=== PATIENT | male | born 1995 | race Caucasian/White ===

== ENCOUNTER 2023-04-03 15:46 | Inpatient (IN) | payer BC, MEDICAID, SELFPAY ==
[2023-04-03] VITALS (60 sets, daily range): BP systolic 58–154; BP diastolic 44–95; PULSE 91–123; RESP 9–36; TEMP 36; O2SAT 93–100
--- NOTE | 2023-04-03 15:45 | RT.EKG_ITS ---
APPROVED REPORT Exam: Resting ECG Reason for Exam: chest pain Patient Location: E HR:112 bpm ECG Measurements Heart Rate 112 AXIS IA 123 P 52 QRSd 108 QRS 45 QT 332 T -20 QTc 453 Conclusion Sinus tachycardia...rate> 99 Sinus tachycardia at a rate of 112 with interventricular conduction delay. Normal axis. IA and QTc is within normal limits. T wave inversion in aVF. No acute injury pattern. No prior for comparison .
--- NOTE | 2023-04-03 15:56 | ED.GENADUL_ITS ---
Discharge Plan Disposition Patient Disposition: Admit to [facility] Condition: Stable Discharge Details Clinical Impression: Ground glass opacity present on imaging of lung, Acute pancreatitis, SVT (supraventricular tachycardia) Admit Date/Time: 04/03/23 20:34 Admit Provider: Clarissa Lema Attending Provider: Clarissa Lema Primary Care Provider: None,None ED Provider: Drew Sullivan Discharge Data Discharge Date/Time-TO BE ENTERED AT DEPARTURE: 04/03/23 22:01 Medical Decision Making Patient presenting to the emergency department for chief complaint of epigastric pain and discomfort with nausea vomiting and chills. Patient states this is similar to previous episodes of pancreatitis which she states started after getting COVID. Initially was brought on by question of alcoholism but patient reports that he is not drinking and has no new medications foods or other contributing factors. He does have oral Dilaudid that he attempted to take yesterday evening which he was unable to tolerate due to his nausea and vomiting along with his metoprolol and Zofran which she normally takes for his flareups. Physical exam shows significant epigastric tenderness, normal cardiac and respiratory exam, no CVA tenderness, and exam otherwise unremarkable. We will plan on checking labs and CT imaging given patient's history and report of severe pain. Will perform EKG due to noted tachycardia on review of vital signs and patient not able to tolerate his p.o. medications for history of SVT. Pending results of labs and CT imaging will give patient fluids, hydromorphone, and Zofran along with some IV metoprolol due to heart rate noted in the 130s and 40s on monitor. Please see physician interpretation for full interpretation of EKG but upon my review patient is in sinus tachycardia, does not qualify or meet any criteria for acute STEMI. We will continue to monitor. Review of patient's labs show a normal CBC, CMP does show significant anion gap of 15.4, glucose of 117, slightly elevated ALT of 68 otherwise all labs are within normal range including a lipase of 36. CT imaging does show pancreatic inflammation consistent with acute pancreatitis. There is noted by radiology some patchy groundglass opacities right middle and lingular regions of the lungs they do note though that these are nonspecific and may represent other processes. Patient has no respiratory complaints at this time. There are also noted other nonspecific issues within the GI tract. Patient still having significant pain and discomfort so we will give additional dose of Dilaudid which is now his third dose. We will continue fluids which he is got a total of 2 L and will plan on admitting for acute pancreatitis. Hospitalist agreed for admission which patient was also in agreement of this. Patient was given 1 more additional dose of metoprolol given that he was slightly tachycardic but heart rate had improved to 110. Imaging Data Radiologic Study: Imaging: CT Scan Radiologist's impression: Exam(s) PROCEDURE INFORMATION: Exam: CT Abdomen And Pelvis With Contrast Exam date and time: 04/03/2023 6:26 PM Age: 27 years old Clinical indication: Abdominal pain; Patient HX: Epigastric pain, HX of pancreetitis TECHNIQUE: Imaging protocol: Computed tomography of the abdomen and pelvis with contrast. Radiation optimization: All CT scans at this facility use at least one of these dose optimization techniques: automated exposure control; mA and/or kV adjustment per patient size (includes targeted exams where dose is matched to clinical indication); or iterative reconstruction. Contrast material: OMNIPAQUE 350; Contrast volume: 100 ml; Contrast route: INTRAVENOUS (IV); COMPARISON: No relevant prior studies available. FINDINGS: Lungs: Scattered patchy ground-glass opacities within the right middle and lingular regions of the lungs. These findings are nonspecific and may represent hypoventilatory change,edema, hemorrhage, or an infectious/inflammatory process (acute or chronic). The lungs are otherwise normal. Pleural spaces: There is no evidence of pneumothorax. There are no pleural effusions present. Heart: The cardiac structures are normal. Liver: The liver is enlarged measuring 20 cm. There is a diffuse decrease in hepatic parenchymal density, consistent with moderate fatty infiltration. There is no evidence of intrahepatic or extrahepatic biliary ductal dilation. Gallbladder and bile ducts: The gallbladder is normal. There is no cholelitiasis, wall thickening or pericholecystic fluid to suggest cholecystitis. Pancreas: The pancreas is normal. There is diffuse peripancreatic inflammatory stranding and fluid, consistent with acute pancreatitis. Spleen: The spleen is enlarged but otherwise normal. Adrenal glands: Normal. No mass. Kidneys and ureters: Nonobstructing calculus present within the lower pole of the right kidney. The kidneys are otherwise normal. Stomach and bowel: There is no evidence of intestinal obstruction. There are fluid-filled loops of small bowel with air-fluid levels. No significant bowel wall thickening or inflammatory changes. No evidence of obstruction. Consider early enteritis. Consider ileus secondary to pancreatitis. Appendix: There is no evidence of appendicitis. Intraperitoneal space: There is no evidence of free intraperitoneal or pelvic fluid. Vasculature: The aorta is unremarkable without evidence of significant atherosclerosis or aneurysmal disease. The peripheral arterial vascular system visualized is unremarkable. The portal venous system visualized is unremarkable. The peripheral venous vascular system visualized is unremarkable. Lymph nodes: There is no evidence of lymphadenopathy. There are enlarged nonspecific lymph nodes in the mesenteric fat. This nonspecific mesenteric adenitis can be secondary to a variety of bacterial, viral, or other inflammatory processes. Urinary bladder: The bladder is normal. Reproductive: The prostate gland and seminal vesicles are normal. Bones/joints: The skeletal structures and soft tissues show no evidence of fracture or other acute processes. Soft tissues: The extra-abdominal soft tissues are normal. IMPRESSION: 1. There is diffuse peripancreatic inflammatory stranding and fluid, consistent with acute pancreatitis. There is no free intraperitoneal air. 2. Scattered patchy ground-glass opacities within the right middle and lingular regions of the lungs. These findings are nonspecific and may represent hypoventilatory change,edema, hemorrhage, or an infectious/inflammatory process (acute or chronic). 3. There are fluid-filled loops of small bowel with air-fluid levels. No significant bowel wall thickening or inflammatory changes. No evidence of obstruction. Consider early enteritis. Consider ileus secondary to pancreatitis. 4. There are enlarged nonspecific lymph nodes in the mesenteric fat. This nonspecific mesenteric adenitis can be secondary to a variety of bacterial, viral, or other inflammatory processes. Dictated and Authenticated by: Cheng Griffin MD. Ordering:MATT Russell MD [facility] Mode of arrival: ambulatory . Date/Time Provider Initiated Documentation: 04/03/23 15:51 . Limitations to Documentation: no limitations . Information obtained by: patient and RN notes reviewed . History of Present Illness 27 year old M presents to the emergency department with the chief complaint of Epigastric and abdominal pain, described as moderate and similar to prior episodes, with intensity rated at 9. Quality is described as aching and sharp, and is localized to the abdomen. Patient reports no radiation. Patient started experiencing this day(s) (1) and it has been constant. No relieving factors improve symptom(s), No exacerbating factors reported . Patient did receive the following treatments prior to arrival, other (Attempted normally prescribed meds with inability to tolerate due to vomiting) Related Data Home Medications Medication Instructions Recorded Confirmed hydromorphone 2 mg tablet 2 mg PO PRN PRN Severe Pain (Scale 04/03/23 04/03/23 (Dilaudid) Score 7-10) melatonin 1 mg tablet 1 mg PO HS 04/03/23 04/03/23 metoprolol succinate 100 mg 200 mg PO DAILY 04/03/23 04/03/23 capsule sprinkle, ext. release 24 hr ondansetron 4 mg disintegrating 4 mg PO DAILY PRN 04/03/23 04/03/23 tablet Allergies Allergy/AdvReac Type Severity Reaction Status Date / Time droperidol AdvReac Cardiac Unverified 04/03/23 16:33 Dysrhythmia haloperidol [From Haldol] AdvReac Diarrhea Unverified 04/03/23 16:31 General Stated Complaint: Chest Pain PRITI: 3 Review of Systems Constitutional Constitutional: Reports chills, Denies fever(s), Reports headache(s) and Reports malaise ENT Ears, Nose, Mouth, and Throat: Reports headache(s) Cardiovascular Cardiovascular: Denies chest pain and Denies dyspnea Respiratory Respiratory: Denies cough and Denies dyspnea Gastrointestinal Gastrointestinal: Reports as per HPI, Reports abdominal pain, Denies melena, Denies hematochezia, Denies change in bowel habits, Denies constipation, Reports diarrhea, Reports nausea, Reports vomiting and Denies hematemesis Genitourinary Genitourinary: Denies hematuria and Denies difficulty urinating Integumentary/Breasts Skin/Breast: Denies rash Neurologic Neurologic: Reports headache(s) PFSH All Active Problems (Updated 04/04/23 @ 15:48 by Drew Sullivan NP) Obesity (Chronic) Dependence on nocturnal oxygen therapy (Acute) Obstructive sleep apnea (Chronic) Ileus (Acute) Ground glass opacity present on imaging of lung (Acute) Discharge planning issues (Acute) DVT prophylaxis (Acute) Hypertriglyceridemia (Acute) Acute pancreatitis (Acute) SVT (supraventricular tachycardia) (Chronic) Medical History (Updated 04/04/23 @ 15:48 by Drew Sullivan NP) Duodenitis DVT (deep venous thrombosis) Pancreatitis Pulmonary embolism 2020 post COVID-19; finished 3 months of anticoagulation with eliquis Surgical History (Updated 04/04/23 @ 00:33 by Clarissa Lema MD) H/O esophagogastroduodenoscopy H/O tooth extraction History of biopsy negative retroperitoneal biopsy (ruled out retroperitoneal fibrosis) Hx of appendectomy S/P colonoscopy Family History (Updated 04/04/23 @ 00:35 by Clarissa Lema MD) Mother Heart disease Had stents placed in her 30s Diabetes Maternal Grandfather Stroke Hypertension Maternal Aunt Cancer brain cancer Maternal Cousin Lupus Father Crohn disease Social History (Updated 04/04/23 @ 00:36 by Clarissa Lema MD) Smoking/Tobacco Use Status: Former Tobacco Use tobacco type: cigarettes Pack- years: 1 Tobacco: How many years used: 3 Smoking risk assessment performed?: Yes Alcohol Intake: former Substance use type: does not use Do you feel safe at home: Yes Do you feel safe in your relationship?: Yes Exam Const General: cooperative Orientation: alert, awake and oriented x3 Resp Effort & Inspection: normal respiratory effort and able to speak in complete sentences Auscultation: clear to auscultation bilaterally Cardio Rate: tachycardic Rhythm: regular rhythm Heart Sounds: S1 normal and S2 normal GI Inspection: normal to inspection and no abdominal wall ecchymosis Palpation: soft, no hepatosplenomegaly, not firm, no guarding, no masses, no pulsatile masses, not rigid, no splenomegaly and tender in the epigastrum, in the LUQ and in the RUQ; not at McBurney's point and Dominguez's sign negative Auscultation: normal bowel sounds Back/Spine/Pelvis Back: no CVA tenderness Neuro General: patient alert, patient awake, patient oriented x3, gait normal and moves all extremities Course Vital Signs Vital signs: Temperature Source Oral 04/03/23 15:51 Respiratory Effort Normal, Non-Labored 04/03/23 15:53 Blood Pressure Position Sitting 04/03/23 15:51 Oxygen Delivery Method Room Air 04/03/23 15:51 Oxygen Flow Rate 0 04/03/23 15:51 Pain Level 10 04/03/23 15:51
--- NOTE | 2023-04-03 16:00 | DI.CT_ITS ---
Exam(s) CT ABDOMEN PELVIS W EXAM: CT ABDOMEN PELVIS W CLINICAL HISTORY: epigastric pain hx of pancretitis. TECHNIQUE: Imaging Protocol: Axial computed tomography images with coronal and sagittal reformatted images were created and reviewed CONTRAST MATERIAL: Intravenous: Omnipaque 350 Contrast volume:100 ml Oral: / no COMPARISON: No exams were available for comparison FINDINGS: ABDOMEN: Lung Bases: Patchy density seen in the right middle lobe anteriorly on the 1st image through the lung s, nonspecific. Liver: Enlarged. Marked fatty infiltration. No measurable mass. Gallbladder and biliary tract: No radiodense calculus or dilation. Pancreas: Inflammation around the head of the pancreas. No pseudocyst. Spleen: Normal. Kidneys: Normal size, contour and axis. Tiny nonobstructing stone right kidney. No suspicious masses seen. Retroaortic left renal vein. Adrenal glands: No masses seen. Abdominal Aorta: Abdominal portion non-dilated. Soft tissues: Unremarkable. PELVIS: Bladder: Nearly empty. No gross wall thickening. No calculi.No focal mass. Bowel: No obstruction. Mild wall thickening of the duodenum adjacent to the pancreatic head seconda ry to pancreatitis. No evidence of appendicitis. Peritoneal cavity: No ascites or collection. Inflammation in the mesentery of the upper abdomen rela audrey to pancreatic inflammation. Bones: Unremarkable for age. Reproductive organs: Within normal limits. Lymph nodes: Mildly enlarged mesenteric nodes could be reactive. Impression: Findings consistent with pancreatitis. No pseudocyst. No biliary dilatation or gallstones. Marked hepatic steatosis. RADIATION DOSE DELIVERED: 1,535.03mGy.cm Total DLP DATA REPOSITORY: All CT scans at this facility are submitted to the National Radiology Data Registry (NRDR) Dose Index Registry (DIR) with the [employer] ([employer]). RADIATION OPTIMIZATION: All CT scans at this facility use at least one of these dose optimization te chniques: automated exposure control; mA and/or kV adjustment per patient size (includes targeted exa ms where dose is matched to clinical indication); or iterative reconstruction.
[2023-04-03] MEDS: Ondansetron 4 MG/2 ML VIAL 8 MG IVP (16:41)
[2023-04-03] MEDS: HYDROmorphone 2 MG/ML SYR 1 MG IVP (16:45)
[2023-04-03] MEDS: Metoprolol 5 MG/5 ML VIAL 2.5 MG IVP ×2 (16:46→20:47)
[2023-04-03] MEDS: Normal Saline 1,000 ML 1000 ML IV ×2 (16:55→19:25)
[2023-04-03] MEDS: FAMOTIDINE 20 MG in Normal Saline 100 ML 400 MG IVPB (16:59)
[2023-04-03 17:02] LABS: Abs Immature Grans 0.02 10^3/uL (0.0-0.06); Absolute Basophil Count 0.07 10^3/uL (0.0-0.2); Absolute Lymphocyte Count 2.04 10^3/uL (1.2-3.4); Absolute Neutrophil Count 6.44 10^3/uL (1.2-6.7); Basophils % 0.7; Eosinophils % 1.1; HCT 46.1 % (40.0-50.0); Immature Grans % 0.2; Lymphocytes % 21.8; MCH 28.2 pg (27.0-33.0); MCHC 34.7 % (32.0-36.0); MCV 81 fL (80-95); MPV 9.7 fL (8.0-11.0); Monocytes % 7.5; Neutrophils % 68.7; Platelet Count 289 10^3/uL (130-400); RBC 5.68 10^6/uL (4.36-5.78); RDW 12.8 % (11.8-14.1); RDW-SD 37.5 fL; WBC 9.37 10^3/uL (4.4-10.8)
[2023-04-03 17:25] LABS: ALT 68 U/L (16-63); AST 27 U/L (15-37); Albumin 4.2 g/dL (3.4-5.0); Alkaline Phosphatase 83 U/L (46-116); Anion Gap 15.4 mmol/L (3-11); BUN 12 mg/dL (7-18); Bilirubin, Total 0.8 mg/dL (0.2-1.0); CO2 22.6 mmol/L (21.0-32.0); CREATININE 0.8 mg/dL (0.70-1.30); Calcium 9.6 mg/dL (8.5-10.1); Chloride 102 mmol/L (98-107); Estimated GFR 122.86 (mL/min/1.73m2); Glucose 117 mg/dL (74-106); Lipase 36 U/L (16-77); Magnesium 1.9 mg/dL (1.8-2.4); Potassium 3.6 mmol/L (3.5-5.1); Sodium 140 mmol/L (136-145); Total Protein 7.9 g/dL (6.4-8.2)
[2023-04-03] MEDS: HYDROmorphone 2 MG/ML SYR IVP ×3 (17:43→22:36)
--- OUTSIDE RECORDS SUMMARY | 2023-04-03 17:55 | XMS_ITS | Continuity of Care Document ---
Author Name Unknown Organization 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 Name Role Phone MARLEN PINA Primary Care Physician [phone] Encounter BVT Date(s): 01/15/23 - 01/15/[address] [address]- [phone] Discharge Disposition: Home or Self Care Attending Physician: LUDMILA GALINDO Admitting Physician: LUDMILA GALINDO Allergies, Adverse Reactions, Alerts Substance Reaction Severity Status ketamine Severe Active FLUoxetine Mild Active Assessment and Plan Extracted from: Title:Addendum *ED Author:Choco Thayer Date:01/15 Medical Decision Making 27-year-old male with a past medical history significant for recurrent episodes of pancreatitis and a remote history of complicated admission for COVID-19 in 2019 who presents with repeat discomfort. The patient was evaluated by this physician on January 05. At that time, a CT angiogram of the chest, abdomen and pelvis was obtained which showed no evidence of aortic dissection. The patient was at mated to the hospital at that time for further symptomatic management. He was discharged from this facility 5 days ago. He is followed by [facility]. Overnight, labs were obtained. The patient has no significant leukocytosis. His lipase is normal at 32. No transaminitis. Ethanol unremarkable. He was treated symptomatically and given his persistent symptoms Dr. Galindo discussed the case with the admitting team who advised further observation for symptomatic management in the emergency department and hydration. The patient was given droperidol as well as additional fluids. Will reassess. Reexamination/ Reevaluation Time: 01/15/2023 10:09:00 . Vital signs Basic Oxygen Information 01/15/2023 6:49 EDT Oxygen Therapy Nasal cannula Oxygen Flow Rate 4 L/min 01/15/2023 3:25 EDT Oxygen Therapy Room air Notes: I reevaluated the patient. He recently ambulated in the [facility] independently. He was in no acute distress during my evaluation. He was lying on his right side. We will perform an oral challenge., 1044 The patient was able to tolerate oral intake. He states that he feels ready to go. He informed the nursing staff that he would be ready to go if I could write for him some oral pain medication.. Impression and Plan Diagnosis Nausea and vomiting Chronic abdominal pain Plan Disposition: Discharged: to home. Patient was given the following educational materials: Abdominal Pain, Adult, Abdominal Pain, Adult. Follow up with: MARLEN PINA Within 2 to 4 days Call for followup appointment; Please call your sanitation manager at [facility] today to schedule your follow-up appointment. Within 1 to 2 days Call for followup appointment. Counseled: Patient. Extracted from: Title:General Medical Problem *ED Author:LUDMILA GALINDO Date:01/15/23 History of Present Illness This is a 27-year-old male with a history of recurrent pancreatitis status post COVID infection presenting to the emergency department with 2-day history of epigastric abdominal pain, nausea and vomiting consistent with his prior episodes of pancreatitis. Patient was recently admitted in this emergency department from 01/08 to 01/10 for similar symptoms. Please see notes on those states for complete details of that encounter. Briefly, patient has had 8-10 bouts of pancreatitis status post COVID infection with no clear etiology. Patient denies any history of alcohol or drug use. He has had approximately 2 days of epigastric abdominal pain radiating to his back and shoulder. Is been associated with nausea and nonbloody nonbilious vomiting. Did have 1 episode of nonbloody diarrhea yesterday. He has had markedly limited p.o. intake secondary to the pain and nausea has been unable to tolerate his medicines at home. He has had low-grade temperature that is at baseline for him but no fevers. No other cough, cold, shortness of breath or known sick contacts. No other chest pain. No dysuria, no peripheral swelling. Review of Systems Negative except as noted in HPI Health Status Medications: (Selected) Inpatient Medications Ordered !-Zofran: 4 mg = 2 mL, IV Push, Once !-hydrocortisone 100 mg injection: 100 mg = 2 mL, IV Push, Once Dilaudid 1 mg/mL injectable solution: 1 mg = 1 mL, IV Push, q2hr, PRN: Pain Normal Saline: 1,000 mL, 1000 mL/hr, IV, Once Prescriptions Prescribed predniSONE 20 mg oral tablet: See Instructions, Take 2 tabs daily for 7 days, then 1 tab daily thereafter, 45 tab(s), 0 Refill(s) Documented Medications Documented !-Zofran 4 mg oral tablet: 4 mg = 1 tab(s), Oral, q8hr, PRN: Nausea/Vomiting, 0 Refill(s) Hydromorphone: 6 mg, Oral, q6hr, 0 Refill(s) MiraLax: 17 gm = 1 packet(s), Oral, Daily, 0 Refill(s) acetaminophen 325 mg oral tablet: 650 mg = 2 tab(s), Oral, q4hr, PRN: Pain/Fever, 0 Refill(s) dicyclomine 20 mg oral tablet: 20 mg = 1 tab(s), Oral, TID, 0 Refill(s) docusate-senna 50 mg-8.6 mg oral tablet: 2 tab(s), Oral, BID, PRN: Constipation, 0 Refill(s) gabapentin 100 mg oral capsule: 300 mg = 3 cap(s), Oral, TID, 0 Refill(s) melatonin: 10 mg, Oral, Once a day (at bedtime), 0 Refill(s) metoprolol extended release: 200 mg, Oral, Daily, 0 Refill(s) omeprazole 20 mg oral delayed release capsule: 20 mg = 1 cap(s), Oral, Daily, before a meal, 0 Refill(s) traZODone 50 mg oral tablet: 50 mg = 1 tab(s), Oral, Once a day (at bedtime), 0 Refill(s). Past Medical/ Family/ Social History Medical history: No active or resolved past medical history items have been selected or recorded.. Physical Examination Vital Signs Vital Signs 01/15/2023 3:25 EDT Temperature Temporal Artery 36.2 DegC LOW Peripheral Pulse Rate 106 bpm HI Respiratory Rate 20 br/min Systolic Blood Pressure 151 mmHg HI Diastolic Blood Pressure 99 mmHg HI SpO2 98 % . General: Alert. Skin: Warm, dry. Head: Atraumatic. Neck: Supple. Eye: Normal conjunctiva. Cardiovascular: Regular rate and rhythm. Respiratory: Lungs are clear to auscultation, respirations are non-labored, breath sounds are equal. Gastrointestinal: Soft, Non distended, Tenderness to palpation to right upper quadrant and epigastric region. No rebound, guarding or other peritoneal signs.. Neurological: Alert and oriented to person, place, time, and situation, No focal neurological deficit observed. Psychiatric: Cooperative. Medical Decision Making Results review: Lab results : Lab View 01/15/2023 3:59 EDT WBC 9.9 x10(3)/uL HI RBC 4.77 x10(6)/uL Hgb 14.0 gm/dL Hct 39.3 % LOW MCV 82.4 fL MCH 29.4 pg MCHC 35.6 gm/dL RDW-CV 13.2 % Platelet 268 x10(3)/uL MPV 9.5 fL Neutro Auto 56.9 % Lymph Auto 32.6 % [place] Auto 8.2 % Eos Auto 1.3 % Basophil Auto 0.6 % NRBC Auto Pct 0.00 % Neutro Absolute 5.65 x10(3)/uL HI Lymph Absolute 3.24 x10(3)/uL [place] Absolute 0.81 x10(3)/uL HI Eos Absolute 0.13 x10(3)/uL NRBC Absolute 0.00 x10(3)/uL Basophil Absolute 0.06 x10(3)/uL Immature Gran % 0.40 % Immature Gran Absolute 0.04 x10(3)/uL NA Sodium Lvl 138 mmol/L Potassium Lvl 3.5 mmol/L Chloride 102 mmol/L CO2 20 mmol/L LOW AGAP 19.5 mmol/L HI BUN 13 mg/dL Creatinine 0.60 mg/dL LOW Glucose Lvl 107 mg/dL HI Calcium Lvl 9.3 mg/dL Total Protein 6.9 gm/dL Albumin Lvl 4.20 gm/dL Alk Phos 56 IntUnit/L ALT 29 IntUnit/L AST 16 IntUnit/L Bili Total 0.7 mg/dL Lipase Lvl 32 IntUnit/L Osmolality 276.3 mOsm/kg eGFR CKD-EPI 134.01 mL/min/1.73 m2 . This is a 27-year-old male presenting to the emergency department with epigastric pain consistent with his prior episodes of pancreatitis. Patient was otherwise hemodynamically stable and clinically well-appearing with low concern for other serious bacterial infection. Patient was initially treated with IV Dilaudid, Zofran and IV fluids with minimal improvement in symptoms. Additional dosing of IV Dilaudid did help improve pain somewhat. Lab work without significant leukocytosis. Mild anion gap likely due to dehydration and poor p.o. intake otherwise reassuring CMP and lipase. Normal lab work consistent with prior episodes. Considered further evaluation with CT scan however as patient's presentation is pathognomonic for his prior episodes of pancreatitis do not feel further imaging is warranted at this time, likely given his multiple prior and recent CT scans. Discussed work-up to this point with the hospital medicine service. He has concerns about his significant work-up to this point and possible drug-seeking behavior given multiple hospitalizations at different hospitals. Review of patient's gastroenterology records reveals concern for more generalized abdominal pain syndrome versus true pancreatitis although the cause of his symptoms remains unclear. Discussed multiple hospitalizations with patient. Notes that he splits his time between [place] and [place] depending where he is for work and he is currently living in this part of the [place]. Per their request, will plan for additional fluid rehydration and trial of pain medications. Due to ongoing pain patient was treated with droperidol. We will reengage hospital medicine if symptoms not improve. Care was signed out to the hospital medicine service pending reevaluation. Impression and Plan Diagnosis Abdominal pain Functional Status 01/15/23 History of Fall in Last 3 Months Leatha khan Recent Travel History No recent travel Family Member Travel History No recent t jesus COVID-19 Screening None Medications !-Zofran 4 mg oral tablet 4 mg = 1 tab(s), Oral, q8hr, PRN PRN Nausea/Vomiting, 0 Refill(s) Start Date: 12/24/22 Status: Ordered acetaminophen 325 mg oral tablet 650 mg = 2 tab(s), Oral, q4hr, PRN PRN Pain/Fever, 0 Refill(s) Start Date: 01/10/23 Status: Ordered dicyclomine 20 mg oral tablet 20 mg = 1 tab(s), Oral, TID, 0 Refill(s) Start Date: 12/24/22 Status: Ordered docusate-senna 50 mg-8.6 mg oral tablet 2 tab(s), Oral, BID, PRN PRN Constipation, 0 Refill(s) Start Date: 12/24/22 Status: Ordered gabapentin 100 mg oral capsule 300 mg = 3 cap(s), Oral, TID, 0 Refill(s) Start Date: 12/24/22 Status: Ordered Hydromorphone 6 mg, Oral, q6hr, 0 Refill(s) Start Date: 01/15/23 Status: Ordered melatonin 10 mg, Oral, Once a day (at bedtime), 0 Refill(s) Start Date: 12/24/22 Status: Ordered metoprolol extended release 200 mg, Oral, Daily, 0 Refill(s) Start Date: 12/24/22 Status: Ordered MiraLax 17 gm 1 packet(s), Oral, Daily, 0 Refill(s) Start Date: 12/24/22 Status: Ordered omeprazole 20 mg oral delayed release capsule 20 mg = 1 cap(s), Oral, Daily, before a meal, 0 Refill(s) Start Date: 12/24/22 Status: Ordered predniSONE 20 mg oral tablet See Instructions, Take 2 tabs daily for 7 days, then 1 tab daily thereafter, # 45 tab(s), 0 Refill(s), Pharmacy: [facility], Take 2 tabs daily for 7 days, then 1 tab daily thereafter, 175.3, cm, 01/07/23 20:45:00 EST, Height/Length Dosing, 126.... Start Date: 01/10/23 Status: Ordered traZODone 50 mg oral tablet 50 mg = 1 tab(s), Oral, Once a day (at bedtime), 0 Refill(s) Start Date: 12/24/22 Status: Ordered Mental Status 01/15/23 Level of Consciousness Alert Problem List Condition Confirmation Course Effective Dates Status Health St [facility] Informant Recurrent acute pancreatitis Confirmed Active Back pain Confirmed Active GERD (gastroesophageal reflux disease) Confirmed Active Insomnia Confirmed Active Obesity Confirmed Active KAYLA (obstructive sleep apnea) Confirmed Active Pneumonia due to COVID-19 virus Confirmed Active Pulmonary embolism Confirmed Active Results Laboratory List Name Date Urinalysis with Culture, if indicated [facility] 01/15/23 Ethanol Level2 (Alcohol Level) 01/15/23 Urinalysis Microscopic Standard 01/15/23 Automated Differential Standard 01/15/23 CBC w/Diff Standard 01/15/23 Comprehensive Metabolic Panel Standard ( CMP Standard) 01/15/23 Lipase Level 01/15/23 Most recent to oldest [Reference Range]: 1 Urine Culture? No (01/15/23 9:55 AM) ETOH% <0.01 % *NA* (01/15/23 5:24 AM) eGFR CKD-EPI [>=60 mL/min/1.73 m2] 134.0 1 mL/min/1.73 m2 *NA* (01/15/23 3:59 AM) NRBC Auto Pct [0.00-0.20 %] 0.00 % (01/15/23 3:59 AM) Creatinine [0.70-1.20 mg/dL] 0.60 mg/dL *LOW* (01/15/23 3:59 AM) UA Bacteria [None Seen] None Seen (01/15/23 9:55 AM) UA Bili [NEGATIVE] NEGATIVE *NA* (01/15/23 9:55 AM) UA Blood [NEGATIVE] Trace *ABN* (01/15/23 9:55 AM) UA Color YELLOW *NA* (01/15/23 9:55 AM) UA Glucose [Negative] NEGATIVE *NA* (01/15/23 9:55 AM) UA Ketones TRACE *NA* (01/15/23 9:55 AM) UA Leuk Est [NEGATIVE] NEGATIVE (01/15/23 9:55 AM) UA Nitrite [NEGATIVE] NEGATIVE (01/15/23 9:55 AM) UA Protein [NEGATIVE] NEGATIVE (01/15/23 9:55 AM) UA RBC [0-2] 0-2 (01/15/23 9:55 AM) UA Urobilinogen [<1.0 mg/dL] 0.2 EU/dL (01/15/23 9:55 AM) UA WBC 0-2 (01/15/23 9:55 AM) AGAP [10.0-18.0 mmol/L] 19.5 mmol/L *HI* (01/15/23 3:59 AM) Ethanol Lvl [0.0-10.0 mg/dL] <10.0 mg/dL (01/15/23 5:24 AM) Glucose Lvl [70-100 mg/dL] 107 mg/dL *HI* (01/15/23 3:59 AM) Hct [40.1-51.0 %] 39.3 % *LOW* (01/15/23 3:59 AM) Hgb [13.7-17.5 gm/dL] 14.0 gm/dL (01/15/23 3:59 AM) Lipase Lvl [13-60 IntUnit/L] 32 IntUnit/ L (01/15/23 3:59 AM) Lymph Auto [15.0-45.0 %] 32.6 % (01/15/23 3:59 AM) MCH [25.6-32.2 pg] 29.4 pg (01/15/23 3:59 AM) MCHC [32.3-36.5 gm/dL] 35.6 gm/dL (01/15/23 3:59 AM) MCV [79.0-92.2 fL] 82.4 fL (01/15/23 3:59 AM) [place] Auto [4.0-14.0 %] 8.2 % (01/15/23 3:59 AM) MPV [9.4-12.4 fL] 9.5 fL (01/15/23 3:59 AM) Neutro Auto [50.0-75.0 %] 56.9 % (01/15/23 3:59 AM) Osmolality [268.0-291.0 mOsm/kg] 276.3 m Osm/kg (01/15/23 3:59 AM) Platelet [150-400 x10(3)/uL] 268 x10(3)/ uL (01/15/23 3:59 AM) RBC [4.63-6.08 x10(6)/uL] 4.77 x10(6)/uL (01/15/23 3:59 AM) Sodium Lvl [136-145 mmol/L] 138 mmol/L (01/15/23 3:59 AM) Total Protein [6.6-8.7 gm/dL] 6.9 gm/dL (01/15/23 3:59 AM) UA pH [4.6-8.0] 5.5 (01/15/23 9:55 AM) Albumin Lvl [3.50-5.20 gm/dL] 4.20 gm/dL (01/15/23 3:59 AM) Alk Phos [40-130 IntUnit/L] 56 IntUnit/L (01/15/23 3:59 AM) ALT [0-41 IntUnit/L] 29 IntUnit/L (01/15/23 3:59 AM) AST [0-40 IntUnit/L] 16 IntUnit/L (01/15/23 3:59 AM) Basophil Auto [0.0-2.0 %] 0.6 % (01/15/23 3:59 AM) Bili Total [0.0-1.3 mg/dL] 0.7 mg/dL (01/15/23 3:59 AM) CO2 [22-29 mmol/L] 20 mmol/L *LOW* (01/15/23 3:59 AM) Eos Auto [0.0-8.0 %] 1.3 % (01/15/23 3:59 AM) UA Spec Grav [1.000-1.035] 1.020 (01/15/23 9:55 AM) WBC [4.2-9.1 x10(3)/uL] 9.9 x10(3)/uL *HI* (01/15/23 3:59 AM) BUN [6-23 mg/dL] 13 mg/dL (01/15/23 3:59 AM) Calcium Lvl [8.6-10.2 mg/dL] 9.3 mg/dL (01/15/23 3:59 AM) Chloride [98-107 mmol/L] 102 mmol/L (01/15/23 3:59 AM) Potassium Lvl [3.5-5.1 mmol/L] 3.5 mmol/ L (01/15/23 3:59 AM) Micro? [Not Indicated] Indicated *ABN* (01/15/23 9:55 AM) Lymph Absolute [1.30-3.60 x10(3)/uL] 3.2 4 x10(3)/uL (01/15/23 3:59 AM) [place] Absolute [0.30-0.80 x10(3)/uL] 0.81 x10(3)/uL *HI* (01/15/23 3:59 AM) Eos Absolute [0.04-0.36 x10(3)/uL] 0.13 x10(3)/uL (01/15/23 3:59 AM) NRBC Absolute [0.00-0.01 x10(3)/uL] 0.00 x10(3)/uL (01/15/23 3:59 AM) UA Clarity CLEAR *NA* (01/15/23 9:55 AM) Neutro Absolute [1.78-5.38 x10(3)/uL] 5. 65 x10(3)/uL *HI* (01/15/23 3:59 AM) RDW-CV [11.6-14.4 %] 13.2 % (01/15/23 3:59 AM) UA Squam Epi Few *ABN* (01/15/23 9:55 AM) Immature Gran % [0.00-2.30 %] 0.40 % (01/15/23 3:59 AM) Immature Gran Absolute 0.04 x10(3)/uL *NA* (01/15/23 3:59 AM) Basophil Absolute [0.00-0.10 x10(3)/uL] 0.06 x10(3)/uL (01/15/23 3:59 AM) Vital Signs Most recent to oldest [Reference Range]: 1 2 3 Temperature Temporal Artery [36.3-37.8 DegC] 36.2 DegC *LOW* (01/15/23 3:25 AM) Peripheral Pulse Rate [60-100 bpm] 98 bpm (01/15/23 9:55 AM) 109 bpm *HI* (01/15/23 9:46 AM) 115 bpm *HI* (01/15/23 9:43 AM) Respiratory Rate [14-20 br/min] 20 br/min (01/15/23 3:25 AM) Blood Pressure [90-140/60-90 mmHg] 135/97mmHg (01/15/23 9:55 AM) 147/102mmHg *HI* (01/15/23 5:54 AM) 133/96mmHg (01/15/23 5:00 AM) Mean Arterial Pressure, Cuff [70-110 mmHg] 110 mmHg (01/15/23 9:55 AM) 117 mmHg *HI* (01/15/23 5:54 AM) 108 mmHg (01/15/23 5:00 AM) Mean Arterial Pressure Cuff-Monitor 110 mmHg (01/15/23 9:55 AM) 112 mmHg (01/15/23 5:54 AM) 108 mmHg (01/15/23 5:00 AM) SpO2 [92-100 %] 97 % (01/15/23 9:55 AM) 95 % (01/15/23 9:46 AM) 96 % (01/15/23 9:43 AM) SpO2 Location Right hand (01/15/23 6:49 AM) Height/Length Estimated 175.000 cm (01/15/23 3:25 AM) Height/Length Dosing 175.000 cm (01/15/23 3:30 AM) Weight Estimated 128.000 kg (01/15/23 3:25 AM) Weight Dosing 128.000 kg (01/15/23 3:30 AM) Social History Social History Type Response Tobacco Never tobacco user T obacco Use:. Sex Hospital Discharge Instructions Patient Education 01/15/2023 10:51:32 Abdominal Pain, Adult You were seen in the emergency department for your abdominal pain. Your pancreatic levels were normal today. Your symptoms were treated in the emergency department with some improvement. Please continue with clear liquids that contain sugar while at home. At this time, no emergent causes were identified. However, no evaluation is perfect. Therefore, please be sure to return to the emergency department for any worsening of symptoms, continued symptoms, or new symptoms. Please be sure to follow-up with your doctor in 2 - 3 days as well as your sanitation manager at [facility]. Please call your sanitation manager today to schedule this appointment. Abdominal Pain, Adult Pain in the abdomen (abdominal pain) can be caused by many things. Often, abdominal pain is not serious and it gets better with no treatment or by being treated at home. However, sometimes abdominal pain is serious. Your health care provider will ask questions about your medical history and do a physical exam to try to determine the cause of your abdominal pain. Follow these instructions at home: Medicines ??? Take xuub-iyq-wlbxxbb and prescription medicines only as told by your health care provider. ??? Do not take a laxative unless told by your health care provider. General instructions ??? Watch your condition for any changes. ??? Drink enough fluid to keep your urine pale yellow. ??? Keep all follow-up visits as told by your health care provider. This is important. Contact a health care provider if: ??? Your abdominal pain changes or gets worse. ??? You are not hungry or you lose weight without trying. ??? You are constipated or have diarrhea for more than 2???3 days. ??? You have pain when you urinate or have a bowel movement. ??? Your abdominal pain wakes you up at night. ??? Your pain gets worse with meals, after eating, or with certain foods. ??? You are vomiting and cannot keep anything down. ??? You have a fever. ??? You have blood in your urine. Get help right away if: ??? Your pain does not go away as soon as your health care provider told you to expect. ??? You cannot stop vomiting. ??? Your pain is only in areas of the abdomen, such as the right side or the left lower portion of the abdomen. Pain on the right side could be caused by appendicitis. ??? You have bloody or black stools, or stools that look like tar. ??? You have severe pain, cramping, or bloating in your abdomen. ??? You have signs of dehydration, such as: ??? Dark urine, very little urine, or no urine. ??? Cracked lips. ??? Dry mouth. ??? Sunken eyes. ??? Sleepiness. ??? Weakness. ??? You have trouble breathing or chest pain. Summary ??? Often, abdominal pain is not serious and it gets better with no treatment or by being treated at home. However, sometimes abdominal pain is serious. ??? Watch your condition for any changes. ??? Take asbs-poi-nkxlwty and prescription medicines only as told by your health care provider. ??? Contact a health care provider if your abdominal pain changes or gets worse. ??? Get help right away if you have severe pain, cramping, or bloating in your abdomen. This information is not intended to replace advice given to you by your health care provider. Make sure you discuss any questions you have with your health care provider. Document Revised: 12/10/2020 Document Reviewed: 03/01/2020 [email or web address] Patient Education ?? 2021 [employer]. Follow Up Care 01/15/2023 03:19:54 With:Please call your sanitation manager at [facility] today to schedule your follow-up appointment. Address:Unknown When:1 to 2 days Comments:Call for followup appointment With:MARLEN PINA Address: [place] [phone] Business (1) When:2 to 4 days Comments:Call for followup appointment Physician Emergency department Note * Choco Thayer: PERFORM, MODIFY, MODIFY, SIGN, VERIFY Event Display: ED Note - Physician Authored Date: [id number] Patient: [place] SOW Age: 27 years Sex: Male : 1995 Associated Diagnoses: None Author: Choco Thayer Basic Information Addendum: Assumed care from: LUDMILA GALINDO. Medical Decision Making 27-year-old male with a past medical history significant for recurrent episodes of pancreatitis nahomi remote history of complicated admission for COVID-19 in 2019 who presents with repeat discomfort.The patient was evaluated by this physician on January 05. At that time, a CT angiogram of the chest, abdomen and pelvis was obtained which showed no evidence of aortic dissection. The patient was at mated to the hospital at that time for further symptomatic management. He was discharged from this facility 5 days ago. He is followed by [facility]. Overnight, labs were obtained. The patient has no significant leukocytosis. His lipase is normal at 32. No transaminitis. Ethanol unremarkable . He was treated symptomatically and given his persistent symptoms Dr. Galindo discussed the case with the admitting team who advised further observation for symptomatic management in the emergency department and hydration. The patient was given droperidol as well as additional fluids. Will reassess. Reexamination/ Reevaluation Time: 01/15/2023 10:09:00 . Vital signs Basic Oxygen Information 01/15/2023 6:49 EDT Oxygen Therapy Nasal cannula Oxygen Flow Rate 4 L/min 01/15/2023 3:25 EDT Oxygen Therapy Room air Notes: I reevaluated the patient. He recently ambulated in the [facility] independently. He was in no acute distress during my evaluation. He was lying on his right side. We will perform an oral challenge., 1044 The patient was able to tolerate oral intake. He states that he feels ready to go. He informed the nursing staff that he would be ready to go if I could write for him some oral pain medication.. Impression and Plan Diagnosis Nausea and vomiting Chronic abdominal pain Plan Disposition: Discharged: to home. Patient was given the following educational materials: Abdominal Pain, Adult, Abdominal Pain, Adult. Follow up with: MARLEN PINA Within 2 to 4 days Call for followup appointment; Please call your sanitation manager at [facility] today to schedule your follow-up appointment. Within 1 to 2 days Call for followup appointment. Counseled: Patient. [Electronically Signed on: 01/15/2023 12:55 EDT] Choco Thayer [Verified on: 01/15/2023 12:55 EDT] Choco Thayer * LUDMILA GALINDO: MODIFY, SIGN, VERIFY, MODIFY, SIGN, PERFORM Event Display: ED Note - Physician Authored Date: [id number] Patient: [place] SOW Age: 27 years Sex: Male : 1995 Associated Diagnoses: None Author: LUDMILA GALINDO Basic Information Additional information: Chief Complaint from Nursing Triage Note : Chief Complaint 01/15/2023 3:25 EDT Chief Complaint Pt presents to ED with upper abdominal pain that has been going on for two days. Pt reports recent admission to this facility for pancreatits. Pt endorses nausea and vomiting, insomnia. Chronic pancreatitis since infected with COVID . History of Present Illness This is a 27-year-old male with a history of recurrent pancreatitis status post COVID infection presenting to the emergency department with 2-day history of epigastric abdominal pain, nausea and vomiting consistent with his prior episodes of pancreatitis. Patient was recently admitted in this emergency department from 01/08 to 01/10 for similar symptoms. Please see notes on those states for complete details of that encounter. Briefly, patient has had 8-10 bouts of pancreatitis status post COVID infection with no clear etiology. Patient denies any history of alcohol or drug use. He has had approximately 2 days of epigastric abdominal pain radiating to his back and shoulder. Is been associated with nausea and nonbloody nonbilious vomiting. Did have 1 episode of nonbloody diarrhea yesterday. He has had markedly limited p.o. intake secondary to the pain and nausea has been unable to tolerate his medicines at home. He has had low-grade temperature that is at baseline for him but no fevers. No other cough, cold, shortness of breath or known sick contacts. No other chest pain. No dysuria, no peripheral swelling. Review of Systems Negative except as noted in HPI Health Status Medications: (Selected) Inpatient Medications Ordered !-Zofran: 4 mg = 2 mL, IV Push, Once !-hydrocortisone 100 mg injection: 100 mg = 2 mL, IV Push, Once Dilaudid 1 mg/mL injectable solution: 1 mg = 1 mL, IV Push, q2hr, PRN: Pain Normal Saline: 1,000 mL, 1000 mL/hr, IV, Once Prescriptions Prescribed predniSONE 20 mg oral tablet: See Instructions, Take 2 tabs daily for 7 days, then 1 tab daily thereafter, 45 tab(s), 0 Refill(s) Documented Medications Documented !-Zofran 4 mg oral tablet: 4 mg = 1 tab(s), Oral, q8hr, PRN: Nausea/Vomiting, 0 Refill(s) Hydromorphone: 6 mg, Oral, q6hr, 0 Refill(s) MiraLax: 17 gm = 1 packet(s), Oral, Daily, 0 Refill(s) acetaminophen 325 mg oral tablet: 650 mg = 2 tab(s), Oral, q4hr, PRN: Pain/Fever, 0 Refill(s) dicyclomine 20 mg oral tablet: 20 mg = 1 tab(s), Oral, TID, 0 Refill(s) docusate-senna 50 mg-8.6 mg oral tablet: 2 tab(s), Oral, BID, PRN: Constipation, 0 Refill(s) gabapentin 100 mg oral capsule: 300 mg = 3 cap(s), Oral, TID, 0 Refill(s) melatonin: 10 mg, Oral, Once a day (at bedtime), 0 Refill(s) metoprolol extended release: 200 mg, Oral, Daily, 0 Refill(s) omeprazole 20 mg oral delayed release capsule: 20 mg = 1 cap(s), Oral, Daily, before a meal, 0 Refill(s) traZODone 50 mg oral tablet: 50 mg = 1 tab(s), Oral, Once a day (at bedtime), 0 Refill(s). Past Medical/ Family/ Social History Medical history: No active or resolved past medical history items have been selected or recorded.. Physical Examination Vital Signs Vital Signs 01/15/2023 3:25 EDT Temperature Temporal Artery 36.2 DegC LOW Peripheral Pulse Rate 106 bpm HI Respiratory Rate 20 br/min Systolic Blood Pressure 151 mmHg HI Diastolic Blood Pressure 99 mmHg HI SpO2 98 % . General: Alert. Skin: Warm, dry. Head: Atraumatic. Neck: Supple. Eye: Normal conjunctiva. Cardiovascular: Regular rate and rhythm. Respiratory: Lungs are clear to auscultation, respirations are non-labored, breath sounds are equal. Gastrointestinal: Soft, Non distended, Tenderness to palpation to right upper quadrant and epigastric region. No rebound, guarding or other peritoneal signs.. Neurological: Alert and oriented to person, place, time, and situation, No focal neurological deficit observed. Psychiatric: Cooperative. Medical Decision Making Results review: Lab results : Lab View 01/15/2023 3:59 EDT WBC 9.9 x10(3)/uL HI RBC 4.77 x10(6)/uL Hgb 14.0 gm/dL Hct 39.3 % LOW MCV 82.4 fL MCH 29.4 pg MCHC 35.6 gm/dL RDW-CV 13.2 % Platelet 268 x10(3)/uL MPV 9.5 fL Neutro Auto 56.9 % Lymph Auto 32.6 % [place] Auto 8.2 % Eos Auto 1.3 % Basophil Auto 0.6 % NRBC Auto Pct 0.00 % Neutro Absolute 5.65 x10(3)/uL HI Lymph Absolute 3.24 x10(3)/uL [place] Absolute 0.81 x10(3)/uL HI Eos Absolute 0.13 x10(3)/uL NRBC Absolute 0.00 x10(3)/uL Basophil Absolute 0.06 x10(3)/uL Immature Gran % 0.40 % Immature Gran Absolute 0.04 x10(3)/uL NA Sodium Lvl 138 mmol/L Potassium Lvl 3.5 mmol/L Chloride 102 mmol/L CO2 20 mmol/L LOW AGAP 19.5 mmol/L HI BUN 13 mg/dL Creatinine 0.60 mg/dL LOW Glucose Lvl 107 mg/dL HI Calcium Lvl 9.3 mg/dL Total Protein 6.9 gm/dL Albumin Lvl 4.20 gm/dL Alk Phos 56 IntUnit/L ALT 29 IntUnit/L AST 16 IntUnit/L Bili Total 0.7 mg/dL Lipase Lvl 32 IntUnit/L Osmolality 276.3 mOsm/kg eGFR CKD-EPI 134.01 mL/min/1.73 m2 . This is a 27-year-old male presenting to the emergency department with epigastric pain consistent with his prior episodes of pancreatitis. Patient was otherwise hemodynamically stable and clinically well-appearing with low concern for other serious bacterial infection. Patient was initially treated with IV Dilaudid, Zofran and IV fluids with minimal improvement in symptoms. Additional dosing of IV Dilaudid did help improve pain somewhat. Lab work without significant leukocytosis. Mild anion gap likely due to dehydration and poor p.o. intake otherwise reassuring CMP and lipase. Normal lab work consistent with prior episodes. Considered further evaluation with CT scan however as patient's presentation is pathognomonic for his prior episodes of pancreatitis do not feel further imaging is warranted at this time, likely given his multiple prior and recent CT scans. Discussed work-up to this point with the hospital medicine service. He has concerns about his significant work-up to this point and possible drug-seeking behavior given multiple hospitalizations at different hospitals. Review of patient's gastroenterology records reveals concern for more generalized abdominal pain syndrome versus true pancreatitis although the cause of his symptoms remains unclear. Discussed multiple hospitalizations with patient. Notes that he splits his time between [place] and [place] depending where he is for work and he is currently living in this part [place] the [place]. Per their request, will plan for additional fluid rehydration and trial of pain medications. Due to ongoing pain patient was treated with droperidol. We will reengage hospital medicine if symptoms not improve. Care was signed out to the hospital medicine service pending reevaluation. Impression and Plan Diagnosis Abdominal pain [Electronically Signed on: 01/15/2023 06:29 EDT] LUDMILA GALINDO MD [Electronically Signed on: 01/15/2023 06:48 EDT] LUDMILA GALINDO MD [Verified on: 01/15/2023 06:29 EDT] LUDMILA GALINDO MD Patient Care team information Care Team Personnel Name: PASCALE VILLEGAS Member Role: Informed Provider Address: Address: [address] [place] [id number] [place] Name: MARLEN PINA Position: [facility] No Access Member Role: Primary Care Physician Address: Address: [place], [place] [address] Name: Shantell Daugherty RN Position: [facility] RN LP [facility] Member Role: Registered Nurse Name: Leah Sinha RN Position: [facility] RN LP [facility] Member Role: Registered Nurse Name: Choco Thayer Position: [facility] ED Physician LP Member Role: ED Physician Address: Address: [address] [place] [id number]- Name: LUDMILA GALINDO Position: [facility] ED Physician LP Member Role: Admitting Physician Address: Address: [address] [place] [id number]- Care Team Related Persons Name: KYLEE SOW
--- OUTSIDE RECORDS SUMMARY | 2023-04-03 17:55 | XMS_ITS | Continuity of Care Document ---
Author Name Unknown Organization [facility] Address [address] [place] [id number]- Care Team Providers Care Animal Doctor Name Role Phone MARLEN PINA Primary Care Physician Encounter BVT Date(s): 01/07/23 - 01/10/[address] [address]- [phone] Encounter Diagnosis GERD (gastroesophageal reflux disease)(Discharge Diagnosis) - 01/07/23 Recurrent acute pancreatitis(Discharge Diagnosis) - 01/07/23 KAYLA (obstructive sleep apnea)(Discharge Diagnosis) - 01/07/23 Pulmonary embolism(Discharge Diagnosis) - 01/07/23 Insomnia(Discharge Diagnosis) - 01/08/23 Obesity(Discharge Diagnosis) - 01/07/23 SVT (supraventricular tachycardia)(Discharge Diagnosis) - 01/07/23 Discharge Disposition: Home or Self Care Attending Physician: Kathleen Nettles Admitting Physician: Kathleen Nettles Allergies, Adverse Reactions, Alerts Substance Reaction Severity Status ketamine Severe Active FLUoxetine Mild Active Assessment and Plan Extracted from: Title:Clinical Document Author:Jeffrey Macias RN ate:01/07/23 He is alert and oriented x4. He complained of upper abdominal pain and PRN Hydromorphone and Toradol. Continues on 4L of oxygen with sleep. Admission assessment completed per protocol. IV site is clean and intact with LR infusing. Skin abrasion noted on Lower left extremity. Refused all oral medication and MD made aware. Call mercedes within reach and bed in low position. All needs met at this time. Extracted from: Title:General medical Author:Choco Thayer Date: History of Present Illness 27-year-old male with a past medical history significant for complicated COVID- 19 status post arts and subsequent pulmonary embolism in 2020 no longer anticoagulated, GERD, KAYLA, IBS and recurrent pancreatitis of unclear etiology who presents with abdominal pain. History obtained from the patient. The patient reports that he has an epigastric abdominal pain which radiates to the left shoulder. He states that this presentation today is identical to prior episodes of pancreatitis that he has had. He does report a history of a pulmonary embolism when admitted to the hospital for COVID-19 but states that these symptoms do not feel similar. The patient states that his tachycardia is baseline for him especially when he does not take his metoprolol. He reports nausea and vomiting. He has been unable to take his medications which he states are Reglan, metoprolol, Zofran, and Dilaudid. He has tried to take these medications at home but has been unable to. He has been unable to tolerate oral intake. When asked about his chest pain he points to his mid lower sternum and states that this is the location of pain that he gets when he has episodes of pancreatitis. Denies fevers, chills and cough. Denies melena, hematochezia, and hematemesis. Denies syncope. Denies alleviating and exacerbating factors. Review of Systems Please see HPI Health Status Allergies: Allergic Reactions (Selected) Severe Ketamine- No reactions were documented. Mild FLUoxetine- No reactions were documented.. Medications: (Selected) Inpatient Medications Ordered !-Zofran: 4 mg = 2 mL, IV Push, Once Sodium Chloride 0.9%: 1,000 mL, 1000 mL/hr, IV, Once Documented Medications Documented !-Zofran 4 mg oral tablet: 4 mg = 1 tab(s), Oral, q8hr, PRN: Nausea/Vomiting, 0 Refill(s) MiraLax: 17 gm = 1 packet(s), Oral, Daily, 0 Refill(s) carboxymethylcellulose: 1 drop, Eye-Both, TID, 0 Refill(s) dicyclomine 20 mg oral tablet: [...] Oral, Daily, before a meal, 0 Refill(s) predniSONE 20 mg oral tablet: 20 mg = 1 tab(s), Oral, Daily, 0 Refill(s) traZODone 50 mg oral tablet: 50 mg = 1 tab(s), Oral, Once a day (at bedtime), 0 Refill(s). Past Medical/ Family/ Social History Medical history: No active or resolved past medical history items have been selected or recorded.. Surgical history: No active procedure history items have been selected or recorded.. Family history: No family history items have been selected or recorded.. Social history: Social & Psychosocial History Social History Alcohol Never Substance Abuse Never Tobacco Never tobacco user Tobacco Use:. Never tobacco user Tobacco Use:. Electronic Cigarette/Vaping Electronic Cigarette Use: Never. Electronic Cigarette Use: Never. Psychosocial History No active psychosocial history has been recorded . Problem list: Active Problems (8) Back pain GERD (gastroesophageal reflux disease) Insomnia Obesity KAYLA (obstructive sleep apnea) Pneumonia due to COVID-19 virus Pulmonary embolism Recurrent acute pancreatitis . Physical Examination Vital Signs Vital Signs 01/07/2023 16:25 EST Temperature Temporal Artery 36.7 DegC Peripheral Pulse Rate 54 bpm LOW Respiratory Rate 20 br/min Systolic Blood Pressure 137 mmHg Diastolic Blood Pressure 113 mmHg HI SpO2 94 % . Measurements 01/07/2023 16:31 EST Height/Length Dosing 175.000 cm Weight Dosing 128.000 kg 01/07/2023 16:25 EST Height/Length Estimated 175.000 cm Weight Estimated 128.000 kg . Basic Oxygen Information 01/07/2023 16:25 EST Oxygen Therapy Room air . General: Alert, moderate distress, Moderate distress secondary to pain. Skin: Warm, dry. Head: Atraumatic. Neck: Supple. Eye: Normal conjunctiva. Cardiovascular: Tachycardic. Respiratory: Respirations are non-labored. Gastrointestinal: Soft, Nontender, Soft obese abdomen that is nontender. Neurological: Alert and oriented to person, place, time, and situation, No focal neurological deficit observed. Psychiatric: Cooperative. Medical Decision Making Radiology results: CT (ST) Computed Tomography: ?? CT Angio Chest/Abdomen/Pelvis ?? 01/07/23 17:48:43 EXAMINATION: CT Angio Chest/Abdomen/Pelvis CLINICAL HISTORY: Epigastric abdominal pain with radiation to the left shoulder ? Dissection TECHNIQUE: Helical CT angiogram of the chest, abdomen and pelvis was performed following the intravenous administration of 110cc of Omnipaque 350. Maximum intensity projection (MIP) were reformatted. 3-D images were generated on an independent workstation. COMPARISON: 12/24/2022 FINDINGS: VASCULAR FINDINGS Heart: Normal size. Thoracic aorta: No stenosis or aneurysm. No evidence of aortic dissection. Arch branch vessel origins: No stenosis. Pulmonary arteries: No obvious central filling defects. Abdominal aorta: No stenosis or aneurysm. Celiac: No stenosis. SMA: No stenosis. Right renal artery: No stenosis. Left renal artery: No stenosis. VIKKI: No stenosis. Right: Common iliac artery: No stenosis. Internal iliac artery: No stenosis. External iliac artery: No stenosis. Common femoral artery: No stenosis. Left: Common iliac artery: No stenosis. Internal iliac artery: No stenosis. External iliac artery: No stenosis. Common femoral artery: No stenosis. NON-VASCULAR FINDINGS Lungs and large airways: Normal. Pleura: No effusion. Mediastinum and jelly: Normal. Liver: Enlarged measuring 23 cm craniocaudal dimension. Bile ducts: No evidence of biliary obstruction. Gallbladder: No calcified gallstones. Normal caliber wall. Pancreas: No obvious focal lesions or pancreatic duct dilatation. There is diffuse infiltration of the peripancreatic fat most likely secondary to acute pancreatitis. Spleen: The spleen is not enlarged. Adrenals: Normal. Kidneys: Normal. Urinary Bladder: Normal. Lymph Nodes: No enlarged lymph nodes. Bowel: Nondilated, no wall thickening. Peritoneum and mesentery: No ascites, free air, or loculated fluid collection. Abdominal wall: Ventral hernia is identified. Reproductive organs: Grossly unremarkable. Osseous structures: No suspicious lesions. IMPRESSION: 1. Infiltration of the prior pancreatic fat most likely secondary to acute pancreatitis. 2. No evidence of aortic dissection. Thank you for letting us participate in the care of this patient. If you are a health care provider and have any questions regarding this report, please contact the number below. For patients who have questions please contact the health pediatric acute care unit nurse that requested your imaging first. ?? Signed By: LUCIEN MURRY . 27-year-old male with a past medical history significant for complicated COVID- 19 status post arts and subsequent pulmonary embolism in 2020 no longer anticoagulated, GERD, KAYLA, IBS and recurrent pancreatitis of unclear etiology who presents with recurrent pancreatitis. On exam, the patient was hypertensive. However, his vitals were otherwise within normal limits. Given the patient exhibited no evidence of hypertensive emergency this was not addressed acutely in the emergency department. His physical exam was significant for his moderate distress secondary to pain. EKG shows sinus tachycardia at a rate of 121 without evidence of acute ischemia. Troponin negative. Given the duration the patient's symptoms with a nonischemic EKG and negative troponin my suspicion for an acute myocardial infarction is low. HEART SCORE Chest pain Diagnostic Protocol: - [History/Physical/Gestalt: Slightly Suspicious (0)] - [EKG: Normal and/or unchanged from prior EKG (0)] - [AGE: less than 45 (0)] - [RISK FACTORS: 1 - 2 risk factors (+1)] - [TROPONIN: <= normal limit (0)] - TOTAL SCORE: 1 - Risk Factors: DM, current or recent smoker, HTN, HLD, family hx of CAD, obesity - INTERPRETATION: With a total score of 3 or less, risk of major cardiac event within six weeks 1.7%, likely lower with two negative troponins. I considered a pulmonary embolism. Given the patient's sinus tachycardia and prior history of a pulmonary embolism he is moderate risk for this. However, my primary concern today was for an aortic dissection. The patient was having epigastric abdominal pain with radiation to the right shoulder. Given this finding and given his hypertension I elected to perform a CT angiogram of the chest abdomen and pelvis. As above, this showed no evidence of a dissection. His vascular findings showed no obvious central filling defects of the pulmonary arteries. There was infiltration of prior pancreatic fat that was most likely secondary to acute pancreatitis per radiology read. Given this finding and given the location of the patient's pain he did meet criteria for acute pancreatitis. The patient was given Zofran, Reglan, Dilaudid, and IV fluids with improvement of her symptoms. Labs were obtained which showed a leukocytosis of 14.5. The patient CT scan showed no evidence of necrosis. This could be inflammatory in etiology or secondary to demargination in the setting of his pain and distress. He had no anemia. He had no clinically significant electrolyte abnormality. He did have a mild anion gap acidosis with a gap of 19 and a bicarbonate of 19 which is likely secondary to his decreased oral intake in the setting of his nausea and vomiting. His glucose was 114. Given the patient's persistent symptoms he was admitted to the hospitalist service for continued management. Reexamination/ Reevaluation Time: 01/07/2023 18:18:00 . Vital signs Basic Oxygen Information 01/07/2023 16:25 EST Oxygen Therapy Room air Notes: Dr. Aryan schafer. Impression and Plan Diagnosis Pancreatitis Plan Disposition: Admit. Functional Status 01/10/23 History of Fall in Last 3 Months Zhang N o Mobility Torsten No limitations 01/10/23 ADLs Independent 01/07/23 Recent Travel History No recent travel Family Member Travel History No recent t jesus COVID-19 Screening None Medications !-Zofran 4 mg oral tablet 4 mg = 1 tab(s), Oral, q8hr, PRN PRN Nausea/Vomiting, 0 Refill(s) Start Date: 12/24/22 Status: Ordered acetaminophen 325 mg oral tablet 650 mg = 2 tab(s), Oral, q4hr, PRN PRN Pain/Fever, 0 Refill(s) Start Date: 01/10/23 Status: Ordered carboxymethylcellulose 1 drop, Eye-Both, TID, 0 Refill(s) Start Date: 12/24/22 Status: Ordered dicyclomine 20 mg oral tablet 20 mg = 1 tab(s), Oral, TID, 0 Refill(s) Start Date: 12/24/22 Status: Ordered Dilaudid 4 mg oral tablet 4 mg = 1 tab(s), Oral, TID, PRN PRN Pain, # 9 tab(s), 0 Refill(s), Pharmacy: [facility], 1 tab(s) Oral TID,x3 day(s),PRN:Pain, 175.3, cm, 01/07/23 20:45:00 EST, Height/Length Dosing, 126.5, kg, 01/07/23 20:45:00 EST, Weight Dosing Start Date: 01/10/23 Stop Date: 01/13/23 Status: Ordered docusate-senna 50 mg-8.6 mg oral tablet 2 tab(s), Oral, BID, PRN PRN Constipation, 0 Refill(s) Start Date: 12/24/22 Status: Ordered gabapentin 100 mg oral capsule 300 mg = 3 cap(s), Oral, TID, 0 Refill(s) Start Date: 12/24/22 Status: Ordered melatonin 10 mg, Oral, Once a day (at bedtime), 0 Refill(s) Start Date: 12/24/22 Status: Ordered metoprolol extended release 200 mg, Oral, Daily, 0 Refill(s) Start Date: 12/24/22 Status: Ordered Metoprolol Succinate ER 200 mg = 4 tab(s), Tab-ER, Oral, Start date: 01/09/23 6:00:00 EST, 01/07/23 21:10:00 EST Start Date: 01/09/23 Stop Date: 01/09/23 Status: Completed MiraLax 17 gm 1 packet(s), Oral, Daily, 0 Refill(s) Start Date: 12/24/22 Status: Ordered omeprazole 20 mg oral delayed release capsule 20 mg = 1 cap(s), Oral, Daily, before a meal, 0 Refill(s) Start Date: 12/24/22 Status: Ordered predniSONE 20 mg oral tablet See Instructions, Take 2 tabs daily for 7 days, then 1 tab daily thereafter, # 45 tab(s), 0 Refill(s), Pharmacy: [facility], Take 2 tabs daily for 7 days, then 1 tab daily thereafter, 175.3, cm, 01/07/23 20:45:00 EST, Height/Length Dosing, 126.... Start Date: 01/10/23 Status: Ordered traZODone 50 mg oral tablet 50 mg = 1 tab(s), Oral, Once a day (at bedtime), 0 Refill(s) Start Date: 12/24/22 Status: Ordered Mental Status 01/10/23 Sensory Perception Torsten No impairment Level of Consciousness Alert Problem List Condition Confirmation Course Effective Dates Status Health St atus Informant Recurrent acute pancreatitis Confirmed Active Back pain Confirmed Active GERD (gastroesophageal reflux disease) Confirmed Active Insomnia Confirmed Active Obesity Confirmed Active KAYLA (obstructive sleep apnea) Confirmed Active Pneumonia due to COVID-19 virus Confirmed Active Pulmonary embolism Confirmed Active Results Laboratory List Name Date Basic Metabolic Panel Standard ([facility]) 01/09/23 Automated Differential Standard 01/08/23 CBC w/Diff Standard 01/08/23 Comprehensive Metabolic Panel Standard ( Chemistry Panel Standard) 01/08/23 C-Reactive Protein (CRP) 01/07/23 SARS-CoV-2(COVID-19) NAAT (CUE) Emergenc y POCT 01/07/23 Automated Differential Standard 01/07/23 CBC w/Diff Standard 01/07/23 Comprehensive Metabolic Panel Standard ( CMP Standard) 01/07/23 Lipase Level 01/07/23 TSH 01/07/23 Troponin-T 01/07/23 Most recent to oldest [Reference Range]: 1 2 3 eGFR CKD-EPI [>=60 mL/min/1.73 m2] 138.34 mL/min/1.73 m2 *NA* (01/09/23 6:00 AM) 137.58 mL/min/1.73 m2 *NA* (01/08/23 5:48 AM) 129.62 mL/min/1.73 m2 *NA* (01/07/23 4:59 PM) SARS-CoV-2(COVID-19) NAAT (CUE) Emergenc Negative *NA* (01/07/23 5:01 PM) NRBC Auto Pct [0.00-0.20 %] 0.00 % (01/08/23 5:48 AM) 0.00 % (01/07/23 4:59 PM) Creatinine [0.70-1.20 mg/dL] 0.54 mg/dL *LOW* (01/09/23 6:00 AM) 0.55 mg/dL *LOW* (01/08/23 5:48 AM) 0.67 mg/dL *LOW* (01/07/23 4:59 PM) AGAP [10.0-18.0 mmol/L] 16.3 mmol/L (01/09/23 6:00 AM) 14.3 mmol/L (01/08/23 5:48 AM) 19.2 mmol/L *HI* (01/07/23 4:59 PM) Glucose Lvl [70-100 mg/dL] 110 mg/dL *HI* (01/09/23 6:00 AM) 97 mg/dL (01/08/23 5:48 AM) 114 mg/dL *HI* (01/07/23 4:59 PM) Hct [40.1-51.0 %] 41.9 % (01/08/23 5:48 AM) 47.6 % (01/07/23 4:59 PM) Hgb [13.7-17.5 gm/dL] 14.4 gm/dL (01/08/23 5:48 AM) 16.8 gm/dL (01/07/23 4:59 PM) Lipase Lvl [13-60 IntUnit/L] 33 IntUnit/L (01/07/23 4:59 PM) Lymph Auto [15.0-45.0 %] 27.2 % (01/08/23 5:48 AM) 21.0 % (01/07/23 4:59 PM) MCH [25.6-32.2 pg] 29.0 pg (01/08/23 5:48 AM) 29.1 pg (01/07/23 4:59 PM) MCHC [32.3-36.5 gm/dL] 34.4 gm/dL (01/08/23 5:48 AM) 35.3 gm/dL (01/07/23 4:59 PM) MCV [79.0-92.2 fL] 84.5 fL (01/08/23 5:48 AM) 82.4 fL (01/07/23 4:59 PM) Ransom Auto [4.0-14.0 %] 9.5 % (01/08/23 5:48 AM) 7.9 % (01/07/23 4:59 PM) MPV [9.4-12.4 fL] 9.8 fL (01/08/23 5:48 AM) 9.7 fL (01/07/23:59 PM) Neutro Auto [50.0-75.0 %] 60.5 % (01/08/23 5:48 AM) 67.9 % (01/07/23 4:59 PM) Osmolality [268.0-291.0 mOsm/kg] 281.7 mOsm/kg (01/09/23 6:00 AM) 280.1 mOsm/kg (01/08/23 5:48 AM) 267.7 mOsm/kg *LOW* (01/07/23 4:59 PM) Platelet [150-400 x10(3)/uL] 248 x10(3)/uL (01/08/23 5:48 AM) 348 x10(3)/uL (01/07/23 4:59 PM) RBC [4.63-6.08 x10(6)/uL] 4.96 x10(6)/uL (01/08/23 5:48 AM) 5.78 x10(6)/uL (01/07/23 4:59 PM) Sodium Lvl [136-145 mmol/L] 142 mmol/L (01/09/23 6:00 AM) 140 mmol/L (01/08/23 5:48 AM) 133 mmol/L *LOW* (01/07/23 4:59 PM) Total Protein [6.6-8.7 gm/dL] 5.8 gm/dL *LOW* (01/08/23 5:48 AM) 6.9 gm/dL (01/07/23 4:59 PM) TSH [0.270-4.200 uIU/mL] 0.823 uIU/mL (01/07/23 4:59 PM) Albumin Lvl [3.50-5.20 gm/dL] 4.00 gm/dL (01/08/23 5:48 AM) 4.40 gm/dL (01/07/23 4:59 PM) Alk Phos [40-130 IntUnit/L] 60 IntUnit/L (01/08/23 5:48 AM) 68 IntUnit/L (01/07/23 4:59 PM) ALT [0-41 IntUnit/L] 39 IntUnit/L (01/08/23 5:48 AM) 50 IntUnit/L *HI* (01/07/23 4:59 PM) AST [0-40 IntUnit/L] 15 IntUnit/L (01/08/23 5:48 AM) 22 IntUnit/L (01/07/23 4:59 PM) Basophil Auto [0.0-2.0 %] 0.5 % (01/08/23 5:48 AM) 0.8 % (01/07/23 4:59 PM) Bili Total [0.0-1.3 mg/dL] 0.7 mg/dL (01/08/23 5:48 AM) 0.6 mg/dL (01/07/23 4:59 PM) CO2 [22-29 mmol/L] 26 mmol/L (01/09/23 6:00 AM) 26 mmol/L (01/08/23 5:48 AM) 19 mmol/L *LOW* (01/07/23 4:59 PM) CRP [0.0-5.0 mg/L] 10.8 mg/L *HI* (01/07/23 8:11 PM) Eos Auto [0.0-8.0 %] 1.8 % (01/08/23 5:48 AM) 1.8 % (01/07/23 4:59 PM) WBC [4.2-9.1 x10(3)/uL] 9.3 x10(3)/uL *HI* (01/08/23 5:48 AM) 14.5 x10(3)/uL *HI* (01/07/23 4:59 PM) BUN [6-23 mg/dL] 7 mg/dL (01/09/23 6:00 AM) 15 mg/dL (01/08/23 5:48 AM) 14 mg/dL (01/07/23 4:59 PM) Calcium Lvl [8.6-10.2 mg/dL] 9.4 mg/dL (01/09/23 6:00 AM) 9.0 mg/dL (01/08/23 5:48 AM) 9.9 mg/dL (01/07/23 4:59 PM) Chloride [98-107 mmol/L] 104 mmol/L (01/09/23 6:00 AM) 104 mmol/L (01/08/23 5:48 AM) 99 mmol/L (01/07/23 4:59 PM) Potassium Lvl [3.5-5.1 mmol/L] 4.3 mmol/L (01/09/23 6:00 AM) 4.3 mmol/L (01/08/23 5:48 AM) 4.2 mmol/L (01/07/23 4:59 PM) Troponin-T [0.000-0.029 ng/mL] <0.010 ng/mL (01/07/23 4:59 PM) Lymph Absolute [1.30-3.60 x10(3)/uL] 2.53 x10(3)/uL (01/08/23 5:48 AM) 3.04 x10(3)/uL (01/07/23 4:59 PM) Ransom Absolute [0.30-0.80 x10(3)/uL] 0.88 x10(3)/uL *HI* (01/08/23 5:48 AM) 1.14 x10(3)/uL *HI* (01/07/23 4:59 PM) Eos Absolute [0.04-0.36 x10(3)/uL] 0.17 x10(3)/uL (01/08/23 5:48 AM) 0.26 x10(3)/uL (01/07/23 4:59 PM) NRBC Absolute [0.00-0.01 x10(3)/uL] 0.00 x10(3)/uL (01/08/23 5:48 AM) 0.00 x10(3)/uL (01/07/23 4:59 PM) Neutro Absolute [1.78-5.38 x10(3)/uL] 5.63 x10(3)/uL *HI* (01/08/23 5:48 AM) 9.88 x10(3)/uL *HI* (01/07/23 4:59 PM) RDW-CV [11.6-14.4 %] 13.5 % (01/08/23 5:48 AM) 13.3 % (01/07/23 4:59 PM) Immature Gran % [0.00-2.30 %] 0.50 % (01/08/23 5:48 AM) 0.60 % (01/07/23 4:59 PM) Immature Gran Absolute 0.05 x10(3)/uL *NA* (01/08/23 5:48 AM) 0.08 x10(3)/uL *NA* (01/07/23 4:59 PM) Basophil Absolute [0.00-0.10 x10(3)/uL] 0.05 x10(3)/uL (01/08/23 5:48 AM) 0.11 x10(3)/uL *HI* (01/07/23 4:59 PM) Employed in healthcare? No *NA* (01/07/23 5:01 PM) Symptomatic as defined by CDC? No *NA* (01/07/23 5:01 PM) Date of onset (Lab) 01/07/2023 *NA* (01/07/23 5:01 PM) Hospitalized due to COVID-19? No *NA* (01/07/23 5:01 PM) In ICU? No *NA* (01/07/23 5:01 PM) Group care resident? No *NA* (01/07/23 5:01 PM) status? Not *NA* (01/07/23 5:01 PM) Radiology Reports * Exam Date Time Procedure Performing Provider Status 01/07/23 5:[address] Angio Chest/Abdomen/Pelvis Vonda Galvin (Verified) Notes: (CT Angio Chest/Abdomen/Pelvis) Reason For Exam: Epigastric abdominal pain with radiation to the left shoulder ? Dissection CT Angio Chest/Abdomen/Pelvis EXAMINATION: CT Angio Chest/Abdomen/Pelvis CLINICAL HISTORY: Epigastric abdominal pain with radiation to the left shoulder ? Dissection TECHNIQUE: Helical CT angiogram of the chest, abdomen and pelvis was performed following the intravenous administration of 110cc of Omnipaque 350. Maximum intensity projection (MIP) were reformatted. 3-D images were generated on an independent workstation. COMPARISON: 12/24/2022 FINDINGS: VASCULAR FINDINGS Heart: Normal size. Thoracic aorta: No stenosis or aneurysm. No evidence of aortic dissection. Arch branch vessel origins: No stenosis. Pulmonary arteries: No obvious central filling defects. Abdominal aorta: No stenosis or aneurysm. Celiac: No stenosis. SMA: No stenosis. Right renal artery: No stenosis. Left renal artery: No stenosis. VIKKI: No stenosis. Right: Common iliac artery: No stenosis. Internal iliac artery: No stenosis. External iliac artery: No stenosis. Common femoral artery: No stenosis. Left: Common iliac artery: No stenosis. Internal iliac artery: No stenosis. External iliac artery: No stenosis. Common femoral artery: No stenosis. NON-VASCULAR FINDINGS Lungs and large airways: Normal. Pleura: No effusion. Mediastinum and jelly: Normal. Liver: Enlarged measuring 23 cm craniocaudal dimension. Bile ducts: No evidence of biliary obstruction. Gallbladder: No calcified gallstones. Normal caliber wall. Pancreas: No obvious focal lesions or pancreatic duct dilatation. There is diffuse infiltration of the peripancreatic fat most likely secondary to acute pancreatitis. Spleen: The spleen is not enlarged. Adrenals: Normal. Kidneys: Normal. Urinary Bladder: Normal. Lymph Nodes: No enlarged lymph nodes. Bowel: Nondilated, no wall thickening. Peritoneum and mesentery: No ascites, free air, or loculated fluid collection. Abdominal wall: Ventral hernia is identified. Reproductive organs: Grossly unremarkable. Osseous structures: No suspicious lesions. IMPRESSION: 1. Infiltration of the prior pancreatic fat most likely secondary to acute pancreatitis. 2. No evidence of aortic dissection. Thank you for letting us participate in the care of this patient. If you are a health care provider and have any questions regarding this report, please contact the number below. For patients who have questions please contact the health pediatric acute care unit nurse that requested your imaging first. Final Dictated: 01/07/2023 5:48 pm LUCIEN MURRY Signed (Electronic Signature): 01/07/2023 5:48 pm Signed by: LUCIEN MURRY Vital Signs Most recent to oldest [Reference Range]: 1 2 3 Temperature Tympanic [36.6-38.1 DegC] 36.7 DegC (01/07/23 7:15 PM) Temperature Temporal Artery [36.3-37.8 DegC] 36.6 DegC (01/10/23 5:53 AM) 35.7 DegC *LOW* (01/09/23 11:04 PM) 35.7 DegC *LOW* (01/09/23 7:26 PM) Temperature Temporal Artery (DegF) 97.88 DegF (01/10/23 5:53 AM) 96.26 DegF (01/09/23 11:04 PM) 96.26 DegF (01/09/23: PM) Apical Heart Rate [60-100 bpm] 75 bpm (01/09/23 7:58 AM) 78 bpm (01/09/23 5:29 AM) Peripheral Pulse Rate [60-100 bpm] 72 bpm (01/10/23 5:53 AM) 58 bpm *LOW* (01/09/23 11:04 PM) 81 bpm (01/09/23 8:18 PM) Heart Rate Monitored [60-100 bpm] 98 bpm (01/07/23:19 PM) 98 bpm (01/07/23:15 PM) Respiratory Rate [14-20 br/min] 18 br/min (01/10/23:53 AM) 18 br/min (01/09/23:04 PM) 16 br/min (01/09/23:18 PM) Blood Pressure [90-140/60-90 mmHg] 133/73mmHg (01/10/23:53 AM) 120/69mmHg (01/09/23:04 PM) 122/74mmHg (01/09/23: PM) Mean Arterial Pressure, Cuff [70-110 mmHg] 93 mmHg (01/10/23:53 AM) 86 mmHg (01/09/23 11:04 PM) 90 mmHg (01/09/23: PM) Mean Arterial Pressure Cuff-Monitor 94 mmHg (01/08/23 6:03 AM) 92 mmHg (01/07/23 11:10 PM) BP Site Left arm (01/10/23 5:53 AM) Left arm (01/09/23:04 PM) Left arm (01/09/23: PM) SpO2 [92-100 %] 97 % (01/10/23 5:53 AM) 97 % (01/09/23 11:04 PM) 96 % (01/09/23 8:18 PM) SpO2 Location Left hand (01/10/23:53 AM) Left hand (01/09/23:04 PM) Left hand (01/09/23: PM) BP Method Automatic (01/10/23 5:53 AM) Automatic (01/09/23 11:04 PM) Automatic (01/09/23: PM) Height 175.300 cm (01/07/23 8:42 PM) Height/Length Measured (inches) 69 in (01/07/23 8:42 PM) Height/Length Estimated 175.000 cm (01/07/23 4:25 PM) Height/Length Dosing 175.300 cm (01/07/23 8:42 PM) 175.000 cm (01/07/23 4:31 PM) Weight 126.5 kg (01/09/23 6:56 AM) 126.500 kg (01/07/23 8:42 PM) Weight Measured (lbs) 278.884 lb (01/09/23 6:56 AM) 278.884 lb (01/07/23 8:42 PM) Weight Estimated 128.000 kg (01/07/23 8:16 PM) 128.000 kg (01/07/23 4:25 PM) Weight Dosing 126.500 kg (01/07/23 8:42 PM) 128.000 kg (01/07/23 4:31 PM) Scale Type Bed (01/09/23 6:56 AM) BSA Measured 2.48 m2 (01/07/23 8:42 PM) Body Mass Index Measured 41.16 kg/m2 (01/07/23 8:42 PM) Body Mass Index 41.160 kg/m2 (01/07/23 8:42 PM) Social History Social History Type Response Tobacco Never tobacco user T obacco Use:. Sex Hospital Discharge Instructions Patient Education 01/10/2023 10:57:50 Acute Pancreatitis Acute Pancreatitis The pancreas is a gland that is located behind the stomach on the left side of the abdomen. It produces enzymes that help to digest food. The pancreas also releases the hormones glucagon and insulin,which help to regulate blood sugar. Acute pancreatitis happens when inflammation of the pancreas suddenly occurs and the pancreas becomes irritated and swollen. Most acute attacks last a few days and cause serious problems. Some people become dehydrated and develop low blood pressure. In severe cases, bleeding in the abdomen can lead to shock and can be life-threatening. The lungs, heart, and kidneys may fail. What are the causes? This condition may be caused by: ??? Alcohol abuse. ??? Drug abuse. ??? Gallstones or other conditions that can block the tube that drains the pancreas (pancreatic duct). ??? A tumor in the pancreas. Other causes include: ??? Certain medicines. ??? Exposure to certain chemicals. ??? Diabetes. ??? An infection in the pancreas. ??? Damage caused by an accident (trauma). ??? The poison (venom) from a scorpion bite. ??? Abdominal surgery. ??? Autoimmune pancreatitis. This is when the body's disease-fighting (immune) system attacks the pancreas. ??? Genes that are passed from parent to child (inherited). In some cases, the cause of this condition is not known. What are the signs or symptoms? Symptoms of this condition include: ??? Pain in the upper abdomen that may radiate to the back. Pain may be severe. ??? Tenderness and swelling of the abdomen. ??? Nausea and vomiting. ??? Fever. How is this diagnosed? This condition may be diagnosed based on: ??? A physical exam. ??? Blood tests. ??? Imaging tests, such as X-rays, CT or MRI scans, or an ultrasound of the abdomen. How is this treated? Treatment for this condition usually requires a stay in the hospital. Treatment for this condition may include: ??? Pain medicine. ??? Fluid replacement through an IV. ??? Placing a tube in the stomach to remove stomach contents and to control vomiting (NG tube, or nasogastric tube). ??? Not eating for 3???4 days. This gives the pancreas a rest, because enzymes are not being produced that can cause further damage. ??? Antibiotic medicines, if your condition is caused by an infection. ??? Treating any underlying conditions that may be the cause. ??? Steroid medicines, if your condition is caused by your immune system attacking your body's own tissues (autoimmune disease). ??? Surgery on the pancreas or gallbladder. Follow these instructions at home: Eating and drinking ??? Follow instructions from your health care provider about diet. This may involve avoiding alcohol and decreasing the amount of fat in your diet. ??? Eat smaller, more frequent meals. This reduces the amount of digestive fluids that the pancreasproduces. ??? Drink enough fluid to keep your urine pale yellow. ??? Do not drink alcohol if it caused your condition. General instructions ??? Take lziu-icv-goguirv and prescription medicines only as told by your health care provider. ??? Do not drive or use heavy machinery while taking prescription pain medicine. ??? Ask your health care provider if the medicine prescribed to you can cause constipation. You mayneed to take steps to prevent or treat constipation, such as: ??? Take an qzto-plw-uunykqv or prescription medicine for constipation. ??? Eat foods that are high in fiber such as whole grains and beans. ??? Limit foods that are high in fat and processed sugars, such as fried or sweet foods. ??? Do not use any products that contain nicotine or tobacco, such as cigarettes, e-cigarettes, andchewing tobacco. If you need help quitting, ask your health care provider. ??? Get plenty of rest. ??? If directed, check your blood sugar at home as told by your health care provider. ??? Keep all follow-up visits as told by your health care provider. This is important. Contact a health care provider if you: ??? Do not recover as quickly as expected. ??? Develop new or worsening symptoms. ??? Have persistent pain, weakness, or nausea. ??? Recover and then have another episode of pain. ??? Have a fever. Get help right away if: ??? You cannot eat or keep fluids down. ??? Your pain becomes severe. ??? Your skin or the white part of your eyes turns yellow (jaundice). ??? You have sudden swelling in your abdomen. ??? You vomit. ??? You feel dizzy or you faint. ??? Your blood sugar is high (over 300 mg/dL). Summary ??? Acute pancreatitis happens when inflammation of the pancreas suddenly occurs and the pancreas becomes irritated and swollen. ??? This condition is typically caused by alcohol abuse, drug abuse, or gallstones. ??? Treatment for this condition usually requires a stay in the hospital. This information is not intended to replace advice given to you by your health care provider. Make sure you discuss any questions you have with your health care provider. Document Revised: 08/11/2019 Document Reviewed: 04/28/2019 [employer] Patient Education ?? 2021 [employer] Follow Up Care 01/07/2023 16:14:09 With:MARLEN PINA Address: [place] [address]- Business (1) When:01/15/2023 15:15:00 Comments:Arrival time 1515 for 1530 appointment time. Physician Emergency department Note * Choco Thayer: MODIFY, PERFORM, MODIFY, SIGN, VERIFY Event Display: ED Note - Physician Authored Date: [id number] Patient: [place] SOW Age: 27 years Sex: Male : 1995 Associated Diagnoses: None Author: Choco Thayer Basic Information Additional information: Chief Complaint from Nursing Triage Note : Chief Complaint 01/07/2023 16:25 EST Chief Complaint c/o central chest pain radiating to left shoulder, began last night, but worsened 10am. Pt unable to keep down meds. diarrhea, chills, fever last night 102. hx pancreatitis x 8 in the last year, hx blood clots. no thinners. denies SOB. . History of Present Illness 27-year-old male with a past medical history significant for complicated COVID- 19 status post arts and subsequent pulmonary embolism in 2020 no longer anticoagulated, GERD, KAYLA, IBS and recurrent pancreatitis of unclear etiology who presents with abdominal pain. History obtained from the patient. The patient reports that he has an epigastric abdominal pain which radiates to the left shoulder. He states that this presentation today is identical to prior episodes of pancreatitis that he has had. He does report a history of a pulmonary embolism when admitted to the hospital for COVID-19 but states that these symptoms do not feel similar. The patient states that his tachycardia is baseline for him especially when he does not take his metoprolol. He reports nausea and vomiting. He has been unable to take his medications which he states are Reglan, metoprolol, Zofran, and Dilaudid. He has tried to take these medications at home but has been unable to. He has been unable to tolerate oral intake. When asked about his chest pain he points to his mid lower sternum and states that this is the location of pain that he gets when he has episodes of pancreatitis. Denies fevers, chills and cough.Denies melena, hematochezia, and hematemesis. Denies syncope. Denies alleviating and exacerbating factors. Review of Systems Please see HPI Health Status Allergies: Allergic Reactions (Selected) Severe Ketamine- No reactions were documented. Mild FLUoxetine- No reactions were documented.. Medications: (Selected) Inpatient Medications Ordered !-Zofran: 4 mg = 2 mL, IV Push, Once Sodium Chloride 0.9%: 1,000 mL, 1000 mL/hr, IV, Once Documented Medications Documented !-Zofran 4 mg oral tablet: 4 mg = 1 tab(s), Oral, q8hr, PRN: Nausea/Vomiting, 0 Refill(s) MiraLax: 17 gm = 1 packet(s), Oral, Daily, 0 Refill(s) carboxymethylcellulose: 1 drop, Eye-Both, TID, 0 Refill(s) dicyclomine 20 mg oral tablet: [...] Oral, Daily, before a meal, 0 Refill(s) predniSONE 20 mg oral tablet: 20 mg = 1 tab(s), Oral, Daily, 0 Refill(s) traZODone 50 mg oral tablet: 50 mg = 1 tab(s), Oral, Once a day (at bedtime), 0 Refill(s). Past Medical/ Family/ Social History Medical history: No active or resolved past medical history items have been selected or recorded.. Surgical history: No active procedure history items have been selected or recorded.. Family history: No family history items have been selected or recorded.. Social history: Social & Psychosocial History Social History Alcohol Never Substance Abuse Never Tobacco Never tobacco user Tobacco Use:. Never tobacco user Tobacco Use:. Electronic Cigarette/Vaping Electronic Cigarette Use: Never. Electronic Cigarette Use: Never. Psychosocial History No active psychosocial history has been recorded . Problem list: Active Problems (8) Back pain GERD (gastroesophageal reflux disease) Insomnia Obesity KAYLA (obstructive sleep apnea) Pneumonia due to COVID-19 virus Pulmonary embolism Recurrent acute pancreatitis . Physical Examination Vital Signs Vital Signs 01/07/2023 16:25 EST Temperature Temporal Artery 36.7 DegC Peripheral Pulse Rate 54 bpm LOW Respiratory Rate 20 br/min Systolic Blood Pressure 137 mmHg Diastolic Blood Pressure 113 mmHg HI SpO2 94 % . Measurements 01/07/2023 16:31 EST Height/Length Dosing 175.000 cm Weight Dosing 128.000 kg 01/07/2023 16:25 EST Height/Length Estimated 175.000 cm Weight Estimated 128.000 kg . Basic Oxygen Information 01/07/2023 16:25 EST Oxygen Therapy Room air . General: Alert, moderate distress, Moderate distress secondary to pain. Skin: Warm, dry. Head: Atraumatic. Neck: Supple. Eye: Normal conjunctiva. Cardiovascular: Tachycardic. Respiratory: Respirations are non-labored. Gastrointestinal: Soft, Nontender, Soft obese abdomen that is nontender. Neurological: Alert and oriented to person, place, time, and situation, No focal neurological deficit observed. Psychiatric: Cooperative. Medical Decision Making Radiology results: CT (ST) Computed Tomography: ?? CT Angio Chest/Abdomen/Pelvis ?? 01/07/23 17:48:43 EXAMINATION: CT Angio Chest/Abdomen/Pelvis CLINICAL HISTORY: Epigastric abdominal pain with radiation to the left shoulder ? Dissection TECHNIQUE: Helical CT angiogram of the chest, abdomen and pelvis was performed following the intravenous administration of 110cc of Omnipaque 350. Maximum intensity projection (MIP) were reformatted. 3-D images were generated on an independent workstation. COMPARISON: 12/24/2022 FINDINGS: VASCULAR FINDINGS Heart: Normal size. Thoracic aorta: No stenosis or aneurysm. No evidence of aortic dissection. Arch branch vessel origins: No stenosis. Pulmonary arteries: No obvious central filling defects. Abdominal aorta: No stenosis or aneurysm. Celiac: No stenosis. SMA: No stenosis. Right renal artery: No stenosis. Left renal artery: No stenosis. VIKKI: No stenosis. Right: Common iliac artery: No stenosis. Internal iliac artery: No stenosis. External iliac artery: No stenosis. Common femoral artery: No stenosis. Left: Common iliac artery: No stenosis. Internal iliac artery: No stenosis. External iliac artery: No stenosis. Common femoral artery: No stenosis. NON-VASCULAR FINDINGS Lungs and large airways: Normal. Pleura: No effusion. Mediastinum and jelly: Normal. Liver: Enlarged measuring 23 cm craniocaudal dimension. Bile ducts: No evidence of biliary obstruction. Gallbladder: No calcified gallstones. Normal caliber wall. Pancreas: No obvious focal lesions or pancreatic duct dilatation. There is diffuse infiltration of the peripancreatic fat most likely secondary to acute pancreatitis. Spleen: The spleen is not enlarged. Adrenals: Normal. Kidneys: Normal. Urinary Bladder: Normal. Lymph Nodes: No enlarged lymph nodes. Bowel: Nondilated, no wall thickening. Peritoneum and mesentery: No ascites, free air, or loculated fluid collection. Abdominal wall: Ventral hernia is identified. Reproductive organs: Grossly unremarkable. Osseous structures: No suspicious lesions. IMPRESSION: 1. Infiltration of the prior pancreatic fat most likely secondary to acute pancreatitis. 2. No evidence of aortic dissection. Thank you for letting us participate in the care of this patient. If you are a health care provider and have any questions regarding this report, please contact the number below. For patients who have questions please contact the health pediatric acute care unit nurse that requested your imaging first. ?? Signed By: LUCIEN MURRY . 27-year-old male with a past medical history significant for complicated COVID- 19 status post arts and subsequent pulmonary embolism in 2020 no longer anticoagulated, GERD, KAYLA, IBS and recurrent pancreatitis of unclear etiology who presents with recurrent pancreatitis. On exam, the patient was hypertensive. However, his vitals were otherwise within normal limits. Given the patient exhibited no evidence of hypertensive emergency this was not addressed acutely in the emergency department. His physical exam was significant for his moderate distress secondary to pain. EKG shows sinus tachycardia at a rate of 121 without evidence of acute ischemia. Troponin negative.Given the duration the patient's symptoms with a nonischemic EKG and negative troponin my suspicionfor an acute myocardial infarction is low. HEART SCORE Chest pain Diagnostic Protocol: - [History/Physical/Gestalt: Slightly Suspicious (0)] - [EKG: Normal and/or unchanged from prior EKG (0)] - [AGE: less than 45 (0)] - [RISK FACTORS: 1 - 2 risk factors (+1)] - [TROPONIN: <= normal limit (0)] - TOTAL SCORE: 1 - Risk Factors: DM, current or recent smoker, HTN, HLD, family hx of CAD, obesity - INTERPRETATION: With a total score of 3 or less, risk of major cardiac event within six weeks 1.7%, likely lower with two negative troponins. I considered a pulmonary embolism. Given the patient's sinus tachycardia and prior history of a pulmonary embolism he is moderate risk for this. However, my primary concern today was for an aortic dissection. The patient was having epigastric abdominal pain with radiation to the right shoulder. Given this finding and given his hypertension I elected to perform a CT angiogram of the chest abdomen and pelvis. As above, this showed no evidence of a dissection. His vascular findings showed no obvious central filling defects of the pulmonary arteries. There was infiltration of prior pancreatic fatthat was most likely secondary to acute pancreatitis per radiology read. Given this finding and given the location of the patient's pain he did meet criteria for acute pancreatitis. The patient was given Zofran, Reglan, Dilaudid, and IV fluids with improvement of her symptoms. Labs were obtained which showed a leukocytosis of 14.5. The patient CT scan showed no evidence of necrosis. This could be inflammatory in etiology or secondary to demargination in the setting of his pain and distress. He had no anemia. He had no clinically significant electrolyte abnormality. He did have a mild anion gap acidosis with a gap of 19 and a bicarbonate of 19 which is likely secondary to his decreased oral intake in the setting of his nausea and vomiting. His glucose was 114. Given the patient's persistent symptoms he was admitted to the hospitalist service for continued management. Reexamination/ Reevaluation Time: 01/07/2023 18:18:00 . Vital signs Basic Oxygen Information 01/07/2023 16:25 EST Oxygen Therapy Room air Notes: Dr. Aryan schafer. Impression and Plan Diagnosis Pancreatitis Plan Disposition: Admit. [Electronically Signed on: 01/07/2023 19:34 EST] Choco Thayer [Verified on: 01/07/2023 19:34 EST] Choco Thayer Discharge instructions * Lisandra Avila: PERFORM Event Display: Discharge Instructions Authored Date: electrical tech/project manager Note * Daniella George: PERFORM Event Display: Case Management Note Authored Date: [id number] Care Management Assessment Reason for Admission: Chest pain???Pancreatitis Level of Care/Sellers form: Observation status Mental Status @ baseline: Is awake, alert, oriented to person???place???time???situation. Mood and affect are appropriate. Functional Status @ baseline: Patient is independent at baseline. Patient is independent with all ADLs. Patient ambulates with no devices used. Patient drives. Patient able to work outside of his home. Home Equipment: Oxygen Home Environment: Patient states he lives into apartments, 1 is based in [facility], and 1 is based in [facility]. States he lives with his girlfriend in [facility] , and her dog.All utilities are present and functioning. Patient denies food insecurities. Psychosocial: Denies mental???social???emotional???spiritual concerns at this time. Financial: Patient denies financial concerns at this time. Providers/Specialists: PCP is Marlen Madrid. [place] [facility] [place] Community services/support: No home community resources/support in place, or needed at this time. Supportive People: Patient's girlfriend is primary support person. Kylee Sow is listed as emergency contact center analyst. Advance Directive: Patient is a full code Medication compliance/affordability: Patient is independent in medication administration and stateshe is compliant. Patient denies concerns affording medications. [place] [facility] [place] [facility] [place]: Ny Sow is a 27-year-old male who presented to the emergency room via private car on 01/07/2023with concerns of chest pain. Patient admitted to room 326, observation status. I met with patient at bedside this AM. Patient is awake, alert and oriented, mood and affect are appropriate. 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 Patient denies history of smoking, drug and alcohol use. Patient currently rates his pain 8/10. Medical history includes recurrent acute pancreatitis???pulmonary embolism???pneumonia due to COVID-19 virus???obstructive sleep apnea???obesity???GERD. Patient states he has had COVID twice, and he believes the second infection set off a series of pancreatitis events. Needs/Plan: Pancreatitis???IV fluids???monitor I/os???pain management with IV Toradol. History of pulmonary embolism???no longer on anticoagulation. Obstructive sleep apnea???intolerant of CPAP, wears 4 L O2 at night Medicare outpatient observation notice reviewed with patient, signed, and placed in patient chart. Goals For Today - Patient has been given a new patient PCP application to complete. regional construction manager will continue to assess discharge needs, review plan of care and discharge plan with patient to facilitate safe discharge when medically appropriate. regional construction manager will secure follow-up and appointments as indicated. Needs/Plan:01/09/2023 Pancreatitis???IV fluids???monitor I/O ???pain management with IV Toradol-med management. Possible immunological component, patient has [place] scheduled with [place] [facility] [place] History of pulmonary embolism???no longer on anticoagulation. Obstructive sleep apnea???intolerant of CPAP, wears 4 L O2 at night GERD???med management with omeprazole SVT???continue to monitor. No SVT noted today. Insomnia???med management Today's Goal/s -increase diet to full liquids???start pain control medication taper as able. I met with patient at bedside this afternoon. Patient sleeping comfortably in bed. Patient states he feels much better today, still endorsing abdominal pain. Patient states he slept very well last night. Today's goals reviewed with patient. Patient states a clear understanding. regional construction manager will continue to assess discharge needs, review plan of care and discharge plan with patient to facilitate safe discharge when medically appropriate. regional construction manager will secure follow-up and appointments as indicated. Position???anticipate discharge to home in the next day or so with outpatient follow-up scheduled. Needs/Plan:01/10/2023 Pancreatitis???IV fluids???monitor I/O ???pain management with IV Toradol-med management. Possible immunological component, patient has follow-up scheduled with rheumatology [place] [facility] [place] History of pulmonary embolism???no longer on anticoagulation. Obstructive sleep apnea???intolerant of CPAP, wears 4 L O2 at night GERD???med management with omeprazole SVT???continue to monitor. No SVT noted today. Insomnia???med management Today's Goal's - Patient is requesting discharge today as he has a work commitment he would like toattend. regional construction manager will continue to assess discharge needs, review plan of care and discharge plan with patient to facilitate safe discharge when medically appropriate. regional construction manager will secure follow-up and appointments as indicated: Follow up appointment scheduled with PCP for 01/15/2023 ay 1515. Position???Patient will be discharged this am, with outpatient follow-up scheduled. * Daniella George: PERFORM Event Display: Case Management Note Authored Date: [id number] Care Management Assessment Reason for Admission: Chest pain???Pancreatitis Level of Care/Sellers form: Observation status Mental Status @ baseline: Is awake, alert, oriented to person???place???time???situation. Mood and affect are appropriate. Functional Status @ baseline: Patient is independent at baseline. Patient is independent with all ADLs. Patient ambulates with no devices used. Patient drives. Patient able to work outside of his home. Home Equipment: Oxygen Home Environment: Patient states he lives into apartments, 1 is based in [facility], and 1 is based in [facility]. States he lives with his girlfriend in [facility] , and her dog.All utilities are present and functioning. Patient denies food insecurities. Psychosocial: Denies mental???social???emotional???spiritual concerns at this time. Financial: Patient denies financial concerns at this time. Providers/Specialists: PCP is Marlen Madrid. Patient is also [place] Gastroenterology and [place] [facility] [place] Community services/support: No home community resources/support in place, or needed at this time. Supportive People: Patient's girlfriend is primary support person. Kylee Sow is listed as emergency contact center analyst. Advance Directive: Patient is a full code Medication compliance/affordability: Patient is independent in medication administration and stateshe is compliant. Patient denies concerns affording medications. Pharmacy[place] [facility] [place] [facility] [place]: Ny Sow is a 27-year-old male who presented to the emergency room via private car on 01/07/2023with concerns of chest pain. Patient admitted to room 326, observation status. I met with patient at bedside this AM. Patient is awake, alert and oriented, mood and affect are appropriate. 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 Patient denies history of smoking, drug and alcohol use. Patient currently rates his pain 8/10. Medical history includes recurrent acute pancreatitis???pulmonary embolism???pneumonia due to COVID-19 virus???obstructive sleep apnea???obesity???GERD. Patient states he has had COVID twice, and he believes the second infection set off a series of pancreatitis events. Needs/Plan: Pancreatitis???IV fluids???monitor I/os???pain management with IV Toradol. History of pulmonary embolism???no longer on anticoagulation. Obstructive sleep apnea???intolerant of CPAP, wears 4 L O2 at night Medicare outpatient observation notice reviewed with patient, signed, and placed in patient chart. Goals For Today - Patient has been given a new patient PCP application to complete. regional construction manager will continue to assess discharge needs, review plan of care and discharge plan with patient to facilitate safe discharge when medically appropriate. regional construction manager will secure follow-up and appointments as indicated. Needs/Plan:01/09/2023 Pancreatitis???IV fluids???monitor I/O ???pain management with IV Toradol-med management. Possible immunological component, patient [place] [facility] History of pulmonary embolism???no longer on anticoagulation. Obstructive sleep apnea???intolerant of CPAP, wears 4 L O2 at night GERD???med management with omeprazole SVT???continue to monitor. No SVT noted today. Insomnia???med management Today's Goal/s -increase diet to full liquids???start pain control medication taper as able. I met with patient at bedside this afternoon. Patient sleeping comfortably in bed. Patient states he feels much better today, still endorsing abdominal pain. Patient states he slept very well last night. Today's goals reviewed with patient. Patient states a clear understanding. regional construction manager will continue to assess discharge needs, review plan of care and discharge plan with patient to facilitate safe discharge when medically appropriate. regional construction manager will secure follow-up and appointments as indicated. Position???anticipate discharge to home in the next day or so with outpatient follow-up scheduled. * Daniella George: PERFORM Event Display: Case Management Note Authored Date: [id number] Care Management Assessment Reason for Admission: Chest pain???Pancreatitis Level of Care/Sellers form: Observation status Mental Status @ baseline: Is awake, alert, oriented to person???place???time???situation. Mood and affect are appropriate. Functional Status @ baseline: Patient is independent at baseline. Patient is independent with all ADLs. Patient ambulates with no devices used. Patient drives. Patient able to work outside of his home. Home Equipment: Oxygen Home Environment: Patient states he lives into apartments, 1 is based in [facility], and 1 is based in [facility]. States he lives with his girlfriend in [facility] , and her dog.All utilities are present and functioning. Patient denies food insecurities. Psychosocial: Denies mental???social???emotional???spiritual concerns at this time. Financial: Patient denies financial concerns at this time. Providers/Specialists: PCP is Marlen Madrid. Patient is also followed by Gastroenterology and [place] departments [place] [facility] [place] Community services/support: No home community resources/support in place, or needed at this time. Supportive People: Patient's girlfriend is primary support person. Kylee Sow is listed as emergency contact center analyst. Advance Directive: Patient is a full code Medication compliance/affordability: Patient is independent in medication administration and stateshe is compliant. Patient denies concerns affording medications. Pharmacy[place] [facility] [place] [facility] Note: Ny Sow is a 27-year-old male who presented to the emergency room via private car on 01/07/2023with concerns of chest pain. Patient admitted to room 326, observation status. I met with patient at bedside this AM. Patient is awake, alert and oriented, mood and affect are appropriate. 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 Patient denies history of smoking, drug and alcohol use. Patient currently rates his pain 8/10. Medical history includes recurrent acute pancreatitis???pulmonary embolism???pneumonia due to COVID-19 virus???obstructive sleep apnea???obesity???GERD. Patient states he has had COVID twice, and he believes the second infection set off a series of pancreatitis events. Needs/Plan: Pancreatitis???IV fluids???monitor I/os???pain management with IV Toradol. History of pulmonary embolism???no longer on anticoagulation. Obstructive sleep apnea???intolerant of CPAP, wears 4 L O2 at night Medicare outpatient observation notice reviewed with patient, signed, and placed in patient chart. Goals For Today - Patient has been given a new patient PCP application to complete. regional construction manager will continue to assess discharge needs, review plan of care and discharge plan with patient to facilitate safe discharge when medically appropriate. regional construction manager will secure follow-up and appointments as indicated. Nurse Progress note * Melissa Lopez RN: PERFORM Event Display: Progress Note-Nurse Authored Date: [id number] Patent is alert and oriented, reported pain pharmacological intervention done with good effect, hadnocte nasal canula 4 liters per minute, no report of shortness of breath, nausea or vomiting. Bed is alarmed, call button and personal items within reach. [Electronically Signed on: 01/10/2023 07:11 EST] Melissa Lopez RN RN [Verified on: 01/10/2023 07:11 EST] Melissa Lopez RN RN * Mary Gutierrez RN: MODIFY, PERFORM, MODIFY Event Display: Progress Note-Nurse Authored Date: [id number] Patient A&Ox4. Reported abdominal pain throughout shift, PRN dilaudid administered with good effect. Reported mild nausea with eating this morning, refused PRN zofran. Denies vomiting, SOB, dizziness, and chest discomfort. Diet advanced to full liquid for lunch, patient tolerated well. Eating, drinking, and voiding without difficulty. Ambulates to bathroom independently, gait steady. Showeredthis afternoon. Call mercedes and personal belongings within reach, able to make needs known. [Electronically Signed on: 01/09/2023 14:42 EST] Mary Gutierrez RN RN [Verified on: 01/09/2023 14:42 EST] Mary Gutierrez RN RN * Rory Degroot RN: PERFORM Event Display: Progress Note-Nurse Authored Date: [id number] Pt A&O x4, and able to make his needs known. On clear liquid diet tonight. Denies nausea or SOB, but having pain. Medicated with IV Toradol 30 mg and IV Dilaudid 1 mg with good effect. Pt states he was able to sleep. Up to the bathroom to void, steady. Medications given per MD orders. [Electronically Signed on: 01/09/2023 06:54 EST] Rory Degroot RN RN [Verified on: 01/09/2023 06:54 EST] Rory Degroot RN RN Hospital Summary note * Nitish Reeves RN: PERFORM, SIGN, VERIFY Event Display: Inpatient Patient Summary Authored Date: [id number] [address] Patient Discharge Instructions Name: [place] SOW : 1995 Patient Address: [address] [id number] Primary Care Provider: Name: MARLEN PINA Discharge Diagnosis: 1:Recurrent acute pancreatitis; 2:GERD (gastroesophageal reflux disease); 3:KAYLA (obstructive sleep apnea); 4:Obesity; 5:SVT (supraventricular tachycardia); 6:Pulmonary embolism; 7:Insomnia Discharge Orders Discharge Activity 01/10/23 10:41:00 EST, As tolerated Discharge Activity 01/10/23 10:41:00 EST, Refrain from alcohol use Discharge Activity 01/10/23 10:41:00 EST, Follow-up with PCP on 01/15/2023 as previously scheduled. Discharge Communication Order 01/10/23 10:41:00 EST, Medication changes: Take prednisone 40 mg (2 tablets (daily for 7 days, then once daily thereafter. Further dose adjustments at the discretion of your outpatient team. You may take hydromorphone 4 mg up to 3 times daily if nee... Discharge Diet. 01/10/23 10:41:00 EST, Resume Diet. Low-fat, avoid fried or spicy foods. [facility] would like to thank you for allowing us to assist you with your healthcare needs. The following includes patient education materials and information regarding your injury/illness. [place] SOW has been given the following list of follow-up instructions, prescriptions, and patient education materials: Follow-up Instructions With: Address: When: MARLEN SILVANA [facility], [place] [address] Business (1) 01/15/2023 3:15 PM Comments: Arrival time 1515 for 1530 appointment time. Medications During the course of your visit, your medication list was updated with the most current information. The details of those changes are reflected below: New Medications [facility], [address] [place] [phone], [phone] HYDROmorphone (Dilaudid 4 mg oral tablet) 1 tab(s) Oral 3 times a day as needed Pain for 3 Days. Refills: 0. Other Medications acetaminophen (acetaminophen 325 mg oral tablet) 2 tab(s) Oral every 4 hours as needed Pain/Fever. Medications That Were Updated - Follow Below Instructions [facility], [address] [place] [phone], [phone] Updated: predniSONE (predniSONE 20 mg oral tablet) Take 2 tabs daily for 7 days, then 1 tab daily thereafter. Refills: 0. Medications to Continue That Have Not Changed Other Medications carboxymethylcellulose 1 drop Both eyes 3 times a day. dicyclomine (dicyclomine 20 mg oral tablet) 1 tab(s) Oral 3 times a day. docusate-senna (docusate-senna 50 mg-8.6 mg oral tablet) 2 tab(s) Oral 2 times a day as needed Constipation. gabapentin (gabapentin 100 mg oral capsule) 3 cap Oral 3 times a day. melatonin 10 Milligram Oral once a day (at bedtime). metoprolol (metoprolol extended release) 200 Milligram Oral every day. omeprazole (omeprazole 20 mg oral delayed release capsule) 1 cap Oral every day. before a meal. ondansetron (!-Zofran 4 mg oral tablet) 1 tab(s) Oral every 8 hours as needed Nausea/Vomiting. polyethylene glycol 3350 (MiraLax) 17 gram Oral every day. traZODone (traZODone 50 mg oral tablet) 1 tab(s) Oral once a day (at bedtime). It is important to always keep an active list of medications available so that you can share with other providers and manage your medications appropriately. As an additional courtesy, we are also providing you with your final active medications list that you can keep with you. acetaminophen (acetaminophen 325 mg oral tablet) 2 tab(s) Oral every 4 hours as needed Pain/Fever. carboxymethylcellulose 1 drop Both eyes 3 times a day. dicyclomine (dicyclomine 20 mg oral tablet) 1 tab(s) Oral 3 times a day. docusate-senna (docusate-senna 50 mg-8.6 mg oral tablet) 2 tab(s) Oral 2 times a day as needed Constipation. gabapentin (gabapentin 100 mg oral capsule) 3 cap Oral 3 times a day. HYDROmorphone (Dilaudid 4 mg oral tablet) 1 tab(s) Oral 3 times a day as needed Pain for 3 Days. Refills: 0. melatonin 10 Milligram Oral once a day (at bedtime). metoprolol (metoprolol extended release) 200 Milligram Oral every day. omeprazole (omeprazole 20 mg oral delayed release capsule) 1 cap Oral every day. before a meal. ondansetron (!-Zofran 4 mg oral tablet) 1 tab(s) Oral every 8 hours as needed Nausea/Vomiting. polyethylene glycol 3350 (MiraLax) 17 gram Oral every day. predniSONE (predniSONE 20 mg oral tablet) Take 2 tabs daily for 7 days, then 1 tab daily thereafter. Refills: 0. traZODone (traZODone 50 mg oral tablet) 1 tab(s) Oral once a day (at bedtime). Take only the medications listed above. Contact your doctor prior to taking any medications not on this list. Medication leaflets, if any, will display below Patient education materials, if any, will display below Acute Pancreatitis The pancreas is a gland that is located behind the stomach on the left side of the abdomen. It produces enzymes that help to digest food. The pancreas also releases the hormones glucagon and insulin,which help to regulate blood sugar. Acute pancreatitis happens when inflammation of the pancreas suddenly occurs and the pancreas becomes irritated and swollen. Most acute attacks last a few days and cause serious problems. Some people become dehydrated and develop low blood pressure. In severe cases, bleeding in the abdomen can lead to shock and can be life-threatening. The lungs, heart, and kidneys may fail. What are the causes? This condition may be caused by: ??? Alcohol abuse. ??? Drug abuse. ??? Gallstones or other conditions that can block the tube that drains the pancreas (pancreatic duct). ??? A tumor in the pancreas. Other causes include: ??? Certain medicines. ??? Exposure to certain chemicals. ??? Diabetes. ??? An infection in the pancreas. ??? Damage caused by an accident (trauma). ??? The poison (venom) from a scorpion bite. ??? Abdominal surgery. ??? Autoimmune pancreatitis. This is when the body's disease-fighting (immune) system attacks the pancreas. ??? Genes that are passed from parent to child (inherited). In some cases, the cause of this condition is not known. What are the signs or symptoms? Symptoms of this condition include: ??? Pain in the upper abdomen that may radiate to the back. Pain may be severe. ??? Tenderness and swelling of the abdomen. ??? Nausea and vomiting. ??? Fever. How is this diagnosed? This condition may be diagnosed based on: ??? A physical exam. ??? Blood tests. ??? Imaging tests, such as X-rays, CT or MRI scans, or an ultrasound of the abdomen. How is this treated? Treatment for this condition usually requires a stay in the hospital. Treatment for this condition may include: ??? Pain medicine. ??? Fluid replacement through an IV. ??? Placing a tube in the stomach to remove stomach contents and to control vomiting (NG tube, or nasogastric tube). ??? Not eating for 3???4 days. This gives the pancreas a rest, because enzymes are not being produced that can cause further damage. ??? Antibiotic medicines, if your condition is caused by an infection. ??? Treating any underlying conditions that may be the cause. ??? Steroid medicines, if your condition is caused by your immune system attacking your body's own tissues (autoimmune disease). ??? Surgery on the pancreas or gallbladder. Follow these instructions at home: Eating and drinking ??? Follow instructions from your health care provider about diet. This may involve avoiding alcohol and decreasing the amount of fat in your diet. ??? Eat smaller, more frequent meals. This reduces the amount of digestive fluids that the pancreasproduces. ??? Drink enough fluid to keep your urine pale yellow. ??? Do not drink alcohol if it caused your condition. General instructions ??? Take wlhl-dwq-jzyqzya and prescription medicines only as told by your health care provider. ??? Do not drive or use heavy machinery while taking prescription pain medicine. ??? Ask your health care provider if the medicine prescribed to you can cause constipation. You mayneed to take steps to prevent or treat constipation, such as: ??? Take an rnjb-jkb-liztkhg or prescription medicine for constipation. ??? Eat foods that are high in fiber such as whole grains and beans. ??? Limit foods that are high in fat and processed sugars, such as fried or sweet foods. ??? Do not use any products that contain nicotine or tobacco, such as cigarettes, e-cigarettes, andchewing tobacco. If you need help quitting, ask your health care provider. ??? Get plenty of rest. ??? If directed, check your blood sugar at home as told by your health care provider. ??? Keep all follow-up visits as told by your health care provider. This is important. Contact a health care provider if you: ??? Do not recover as quickly as expected. ??? Develop new or worsening symptoms. ??? Have persistent pain, weakness, or nausea. ??? Recover and then have another episode of pain. ??? Have a fever. Get help right away if: ??? You cannot eat or keep fluids down. ??? Your pain becomes severe. ??? Your skin or the white part of your eyes turns yellow (jaundice). ??? You have sudden swelling in your abdomen. ??? You vomit. ??? You feel dizzy or you faint. ??? Your blood sugar is high (over 300 mg/dL). Summary ??? Acute pancreatitis happens when inflammation of the pancreas suddenly occurs and the pancreas becomes irritated and swollen. ??? This condition is typically caused by alcohol abuse, drug abuse, or gallstones. ??? Treatment for this condition usually requires a stay in the hospital. This information is not intended to replace advice given to you by your health care provider. Make sure you discuss any questions you have with your health care provider. Document Revised: 08/11/2019 Document Reviewed: 04/28/2019 [employer] Patient Education ?? 2021 [employer] MAGI Ashford RYAN, have received the attached patient education materials/instructions and have verbalized understanding: 01/10/2023 10:57:50 Patient Signature MAGI Ashford RYAN, have received the attached patient education materials/instructions and have verbalized understanding: 01/10/2023 10:57:50 Patient Signature History and physical note * Kathleen Nettles: MODIFY, MODIFY, MODIFY, MODIFY, MODIFY, MODIFY, MODIFY, MODIFY, MODIFY, MODIFY, MODIFY, MODIFY, MODIFY, MODIFY, MODIFY, MODIFY, MODIFY, MODIFY, MODIFY, PERFORM Event Display: History and Physical Authored Date: [id number] [place] SOW :1995 Age:27 years Sex:Male Visit Date:01/07/2023 Primary Care Physician: MARLEN PINA Chief Complaint c/o central chest pain radiating to left shoulder, began last night, but worsened 10am. Pt unable to keep down meds. diarrhea, chills, fever last night 102. hx pancreatitis x 8 in the last year, hx blood clots. no thinners. denies SOB. History of Present Illness 27 y/o M with history of class 3 obesity, severe COVID-19 illness??with PNA/ARDS??in Oct 2021,?? PE(no longer on anticoagulants), KAYLA on??home nocturnal O2 at 4 L/min,??duodenitis, multiple recurrent and likely idiopathic pancreatitis??flares, admit with recurrent abdominal pain and intractable n/v. ?? Patient states he had no significant medical problems until he became critically ill with COVID in October 2021.?? He was on high flow oxygen but not intubated, and after discharge he was soon readmitted with a newly diagnosed pulmonary embolus.?? About 1 year ago he acquired COVID for the second time,??and??he believes that??this second infection has set off a??series of??pancreatitis events, for which he has had about??subsequent??8 episodes.?? Etiology of the inflammation has remained unclear, despite an [place] [facility] [place]including E[place]s, EUS with biopsy, and colonoscopy. RP biopsy ??09/2022??was??negative for IgG4, fragments of fibroadipose tissue.?? LFTs??& lipase have never been elevated, although he has??had a fluctuating CRP & D- dimer. ?? Per his last [facility] [place] on 12/21/22, surgery was also considering??CCY to rule out??as cause of pain.?? For theidiopathic pancreatitis he was empirically trialed on prednisone, felt better??so it was titrated off, but then he resumed prednisone 20mg/d??just a few days before his last admission at [facility] and has continued it??since then, and is awaiting a rheumatology clinic appointment. ?? He was most??recently admitted to our institution from 12/24 until 12/27/2022??with his recurrent symptoms of nausea, vomiting, abdominal pain. He was treated supportively with fluids, analgesics, anti-emetics with improvement.?? At the time, CT abdomen and pelvis?? showed mild stranding adjacent to the pancreatic head extending into the retroperitoneum, diffusely fatty but otherwise unremarkable liver and unremarkable gallbladder.?? Lipase was normal at 53.?? He was discharged with a prescription for oral hydromorphone 6 mg up to 4 times a day as needed for pain, given a total of 21 tablets;??he tells me that he has been taking this dose??periodically over the past year ?? Since discharge he felt well until yesterday,??when his usual symptoms recurred.?? He additionally had a temperature of 102, diaphoresis,??epigastric pain radiating to his back and his left shoulder,??abdominal pain with deep inspiration,??vomiting (bilious, no coffee grounds or blood)??and loose stools. ?? Since he has been unable to take his medications?? since yesterday, he came to the ED today.? Vital signs were overall unremarkable other than for elevated diastolic blood pressure.?? BMI was 41.8. Abdomen was obese and not obviously tender. EKG showed sinus tachycardia at 121 bpm, nonspecific T wave abnormalities, QTc 374 WBC 14.5, Hgb 16.8, platelets 348 Na+ 133, bicarb 19, BUN 14, CR 0.67 Lipase 33, ALT 50, AST 22, total bili 2.6, alk phos 68 CT angio chest abdomen and pelvis showed infiltration of the peripancreatic fat, consistent with pancreatitis.?? Liver was enlarged but otherwise unremarkable, gallbladder contained no stones and bile duct showed no signs of obstruction ?? Patient was given 1 L NS, Dilaudid 1 mg IV x2, Zofran 4 mg, Toradol 15 mg, Reglan 10 mg, but hadpersistent symptoms so was admitted for further management Review of Systems Had a temperature of 102 yesterday, and subjective fevers today. Since development of this recurrent pancreatitis, he believes his weight has dropped from 315??to 280 pounds He watches his diet carefully,??low-fat and bland He has not discovered any correlation as to what causes the flares??of pancreatitis No dyspnea but it does hurt??in his abdomen when he takes a deep breath ?? Denies any joint issues/swelling, no rash other than for feet/heels (treated already with both steroids & antifungals without improvement) Physical Exam Vitals & Measurements T:??36.7?C ??(Temporal Artery)?? HR:??98??(Monitored)?? RR:??20?? BP:??137/113?? SpO2:??98%?? HT:??175.000??cm?? WT:??128.000??kg??(Estimated)?? O2 Flow Rate:??0?? O2 Therapy:??Room air?General: Appears stated age,??uncomfortable with movement but otherwise not in distress ?HEENT: Normocephalic, atraumatic, no jugular venous distention or carotid bruits. No thyromegaly ?Lungs: CTA bilaterally no wheezes or rhonchi ?Cardiac: Regular rate and rhythm no murmurs gallops or rubs ?Abdomen: Normoactive bowel sounds, soft, mildly tender to moderate palpation in epigastrium andleft upper abdomen ?Extremities: No clubbing cyanosis or edema, dorsalis pedis pulses palpable bilaterally, Neurological: Alert and oriented ??3, strength intact bilaterally, exam overall is nonfocal Assessment/Plan 27-year-old man, with history of??ARDS??secondary to COVID,??provoked pulmonary embolus, recently diagnosed KAYLA, class 3 obesity, duodenitis, and recurrent episodes of pancreatitis, admitted with yetanother pancreatitis flare causing intractable??n/v/abd pain. ?? Pancreatitis, with fairly extensive workup by [facility] [place] that has failed to reveal a cause.? IgG4 not elevated as would be expected with autoimmune pancreatitis, but pt awaiting rheumatology eval, and patient has empirically been on prednisone, which he feels did improve his symptoms in the past and allowed him to be pain free for about 1.5 months with resolution of inflammation on CT scan.?? However, was only placed on 20mg/d instead of 40mg/d in hopes that it would cause fewer long-term side effects and still decrease inflammation; may be an insufficient dose, or may not be the answer to his problem, I do not have enough information at this time to determine -start with clear liquid diet, advance as tolerated -aggressive IV hydration, monitor I/Os -pain management with IV toradol, dilaudid, anti-emetics -would like to trial an increased dose of steroids.?? Patient feels unable to take any oral meds tonight, will give one dose IV solumedrol & increase prednisone to 40mg/d starting tomorrow -c/w PPI -check CRP, add onto initial labs ?? h/o provoked PE, no longer on anticoagulation.?? Should have VTE prophylaxis ?? KAYLA, diagnosed ~5 months ago with sleep study per pt report.?? Intolerant of CPAP, wears 4L O2 at night. ?? SVT.?? c/w usual metoprolol ?? DVT prophylaxis:?? lovenox Code status:?? full ?? Images CT Angio Chest/Abdomen/Pelvis EXAMINATION: CT Angio Chest/Abdomen/Pelvis ?? CLINICAL HISTORY: Epigastric abdominal pain with radiation to the left shoulder ? ??Dissection ? TECHNIQUE: Helical CT angiogram of the chest, abdomen and pelvis was performed following the intravenous administration of 110cc of Omnipaque 350. Maximum intensity projection (MIP) were reformatted. 3-D images were generated on an independent workstation. ?? COMPARISON: 12/24/2022 ?? FINDINGS: ?? VASCULAR FINDINGS Heart: Normal size. Thoracic aorta: No stenosis or aneurysm. No evidence of aortic dissection. Arch branch vessel origins: No stenosis. Pulmonary arteries: No obvious central filling defects. ?? Abdominal aorta: No stenosis or aneurysm. Celiac: No stenosis. SMA: No stenosis. Right renal artery: No stenosis. Left renal artery: No stenosis. VIKKI: No stenosis. ?? Right: Common iliac artery: No stenosis. Internal iliac artery: No stenosis. External iliac artery: No stenosis. Common femoral artery: No stenosis. ?? Left: Common iliac artery: No stenosis. Internal iliac artery: No stenosis. External iliac artery: No stenosis. Common femoral artery: No stenosis. ?? NON-VASCULAR FINDINGS ?? Lungs and large airways: Normal. Pleura: No effusion. Mediastinum and jelly: Normal. ?? Liver: Enlarged measuring 23 cm craniocaudal dimension. Bile ducts: No evidence of biliary obstruction. Gallbladder: No calcified gallstones. Normal caliber wall. Pancreas: No obvious focal lesions or pancreatic duct dilatation. There is diffuse infiltration of the peripancreatic fat most likely secondary to acute pancreatitis. Spleen: The spleen is not enlarged. Adrenals: Normal. Kidneys: Normal. Urinary Bladder: Normal. ?? Lymph Nodes: No enlarged lymph nodes. Bowel: Nondilated, no wall thickening. Peritoneum and mesentery: No ascites, free air, or loculated fluid collection. Abdominal wall: Ventral hernia is identified. Reproductive organs: Grossly unremarkable. Osseous structures: No suspicious lesions. ? IMPRESSION: ?? 1. Infiltration of the prior pancreatic fat most likely secondary to acute pancreatitis. 2. No evidence of aortic dissection. Problem List/Past Medical History Ongoing Back pain GERD (gastroesophageal reflux disease) Insomnia Obesity KAYLA (obstructive sleep apnea) Pneumonia due to COVID-19 virus Pulmonary embolism Recurrent acute pancreatitis Medications Home !-Zofran 4 mg oral tablet, 4 mg= 1 tab(s), Oral, q8hr, PRN carboxymethylcellulose, 1 drop, Eye-Both, TID dicyclomine 20 mg oral tablet, 20 mg= 1 tab(s), Oral, TID docusate-senna 50 mg-8.6 mg oral tablet, 2 tab(s), Oral, BID, PRN gabapentin 100 mg oral capsule, 300 mg= 3 cap(s), Oral, TID melatonin, 10 mg, Oral, Once a day (at bedtime) metoprolol extended release, 200 mg, Oral, Daily MiraLax, 17 gm= 1 packet(s), Oral, Daily omeprazole 20 mg oral delayed release capsule, 20 mg= 1 cap(s), Oral, Daily predniSONE 20 mg oral tablet, 20 mg= 1 tab(s), Oral, Daily traZODone 50 mg oral tablet, 50 mg= 1 tab(s), Oral, Once a day (at bedtime) Allergies ketamine FLUoxetine Social History Alcohol Never Electronic Cigarette/Vaping Electronic Cigarette Use: Never. Substance Abuse Never Tobacco Never tobacco user Tobacco Use:. Lab Results Test Name Test Result Date/Time WBC 14.5 x10(3)/uL 01/07/2023 16:59 EST Hgb 16.8 gm/dL 01/07/2023 16:59 EST Hct 47.6 % 01/07/2023 16:59 EST Platelet 348 x10(3)/uL 01/07/2023 16:59 EST Sodium Lvl 133 mmol/L 01/07/2023 16:59 EST Potassium Lvl 4.2 mmol/L 01/07/2023 16:59 EST Chloride 99 mmol/L 01/07/2023 16:59 EST CO2 19 mmol/L 01/07/2023 16:59 EST BUN 14 mg/dL 01/07/2023 16:59 EST Creatinine 0.67 mg/dL 01/07/2023 16:59 EST Glucose Lvl 114 mg/dL 01/07/2023 16:59 EST Calcium Lvl 9.9 mg/dL 01/07/2023 16:59 EST Total Protein 6.9 gm/dL 01/07/2023 16:59 EST Albumin Lvl 4.40 gm/dL 01/07/2023 16:59 EST Alk Phos 68 IntUnit/L 01/07/2023 16:59 EST ALT 50 IntUnit/L 01/07/2023 16:59 EST AST 22 IntUnit/L 01/07/2023 16:59 EST Bili Total 0.6 mg/dL 01/07/2023 16:59 EST Lipase Lvl 33 IntUnit/L 01/07/2023 16:59 EST Troponin-T <0.010 ng/mL 01/07/2023 16:59 EST TSH 0.823 uIU/mL 01/07/2023 16:59 EST [Electronically Signed on: 01/07/2023 22:39 EST] Kathleen Nettles [Verified on: 01/07/2023 22:39 EST] Kathleen Nettles Progress note * Johanny Salgado: PERFORM, MODIFY, MODIFY Event Display: Progress Note-Physician Authored Date: [id number] [place] SOW :1995 Age:27 years Sex:Male Visit Date:01/07/2023 Primary Care Physician: MARLEN PINA Subjective Patient states that he is feeling somewhat better.?? Wanted to trial full liquids for lunch.?Nurses report the patient was able to tolerate full liquids for lunch without difficulty and he would like??low-fat regular consistency foods for dinner. Patient still endorsing??ache in his left upper quadrant??radiating through to his back, but pain overall is much improved. ??No nausea or vomiting today.?? Afebrile, denies fever or chills.?? Patient would like to go home tomorrow as he has??a work engagement that he hopes to attend. Objective Vitals & Measurements T:??36.7?C ??(Temporal Artery)?? TMIN:??36.3?C ??(Temporal Artery)?? TMAX:??36.7?C ??(Temporal Artery)?? HR:??84??(Peripheral)?? RR:??16?? BP:??117/60?? SpO2:??96%?? WT:??126.5??kg?? PainScore:??7?? O2 Flow Rate:??4?? O2 Therapy:??Room air?? Physical Exam General Appearance: NAD, pleasant and cooperative. ??Appears more comfortable today. ENT: No icterus, moist mucous membranes Lungs: Clear to auscultation, no wheezes or rhonchi, unlabored respirations at rest. ??Still endorsing some??left upper quadrant pain with deep inspiration. ??SPO2 96% on room air. Cardiovascular:??S1 S2, no murmurs rubs or gallops, no JVD Abdomen: Soft, tender epigastric area and left upper quadrant, non-distended, normoactive bowel sounds. ??Small BM this morning. Lower Extremities: No peripheral edema, no calf tenderness to palpation Neuro: A&O X 4, steady gait Lab Results Test Name Test Result Date/Time Sodium Lvl 142 mmol/L 01/09/2023 06:00 EST Potassium Lvl 4.3 mmol/L 01/09/2023 06:00 EST Chloride 104 mmol/L 01/09/2023 06:00 EST CO2 26 mmol/L 01/09/2023 06:00 EST AGAP 16.3 mmol/L 01/09/2023 06:00 EST BUN 7 mg/dL 01/09/2023 06:00 EST Creatinine 0.54 mg/dL 01/09/2023 06:00 EST Glucose Lvl 110 mg/dL 01/09/2023 06:00 EST Calcium Lvl 9.4 mg/dL 01/09/2023 06:00 EST eGFR CKD-EPI 138.34 mL/min/1.73 m2 01/09/2023 06:00 EST Assessment/Plan 1.??Recurrent acute pancreatitis??K85.90 Multiple episodes of acute pancreatitis. [place] [facility] [place]. Possible??immunological component, patient has??follow-up with rheumatology scheduled??in the future. Continue with symptomatic management. ??Stopped IV hydromorphone, low-dose oral hydromorphone as needed. Tolerated full liquids for lunch, will trial low-fat diet for supper. Prednisone 40 mg daily. 2.??GERD (gastroesophageal reflux disease)??K21.9 Continue with PPI. 3.??KAYLA (obstructive sleep apnea)??G47.33 Nocturnal O2 at 4 L/min. 4.??Obesity??E66.9 5.??SVT (supraventricular tachycardia)??I47.1 6.??Pulmonary embolism??I26.99 7.??Insomnia??G47.00 Patient slept well with trazodone and melatonin last night. Disposition: Likely home tomorrow. [Electronically Signed on: 01/09/2023 14:18 EST] Johanny Salgado Nurse Practi [Verified on: 01/09/2023 14:18 EST] Johanny Salgado Nurse Practi * SONIA LING: PERFORM Event Display: Progress Note-Physician Authored Date: [id number] ATTENDING SUPPLEMENT TO PROGRESS NOTE I have seen and examined the patient, have discussed the plan with ACNP, and have viewed and agreedwith the note by Johanny Salgado, with the following additions and/or changes. ??Interval History:??Overall thinks he is a little bit better??although still pretty significant still??getting intravenous Dilaudid. ??Thinks he is ready to try some full liquids.?? No further vomiting today. ?? Examination: Appearance: NAD, young male, lying in bed, awake and conversational Eyes: sclera anicteric; E/N/M/T: oropharynx clear; Respiratory:?? clear to auscultation bl, Cardiovascular: RRR ; Abdominal: obese, soft, + BS, + TTP LUQ Extremities: no edema bl le Skin: warm and Neuro: A&O x 3, ? Assessment and Plan: 1. ??Acute recurrent pancreatitis. ??Attributed to inflammatory process.?? Increased dose of prednisone to 40 mg daily. ??Continue supportive measures IV fluids??pain medications antiemetics. ??Advance diet as tolerated today. 2. ??Obstructive sleep apnea. ??Continues to use 4 L of oxygen at bedtime. 3. ??GERD. ??Continue with omeprazole. 4. ??History of pulmonary embolism.?? She treatment. 5. ??DVT prophylaxis. ??Enoxaparin. Disposition. ??Anticipate??discharge home in next day or so. [Electronically Signed on: 01/10/2023 07:32 EST] SONIA LING MD * Johanny Salgado: PERFORM, MODIFY Event Display: Progress Note-Physician Authored Date: [id number] [place] SOW :1995 Age:27 years Sex:Male Visit Date:01/07/2023 Primary Care Physician: PAULENKA, MARLEN Subjective Patient still endorsing significant??upper abdominal pain.?? Multiple episodes of vomiting last night, none this morning. Able to keep his medications down thus far. Patient denies any chest pain,??shortness of breath,??fever or chills. Objective Vitals & Measurements T:??36.5?C ??(Temporal Artery)?? TMIN:??33.7?C ??(Temporal Artery)?? TMAX:??36.7?C ??(Temporal Artery)?? HR:??78??(Peripheral)?? RR:??16?? BP:??133/79?? SpO2:??99%?? HT:??175.300??cm?? WT:??126.500??kg?? BMI:??41.160?? BMI:??41.16?? Pain Score:??7?? O2 Flow Rate:??4?? O2 Therapy:??Room air?? BSA:??2.48?? Physical Exam General Appearance: NAD, pleasant and cooperative. ??Lying in right side, appears in pain. ENT: No icterus, moist mucous membranes Lungs: Clear to auscultation, no wheezes or rhonchi, unlabored respirations at rest. ??SPO2 99% on room air. ??Patient utilizes O2 at 4 L/min overnight??at baseline. Cardiovascular:??S1 S2, no murmurs rubs or gallops, no JVD Abdomen: Soft, tender across upper abdomen, non-distended, normoactive bowel sounds Lower Extremities: No peripheral edema, no calf tenderness to palpation Neuro: A&O X 4, steady gait Lab Results Test Name Test Result Date/Time SARS-CoV-2(COVID-19) NAAT (CUE) Emergenc Negative. 01/07/2023 17:01EST WBC 9.3 x10(3)/uL 01/08/2023 05:48 EST WBC 14.5 x10(3)/uL 01/07/2023 16:59 EST Hgb 14.4 gm/dL 01/08/2023 05:48 EST Hct 41.9 % 01/08/2023 05:48 EST Platelet 248 x10(3)/uL 01/08/2023 05:48 EST Sodium Lvl 140 mmol/L 01/08/2023 05:48 EST Potassium Lvl 4.3 mmol/L 01/08/2023 05:48 EST Chloride 104 mmol/L 01/08/2023 05:48 EST CO2 26 mmol/L 01/08/2023 05:48 EST AGAP 14.3 mmol/L 01/08/2023 05:48 EST BUN 15 mg/dL 01/08/2023 05:48 EST Creatinine 0.55 mg/dL 01/08/2023 05:48 EST Glucose Lvl 97 mg/dL 01/08/2023 05:48 EST Calcium Lvl 9.0 mg/dL 01/08/2023 05:48 EST Total Protein 5.8 gm/dL 01/08/2023 05:48 EST Albumin Lvl 4.00 gm/dL 01/08/2023 05:48 EST Alk Phos 60 IntUnit/L 01/08/2023 05:48 EST ALT 39 IntUnit/L 01/08/2023 05:48 EST AST 15 IntUnit/L 01/08/2023 05:48 EST Bili Total 0.7 mg/dL 01/08/2023 05:48 EST Lipase Lvl 33 IntUnit/L 01/07/2023 16:59 EST CRP 10.8 mg/L 01/07/2023 20:11 EST eGFR CKD-EPI 137.58 mL/min/1.73 m2 01/08/2023 05:48 EST Troponin-T <0.010 ng/mL 01/07/2023 16:59 EST TSH 0.823 uIU/mL 01/07/2023 16:59 EST Assessment/Plan 1.??Recurrent acute pancreatitis??K85.90 Multiple episodes of acute pancreatitis. [place] [facility] [place]. Possible??immunological component, patient has??follow-up with rheumatology scheduled??in the future. Continue with symptomatic management,??ongoing nausea without vomiting today. IV fluids,??clear liquids??as tolerated. Increase prednisone to 40 mg daily. 2.??GERD (gastroesophageal reflux disease)??K21.9 Continue with omeprazole. 3.??KAYLA (obstructive sleep apnea)??G47.33 Intolerant of CPAP, on nocturnal O2 at 4 L/min. 4.??Obesity??E66.9 5.??SVT (supraventricular tachycardia)??I47.1 No SVT noted today, sinus tachycardia rate in the 120s. 6.??Pulmonary embolism??I26.99 History of. Not on anticoagulants. 7.??Insomnia??G47.00 Orders: !-Cepacol Sore Throat, 1 lozenge(s), Lozenge, Oral, q2hr, PRN for Sore Throat, Start date: 01/08/2310:44:00 EST, 01/08/23 10:44:00 EST Lactated Ringers Injection 1,000 mL, 1,000 mL, IV, Routine, Start date: 01/07/23 21:07:00 EST, 100 mL/hr, 10 hr, 126.5 kg, 2.48, m2, 01/07/23 21:07:00 EST, Total volume (mL): 1,000 [Electronically Signed on: 01/08/2023 13:42 EST] Johanny Salgado Nurse Practi SONIA LING MD [Verified on: 01/08/2023 13:42 EST] Johanny Salgado Nurse Practi Nutrition and dietetics Outpatient Note * Lourdes Smith: PERFORM Event Display: Nutrition/Dietary Office/Clinic Note Authored Date: Initial Nutrition Assessment Diagnosis Alt in GI function r/t pancreatitis, readmission to [facility] 01/07/23, 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 Intervention 1. Clear Liquid 2. Trial Boost Clear supplements Goals 1. Advance diet when able Plan: Monitor diet tolerance and advancement. Monitor at meal rounds, follow up in 2-4 days. Assessment Reason for nutrition consult: RN/MST screen due to reported wt loss History of Present Illness: Pancreatitis Nutrition related PMH: Hx Covid +, PE Nutrition related medications: Prednisone, LR at 100ml/hr Current Diet Order: Clear liquid Diet Teaching: Understands diet -has been following a Low Fat, Lea diet at home, doesn't feel that anything that he has eaten has triggered another onset of pancreatitis. Typically around 285-300#,few # wt loss desirable per pt. Food/Nutrition related hx prior to admission: Lea, Low Fat Anthropometrics: 12/25/22 Ht Wt UBW % change BMI 175 126.4 41.27 Comment: Pertinent labs: 12/25/22 K Mg Phos Glu A1c BUN Cr AST ALT OTHER 59 Comment: Nutrition physical exam: Oral: None noted-chew/swallow difficulty GI: Mild nausea, Vomiting yesterday, abd tenderness & pain Skin: intact [Electronically Signed on: 01/08/2023 15:28 EST] Lourdes Smith [Verified on: 01/08/2023 15:28 EST] Lourdes Smith Discharge summary * Johanny Salgado: MODIFY, PERFORM Event Display: Discharge Summary Authored Date: [id number] [place] SOW :1995 Age:27 years Sex:Male Visit Date:01/07/2023 Primary Care Physician: MARLEN PINA Admission Information [place] is a 27-year-old male??who has a history of multiple recurrent acute??pancreatitis flares, likely idiopathic.?? Most??recent??hospitalization??was at this facility from 12/24 until 12/27/2022.?? He has had an extensive work-[place] done [place] [facility] [place], multiple hospitalizations as well.?? He has an upcomingappointment with rheumatology at [facility] [place] [place].?? Past medical history includes COVID-19 illness x2, morbid obesity, KAYLA on nocturnal home O2 at 4 L/min,??previous PE no longer on anticoagulants.?? He does not drink any alcohol, denies illicit drug use. Per [facility] [place]12/21/2022: Historically LFTs??have never been elevated including lipase.?? History of fluctuating D-dimer and CRP. Of note surgery was also considering??CCY to rule out??as cause of pain??and if missing something inside gallbladder.?? RP biopsy??09/2022??negative for IgG4, fragments of fibroadipose tissue. Patient??did feel better with steroids in the past. Patient again was recently started on prednisone 20 mg daily, and has been taking them faithfully. ?? He returns to the ED??for evaluation??with recurrent abdominal pain, intractable nausea??and multiple??episodes of vomiting.?? He felt relatively well from his previous discharge up until day before arrival.?? He also endorsed temperature of 102 ??F, diaphoresis, epigastric pain radiating straight through to his back and up to his left shoulder.?? Abdominal pain worsened with deep inspiration.?? He was unable to take his medications. ?? Vital signs were overall unremarkable other than for elevated diastolic blood pressure.?? BMI was 41.8. Abdomen was obese and not obviously tender. EKG showed sinus tachycardia at 121 bpm, nonspecific T wave abnormalities, QTc 374. WBC 14.5, Hgb 16.8, platelets 348. Na+ 133, bicarb 19, BUN 14, CR 0.67. Lipase 33, ALT 50, AST 22, total bili 2.6, alk phos 68. CT angio chest abdomen and pelvis showed infiltration of the peripancreatic fat, consistent with pancreatitis.?? Liver was enlarged but otherwise unremarkable, gallbladder contained no stones and bile duct showed no signs of obstruction. Patient was given 1 L NS, Dilaudid 1 mg IV x2, Zofran 4 mg, Toradol 15 mg, Reglan 10 mg, but had persistent symptoms so was admitted for further management. Hospital Course Patient was admitted to hospital medicine service. ??He??he was treated conservatively, IV fluids, and symptomatic management.?? Today patient is now tolerating low-fat diet without difficulty, fleeting nausea without vomiting.?? Abdominal ache but pain is tolerable, he is now receiving??hydromorphone 4 mg tablets??with good effect.?? Prednisone was increased to 40 mg daily as well. ??We have instructed patient to take prednisone 40 mg daily for 7 days, then resume 20 mg daily dosing. ??He doeshave follow-up with his PCP??Dr. Pina??on 01/15/2023. ??He has a scheduled rheumatology follow-up??[facility]??on 01/29/2023. ?? The patient received an opioid prescription -hydromorphone??4 mg tablets, 9 tablets. Risks were discussed with the patient and?? the patient was given the information sheet about opioids. The patientwas informed to not drive, drink alcohol, take other sedative medication or operate machinery for at least 6 hours after use and until medication effects are gone. ?? Physical Exam Vitals & Measurements T:??36.6?C ??(Temporal Artery)?? TMIN:??35.7?C ??(Temporal Artery)?? TMAX:??36.6?C ??(Temporal Artery)?? HR:??72??(Peripheral)?? RR:??18?? BP:??133/73?? SpO2:??97%?? Pain Score:??0 = No pain?? O2 Flow Rate:??4?? O2 Therapy:??Room air?? General Appearance: NAD, pleasant and cooperative. ??Appears more comfortable today. ENT: No icterus, moist mucous membranes Lungs: Clear to auscultation, no wheezes or rhonchi, unlabored respirations at rest. ??Still endorsing some??left upper quadrant pain with deep inspiration. ??SPO2 96% on room air. Cardiovascular:??S1 S2, no murmurs rubs or gallops, no JVD Abdomen: Soft, tender epigastric area and left upper quadrant, non-distended, normoactive bowel sounds. ??Small BM this morning. Lower Extremities: No peripheral edema, no calf tenderness to palpation Neuro: A&O X 4, steady gait Medications Home !-Zofran 4 mg oral tablet, 4 mg= 1 tab(s), Oral, q8hr, PRN acetaminophen 325 mg oral tablet, 650 mg= 2 tab(s), Oral, q4hr, PRN carboxymethylcellulose, 1 drop, Eye-Both, TID dicyclomine 20 mg oral tablet, 20 mg= 1 tab(s), Oral, TID Dilaudid 4 mg oral tablet, 4 mg= 1 tab(s), Oral, TID, PRN docusate-senna 50 mg-8.6 mg oral tablet, 2 tab(s), Oral, BID, PRN gabapentin 100 mg oral capsule, 300 mg= 3 cap(s), Oral, TID melatonin, 10 mg, Oral, Once a day (at bedtime) metoprolol extended release, 200 mg, Oral, Daily MiraLax, 17 gm= 1 packet(s), Oral, Daily omeprazole 20 mg oral delayed release capsule, 20 mg= 1 cap(s), Oral, Daily predniSONE 20 mg oral tablet, See Instructions traZODone 50 mg oral tablet, 50 mg= 1 tab(s), Oral, Once a day (at bedtime) ? Pain was at a tolerable level with??hydromorphone 4 mg. ??Patient received??9 tablets??to go home. ??VPMS report??was obtained. Lab Results Test Name Test Result Date/Time SARS-CoV-2(COVID-19) NAAT (CUE) Emergenc Negative. 01/07/2023 17:01EST WBC 9.3 x10(3)/uL 01/08/2023 05:48 EST WBC 14.5 x10(3)/uL 01/07/2023 16:59 EST Hgb 14.4 gm/dL 01/08/2023 05:48 EST Hct 41.9 % 01/08/2023 05:48 EST Platelet 248 x10(3)/uL 01/08/2023 05:48 EST Sodium Lvl 142 mmol/L 01/09/2023 06:00 EST Potassium Lvl 4.3 mmol/L 01/09/2023 06:00 EST Chloride 104 mmol/L 01/09/2023 06:00 EST CO2 26 mmol/L 01/09/2023 06:00 EST AGAP 16.3 mmol/L 01/09/2023 06:00 EST BUN 7 mg/dL 01/09/2023 06:00 EST Creatinine 0.54 mg/dL 01/09/2023 06:00 EST Glucose Lvl 110 mg/dL 01/09/2023 06:00 EST Calcium Lvl 9.4 mg/dL 01/09/2023 06:00 EST Albumin Lvl 4.00 gm/dL 01/08/2023 05:48 EST Alk Phos 60 IntUnit/L 01/08/2023 05:48 EST ALT 39 IntUnit/L 01/08/2023 05:48 EST AST 15 IntUnit/L 01/08/2023 05:48 EST Bili Total 0.7 mg/dL 01/08/2023 05:48 EST Lipase Lvl 33 IntUnit/L 01/07/2023 16:59 EST CRP 10.8 mg/L 01/07/2023 20:11 EST eGFR CKD-EPI 138.34 mL/min/1.73 m2 01/09/2023 06:00 EST Troponin-T <0.010 ng/mL 01/07/2023 16:59 EST TSH 0.823 uIU/mL 01/07/2023 16:59 EST Diagnostic Results (01/07/2023 17:[address] Angio Chest/Abdomen/Pelvis) CT Angio Chest/Abdomen/Pelvis FINDINGS: VASCULAR FINDINGS Heart: Normal size. Thoracic aorta: No stenosis or aneurysm. No evidence of aortic dissection. Arch branch vessel origins: No stenosis. Pulmonary arteries: No obvious central filling defects. Abdominal aorta: No stenosis or aneurysm. Celiac: No stenosis. SMA: No stenosis. Right renal artery: No stenosis. Left renal artery: No stenosis. VIKKI: No stenosis. Right: Common iliac artery: No stenosis. Internal iliac artery: No stenosis. External iliac artery: No stenosis. Common femoral artery: No stenosis. Left: Common iliac artery: No stenosis. Internal iliac artery: No stenosis. External iliac artery: No stenosis. Common femoral artery: No stenosis. NON-VASCULAR FINDINGS Lungs and large airways: Normal. Pleura: No effusion. Mediastinum and jelly: Normal. Liver: Enlarged measuring 23 cm craniocaudal dimension. Bile ducts: No evidence of biliary obstruction. Gallbladder: No calcified gallstones. Normal caliber wall. Pancreas: No obvious focal lesions or pancreatic duct dilatation. There is diffuse infiltration of the peripancreatic fat most likely secondary to acute pancreatitis. Spleen: The spleen is not enlarged. Adrenals: Normal. Kidneys: Normal. Urinary Bladder: Normal. Lymph Nodes: No enlarged lymph nodes. Bowel: Nondilated, no wall thickening. Peritoneum and mesentery: No ascites, free air, or loculated fluid collection. Abdominal wall: Ventral hernia is identified. Reproductive organs: Grossly unremarkable. Osseous structures: No suspicious lesions. ?? IMPRESSION: 1. Infiltration of the prior pancreatic fat most likely secondary to acute pancreatitis. 2. No evidence of aortic dissection. ?? EKG 01/07/2023 at 1630: SINUS TACHYCARDIA NONSPECIFIC T-WAVE ABNORMALITY ABNORMAL EKG COMPARED TO 12/24/2022 NO SIGNIFICANT CHANGE Rate: 121 bpm. Discharge Plan Patient to discharge home. He was given a work note that he may return to work tomorrow without restrictions. Patient will continue to follow-up with his outpatient team. 1.??Recurrent acute pancreatitis??K85.90 2.??GERD (gastroesophageal reflux disease)??K21.9 3.??KAYLA (obstructive sleep apnea)??G47.33 4.??Obesity??E66.9 5.??SVT (supraventricular tachycardia)??I47.1 6.??Pulmonary embolism??I26.99 7.??Insomnia??G47.00 Patient Discharge Condition Improved and stable. Discharge Disposition Discharge home. Follow-up as above. 45 minutes spent on this discharge. ?? Due to computer program and molder pipe covering software used, unintended errors may be present in the above documentation. Patient Education Acute Pancreatitis Follow Up With When Contact Information MARLEN PINA 01/15/2023 03:15 [place] [address]- Business (1) Additional Instructions: Arrival time 1515 for ??1530 appointment time. [Electronically Signed on: 01/10/2023 12:05 EST] Johanny Salgado [Verified on: 01/10/2023 12:05 EST] Johanny Salgado Nurse Practi * SONIA LING: PERFORM Event Display: Discharge Summary Authored Date: ATTENDING SUPPLEMENT TO??DISCHARGE NOTE I have seen and examined the patient, have discussed the plan with ACNP, and have viewed and agreedwith the note by Johanny Salgado, with the following additions and/or changes. ??History:??Patient is a 27-year-old gentleman with a history of recurrent pancreatitis, attributedto inflammatory causes at this point. ??Followed [place] [facility] [place] ??On chronic prednisone at this point. ??Awaiting rheumatology work- up.?? History of??BMI of 41,??history obstructive sleep apnea on 4L of nocturnal oxygen,??who presented to the emergency room??with abdominal pain, nausea vomiting??consistent with??recurrent acute pancreatitis episode.?? CT imaging was consistent with??peripancreatic inflammation??and his??abdominal exam was notable for left??upper quadrant tenderness.?? His lipase was not elevated.?? He was admitted to hospital service??started on supportive treatment including intravenous fluids, intravenous antiemetics and pain medications.?? Additionally prednisone was increased to 40 mg daily as that has helped??with his pancreatitis treatment in the past.?? His diet was slowly advanced and his symptoms improved over next 48 hours.?? He was tolerating diet??without nausea or vomiting. ??He continued to endorse some pain and was??prescribed a small amount of??Dilaudid 4 mg tablets 90 tablets were prescribed.?? He was also instructed to take prednisone 40 mg for 7days then go back to 20 mg daily.?? 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 ? Examination: Vital signs: Temperature?36.6 ?(05:53) Systolic Blood Pressure?133 ?(05:53) Diastolic Blood Pressure?73 ?(05:53) Pulse?72 ?(05:53) SpO2?97 ?(:53)?? RA Respiratory Rate?18 ?(05:53) Appearance: NAD, young male, sitting in bed, conversational E/N/M/T: oropharynx clear; Respiratory:?? clear to auscultation bl, no rales or wheezing Cardiovascular: RRR ; Abdominal: obese, soft, ND, no significant ttp over LUQ/epigastric area Extremities: no edema bl le Skin: warm and dry; Neuro: A&O x 3, non-focal examination ? Assessment and Plan:?? 1. ??Acute recurrent pancreatitis. ??Attributed to??as of yet unclear inflammatory theology. ??Improved.?? Discharged home on??increased dose of prednisone 40 mg daily for 7 days then reduce back to 20 mg daily.?? Discharge on small amount of??oral opioid medication Dilaudid which patient has taken previously.?? Follow-up with primary care doctor, GI and hematology at [facility] already arranged. 2. ??Obstructive sleep apnea. ??Remains on nocturnal oxygen at 4 L. 3. ??BMI of 41. ??Needs ongoing outpatient??treatment and support. Disposition.?? Discharge??home today.?? Time spent on discharge activities 45 minutes. [Electronically Signed on: 01/10/2023 18:14 EST] SONIA LING MD CTA Chest vessels and Abdominal vessels and Pelvis vessels W contrast IV * LUCIEN MURRY: VERIFY, VERIFY, PERFORM Event Display: Report Authored Date: EXAMINATION: CT Angio Chest/Abdomen/Pelvis CLINICAL HISTORY: Epigastric abdominal pain with radiation to the left shoulder ? Dissection TECHNIQUE: Helical CT angiogram of the chest, abdomen and pelvis was performed following the intravenous administration of 110cc of Omnipaque 350. Maximum intensity projection (MIP) were reformatted. 3-D images were generated on an independent workstation. COMPARISON: 12/24/2022 FINDINGS: VASCULAR FINDINGS Heart: Normal size. Thoracic aorta: No stenosis or aneurysm. No evidence of aortic dissection. Arch branch vessel origins: No stenosis. Pulmonary arteries: No obvious central filling defects. Abdominal aorta: No stenosis or aneurysm. Celiac: No stenosis. SMA: No stenosis. Right renal artery: No stenosis. Left renal artery: No stenosis. VIKKI: No stenosis. Right: Common iliac artery: No stenosis. Internal iliac artery: No stenosis. External iliac artery: No stenosis. Common femoral artery: No stenosis. Left: Common iliac artery: No stenosis. Internal iliac artery: No stenosis. External iliac artery: No stenosis. Common femoral artery: No stenosis. NON-VASCULAR FINDINGS Lungs and large airways: Normal. Pleura: No effusion. Mediastinum and jelly: Normal. Liver: Enlarged measuring 23 cm craniocaudal dimension. Bile ducts: No evidence of biliary obstruction. Gallbladder: No calcified gallstones. Normal caliber wall. Pancreas: No obvious focal lesions or pancreatic duct dilatation. There is diffuse infiltration of the peripancreatic fat most likely secondary to acute pancreatitis. Spleen: The spleen is not enlarged. Adrenals: Normal. Kidneys: Normal. Urinary Bladder: Normal. Lymph Nodes: No enlarged lymph nodes. Bowel: Nondilated, no wall thickening. Peritoneum and mesentery: No ascites, free air, or loculated fluid collection. Abdominal wall: Ventral hernia is identified. Reproductive organs: Grossly unremarkable. Osseous structures: No suspicious lesions. IMPRESSION: 1. Infiltration of the prior pancreatic fat most likely secondary to acute pancreatitis. 2. No evidence of aortic dissection. Thank you for letting us participate in the care of this patient. If you are a health care provider and have any questions regarding this report, please contact the number below. For patients who have questions please contact the health pediatric acute care unit nurse that requested your imaging first. Final Dictated: 01/07/2023 5:48 pm LUCIEN MURRY Signed (Electronic Signature): 01/07/2023 5:48 pm Signed by: LUCIEN MURRY Patient Care team information Care Team Personnel Name: VILLEGASPASCALE Member Role: Informed Provider Address: Address: [address] [place] [id number] Name: MARLEN PINA Position: [facility] No Access Member Role: Primary Care Physician Address: Address: [place], [place] [address] Name: Adrian West Position: [facility] Member Role: Registered Nurse Name: Choco Thayer Position: [facility] ED Physician LP Member Role: ED Physician Address: Address: [address] [place] [id number] Care Team Related Persons Name: KYLEE SOW
--- OUTSIDE RECORDS SUMMARY | 2023-04-03 17:55 | XMS_ITS | Continuity of Care Document ---
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 Name Role Phone MARLEN PINA Primary Care Physician Encounter BVT Date(s): 12/24/22 - 12/28/[address] [phone] Encounter Diagnosis Obesity(Discharge Diagnosis) - 12/25/22 Recurrent acute pancreatitis(Discharge Diagnosis) - 12/24/22 KAYLA (obstructive sleep apnea)(Discharge Diagnosis) - 12/25/22 Abdominal pain(Discharge Diagnosis) - 12/24/22 Chest pain(Discharge Diagnosis) - 12/24/22 GERD (gastroesophageal reflux disease)(Discharge Diagnosis) - 12/25/22 Insomnia(Discharge Diagnosis) - 12/25/22 Discharge Disposition: Home or Self Care Attending Physician: Danita Elena MD Admitting Physician: Danita Elena MD Allergies, Adverse Reactions, Alerts Substance Reaction Severity Status FLUoxetine Mild Active Assessment and Plan Extracted from: Title:Discharge Author:Leigha Lee RN Date:12/28 DC paperwork reviewed with p t. Pt. verbalized/signed understanding. Work note given. IV removed, cath intact. Taken down via wheelchair. Safety measures in place. Extracted from: Title:General Medical Problem *ED Author:LISSETT ISAAC Date:12/24/22 History of Present Illness The patient presents with Abdominal and chest pain with vomiting. . The onset was 1 days ago. The course/duration of symptoms is constant and worsening. Location: Chest abdomen. The character of symptoms is pain. Ny is a 27-year-old male who has a complicated past medical history that includes pneumonia from COVID-19 infection, prior pulmonary embolism (no longer on anticoagulants) duodenitis, pancreatitis, obesity who presents to the emergency department via private vehicle with report of severe upper abdominal pain radiating to his chest, neck, left upper arm that started yesterday. He reports the symptoms feel similar to when he has had pancreatitis in the past his last episode was 3 weeks ago. He states he started having pancreatitis about 6 months ago. He reports they cannot figure out why he is having these flares. He no longer drinks. He reports he has been followed at [facility] and has been seen numerous times at [facility] where he was staying with his grandfather who is dying recently. Ny denies any recent fevers or episodes of sweating he has had chills with this pain. He has had no cough, sinus congestion, or sore throat. He has had nausea and numerous episodes of vomiting and 3 episodes of diarrhea. He has had no blood in the emesis no coffee-ground emesis. He denies any blood in stools or black stools. He has had no urinary symptoms. He is having no trouble breathing. He denies any swelling to his lower extremities or pain in the calf muscles of his legs currently. Past medical history: Mechanical back pain Adjustment disorder with disturbance of mood and conduct Elevated fasting glucose GERD Irritable bowel Migraine Obesity Recurrent strep pharyngitis Dysuria Sleep difficulties Pneumonia due to COVID-19 virus Hypoxia Pulmonary embolus Tachycardia Duodenitis Internal hemorrhoids Obstructive sleep apnea Pancreatitis Uncontrolled pain Intractable vomiting with nausea Past surgical history: Appendectomy Medications: Dilaudid 6 mg as needed pain Trazodone Metoprolol Reglan Zofran Gabapentin Allergies: FLUoxetine Social history: Ny is residing in [place]. 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 He has had his COVID-19 vaccinations. He does not smoke cigarettes. He does not drink alcohol, reports he stopped 6 months ago when pancreatitis started. He denies any illicit street drug use.. Review of Systems Constitutional symptoms: Chills, no fever, no sweats. ENMT symptoms: No sore throat, no nasal congestion. Respiratory symptoms: No shortness of breath, no cough. Cardiovascular symptoms: Chest pain. Gastrointestinal symptoms: Abdominal pain, nausea, vomiting, diarrhea, No rectal bleeding, Genitourinary symptoms: No urinary urgency, frequency, or dysuria. There is no current hematuria.. Musculoskeletal symptoms: Back pain, Neck pain.. Neurologic symptoms: No headache, Health Status Allergies: Allergic Reactions (Selected) Mild FLUoxetine- No reactions were documented.. Medications: (Selected) Inpatient Medications Ordered !-Zofran: 4 mg = 2 mL, IV Push, Once Dilaudid: 1 mg = 1 mL, IV Push, Once NS: 1,000 mL, 1000 mL/hr, IV, Once. Past Medical/ Family/ Social History Medical history: No active or resolved past medical history items have been selected or recorded.. Surgical history: No active procedure history items have been selected or recorded.. Family history: No family history items have been selected or recorded.. Social history: Social History No active social history has been recorded Psychosocial History No active psychosocial history has been recorded . Problem list: No qualifying data available . Physical Examination Vital Signs Vital Signs 12/24/2022 16:36 EST Temperature Temporal Artery 36.6 DegC Peripheral Pulse Rate 114 bpm HI Respiratory Rate 24 br/min HI Systolic Blood Pressure 162 mmHg HI Diastolic Blood Pressure 77 mmHg SpO2 98 % . Measurements 12/24/2022 16:44 EST Height/Length Dosing 175.000 cm Weight Dosing 125.900 kg 12/24/2022 16:36 EST Height/Length Estimated 175.000 cm Weight Estimated 125.900 kg . Basic Oxygen Information 12/24/2022 16:36 EST Oxygen Therapy Room air . General: Alert, mild distress, anxious, ill-appearing, Ny is sitting on the examination stretcher. He is awake and alert. His skin is warm and dry. His respirations are rapid and even. He appears generally uncomfortable and ill.. Skin: Warm, dry. Head: Normocephalic. Neck: Supple. Eye: Normal conjunctiva. Cardiovascular: Tachycardia. Respiratory: Respirations are non-labored, breath sounds are equal, Symmetrical chest wall expansion, Breath sounds: Diminished, no rales present, no rhonchi present, no wheezes present. Gastrointestinal: Soft, There is mild to moderate abdominal tenderness in the epigastric left upper and left lower quadrant. There is no guarding or rebound. There is left CVA tenderness.. Musculoskeletal: Normal ROM. Neurological: Alert and oriented to person, place, time, and situation, normal coordination observed. Psychiatric: Cooperative, appropriate mood & affect. Medical Decision Making Rationale: Pleasant 27-year-old male with a complicated past medical history including COVID-19 infection resulting in COVID-19 pneumonia, pulmonary embolism, has had duodenitis, pancreatitis, presents to the emergency department with severe upper abdominal pain radiating into his chest, neck, left arm and back reminiscent of his last pancreatitis flare which was 3 weeks ago. He states he started having pancreatitis problems approximately 6 months ago. He reports his pancreatic enzymes are always normal but CT scans usually show inflammation. He has had no recent injury or illness. He endorses intractable nausea with numerous episodes of vomiting, 3 episodes of diarrhea today. Plan at this time is for labs include CBC, chemistries, lipase, troponin, EKG, D-dimer. He is placed on continuous temperature monitoring. Will provide for parental pain medications antiemetics and IV fluids while awaiting diagnostic data.. Documents reviewed: Emergency department nurses' notes, Medical records from [facility] have been reviewed by myself today.. Electrocardiogram: Time 12/24/2022 16:42:00, rate 110, Sinus tachycardia. Nonspecific T wave abnormality. No evidence of STEMI. ECG is independently interpreted by myself at this time.. Results review: Lab results : Lab View 12/24/2022 19:31 EST Employed in healthcare? No Symptomatic as defined by CDC? No Date of onset (Lab) 12/24/2022 Hospitalized due to COVID-19? No In ICU? No Group care resident? No status? Not SARS-CoV-2(COVID-19) NAAT (CUE) Practice Negative 12/24/2022 18:12 EST UA Color YELLOW UA Clarity CLEAR UA Spec Grav 1.025 UA Bili NEGATIVE UA pH 6.0 UA Urobilinogen 0.2 EU/dL UA Blood Small UA Glucose NEGATIVE UA Ketones NEGATIVE UA Protein NEGATIVE UA Nitrite NEGATIVE UA Leuk Est NEGATIVE Urine Culture? No Micro? Indicated UA WBC 0-2 UA RBC 3-5 UA Mucous Moderate UA Bacteria None Seen UA Squam Epi Moderate UA Trans Epi Rare 12/24/2022 17:02 EST PT 12.3 second(s) INR 0.95 NA D-Dimer 0.600 FEU ug/mL HI Activated PTT 31.7 second(s) Total Protein 7.3 gm/dL Albumin Lvl 4.80 gm/dL Alk Phos 72 IntUnit/L ALT 59 IntUnit/L HI AST 23 IntUnit/L Bili Total 0.3 mg/dL Bili Direct <0.2 mg/dL Lipase Lvl 53 IntUnit/L 12/24/2022 16:49 EST WBC 12.5 x10(3)/uL HI RBC 5.50 x10(6)/uL Hgb 15.9 gm/dL Hct 45.0 % MCV 81.8 fL MCH 28.9 pg MCHC 35.3 gm/dL RDW-CV 12.9 % Platelet 341 x10(3)/uL MPV 9.7 fL Neutro Auto 67.0 % Lymph Auto 22.8 % [place] Auto 7.8 % Eos Auto 1.4 % Basophil Auto 0.7 % NRBC Auto Pct 0.00 % Neutro Absolute 8.36 x10(3)/uL HI Lymph Absolute 2.84 x10(3)/uL [place] Absolute 0.97 x10(3)/uL HI Eos Absolute 0.18 x10(3)/uL NRBC Absolute 0.00 x10(3)/uL Basophil Absolute 0.09 x10(3)/uL Immature Gran % 0.30 % Immature Gran Absolute 0.04 x10(3)/uL NA Sodium Lvl 137 mmol/L Potassium Lvl 4.3 mmol/L Chloride 103 mmol/L CO2 22 mmol/L AGAP 16.3 mmol/L BUN 13 mg/dL Creatinine 0.73 mg/dL Glucose Lvl 118 mg/dL HI Calcium Lvl 10.2 mg/dL Osmolality 275.0 mOsm/kg eGFR CKD-EPI 126.30 mL/min/1.73 m2 Troponin-T <0.010 ng/mL . Radiology results: CT (ST) Computed Tomography: ?? CT Abdomen/Pelvis w/ Contrast ?? 12/24/22 19:51:51 EXAMINATION: CT Abdomen/Pelvis w/ Contrast CLINICAL HISTORY: Chest and abdominal pain with history of pancreatitis please evaluate for pathology. TECHNIQUE: Helical CT of the abdomen and pelvis was performed following the intravenous administration of Omnipaque 350. Oral contrast administered. COMPARISON: None FINDINGS: Diffusely fatty infiltrated but otherwise unremarkable liver. Unremarkable gallbladder and spleen. Mild stranding adjacent to the pancreatic head extending into the adjacent retroperitoneum. Unremarkable adrenals. Unremarkable kidneys. Limited noncontrast images demonstrate an unremarkable stomach, small bowel and large bowel. An appendix is not identified. Unremarkable urinary bladder and pelvic structures. No pneumoperitoneum, free fluid or lymphadenopathy. Normal aorta. Intact osseous structures. IMPRESSION: 1. Mild stranding adjacent to the pancreatic head extending into the adjacent retroperitoneum that likely represents a pancreatitis if this correlates clinically. 2. Additional finding is above. Please review. Thank you for letting us participate in the care of this patient. If you are a health care provider and have any questions regarding this report, please contact the number below. For patients who have questions please contact the health hospice care consultant that requested your imaging first. Electronically signed by: Elroy Arellano MD, [facility] ([phone]), at 12/24/2022 7:51 PM ?? Signed By: ELROY ARELLANO ?? CT PE Protocol ?? 12/24/22 19:32:40 EXAMINATION: CT PE Protocol CLINICAL HISTORY: Chest and abdominal pain with history of pulmonary embolus in the past not currently anticoagulated with elevated D-dimer please evaluate for possible recurrent pulmonary embolism TECHNIQUE: Helical CT angiogram of the chest was performed after the intravenous administration of Omnipaque 350. Thin-section reconstructions as well as coronal and sagittal MIP reformatted images were generated to aid in evaluation. COMPARISON: Prior plain film of the same day. FINDINGS: Due to technical problems the pulmonary arteries were insufficiently opacified with contrast for a reliable assessment for the presence or absence of pulmonary emboli. Scattered pulmonary parenchymal densities most consistent with subsegmental atelectasis, cannot entirely exclude early infiltrate. Otherwise clear lungs.. Unremarkable mediastinum. No mediastinal or hilar lymphadenopathy. No pericardial or pleural effusion. IMPRESSION: 1. Indeterminate study with respect to pulmonary emboli due to technical problems with contrast administration. Recommend a repeat study or a VQ scan as clinically indicated. 2. Additional findings as above. Please review. Thank you for letting us participate in the care of this patient. If you are a health care provider and have any questions regarding this report, please contact the number below. For patients who have questions please contact the health hospice care consultant that requested your imaging first. Electronically signed by: Elroy Arellano MD, [facility] ([phone]), at 12/24/2022 7:32 PM ?? Signed By: ELROY ARELLANO . Reexamination/ Reevaluation Notes: Labs been obtained and reviewed. CBC shows a total white blood cell count elevated at 12.5, hemoglobin normal at 15.9, [place] normal at five 5.0, platelets normal at 341. Coagulations a show an INR of 0.95, D-dimer elevated at 0.600. CMP was normal minus a glucose of 118, AST of 59. Lipase was normal at 53. Troponin T was less than 0.010. Chest x-ray showed no acute cardiopulmonary process. Urinalysis with small amount of blood, 3-5 red blood cells on microscopic exam no evidence to suggest UTI. Given the elevated D-dimer history of prior pulmonary embolism a CT PE was obtained and was nondiagnostic secondary to timing of contrast. CT abdomen pelvis showed mild stranding adjacent to the pancreatic head extending into the adjacent retroperitoneum that likely represents a pancreatitis. Patient is reporting symptoms consistent with prior episodes of pancreatitis. He is having no trouble breathing or hypoxia. Feel the probability of pulmonary embolism is clinically low. I have consulted with hospitalist patient has had need for recurrent doses of parenteral pain medications. Plan at this time is for admission for acute pancreatitis.. Impression and Plan Diagnosis Abdominal pain (YVT72-NS R10.9, Discharge, Medical) Chest pain (CPJ65-YN R07.9, Discharge, Medical) Recurrent acute pancreatitis (OFR46-HE K85.90, Discharge, Medical) Calls-Consults - Danita Elena MD, Hospitalist, consult, Reviewed HPI, diagnostics, exam and ER course agrees with plan for admission.. Plan Condition: Stable. Disposition: Place in Observation Unit. Counseled: Patient, Regarding diagnosis, Regarding diagnostic results, Regarding treatment plan, Regarding prescription, Patient indicated understanding of instructions. Functional Status 12/28/22 History of Fall in Last 3 Months Zhang N o Mobility Torsten No limitations 12/26/22 ADLs Independent 12/24/22 Recent Travel History No recent travel Family Member Travel History No recent t ravel COVID-19 Screening None Medications !-Zofran 4 mg oral tablet 4 mg = 1 tab(s), Oral, q8hr, PRN PRN Nausea/Vomiting, 0 Refill(s) Start Date: 12/24/22 Status: Ordered carboxymethylcellulose 1 drop, Eye-Both, TID, 0 Refill(s) Start Date: 12/24/22 Status: Ordered dicyclomine 20 mg oral tablet 20 mg = 1 tab(s), Oral, TID, 0 Refill(s) Start Date: 12/24/22 Status: Ordered Dilaudid 2 mg oral tablet 6 mg = 3 tab(s), Oral, q6hr, PRN PRN Pain - Severe, If refill needed, call PCP, X 3 day(s), # 21 tab(s), 0 Refill(s), 12/31/22, Pharmacy: [facility], 3 tab(s) Oral q6hr,x3 day(s),PRN:Pain - Severe,Instr:If refill needed, call PCP, 175, cm, 12/06... Start Date: 12/28/22 Stop Date: 12/31/22 Status: Ordered docusate-senna 50 mg-8.6 mg oral [...] Status: Ordered predniSONE 20 mg oral tablet 20 mg = 1 tab(s), Oral, Daily, 0 Refill(s) Start Date: 12/25/22 Status: Ordered traZODone 50 mg oral tablet 50 mg = 1 tab(s), Oral, Once a day (at bedtime), 0 Refill(s) Start Date: 12/24/22 Status: Ordered Mental Status 12/28/22 Sensory Perception Torsten No impairment Level of [...] Name Date Basic Metabolic Panel Standard (CP7 Carlo dard) 12/27/22 Automated Differential Standard 12/26/22 Basic Metabolic Panel Standard (CP7 Carlo dard) 12/26/22 CBC w/Diff Standard 12/26/22 SARS-CoV-2(COVID-19) NAAT (CUE) Practice s POCT 12/24/22 Urinalysis with Culture, if indicated [facility] (UA w Culture if Ind Standard) 12/24/22 APTT 12/24/22 D-Dimer (D dimer) 12/24/22 Hepatic Panel1 (LFT) 12/24/22 Lipase Level 12/24/22 PT (PT/INR) 12/24/22 Automated Differential Standard 12/24/22 Basic Metabolic Panel Standard (BMP Carlo dard) 12/24/22 CBC w/Diff Standard 12/24/22 Troponin-T 12/24/22 Urinalysis Microscopic Standard 12/24/22 Most recent to oldest [Reference Range]: 1 2 3 Urine Culture? No (12/24/22 6:12 PM) eGFR CKD-EPI [>=60 mL/min/1.73 m2] 136.10 mL/min/1.73 m2 *NA* (12/27/22 6:44 AM) 136.10 mL/min/1.73 m2 *NA* (12/26/22 6:15 AM) 126.30 mL/min/1.73 m2 *NA* (12/24/22 4:49 PM) SARS-CoV-2(COVID-19) NAAT (CUE) Practice Negative *NA* (12/24/22 7:31 PM) Activated PTT [26.0-40.0 second(s)] 31.7 second(s) (12/24/22 5:02 PM) NRBC Auto Pct [0.00-0.20 %] 0.00 % (12/26/22 6:15 AM) 0.00 % (12/24/22 4:49 PM) Creatinine [0.70-1.20 mg/dL] 0.57 mg/dL *LOW* (12/27/22 6:44 AM) 0.57 mg/dL *LOW* (12/26/22 6:15 AM) 0.73 mg/dL (12/24/22 4:49 PM) UA Bacteria [None Seen] None Seen (12/24/22 6:12 PM) UA Bili [NEGATIVE] NEGATIVE *NA* (12/24/22 6:12 PM) UA Blood [NEGATIVE] Small *ABN* (12/24/22 6:12 PM) UA Color YELLOW *NA* (12/24/22 6:12 PM) UA Glucose [Negative] NEGATIVE *NA* (12/24/22 6:12 PM) UA Ketones [NEGATIVE] NEGATIVE *NA* (12/24/22 6:12 PM) UA Leuk Est [NEGATIVE] NEGATIVE (12/24/22 6:12 PM) UA Mucous Moderate *ABN* (12/24/22 6:12 PM) UA Nitrite [NEGATIVE] NEGATIVE (12/24/22 6:12 PM) D-Dimer [0.000-0.500 FEU ug/mL] 0.600 FEU ug/mL *HI* (12/24/22 5:02 PM) UA Protein [NEGATIVE] NEGATIVE (12/24/22 6:12 PM) UA RBC [0-2] 3-5 *ABN* (12/24/22 6:12 PM) UA Urobilinogen [<1.0 mg/dL] 0.2 EU/dL (12/24/22 6:12 PM) UA WBC 0-2 (12/24/22 6:12 PM) INR 0.95 *NA* (12/24/22 5:02 PM) AGAP [10.0-18.0 mmol/L] 16.1 mmol/L (12/27/22 6:44 AM) 14.8 mmol/L (12/26/22 6:15 AM) 16.3 mmol/L (12/24/22 4:49 PM) Glucose Lvl [70-100 mg/dL] 106 mg/dL *HI* (12/27/22 6:44 AM) 137 mg/dL *HI* (12/26/22 6:15 AM) 118 mg/dL *HI* (12/24/22 4:49 PM) Hct [40.1-51.0 %] 41.5 % (12/26/22 6:15 AM) 45.0 % (12/24/22 4:49 PM) Hgb [13.7-17.5 gm/dL] 14.5 gm/dL (12/26/22 6:15 AM) 15.9 gm/dL (12/24/22 4:49 PM) Lipase Lvl [13-60 IntUnit/L] 53 IntUnit/L (12/24/22 5:02 PM) Lymph Auto [15.0-45.0 %] 15.3 % (12/26/22 6:15 AM) 22.8 % (12/24/22 4:49 PM) MCH [25.6-32.2 pg] 29.0 pg (12/26/22 6:15 AM) 28.9 pg (12/24/22 4:49 PM) MCHC [32.3-36.5 gm/dL] 34.9 gm/dL (12/26/22 6:15 AM) 35.3 gm/dL (12/24/22 4:49 PM) MCV [79.0-92.2 fL] 83.0 fL (12/26/22 6:15 AM) 81.8 fL (12/24/22 4:49 PM) [place] Auto [4.0-14.0 %] 4.4 % (12/26/22 6:15 AM) 7.8 % (12/24/22 4:49 PM) MPV [9.4-12.4 fL] 9.6 fL (12/26/22 6:15 AM) 9.7 fL (12/24/22 4:49 PM) Neutro Auto [50.0-75.0 %] 78.8 % *HI* (12/26/22 6:15 AM) 67.0 % (12/24/22 4:49 PM) Osmolality [268.0-291.0 mOsm/kg] 279.3 mOsm/kg (12/27/22 6:44 AM) 275.8 mOsm/kg (12/26/22 6:15 AM) 275.0 mOsm/kg (12/24/22 4:49 PM) Platelet [150-400 x10(3)/uL] 266 x10(3)/uL (12/26/22 6:15 AM) 341 x10(3)/uL (12/24/22 4:49 PM) PT [11.0-14.5 second(s)] 12.3 second(s) (12/24/22 5:02 PM) RBC [4.63-6.08 x10(6)/uL] 5.00 x10(6)/uL (12/26/22 6:15 AM) 5.50 x10(6)/uL (12/24/22 4:49 PM) Sodium Lvl [136-145 mmol/L] 141 mmol/L (12/27/22 6:44 AM) 138 mmol/L (12/26/22 6:15 AM) 137 mmol/L (12/24/22 4:49 PM) Total Protein [6.6-8.7 gm/dL] 7.3 gm/dL (12/24/22 5:02 PM) UA pH [4.6-8.0] 6.0 (12/24/22 6:12 PM) Albumin Lvl [3.50-5.20 gm/dL] 4.80 gm/dL (12/24/22 5:02 PM) Alk Phos [40-130 IntUnit/L] 72 IntUnit/L (12/24/22 5:02 PM) ALT [0-41 IntUnit/L] 59 IntUnit/L *HI* (12/24/22 5:02 PM) AST [0-40 IntUnit/L] 23 IntUnit/L (12/24/22 5:02 PM) Basophil Auto [0.0-2.0 %] 0.7 % (12/26/22 6:15 AM) 0.7 % (12/24/22 4:49 PM) Bili Direct [0.0-0.3 mg/dL] <0.2 mg/dL (12/24/22 5:02 PM) Bili Total [0.0-1.3 mg/dL] 0.3 mg/dL (12/24/22 5:02 PM) CO2 [22-29 mmol/L] 26 mmol/L (12/27/22 6:44 AM) 25 mmol/L (12/26/22 6:15 AM) 22 mmol/L (12/24/22 4:49 PM) Eos Auto [0.0-8.0 %] 0.5 % (12/26/22 6:15 AM) 1.4 % (12/24/22 4:49 PM) UA Spec Grav [1.000-1.035] 1.025 (12/24/22 6:12 PM) WBC [4.2-9.1 x10(3)/uL] 7.6 x10(3)/uL (12/26/22 6:15 AM) 12.5 x10(3)/uL *HI* (12/24/22 4:49 PM) BUN [6-23 mg/dL] 6 mg/dL (12/27/22 6:44 AM) 7 mg/dL (12/26/22 6:15 AM) 13 mg/dL (12/24/22 4:49 PM) Calcium Lvl [8.6-10.2 mg/dL] 9.4 mg/dL (12/27/22 6:44 AM) 9.8 mg/dL (12/26/22 6:15 AM) 10.2 mg/dL (12/24/22 4:49 PM) Chloride [98-107 mmol/L] 103 mmol/L (12/27/22 6:44 AM) 103 mmol/L (12/26/22 6:15 AM) 103 mmol/L (12/24/22 4:49 PM) Potassium Lvl [3.5-5.1 mmol/L] 4.1 mmol/L (12/27/22 6:44 AM) 4.8 mmol/L (12/26/22 6:15 AM) 4.3 mmol/L (12/24/22 4:49 PM) Troponin-T [0.000-0.029 ng/mL] <0.010 ng/mL (12/24/22 4:49 PM) Micro? [Not Indicated] Indicated *ABN* (12/24/22 6:12 PM) Lymph Absolute [1.30-3.60 x10(3)/uL] 1.16 x10(3)/uL *LOW* (12/26/22 6:15 AM) 2.84 x10(3)/uL (12/24/22 4:49 PM) [place] Absolute [0.30-0.80 x10(3)/uL] 0.33 x10(3)/uL (12/26/22 6:15 AM) 0.97 x10(3)/uL *HI* (12/24/22 4:49 PM) Eos Absolute [0.04-0.36 x10(3)/uL] 0.04 x10(3)/uL (12/26/22 6:15 AM) 0.18 x10(3)/uL (12/24/22 4:49 PM) NRBC Absolute [0.00-0.01 x10(3)/uL] 0.00 x10(3)/uL (12/26/22 6:15 AM) 0.00 x10(3)/uL (12/24/22 4:49 PM) UA Clarity CLEAR *NA* (12/24/22 6:12 PM) Neutro Absolute [1.78-5.38 x10(3)/uL] 5.96 x10(3)/uL *HI* (12/26/22 6:15 AM) 8.36 x10(3)/uL *HI* (12/24/22 4:49 PM) RDW-CV [11.6-14.4 %] 12.9 % (12/26/22 6:15 AM) 12.9 % (12/24/22 4:49 PM) UA Squam Epi Moderate *ABN* (12/24/22 6:12 PM) UA Trans Epi Rare *ABN* (12/24/22 6:12 PM) Immature Gran % [0.00-2.30 %] 0.30 % (12/26/22 6:15 AM) 0.30 % (12/24/22 4:49 PM) Immature Gran Absolute 0.02 x10(3)/uL *NA* (12/26/22 6:15 AM) 0.04 x10(3)/uL *NA* (12/24/22 4:49 PM) Basophil Absolute [0.00-0.10 x10(3)/uL] 0.05 x10(3)/uL (12/26/22 6:15 AM) 0.09 x10(3)/uL (12/24/22 4:49 PM) Employed in healthcare? No *NA* (12/24/22 7:31 PM) Symptomatic as defined by CDC? No *NA* (12/24/22 7:31 PM) Date of onset (Lab) 12/24/2022 *NA* (12/24/22 7:31 PM) Hospitalized due to COVID-19? No *NA* (12/24/22 7:31 PM) In ICU? No *NA* (12/24/22 7:31 PM) Group care resident? No *NA* (12/24/22 7:31 PM) status? Not *NA* (12/24/22 7:31 PM) Radiology Reports * Exam Date Time Procedure Performing Provider Status 12/24/22 6:[address] Abdomen/Pelvis w/ Contrast Vonda Galvin (Verified) Notes: (CT Abdomen/Pelvis w/ Contrast) Reason For Exam: Chest and abdominal pain with history of pancreatitis please evaluate for pathology. CT Abdomen/Pelvis w/ Contrast EXAMINATION: CT Abdomen/Pelvis w/ Contrast CLINICAL HISTORY: Chest and abdominal pain with history of pancreatitis please evaluate for pathology. TECHNIQUE: Helical CT of the abdomen and pelvis was performed following the intravenous administration of Omnipaque 350. Oral contrast administered. COMPARISON: None FINDINGS: Diffusely fatty infiltrated but otherwise unremarkable liver. Unremarkable gallbladder and spleen. Mild stranding adjacent to the pancreatic head extending into the adjacent retroperitoneum. Unremarkable adrenals. Unremarkable kidneys. Limited noncontrast images demonstrate an unremarkable stomach, small bowel and large bowel. An appendix is not identified. Unremarkable urinary bladder and pelvic structures. No pneumoperitoneum, free fluid or lymphadenopathy. Normal aorta. Intact osseous structures. IMPRESSION: 1. Mild stranding adjacent to the pancreatic head extending into the adjacent retroperitoneum that likely represents a pancreatitis if this correlates clinically. 2. Additional finding is above. Please review. Thank you for letting us participate in the care of this patient. If you are a health care provider and have any questions regarding this report, please contact the number below. For patients who have questions please contact the health hospice care consultant that requested your imaging first. Electronically signed by: Elroy Arellano MD, [facility] ([phone]), at 12/24/2022 7:51PM Final Dictated: 12/24/2022 7:51 pm ELROY ARELLANO Signed (Electronic Signature): 12/24/2022 7:51 pm Signed by: ELROY ARELLANO * Exam Date Time Procedure Performing Provider Status 12/24/22 6:[address] PE Protocol Vonda Galvin (Verified) Notes: (CT PE Protocol) Reason For Exam: Chest and abdominal pain with history of pulmonary embolus in thepast not currently anticoagulated with elevated D-dimer please evaluate for possible recurrent pulmonary embolism CT PE Protocol EXAMINATION: CT PE Protocol CLINICAL HISTORY: Chest and abdominal pain with history of pulmonary embolus in the past not currently anticoagulated with elevated D-dimer please evaluate for possible recurrent pulmonary embolism TECHNIQUE: Helical CT angiogram of the chest was performed after the intravenous administration of Omnipaque 350. Thin-section reconstructions as well as coronal and sagittal MIP reformatted images were generated to aid in evaluation. COMPARISON: Prior plain film of the same day. FINDINGS: Due to technical problems the pulmonary arteries were insufficiently opacified with contrast for a reliable assessment for the presence or absence of pulmonary emboli. Scattered pulmonary parenchymal densities most consistent with subsegmental atelectasis, cannot entirely exclude early infiltrate. Otherwise clear lungs.. Unremarkable mediastinum. No mediastinal or hilar lymphadenopathy. No pericardial or pleural effusion. IMPRESSION: 1. Indeterminate study with respect to pulmonary emboli due to technical problems with contrast administration. Recommend a repeat study or a VQ scan as clinically indicated. 2. Additional findings as above. Please review. Thank you for letting us participate in the care of this patient. If you are a health care provider and have any questions regarding this report, please contact the number below. For patients who have questions please contact the health hospice care consultant that requested your imaging first. Electronically signed by: Elroy Arelalno MD, [facility] ([phone]), at 12/24/2022 7:32PM Final Dictated: 12/24/2022 7:32 pm ELROY ARELLANO Signed (Electronic Signature): 12/24/2022 7:32 pm Signed by: ELROY ARELLANO * Exam Date Time Procedure Performing Provider Status 12/24/22 5:18 PM XR Chest 1 View Portable BlakeKingstonGermania Fournier (Verified) Notes: (XR Chest 1 View Portable) Reason For Exam: chest pain XR Chest 1 View Portable EXAMINATION: XR Chest 1 View Portable CLINICAL HISTORY: chest pain TECHNIQUE: AP chest COMPARISON: None FINDINGS: Lungs are clear and without focal consolidation. The cardiomediastinal silhouette and pulmonary vasculature are within normal limits. No pleural effusion or pneumothorax. No acute osseous findings. IMPRESSION: No acute cardiopulmonary process. Thank you for letting us participate in the care of this patient. If you are a health care provider and have any questions regarding this report, please contact the number below. For patients who have questions please contact the health hospice care consultant that requested your imaging first. Final Dictated: 12/24/2022 5:40 pm HAYLEY MILLER Signed (Electronic Signature): 12/24/2022 5:40 pm Signed by: HAYLEY MILLER Vital Signs Most recent to oldest [Reference Range]: 1 2 3 Temperature Temporal Artery [36.3-37.8 DegC] 37 DegC (12/28/22 2:45 PM) 36.8 DegC (12/28/22 11:42 AM) 36.4 DegC (12/28/22 5:35 AM) Temperature Temporal Artery (DegF) 98.6 DegF (12/28/22 2:45 PM) 98.24 DegF (12/28/22 11:42 AM) 97.52 DegF (12/28/22 5:35 AM) Peripheral Pulse Rate [60-100 bpm] 72 bpm (12/28/22 2:45 PM) 76 bpm (12/28/22 11:42 AM) 72 bpm (12/28/22 5:35 AM) Respiratory Rate [14-20 br/min] 16 br/min (12/28/22 2:45 PM) 16 br/min (12/28/22 11:42 AM) 16 br/min (12/28/22 5:35 AM) Blood Pressure [90-140/60-90 mmHg] 120/71mmHg (12/28/22 2:45 PM) 107/71mmHg (12/28/22 11:42 AM) Systolic Blood Pressure [90-140 mmHg] 113 mmHg (12/28/22 5:35 AM) Diastolic Blood Pressure [60-90 mmHg] 58 mmHg *LOW* (12/28/22 5:35 AM) Mean Arterial Pressure, Cuff [70-110 mmHg] 87 mmHg (12/28/22 2:45 PM) 83 mmHg (12/28/22 11:42 AM) 76 mmHg (12/28/22 5:35 AM) Mean Arterial Pressure Cuff-Monitor 92 mmHg (12/27/22 10:52 PM) 87 mmHg (12/27/22 7:29 PM) BP Site Left arm (12/28/22 2:45 PM) Left arm (12/28/22 11:42 AM) Left arm (12/28/22 5:35 AM) SpO2 [92-100 %] 94 % (12/28/22 2:45 PM) 94 % (12/28/22 11:42 AM) 97 % (12/28/22 5:35 AM) SpO2 Location Left hand (12/28/22 2:45 PM) Left hand (12/28/22 11:42 AM) Right hand (12/27/22 8:54 AM) BP Method Automatic (12/28/22 2:45 PM) Automatic (12/28/22 11:42 AM) Automatic (12/28/22 5:35 AM) Height 175.000 cm (12/24/22 10:43 PM) Height/Length Estimated 175.000 cm (12/24/22 4:36 PM) Height/Length Dosing 175.000 cm (12/24/22 10:43 PM) 175.000 cm (12/24/22 4:44 PM) Weight 124.7 kg (12/28/22 3:58 AM) 126.3 kg (12/26/22 6:18 AM) 126.4 kg (12/25/22 3:08 AM) Weight Measured (lbs) 274.916 lb (12/28/22 3:58 AM) 278.444 lb (12/26/22 6:18 AM) Weight Estimated 125.900 kg (12/24/22 10:29 PM) 125.900 kg (12/24/22 4:36 PM) Weight Dosing 126.400 kg (12/24/22 10:43 PM) 125.900 kg (12/24/22 4:44 PM) Scale Type Bed (12/26/22 6:18 AM) Bed (12/25/22 3:08 AM) Bed (12/24/22 10:43 PM) Body Mass Index 41.270 kg/m2 (12/24/22 10:43 PM) Social History Social History Type Response Tobacco Never tobacco user T obacco Use:. Sex Hospital Discharge Instructions Patient Education 12/28/2022 14:35:01 Acute Pancreatitis Acute Pancreatitis The pancreas is [...] caused your condition. General instructions ??? Take mnai-ujc-lfaurpu and prescription medicines only as told by your health care provider. ??? Do not drive or use heavy machinery while taking prescription pain medicine. ??? Ask your health care provider if the medicine prescribed to you can cause constipation. You mayneed to take steps to prevent or treat constipation, such as: ??? Take an wwbk-ddn-aljwdgz or prescription medicine for constipation. ??? Eat [...] provider. Document Revised: 08/11/2019 Document Reviewed: 04/28/2019 [employer] Patient Education ?? 2021 [employer]. Follow Up Care 12/24/2022 16:31:56 With:JAMES BAÑUELOS Address: [address] [facility] (1) When:01/15/2023 14:15:00 Comments:FU with PCP Discharge summary * Leigha Lee RN: PERFORM Event Display: Discharge Note Authored Date: [id number] DC paperwork reviewed with pt. Pt. verbalized/signed understanding. Work note given. IV removed, cath intact. Taken down via wheelchair. Safety measures in place. 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 He has had extensive work-up done at [facility], and has had multiple hospitalizations.?? He presented to the ED here for evaluation??for acute abdominal pain which radiated to his??chest and left shoulder. ??This was a new symptom for him.?? He also endorsed nausea and vomiting, inability to keep his medications down. ??He also has a past medical history of??COVID-19 illness??x2, morbid obesity, KAYLA on??home nocturnal O2 at 4 L/min, previous PE??no longer on anticoagulants.??He no longer drinks any alcohol.?? He denies illicit drug use. Per [facility] gastroenterology note??12/21/2022: Historically LFTs??have never been elevated including lipase.?? History of fluctuating D-dimer and CRP. Of note surgery was also considering??CCY to rule out??as cause of pain??and if missing something inside gallbladder.?? RP biopsy??09/2022??negative for IgG4, fragments of fibroadipose tissue. Patient??did feel better with steroids in the past. Patient again was recently started on prednisone 20 mg daily. ?? Extensive work-up done in the emergency room??including CTA of the chest??due to??mild elevated level of D-dimers,??however has come back??with results indeterminate for presence of pulmonary emboli.Patient current condition does not??worsen presence of pulmonary emboli, his he is not short of breath,??he is not hypoxic,??does not have chest pain. Patient lipase level within normal range, however??he states that his current??presentation is consistent with typical??previous??pancreatitis flare. Hospital Course Patient was admitted to hospital medicine service. ??We continued with supportive care, IV fluids.?? Initially started with clear liquids, today he was able to advance to low residue diet without difficulty. ??Still having some intermittent nausea but no vomiting. ??Abdominal pain still there, but??is stable on his usual??oral hydromorphone dosing.?? Patient will have new prescription for??oral hydromorphone 6 mg up to 4 times daily as needed for severe pain.?? 21 tablets??(2 mg??tablets)??prescribed??to patient. ??If patient needs more??opiates, he knows to contact his PCP. Patient now ambulating without difficulty, denies any shortness of breath.?? Continued to use his nocturnal O2 at 4 L/min.?? Having bowel movements without difficulty.?? 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 Patient to follow-up with [facility] as needed as well. Physical Exam Vitals & Measurements T:??36.8?C ??(Temporal Artery)?? TMIN:??36.4?C ??(Temporal Artery)?? TMAX:??36.9?C ??(Temporal Artery)?? HR:??76??(Peripheral)?? RR:??16?? BP:??107/71?? SpO2:??94%?? WT:??124.7??kg?? PainScore:??5 = Moderate pain?? O2 Flow Rate:??4?? O2 Therapy:??Room air?? Resting SpO2:??96?? General Appearance: NAD, pleasant and cooperative. ??Feels better this afternoon. ??Out of bed ambulating to bathroom without difficulty. ENT: No icterus, moist mucous membranes Lungs: Clear to auscultation, no wheezes or rhonchi, unlabored respirations at rest. ??SPO2 94% on room air. Cardiovascular:??S1 S2, no murmurs rubs or gallops, no JVD. ??cardiac monitor shows sinus rhythm inthe 80s. Abdomen: Soft, tender upper abdomen and epigastric areas, non-distended, hypoactive bowel sounds Lower Extremities: No peripheral edema, no calf tenderness to palpation Neuro: A&O X 4, steady gait Medications Home !-Zofran 4 mg oral tablet, 4 mg= 1 tab(s), Oral, q8hr, PRN carboxymethylcellulose, 1 drop, Eye-Both, TID dicyclomine 20 mg oral tablet, 20 mg= 1 tab(s), Oral, TID Dilaudid 2 mg oral tablet, 6 mg= 3 tab(s), Oral, q6hr, PRN docusate-senna 50 mg-8.6 mg oral tablet, [...] tab(s), Oral, Once a day (at bedtime) Lab Results Test Name Test Result Date/Time SARS-CoV-2(COVID-19) NAAT (CUE) Practice Negative. 12/24/2022 19:31EST WBC 7.6 x10(3)/uL 12/26/2022 06:15 EST WBC 12.5 x10(3)/uL 12/24/2022 16:49 EST Hgb 14.5 gm/dL 12/26/2022 06:15 EST Hct 41.5 % 12/26/2022 06:15 EST Platelet 266 x10(3)/uL 12/26/2022 06:15 EST INR 0.95 12/24/2022 17:02 EST D-Dimer 0.600 FEU ug/mL 12/24/2022 17:02 EST UA Nitrite NEGATIVE 12/24/2022 18:12 EST UA Leuk Est NEGATIVE 12/24/2022 18:12 EST UA WBC 0-2 12/24/2022 18:12 EST UA Bacteria None Seen 12/24/2022 18:12 EST Sodium Lvl 141 mmol/L 12/27/2022 06:44 EST Potassium Lvl 4.1 mmol/L 12/27/2022 06:44 EST Chloride 103 mmol/L 12/27/2022 06:44 EST CO2 26 mmol/L 12/27/2022 06:44 EST AGAP 16.1 mmol/L 12/27/2022 06:44 EST BUN 6 mg/dL 12/27/2022 06:44 EST Creatinine 0.57 mg/dL 12/27/2022 06:44 EST Glucose Lvl 106 mg/dL 12/27/2022 06:44 EST Calcium Lvl 9.4 mg/dL 12/27/2022 06:44 EST Albumin Lvl 4.80 gm/dL 12/24/2022 17:02 EST Alk Phos 72 IntUnit/L 12/24/2022 17:02 EST ALT 59 IntUnit/L 12/24/2022 17:02 EST AST 23 IntUnit/L 12/24/2022 17:02 EST Bili Total 0.3 mg/dL 12/24/2022 17:02 EST Bili Direct <0.2 mg/dL 12/24/2022 17:02 EST Lipase Lvl 53 IntUnit/L 12/24/2022 17:02 EST eGFR CKD-EPI 136.10 mL/min/1.73 m2 12/27/2022 06:44 EST Troponin-T <0.010 ng/mL 12/24/2022 16:49 EST Diagnostic Results (12/24/2022 17:18 EST XR Chest 1 View Portable) XR Chest 1 View Portable FINDINGS: Lungs are clear and without focal consolidation. The cardiomediastinal silhouette and pulmonary vasculature are within normal limits. No pleural effusion or pneumothorax. No acute osseous findings. ?? IMPRESSION: No acute cardiopulmonary process. ?? (12/24/2022 18:[address] Abdomen/Pelvis w/ Contrast) CT Abdomen/Pelvis w/ Contrast FINDINGS: Diffusely fatty infiltrated but otherwise unremarkable liver. Unremarkable gallbladder and spleen. Mild stranding adjacent to the pancreatic head extending into the adjacent retroperitoneum. Unremarkable adrenals. Unremarkable kidneys. Limited noncontrast images demonstrate an unremarkable stomach, small bowel and large bowel. An appendix is not identified. Unremarkable urinary bladder and pelvic structures. No pneumoperitoneum, free fluid or lymphadenopathy. Normal aorta. Intact osseous structures. ?? IMPRESSION: 1. Mild stranding adjacent to the pancreatic head extending into the adjacent retroperitoneum that likely represents a pancreatitis if this correlates clinically. 2. Additional finding is above. Please review. ?? (12/24/2022 18:[address] PE Protocol) CT PE Protocol FINDINGS: Due to technical problems the pulmonary arteries were insufficiently opacified with contrast for a reliable assessment for the presence or absence of pulmonary emboli. Scattered pulmonary parenchymal densities most consistent with subsegmental atelectasis, cannot entirely exclude early infiltrate. Otherwise clear lungs.. Unremarkable mediastinum. No mediastinal or hilar lymphadenopathy. No pericardial or pleural effusion. ?? IMPRESSION: 1. Indeterminate study with respect to pulmonary emboli due to technical problems with contrast administration. Recommend a repeat study or a VQ scan as clinically indicated. 2. Additional findings as above. Please review. Discharge Plan Patient to discharge home. He will follow-up with his PCP office: James Bañuelos on 01/15/2023 at 2:15 PM. Patient to follow-up with [facility] gastroenterology as needed as well. 1.??Recurrent acute pancreatitis??K85.90 Patient??has??had multiple admissions over the last year for nausea, vomiting, abdominal pain with elevated inflammatory markers and duodenitis as well as??pancreatic inflammation of unclear etiology. He has had??extensive work-up including multiple EGDs, EUS with biopsy, and colonoscopies. 2.??Abdominal pain??R10.9 3.??Chest pain??R07.9 4.??Obesity??E66.9 5.??GERD (gastroesophageal reflux disease)??K21.9 6.??KAYLA (obstructive sleep apnea)??G47.33 On nocturnal O2 at 4 L/min. 7.??Insomnia??G47.00 Patient Discharge Condition Improved and stable. Discharge Disposition Discharge home. Follow-up as above. 45 minutes spent on this discharge. ?? Due to computer program and staff services manager software used, unintended errors may be present in the above documentation. Follow Up With When Contact Information JAMES BAÑUELOS 01/15/2023 02:15 [place] [address]- Business (1) Additional Instructions: FU with PCP [Electronically Signed on: 12/28/2022 14:13 EST] Johanny Salgado JHONATAN MAXWELL MD [Verified on: 12/28/2022 14:13 EST] Johanny Salgado Physician Emergency department Note * LISSETT ISAAC: MODIFY, SIGN, VERIFY, PERFORM Event Display: ED Note - Physician Authored Date: Patient: [place] SOW Age: 27 years Sex: Male : 1995 Associated Diagnoses: Abdominal pain; Chest pain; Recurrent acute pancreatitis Author: LISSETT ISAAC Basic Information Time seen: Date 12/24/2022, Time Seen (Tracking) Time Seen: LISSETT ISAAC 12/24/2022 16:45 . History source: Patient. Arrival mode: Private vehicle. History limitation: None. Additional information: Chief Complaint from Nursing Triage Note : Chief Complaint 12/24/2022 16:36 EST Chief Complaint Pt is having left-sided chest pain that radiates into his neck,left arm and left abdomen. The began yesterday. Pt also has vomiting and some diarrhea. . History of Present Illness The patient presents with Abdominal and chest pain with vomiting. . The onset was 1 days ago. The course/duration of symptoms is constant and worsening. Location: Chest abdomen. The character of symptoms is pain. Ny is a 27-year-old male who has a complicated past medical history that includes pne umonia from COVID-19 infection, prior pulmonary embolism (no longer on anticoagulants) duodenitis, pancreatitis, obesity who presents to the emergency department via private vehicle with report of severe upper abdominal pain radiating to his chest, neck, left upper arm that started yesterday. He reports the symptoms feel similar to when he has had pancreatitis in the past his last episode was 3 weeks ago. He states he started having pancreatitis about 6 months ago. He reports they cannot figureout why he is having these flares. He no longer drinks. He reports he has been followed at [facility] and has been seen numerous times at [facility] where he was staying with his grandfather who is dying recently. Ny denies any recent fevers or episodes of sweating he has had chills with this pain. He has had no cough, sinus congestion, or sore throat. He has had nausea and numerous episodes of vomiting and 3 episodes of diarrhea. He has had no blood in the emesis no coffee-ground emesis. He denies any blood in stools or black stools. He has had no urinary symptoms. He is having no trouble breathing. He denies any swelling to his lower extremities or pain in the calf muscles of his legs currently. Past medical history: Mechanical back pain Adjustment disorder with disturbance of mood and conduct Elevated fasting glucose GERD Irritable bowel Migraine Obesity Recurrent strep pharyngitis Dysuria Sleep difficulties Pneumonia due to COVID-19 virus Hypoxia Pulmonary embolus Tachycardia Duodenitis Internal hemorrhoids Obstructive sleep apnea Pancreatitis Uncontrolled pain Intractable vomiting with nausea Past surgical history: Appendectomy Medications: Dilaudid 6 mg as needed pain Trazodone Metoprolol Reglan Zofran Gabapentin Allergies: FLUoxetine Social history: Ny is residing in [place]. 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 He has had his COVID-19 vaccinations. He does not smoke cigarettes. He does not drink alcohol, reports he stopped 6 months ago when pancreatitis started. He denies any illicit street drug use.. Review of Systems Constitutional symptoms: Chills, no fever, no sweats. ENMT symptoms: No sore throat, no nasal congestion. Respiratory symptoms: No shortness of breath, no cough. Cardiovascular symptoms: Chest pain. Gastrointestinal symptoms: Abdominal pain, nausea, vomiting, diarrhea, No rectal bleeding, Genitourinary symptoms: No urinary urgency, frequency, or dysuria. There is no current hematuria.. Musculoskeletal symptoms: Back pain, Neck pain.. Neurologic symptoms: No headache, Health Status Allergies: Allergic Reactions (Selected) Mild FLUoxetine- No reactions were documented.. Medications: (Selected) Inpatient Medications Ordered !-Zofran: 4 mg = 2 mL, IV Push, Once Dilaudid: 1 mg = 1 mL, IV Push, Once NS: 1,000 mL, 1000 mL/hr, IV, Once. Past Medical/ Family/ Social History Medical history: No active or resolved past medical history items have been selected or recorded.. Surgical history: No active procedure history items have been selected or recorded.. Family history: No family history items have been selected or recorded.. Social history: Social History No active social history has been recorded Psychosocial History No active psychosocial history has been recorded . Problem list: No qualifying data available . Physical Examination Vital Signs Vital Signs 12/24/2022 16:36 EST Temperature Temporal Artery 36.6 DegC Peripheral Pulse Rate 114 bpm HI Respiratory Rate 24 br/min HI Systolic Blood Pressure 162 mmHg HI Diastolic Blood Pressure 77 mmHg SpO2 98 % . Measurements 12/24/2022 16:44 EST Height/Length Dosing 175.000 cm Weight Dosing 125.900 kg 12/24/2022 16:36 EST Height/Length Estimated 175.000 cm Weight Estimated 125.900 kg . Basic Oxygen Information 12/24/2022 16:36 EST Oxygen Therapy Room air . General: Alert, mild distress, anxious, ill-appearing, Ny is sitting on the examination stretcher. He is awake and alert. His skin is warm and dry. His respirations are rapid and even. He appears generally uncomfortable and ill.. Skin: Warm, dry. Head: Normocephalic. Neck: Supple. Eye: Normal conjunctiva. Cardiovascular: Tachycardia. Respiratory: Respirations are non-labored, breath sounds are equal, Symmetrical chest wall expansion, Breath sounds: Diminished, no rales present, no rhonchi present, no wheezes present. Gastrointestinal: Soft, There is mild to moderate abdominal tenderness in the epigastric left upperand left lower quadrant. There is no guarding or rebound. There is left CVA tenderness.. Musculoskeletal: Normal ROM. Neurological: Alert and oriented to person, place, time, and situation, normal coordination observed. Psychiatric: Cooperative, appropriate mood & affect. Medical Decision Making Rationale: Pleasant 27-year-old male with a complicated past medical history including COVID-19 infection resulting in COVID-19 pneumonia, pulmonary embolism, has had duodenitis, pancreatitis, presents to the emergency department with severe upper abdominal pain radiating into his chest, neck, leftarm and back reminiscent of his last pancreatitis flare which was 3 weeks ago. He states he startedhaving pancreatitis problems approximately 6 months ago. He reports his pancreatic enzymes are always normal but CT scans usually show inflammation. He has had no recent injury or illness. He endorses intractable nausea with numerous episodes of vomiting, 3 episodes of diarrhea today. Plan at this time is for labs include CBC, chemistries, lipase, troponin, EKG, D-dimer. He is placed on continuous temperature monitoring. Will provide for parental pain medications antiemetics and IV fluids while awaiting diagnostic data.. Documents reviewed: Emergency department nurses' notes, Medical records from [facility] have been reviewed by myself today.. Electrocardiogram: Time 12/24/2022 16:42:00, rate 110, Sinus tachycardia. Nonspecific T wave abnormality. No evidence of STEMI. ECG is independently interpreted by myself at this time.. Results review: Lab results : Lab View 12/24/2022 19:31 EST Employed in healthcare? No Symptomatic as defined by CDC? No Date of onset (Lab) 12/24/2022 Hospitalized due to COVID-19? No In ICU? No Group care resident? No status? Not SARS-CoV-2(COVID-19) NAAT (CUE) Practice Negative 12/24/2022 18:12 EST UA Color YELLOW UA Clarity CLEAR UA Spec Grav 1.025 UA Bili NEGATIVE UA pH 6.0 UA Urobilinogen 0.2 EU/dL UA Blood Small UA Glucose NEGATIVE UA Ketones NEGATIVE UA Protein NEGATIVE UA Nitrite NEGATIVE UA Leuk Est NEGATIVE Urine Culture? No Micro? Indicated UA WBC 0-2 UA RBC 3-5 UA Mucous Moderate UA Bacteria None Seen UA Squam Epi Moderate UA Trans Epi Rare 12/24/2022 17:02 EST PT 12.3 second(s) INR 0.95 NA D-Dimer 0.600 FEU ug/mL HI Activated PTT 31.7 second(s) Total Protein 7.3 gm/dL Albumin Lvl 4.80 gm/dL Alk Phos 72 IntUnit/L ALT 59 IntUnit/L HI AST 23 IntUnit/L Bili Total 0.3 mg/dL Bili Direct <0.2 mg/dL Lipase Lvl 53 IntUnit/L 12/24/2022 16:49 EST WBC 12.5 x10(3)/uL HI RBC 5.50 x10(6)/uL Hgb 15.9 gm/dL Hct 45.0 % MCV 81.8 fL MCH 28.9 pg MCHC 35.3 gm/dL RDW-CV 12.9 % Platelet 341 x10(3)/uL MPV 9.7 fL Neutro Auto 67.0 % Lymph Auto 22.8 % [place] Auto 7.8 % Eos Auto 1.4 % Basophil Auto 0.7 % NRBC Auto Pct 0.00 % Neutro Absolute 8.36 x10(3)/uL HI Lymph Absolute 2.84 x10(3)/uL [place] Absolute 0.97 x10(3)/uL HI Eos Absolute 0.18 x10(3)/uL NRBC Absolute 0.00 x10(3)/uL Basophil Absolute 0.09 x10(3)/uL Immature Gran % 0.30 % Immature Gran Absolute 0.04 x10(3)/uL NA Sodium Lvl 137 mmol/L Potassium Lvl 4.3 mmol/L Chloride 103 mmol/L CO2 22 mmol/L AGAP 16.3 mmol/L BUN 13 mg/dL Creatinine 0.73 mg/dL Glucose Lvl 118 mg/dL HI Calcium Lvl 10.2 mg/dL Osmolality 275.0 mOsm/kg eGFR CKD-EPI 126.30 mL/min/1.73 m2 Troponin-T <0.010 ng/mL . Radiology results: CT (ST) Computed Tomography: ?? CT Abdomen/Pelvis w/ Contrast ?? 12/24/22 19:51:51 EXAMINATION: CT Abdomen/Pelvis w/ Contrast CLINICAL HISTORY: Chest and abdominal pain with history of pancreatitis please evaluate for pathology. TECHNIQUE: Helical CT of the abdomen and pelvis was performed following the intravenous administration of Omnipaque 350. Oral contrast administered. COMPARISON: None FINDINGS: Diffusely fatty infiltrated but otherwise unremarkable liver. Unremarkable gallbladder and spleen. Mild stranding adjacent to the pancreatic head extending into the adjacent retroperitoneum. Unremarkable adrenals. Unremarkable kidneys. Limited noncontrast images demonstrate an unremarkable stomach, small bowel and large bowel. An appendix is not identified. Unremarkable urinary bladder and pelvic structures. No pneumoperitoneum, free fluid or lymphadenopathy. Normal aorta. Intact osseous structures. IMPRESSION: 1. Mild stranding adjacent to the pancreatic head extending into the adjacent retroperitoneum that likely represents a pancreatitis if this correlates clinically. 2. Additional finding is above. Please review. Thank you for letting us participate in the care of this patient. If you are a health care provider and have any questions regarding this report, please contact the number below. For patients who have questions please contact the health hospice care consultant that requested your imaging first. Electronically signed by: Elroy Arellano MD, [facility] ([phone]), at 12/24/2022 7:51PM ?? Signed By: ELROY ARELLANO ?? CT PE Protocol ?? 12/24/22 19:32:40 EXAMINATION: CT PE Protocol CLINICAL HISTORY: Chest and abdominal pain with history of pulmonary embolus in the past not currently anticoagulated with elevated D-dimer please evaluate for possible recurrent pulmonary embolism TECHNIQUE: Helical CT angiogram of the chest was performed after the intravenous administration of Omnipaque 350. Thin-section reconstructions as well as coronal and sagittal MIP reformatted images were generated to aid in evaluation. COMPARISON: Prior plain film of the same day. FINDINGS: Due to technical problems the pulmonary arteries were insufficiently opacified with contrast for a reliable assessment for the presence or absence of pulmonary emboli. Scattered pulmonary parenchymal densities most consistent with subsegmental atelectasis, cannot entirely exclude early infiltrate. Otherwise clear lungs.. Unremarkable mediastinum. No mediastinal or hilar lymphadenopathy. No pericardial or pleural effusion. IMPRESSION: 1. Indeterminate study with respect to pulmonary emboli due to technical problems with contrast administration. Recommend a repeat study or a VQ scan as clinically indicated. 2. Additional findings as above. Please review. Thank you for letting us participate in the care of this patient. If you are a health care provider and have any questions regarding this report, please contact the number below. For patients who have questions please contact the health hospice care consultant that requested your imaging first. Electronically signed by: Elroy Arellano MD, [facility] ([phone]), at 12/24/2022 7:32PM ?? Signed By: ELROY ARELLANO . Reexamination/ Reevaluation Notes: Labs been obtained and reviewed. CBC shows a total white blood cell count elevated at 12.5, hemoglobin normal at 15.9, [place]ke normal at five 5.0, platelets normal at 341. Coagulations a show an INR of 0.95, D-dimer elevated at 0.600. CMP was normal minus a glucose of 118, AST of 59. Lipase was normal at 53. Troponin T was less than 0.010. Chest x-ray showed no acute cardiopulmonary process. Urinalysis with small amount of blood, 3-5 red blood cells on microscopic exam no evidence to suggest UTI. Given the elevated D-dimer history of prior pulmonary embolism a CT PE was obtained and was nondiagnostic secondary to timing of contrast. CT abdomen pelvis showed mild stranding adjacent to the pancreatic head extending into the adjacent retroperitoneum that likely represents a pancreatitis. Patient is reporting symptoms consistent with prior episodes of pancreatitis. He is having no trouble breathing or hypoxia. Feel the probability of pulmonary embolism is clinically low. I have consulted with hospitalist patient has had need for recurrent doses of parenteral pain medications. Plan at thistime is for admission for acute pancreatitis.. Impression and Plan Diagnosis Abdominal pain (CRA34-PV R10.9, Discharge, Medical) Chest pain (QUA40-BX R07.9, Discharge, Medical) Recurrent acute pancreatitis (EQV05-ET K85.90, Discharge, Medical) Calls-Consults - Danita Elena MD, Hospitalist, consult, Reviewed HPI, diagnostics, exam and ER course agrees with plan for admission.. Plan Condition: Stable. Disposition: Place in Observation Unit. Counseled: Patient, Regarding diagnosis, Regarding diagnostic results, Regarding treatment plan, Regarding prescription, Patient indicated understanding of instructions. [Electronically Signed on: 12/24/2022 20:44 EST] LISSETT ISAAC SOCIAL WORK ASSISTANT [Verified on: 12/24/2022 20:44 EST] LISSETT ISAAC SOCIAL WORK ASSISTANT Discharge instructions * Lisandra Avila: PERFORM Event Display: Discharge Instructions Authored Date: [id number] manager local Note * Julia Le: PERFORM Event Display: Case Management Note Authored Date: [id number] 12/25/2022 Care Management Assessment Ann RN Diagnosis: Pancreatitis/nonalcoholic Level of care: Inpatient Mental status at baseline: Alert and oriented x4 Functional status at baseline: At baseline patient is independent with ADLs, IADLs Ambulation /driving: Independent with ambulation and driving Home equipment: Home oxygen for nighttime use since hospitalization for COVID-19 in October 2021 Home environment: Lives between 2 locations, [place] and [place], [place] depending on where he is working. Heat/hot water/electricity/phone/food access: Adequate resources for utilities and food Employment/Financial: Employed on and off since he was sick with COVID-19 in October 2021. Has hadpancreatitis multiple times since his second COVID infection 8 or 9 months ago. 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 Providers/Specialists: PCP Dr. Marlen Pina, [facility] [phone] . Also see followed by rheumatology, gastroenterology and infectious disease at [facility] Community services/support: No services in place Supportive people: Girlfriend, Jordyn. Mom, Kylee Transportation on discharge: Self Medication compliance/affordability: Takes medications as prescribed, able to afford them I met with patient at bedside this afternoon, alert and oriented x4, calm and cooperative, sitting up in bed. Patient understands that he is hospitalized with pancreatitis. He does not drink alcohol.He reports that he has had pancreatitis on multiple occasions since his second diagnosis of COVID 8or 9 months ago. His first diagnosis of COVID was in October 2021 was hospitalized at [facility] in the [facility] for about 1 month. He has been working with [facility] gastroenterology, rheumatology and infectious disease as well as his primary care provider Dr. Marlen Pina at [facility] Internal Medicine. He is employed off-and-on since he became ill and lives between [place], [place]. He was on his way to [place], [place] when he became ill and came to the [facility] emergency room for treatment. Dischargehome when medically stable is anticipated with primary care follow-up. Plan: *Secure primary care follow-up *Coordinate additional appointments and referrals as indicated 12/27/2022 Care Management Progress DANIEL Juarez Patient reports that he has been eating a full liquid diet today which she has tolerated well. He also reports that his p.o. pain medications are working much better, lasting longer. Viewed the plan of care and discharge plan. Patient will continue to advance diet as tolerated, manage pain medications. Discharge home when medically stable is anticipated. Plan: *Continue to assess discharge needs, review plan of care and discharge plan to facilitate safe discharge *Secure PCP appointment, specialty appointments and referrals as indicated * Julia Le: PERFORM, MODIFY Event Display: Case Management Note Authored Date: [id number] Diagnosis: Pancreatitis/nonalcoholic Level of care: Inpatient Mental status at baseline: Alert and oriented x4 Functional status at baseline: At baseline patient is independent with ADLs, IADLs Ambulation /driving: Independent with ambulation and driving Home equipment: Home oxygen for nighttime use since hospitalization for COVID-19 in October 2021 Home environment: Lives [place] 2 locations, [place] depending on where he is working. Heat/hot water/electricity/phone/food access: Adequate resources for utilities and food Employment/Financial: Employed on and off since he was sick with COVID-19 in October 2021. Has hadpancreatitis multiple times since his second COVID infection 8 or 9 months ago. 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 Providers/Specialists: PCP Dr. Marlen Pina, [facility] [phone] . Also see followed by rheumatology, gastroenterology and infectious disease at [facility] Community services/support: No services in place Supportive people: Girlfriend, Jordyn. Mom, Kylee Transportation on discharge: Self Medication compliance/affordability: Takes medications as prescribed, able to afford them I met with patient at bedside this afternoon, alert and oriented x4, calm and cooperative, sitting up in bed. Patient understands that he is hospitalized with pancreatitis. He does not drink alcohol.He reports that he has had pancreatitis on multiple occasions since his second diagnosis of COVID 8or 9 months ago. His first diagnosis of COVID was in October 2021 was hospitalized at [facility] in the [facility] for about 1 month. He has been working with [facility] gastroenterology, rheumatology and infectious disease as well as his primary care provider Dr. Marlen Pina at [facility] Internal Medicine. He is employed off-and-on since he became ill and [place]. He was on his way to [place], [place] when he became ill and came to the [facility] emergency room for treatment. Dischargehome when medically stable is anticipated with primary care follow-up. Plan: *Secure primary care follow-up *Coordinate additional appointments and referrals as indicated Nurse Progress note * Vaishali Carey RN: MODIFY, PERFORM, MODIFY, MODIFY, MODIFY Event Display: Progress Note-Nurse Authored Date: [id number] gentle tears eye drops administered and left at the bedside, ok'ed with provider, Dr Maxwell abd pain radiates to Left shoulder per pt rt. prn Dilaudid and Tylenol given with good effect. pt reported pain and nausea after consuming 480of clear liquid dinner, prn Dilaudid and Zofran given with good effect. pt request pain meds q2 consistently, all meds given as ordered, safety and comfort maintained. [Electronically Signed on: 12/26/2022 22:48 T-05] Vaishali Carey RN [Verified on: 12/26/2022 22:48 GMT-05] Vaishali Carey RN * Priya Ramirez RN: PERFORM Event Display: Progress Note-Nurse Authored Date: [id number] Tolerating clear liquids. 8/10 abdl pain requiring dilaudid q 2 hours throughout shift. Some pain relief from toradol as well. wctm. [Electronically Signed on: 12/26/2022 15:55 EST] Priya Ramirez RN RN [Verified on: 12/26/2022 15:55 EST] Priya Ramirez RN RN * Lucia Rios RN: MODIFY, PERFORM Event Display: Progress Note-Nurse Authored Date: Pt alert and oriented x4. IVF LR 100mls/hr on progress. Pt complained of upper epigastric pain and i.v hydromorphone was given as per order and had good effect. Other meds given as per order. He is on clear diet, ambulating to the BR independently and voiding with no difficulties. No sob, headache , sob, N&V or dizziness reported during the shift. Pt ringing the mercedes appropriately, comfort and safety measures maintained. He slept well at n night. Pt declined his morning metoprolol and i.v toradol. [Electronically Signed on: 12/26/2022 07:16 GMT-05] Lucia Rios RN RN [Verified on: 12/26/2022 07:16 GMT-05] Lucia Rios RN RN EKG study * Lisandra Avila: PERFORM Event Display: Telemetry Strips Authored Date: [id number] Respiratory therapy Hospital Note * Quang No: PERFORM Event Display: Respiratory Therapy Note Authored Date: [id number] Wears O2 at 4L at home with sleep/naps. Had it off since 0700, 96% room air right now. Hospital Summary note * Leigha Lee RN: PERFORM, SIGN, VERIFY Event Display: Inpatient Patient Summary Authored Date: [address] [address] Patient Discharge Instructions Name: [place] SOW : 1995 [facility]: [id number] [facility] [address] [place] [id number] Primary Care Provider: Name: MARLEN PINA Discharge Diagnosis: 1:Recurrent acute pancreatitis; 2:Abdominal pain; 3:Chest pain; 4:Obesity; 5:GERD (gastroesophageal reflux disease); 6:KAYLA (obstructive sleep apnea); 7:Insomnia Discharge Orders Discharge Activity 12/28/22 14:25:00 EST, As tolerated Discharge Activity 12/28/22 14:25:00 EST, May return to work on 01/03/2023 without restrictions. Discharge Activity 12/28/22 14:25:00 EST, Follow-up with PCP office James Bañuelos 01/15/2023 at 2:15 PM. Follow-up with [facility] gastroenterology and rheumatology as previously scheduled. Discharge Communication Order 12/28/22 14:25:00 EST, Medication changes: Continue with daily prednisone 20 mg. May have Dilaudid 6 mg up to 4 times daily if needed for severe pain, use sparingly. Call your PCP if you need a refill. Discharge Diet. 12/28/22 14:25:00 EST, Low-fat diet, small frequent meals. Patient to drink plenty of hydrating fluids. [facility] would like to thank you for allowing us to assist you with your healthcare needs. The following includes patient education materials and information regarding your injury/illness. [place] has been given the following list of follow-up instructions, prescriptions, and patient education materials: Follow-up Instructions With: Address: When: [address] [address] Business (1) 01/15/2023 2:15 PM Comments: FU with PCP Medications During the course of your visit, your medication list was updated with the most current information. The details of those changes are reflected below: Medications That Were Updated - Follow Below Instructions [facility], [address] [facility] [address] [place], [place] [id number], [phone] Updated: HYDROmorphone (Dilaudid 2 mg oral tablet) 3 tab(s) Oral every 6 hours as needed Pain - Severe for 3 Days. If refill needed, call PCP. Refills: 0. Other Medications Updated: carboxymethylcellulose 1 drop Both eyes 3 times a day. Updated: dicyclomine (dicyclomine 20 mg oral tablet) 1 tab(s) Oral 3 times a day. Updated: docusate-senna (docusate-senna 50 mg-8.6 mg oral tablet) 2 tab(s) Oral 2 times a day as needed Constipation. Updated: ondansetron (!-Zofran 4 mg oral tablet) 1 tab(s) Oral every 8 hours as needed Nausea/Vomiting. Medications to Continue That Have Not Changed Other Medications gabapentin (gabapentin 100 mg oral capsule) 3 cap Oral 3 times a day. melatonin 10 Milligram Oral once a day (at bedtime). metoprolol (metoprolol extended release) 200 Milligram Oral every day. omeprazole (omeprazole 20 mg oral delayed release capsule) 1 cap Oral every day. before a meal. polyethylene glycol 3350 (MiraLax) 17 gram Oral every day. predniSONE (predniSONE 20 mg oral tablet) 1 tab(s) Oral every day. traZODone (traZODone 50 mg oral tablet) 1 tab(s) Oral once a day (at bedtime). No Longer Take the Following Medications prednisoLONE (prednisoLONE 5 mg oral tablet) 4 tab(s) Oral every day. It is important to always keep an active list of medications available so that you can share with other providers and manage your medications appropriately. As an additional courtesy, we are also providing you with your final active medications list that you can keep with you. carboxymethylcellulose 1 drop Both eyes 3 times a day. dicyclomine (dicyclomine 20 mg oral tablet) 1 tab(s) Oral 3 times a day. docusate-senna (docusate-senna 50 mg-8.6 mg oral tablet) 2 tab(s) Oral 2 times a day as needed Constipation. gabapentin (gabapentin 100 mg oral capsule) 3 cap Oral 3 times a day. HYDROmorphone (Dilaudid 2 mg oral tablet) 3 tab(s) Oral every 6 hours as needed Pain - Severe for 3Days. If refill needed, call PCP. Refills: 0. melatonin 10 Milligram Oral once [...] day. predniSONE (predniSONE 20 mg oral tablet) 1 tab(s) Oral every day. traZODone (traZODone 50 mg oral tablet) 1 tab(s) Oral once a day (at bedtime). Take only the medications listed above. Contact your doctor prior to taking any medications not on this list. Medication leaflets, if any, will display below hydromorphone (oral) (CASA salvador) Dilaudid, Exalgo What is the most important information I should know about hydromorphone? MISUSE OF OPIOID MEDICINE CAN CAUSE ADDICTION, OVERDOSE, OR . Keep the medication in a place where others cannot get to it. Taking opioid medicine during may cause life-threatening withdrawal symptoms in the . Fatal side effects can occur if you use opioid medicine with alcohol, or with other drugs that cause drowsiness or slow your breathing. What is hydromorphone? Hydromorphone is an opioid medication used to treat moderate to severe pain. The extended-release form of this medicine is for fcmihf-qif-cffau treatment of moderate to severe pain, not for use on an as-needed basis for pain. Hydromorphone may also be used for purposes not listed in this medication guide. What should I discuss with my healthcare provider before using hydromorphone? You should not take this medicine if you have ever had an allergic reaction to hydromorphone or other narcotic medicines, or if you have: ? severe asthma or breathing problems; ??? a blockage in your stomach or intestines; or ??? a bowel obstruction called paralytic ileus. Do not use hydromorphone if you have used an MAO inhibitor in the past 14 days. A dangerous drug interaction could occur. MAO inhibitors include isocarboxazid, linezolid, methylene blue injection, phenelzine, rasagiline, selegiline, tranylcypromine, and others. Tell your doctor if you have ever had: ? a head injury, brain tumor, or seizures; ??? breathing problems, sleep apnea; ??? alcoholism, drug addiction, or mental illness; ??? urination problems; ??? liver or kidney disease; ??? a sulfite allergy; or ??? problems with your gallbladder, pancreas, or thyroid. If you use opioid medicine while you are , your baby could become dependent on the drug. This can cause life-threatening withdrawal symptoms in the baby after it is born. Babies born dependent on opioids may need medical treatment for several weeks. Do not breast-feed. Hydromorphone can pass into breast milk and may cause drowsiness or breathing problems in a nursing baby. How should I use hydromorphone? Follow the directions on your prescription label and read all medication guides. Never use hydromorphone in larger amounts, or for longer than prescribed. Tell your doctor if you feel an increased urge to take more of this medicine. Never share opioid medicine with another person, especially someone with a history of drug abuse oraddiction. MISUSE CAN CAUSE ADDICTION, OVERDOSE, OR . Keep the medication in a place where others cannot get to it. Selling or giving away opioid medicine is against the law. Stop taking all other ibijny-val-kioon narcotic pain medications when you start taking hydromorphone. Swallow the capsule or tablet whole to avoid exposure to a potentially fatal overdose. Do not crush, chew, break, open, or dissolve. Measure liquid medicine carefully. Use the dosing syringe provided, or use a medicine dose-measuring device (not a kitchen spoon). Do not stop using hydromorphone suddenly, or you could have unpleasant withdrawal symptoms. Ask your doctor how to safely stop using hydromorphone. Never crush or break a hydromorphone pill to inhale the powder or mix it into a liquid to inject the drug into your vein. This can cause in . Store at room temperature away from moisture, heat, and light. Throw away any unused liquid after 90 days. Keep track of your medicine. You should be aware if anyone is using it improperly or without a prescription. Do not keep leftover opioid medication. Just one dose can cause in someone using this medicine accidentally or improperly. Ask your pharmacist where to locate a drug take-back disposal program.If there is no take-back program, flush the unused medicine down the toilet. What happens if I miss a dose? Since hydromorphone is used for pain, you are not likely to miss a dose. Skip any missed dose if itis almost time for your next dose. Do not use two doses at one time. What happens if I overdose? Seek emergency medical attention or call the Poison Help line at . A hydromorphone overdose can be fatal, especially in a child or other person using the medicine without a prescription. Overdose symptoms may include slow heart rate, severe drowsiness, muscle weakness, cold and clammyskin, pinpoint pupils, very slow breathing, or coma. What should I avoid while using hydromorphone? Do not drink alcohol. Dangerous side effects or could occur. Avoid driving or hazardous activity until you know how this medicine will affect you. Dizziness or drowsiness can cause falls, accidents, or severe injuries. What are the possible side effects of hydromorphone? Get emergency medical help if you have signs of an allergic reaction: hives; difficulty breathing; swelling of your face, lips, tongue, or throat. Opioid medicine can slow or stop your breathing, and may occur. A person caring for you should seek emergency medical attention if you have slow breathing with long pauses, blue colored lips, or if you are hard to wake up. Call your doctor at once if you have: ? noisy breathing, sighing, shallow breathing, breathing that stops during sleep; ??? a slow heart rate or weak pulse; ??? confusion, feelings of extreme happiness or sadness; ??? severe weakness or drowsiness; ??? a light-headed feeling, like you might pass out; ??? low cortisol levels--nausea, vomiting, loss of appetite, dizziness, worsening tiredness or weakness. Seek medical attention right away if you have symptoms of serotonin syndrome, such as: agitation, hallucinations, fever, sweating, shivering, fast heart rate, muscle stiffness, twitching, loss of coordination, nausea, vomiting, or diarrhea. Serious side effects may be more likely in older adults and those who are malnourished or debilitated. Long-term use of opioid medication may affect fertility (ability to have children) in men or women.It is not known whether opioid effects on fertility are permanent. Common side effects may include: ? drowsiness, tiredness; ??? dizziness; ??? headache; or ??? constipation, nausea, vomiting, stomach pain. This is not a complete list of side effects and others may occur. Call your doctor for medical advice about side effects. You may report side effects to FDA at 0-225-QPU-0151. What other drugs will affect hydromorphone? Opioid medication can interact with many other drugs and cause dangerous side effects or . Be sure your doctor knows if you also use: ? other narcotic medications--opioid pain medicine or prescription cough medicine; ??? a sedative like Valium--diazepam, alprazolam, lorazepam, Xanax, Klonopin, Versed, and others; ??? drugs that make you sleepy or slow your breathing--a sleeping pill, muscle relaxer, medicine totreat mood disorders or mental illness; or ??? drugs that affect serotonin levels in your body--a stimulant, or medicine for depression, Parkinson's disease, migraine headaches, serious infections, or nausea and vomiting. This list is not complete. Other drugs may affect hydromorphone, including prescription and vkal-jef-uzpsyae medicines, vitamins, and herbal products. Not all possible interactions are listed here. Where can I get more information? Your doctor or pharmacist can provide more information about hydromorphone. Remember, keep this and all other medicines out of the reach of children, never share your medicines with others, and use this medication only for the indication prescribed. Every effort has been made to ensure that the information provided by [employer]. ('[employer]') is accurate, up-to-date, and complete, but no guarantee is made to that effect. Drug information contained herein may be time sensitive. [employer] information has been compiled for use by healthcare practitioners and consumers in the [place] and therefore [employer] does not warrant that uses outside of the [place] are appropriate, unless specifically indicated otherwise. [employer] drug information does not endorse drugs, diagnose patients or recommend therapy. [employer] drug information isan informational resource designed to assist licensed healthcare practitioners in caring for their p atients and/or to serve consumers viewing this service as a supplement to, and not a substitute for, the expertise, skill, knowledge and judgment of healthcare practitioners. The absence of a warningfor a given drug or drug combination in no way should be construed to indicate that the drug or drug combination is safe, effective or appropriate for any given patient. [employer] does not assume any responsibility for any aspect of healthcare administered with the aid of information [employer] provides. The information contained herein is not intended to cover all possible uses, directions, precautions, warnings, drug interactions, allergic reactions, or adverse effects. If you have questions about the drugs you are taking, check with your doctor, nurse or pharmacist. Copyright 8297-4691 [employer]. Version: 9.03. Revision Date: 08/21/2019. Patient education materials, if any, will display [...] caused your condition. General instructions ??? Take rmad-qyd-srlzgms and prescription medicines only as told by your health care provider. ??? Do not drive or use heavy machinery while taking prescription pain medicine. ??? Ask your health care provider if the medicine prescribed to you can cause constipation. You mayneed to take steps to prevent or treat constipation, such as: ??? Take an evtt-pun-axfgsjg or prescription medicine for constipation. ??? Eat [...] provider. Document Revised: 08/11/2019 Document Reviewed: 04/28/2019 [employer] Patient Education ?? 2021 [employer]. MAGI Ashford RYAN, have received the attached patient education materials/instructions and have verbalized understanding: 12/28/2022 14:35:02 Patient Signature MAGI Ashford RYAN, have received the attached patient education materials/instructions and have verbalized understanding: 12/28/2022 14:35:02 Patient Signature History and physical note * Danita Elena MD: MODIFY, MODIFY, MODIFY, PERFORM, MODIFY, MODIFY Event Display: History and Physical Authored Date: [id number] [place] SOW :1995 Age:27 years Sex:Male Visit Date:12/24/2022 Primary Care Physician: Emi Burdick Chief Complaint Pt is having left-sided chest pain that radiates into his neck, left arm and left abdomen. ??The began yesterday. ??Pt also has vomiting and some diarrhea. History of Present Illness Abd pain Pancreatitis Patient,??27 years old male,??presented to emergency room for evaluations of recurrent abdomen pain??with radiation and causing chest discomfort,,??nausea, vomiting,??related to??recurrent pancreatitis, Patient is morbidly obese, has history of COVID-19 with development of pulmonary embolus,??for which he has been on??oral anticoagulation for some time but currently not on??any??blood thinners, Patient had numerous??onset of recurrent pancreatitis, which been diagnosed in other facilities,??however patient is not drinker, He denies any illicit drug use, and does not take any medications which could cause??pancreatitis,? Extensive work-up done in the emergency room??including CTA of the chest??due to??mild elevated level of D-dimers,??however has come back??with results indeterminate for presence of pulmonary emboli, Patient current condition does not??worsen presence of pulmonary emboli, his he is not short of breath,??he is not hypoxic,??does not have chest pain, Patient lipase level within normal range, however??he states that his current??presentation is consistent with typical??previous??pancreatitis flare, ?? For this reason patient will be admitted to our facility under hospitalist service??with close follow-up by??recommendations by gastroenterology service for determination of further management, ?? At this point he will be kept??on medicine floor,??he will be n.p.o. with continuations of IV hydration still improvement of his condition ?? Review of Systems ?? General:??No fever, chills, wt gain or wt loss Skin:??no rash or ulcers Eyes / Ears:??no vision changes, no hearing changes Nose/ Throat:??no sinus congestion, no sore throat Cardiac:??no shortness of breath, no chest pain, no dyspnea on exertion, no palpitations Respiratory:??no shortness of breath, no cough, no wheezing GI:??abdominal pain, nausea, no vomiting,??currently no diarrhea, no constipation, no heartburn Urinary:??no dysuria, no urgency, no frequency, no BPH symptoms Neurological:??no new headaches, no numbness, no weakness Musculoskeletal:?no joint aches or swelling, no muscle aches Psychiatric:??mood stable Endocrine:??no wt gain, or wt loss, no ho diabetes or thyroid disease Hematologic:??no history of easy bleeding or bruising Physical Exam Vitals & Measurements T:??36.6?C ??(Temporal Artery)?? HR:??114??(Peripheral)?? RR:??20?? BP:??159/86?? SpO2:??98%?? HT:??175.000??cm?? WT:??125.900??kg??(Estimated)?? O2 Therapy:??Room air?? Appearance: NAD, well appearing Head and scalp: Normocephalic, atraumatic Eyes: Sclera anicteric, conjunctiva clear, PERRLA, EOMI E/N/M/T: Normal teeth and gums; ??Oropharynx clear; Mucous Membranes moist; ??Poor dentition Neck: nl appearance and movement; trachea midline; no thyroid enlargement; supple ? Respiratory: symmetrical chest expansion and effort, clear to auscultation bl, no rales or wheezing Cardiovascular: ?? no sounds, no murmurs, or gallops; RRR; JVP normal; irregularly irregular rhythm Abdominal??mild tenderness on palpation??in epigastric area and upper??left quadrant with radiation??to her back, but no guarding or rebound,??patient is morbidly obese, Lymphatic: ??no adenopathy: ??cervical, axillary, inguinal Extremities: ??no edema bl le;?? Skin: ?? Warm and dry; No rash or ulcers;?? 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 Continues on mild IV hydration,??currently will be n.p.o??overnight., and will adjust with diet as tolerated,??pain control and nausea control as needed, Chest pain??R07.9 Patient had pulmonary emboli in the past,??and his D-dimer is very mildly elevated, however??he is presentation is not consistent with??pulmonary emboli, as he is not hypoxic,??does not have any shortness of breath, CTA of the chest was performed but??it was inconclusive, If patient condition will changed and he will development signs of possible??pulmonary blood clots,??will ??perform??VQ mismatch scan ?? 2. ??Physical?? therapy consult 3. ??Continues his home medications for management of chronic medical issues including need to prove chronic paroxysmal??tachycardia,??GERD, Recurrent acute pancreatitis??K85.90 Images (12/24/2022 18:[address] PE Protocol) ?? Due to technical problems the pulmonary arteries were insufficiently opacified with contrast for a reliable assessment for the presence or absence of pulmonary emboli. [1] Problem List/Past Medical History Ongoing No qualifying data Historical No qualifying data Medications Inpatient No active inpatient medications Home No active home medications Allergies FLUoxetine Family History HTN Lab Results Test Name Test Result Date/Time WBC 12.5 x10(3)/uL 12/24/2022 16:49 EST RBC 5.50 x10(6)/uL 12/24/2022 16:49 EST Hgb 15.9 gm/dL 12/24/2022 16:49 EST Hct 45.0 % 12/24/2022 16:49 EST MCV 81.8 fL 12/24/2022 16:49 EST Platelet 341 x10(3)/uL 12/24/2022 16:49 EST PT 12.3 second(s) 12/24/2022 17:02 EST INR 0.95 12/24/2022 17:02 EST D-Dimer 0.600 FEU ug/mL 12/24/2022 17:02 EST UA Nitrite NEGATIVE 12/24/2022 18:12 EST UA Leuk Est NEGATIVE 12/24/2022 18:12 EST UA WBC 0-2 12/24/2022 18:12 EST Sodium Lvl 137 mmol/L 12/24/2022 16:49 EST Potassium Lvl 4.3 mmol/L 12/24/2022 16:49 EST Chloride 103 mmol/L 12/24/2022 16:49 EST Creatinine 0.73 mg/dL 12/24/2022 16:49 EST Glucose Lvl 118 mg/dL 12/24/2022 16:49 EST ALT 59 IntUnit/L 12/24/2022 17:02 EST AST 23 IntUnit/L 12/24/2022 17:02 EST Bili Total 0.3 mg/dL 12/24/2022 17:02 EST Bili Direct <0.2 mg/dL 12/24/2022 17:02 EST Lipase Lvl 53 IntUnit/L 12/24/2022 17:02 EST Troponin-T <0.010 ng/mL 12/24/2022 16:49 EST [1]??CT PE Protocol; ELROY ARELLANO 12/24/2022 18:57 EST [Electronically Signed on: 12/27/2022 10:02 EST] Danita Elena MD, MD [Verified on: 12/27/2022 10:02 EST] Danita Elena MD, MD Progress note * Johanny Salgado: PERFORM, MODIFY Event Display: Progress Note-Physician Authored Date: [id number] [place] SOW :1995 Age:27 years Sex:Male Visit Date:12/24/2022 Primary Care Physician: MARLEN PINA Subjective Patient had significant pain this morning,??okay with transitioning to oral hydromorphone as??this will last longer. ??Patient??much improved this afternoon. ??Tolerated full liquid diet.?? Intermittent nausea, no vomiting. Ambulating more, bowel movement this morning. Objective Vitals & Measurements T:??36.5?C ??(Temporal Artery)?? TMIN:??36.5?C ??(Temporal Artery)?? TMAX:??36.6?C ??(Temporal Artery)?? HR:??75??(Peripheral)?? RR:??16?? BP:??145/94?? SpO2:??97%?? Pain Score:??9?? O2 Flow Rate:??4?? O2 Therapy:??Nasal cannula?? Physical Exam General Appearance: NAD, pleasant and cooperative. ??Feels better this afternoon. ??Out of bed ambulating to bathroom without difficulty. ENT: No icterus, moist mucous membranes Lungs: Clear to auscultation, no wheezes or rhonchi, unlabored respirations at rest. ??SPO2 97% on room air. Cardiovascular:??S1 S2, no murmurs rubs or gallops, no JVD. ??cardiac monitor shows sinus rhythm inthe 80s. Abdomen: Soft, tender upper abdomen and epigastric areas, non-distended, hypoactive bowel sounds Lower Extremities: No peripheral edema, no calf tenderness to palpation Neuro: A&O X 4, steady gait Lab Results Test Name Test Result Date/Time Sodium Lvl 141 mmol/L 12/27/2022 06:44 EST Potassium Lvl 4.1 mmol/L 12/27/2022 06:44 EST Chloride 103 mmol/L 12/27/2022 06:44 EST CO2 26 mmol/L 12/27/2022 06:44 EST AGAP 16.1 mmol/L 12/27/2022 06:44 EST BUN 6 mg/dL 12/27/2022 06:44 EST Creatinine 0.57 mg/dL 12/27/2022 06:44 EST Glucose Lvl 106 mg/dL 12/27/2022 06:44 EST Calcium Lvl 9.4 mg/dL 12/27/2022 06:44 EST eGFR CKD-EPI 136.10 mL/min/1.73 m2 12/27/2022 06:44 EST Assessment/Plan 1.??Recurrent acute pancreatitis??K85.90 Pain improving this afternoon.?? Occasional nausea no vomiting. Continue with supportive care. ??Advance diet to full liquids. Stop IV fluids for now. Transition to oral hydromorphone. Patient back on his usual prednisone 20 mg daily. 2.??Abdominal pain??R10.9 Attributed to #1 3.??Chest pain??R07.9 4.??Obesity??E66.9 5.??GERD (gastroesophageal reflux disease)??K21.9 Remains on PPI 6.??KAYLA (obstructive sleep apnea)??G47.33 Nocturnal O2 7.??Insomnia??G47.00 Orders: Dilaudid, 6 mg = 3 tab(s), Tab, Oral, q4hr, PRN for Pain - Severe, Start date: 12/27/22 9:53:00 EST, 12/27/22 9:53:00 EST Artificial Tears ophthalmic solution, 1 drop(s), Soln-Opth, OPTH, q15min, PRN for Dry eyes, NOW, Start date: 12/26/22 15:16:00 EST, 12/26/22 15:16:00 EST Oxygen Therapy, 12/26/22 16:42:00 EST, Constant, O2 at 4 L/min with nasal cannula when sleeping [Electronically Signed on: 12/27/2022 14:47 EST] Johanny Salgado Nurse Practoni [Verified on: 12/27/2022 14:47 EST] Johanny Salgado Nurse Practi * DYLON, JHONATAN: PERFORM Event Display: Progress Note-Physician Authored Date: [id number] ?? Patient seen and examined, plan of care discussed with SOCIAL WORK ASSISTANT Tolerating full liquids, still with abdominal pain, but transition to PO hydromorphone means longerlasting pain control which he can tell. No N/V Has appetite ?? Gen: NAD CV: RRR no m/r/g Resp: CTAB no tachypnea Abd: soft, BS decreased but present, no significant tenderness to light palpation ? Pancreatitis, recurrent -prednisone D3 as per [facility] [place] recs -tolerating advanced diet, pain control adequate with PO hydromorphone -trial low residue in am -anticipate discharge in 24-48 hours ?? Rest as above ?? 25 min ? [Electronically Signed on: 12/27/2022 21:53 EST] JHONATAN MAXWELL MD * Johanny Salgado: PERFORM Event Display: Progress Note-Physician Authored Date: [id number] [place] SOW :1995 Age:27 years Sex:Male Visit Date:12/24/2022 Primary Care Physician: MARLEN PINA Subjective Patient does not feel as well today. ??Still endorsing upper abdominal pain, sometimes the pain radiates to his left shoulder. ??Denies shortness of breath, able to take a??deep breath without pain.?? Mildly nauseated,??relieved with ondansetron. ??No vomiting today. Patient only tolerating very small amounts of clear liquids. ??He was hoping to advance his diet tofull liquids today,??but does not feel that he can at this time. Objective Vitals & Measurements T:??36.6?C ??(Temporal Artery)?? TMIN:??36?C ??(Temporal Artery)?? TMAX:??36.6?C ??(Temporal Artery)?? HR:??76??(Peripheral)?? RR:??18?? BP:??112/68?? SpO2:??96%?? WT:??126.3??kg?? Pain Score:??8?? O2 Flow Rate:??4?? O2 Therapy:??Room air?? Physical Exam General Appearance: NAD, pleasant and cooperative. ??Feels worse today. ??Out of bed ambulating to bathroom without difficulty. ENT: No icterus, moist mucous membranes Lungs: Clear to auscultation, no wheezes or rhonchi, unlabored respirations at rest. ??SPO2 96% on room air. Cardiovascular:??S1 S2, no murmurs rubs or gallops, no JVD. ??cardiac monitor shows sinus rhythm inthe 80s. Abdomen: Soft, tender upper abdomen and epigastric areas, non-distended, hypoactive bowel sounds Lower Extremities: No peripheral edema, no calf tenderness to palpation Neuro: A&O X 4, steady gait Lab Results Test Name Test Result Date/Time SARS-CoV-2(COVID-19) NAAT (CUE) Practice Negative. 12/24/2022 19:31EST WBC 7.6 x10(3)/uL 12/26/2022 06:15 EST Hgb 14.5 gm/dL 12/26/2022 06:15 EST Hct 41.5 % 12/26/2022 06:15 EST Platelet 266 x10(3)/uL 12/26/2022 06:15 EST Sodium Lvl 138 mmol/L 12/26/2022 06:15 EST Potassium Lvl 4.8 mmol/L 12/26/2022 06:15 EST Chloride 103 mmol/L 12/26/2022 06:15 EST CO2 25 mmol/L 12/26/2022 06:15 EST AGAP 14.8 mmol/L 12/26/2022 06:15 EST BUN 7 mg/dL 12/26/2022 06:15 EST Creatinine 0.57 mg/dL 12/26/2022 06:15 EST Glucose Lvl 137 mg/dL 12/26/2022 06:15 EST Calcium Lvl 9.8 mg/dL 12/26/2022 06:15 EST eGFR CKD-EPI 136.10 mL/min/1.73 m2 12/26/2022 06:15 EST Assessment/Plan 1.??Recurrent acute pancreatitis??K85.90 Patient??has??had multiple admissions over the last year for nausea, vomiting, abdominal pain with elevated inflammatory markers and duodenitis as well as??pancreatic inflammation of unclear etiology. He has had??extensive work-up including multiple EGDs, EUS with biopsy, and colonoscopies. For now we will continue with supportive care, IV fluids, clear liquids. Plan to advance diet as tolerated. Continuing with ondansetron, ketorolac, and IV hydromorphone. Plan to transition to oral pain medications??when tolerating p.o. Patient back on his usual prednisone 20 mg daily. 2.??Abdominal pain??R10.9 3.??Chest pain??R07.9 No true anterior chest pain,??epigastric pain at times radiates to his left shoulder. 4.??Obesity??E66.9 5.??GERD (gastroesophageal reflux disease)??K21.9 Continue with PPI 6.??KAYLA (obstructive sleep apnea)??G47.33 Patient utilizes nocturnal O2 at 4 L/min via nasal cannula. Historically intolerant of CPAP. 7.??Insomnia??G47.00 Continue with??melatonin and trazodone. Orders: Artificial Tears ophthalmic solution, 1 drop(s), Soln-Opth, OPTH, q15min, PRN for Dry eyes, NOW, Start date: 12/26/22 15:16:00 EST, 12/26/22 15:16:00 EST [Electronically Signed on: 12/26/2022 16:45 EST] Johanny Salgado JHONATAN MAXWELL MD [Verified on: 12/26/2022 16:45 EST] Johanny Salgado Nurse Practi * Johanny Salgado: PERFORM Event Display: Progress Note-Physician Authored Date: [id number] [place] SOW :1995 Age:27 years Sex:Male Visit Date:12/24/2022 Primary Care Physician: PASCALE VILLEGAS Subjective Patient still endorsing upper abdominal and epigastric??pain/tenderness.?? Mild nausea without vomiting today. Trialing??clear liquids this afternoon. Denies any??true chest pain or pressure. Objective Vitals & Measurements T:??35.7?C ??(Temporal Artery)?? TMIN:??35.7?C ??(Temporal Artery)?? TMAX:??36.6?C ??(Temporal Artery)?? HR:??118??(Peripheral)?? RR:??20?? BP:??117/65?? SpO2:??95%?? HT:??175.000??cm?? WT:??126.4??kg?? BMI:??41.270?? Pain Score:??5 = Moderate pain?? O2 Flow Rate:??4?? O2 Therapy:??Nasal cannula?? Physical Exam General Appearance: NAD, pleasant and cooperative. ??Lying in bed,??appears mildly ill but nontoxic. ENT: No icterus, moist mucous membranes Lungs: Clear to auscultation, no wheezes or rhonchi, unlabored respirations at rest. ??SPO2 95% on room air. Cardiovascular:??S1 S2, no murmurs rubs or gallops, no JVD. ??cardiac monitor shows sinus rhythm inthe 80s. Abdomen: Soft, tender upper abdomen and epigastric areas, non-distended, hypoactive bowel sounds Lower Extremities: No peripheral edema, no calf tenderness to palpation Neuro: A&O X 4, steady gait Lab Results Test Name Test Result Date/Time SARS-CoV-2(COVID-19) NAAT (CUE) Practice Negative. 12/24/2022 19:31EST WBC 12.5 x10(3)/uL 12/24/2022 16:49 EST Hgb 15.9 gm/dL 12/24/2022 16:49 EST Hct 45.0 % 12/24/2022 16:49 EST Platelet 341 x10(3)/uL 12/24/2022 16:49 EST INR 0.95 12/24/2022 17:02 EST D-Dimer 0.600 FEU ug/mL 12/24/2022 17:02 EST Activated PTT 31.7 second(s) 12/24/2022 17:02 EST Sodium Lvl 137 mmol/L 12/24/2022 16:49 EST Potassium Lvl 4.3 mmol/L 12/24/2022 16:49 EST Chloride 103 mmol/L 12/24/2022 16:49 EST CO2 22 mmol/L 12/24/2022 16:49 EST AGAP 16.3 mmol/L 12/24/2022 16:49 EST BUN 13 mg/dL 12/24/2022 16:49 EST Creatinine 0.73 mg/dL 12/24/2022 16:49 EST Glucose Lvl 118 mg/dL 12/24/2022 16:49 EST Calcium Lvl 10.2 mg/dL 12/24/2022 16:49 EST Total Protein 7.3 gm/dL 12/24/2022 17:02 EST Albumin Lvl 4.80 gm/dL 12/24/2022 17:02 EST Alk Phos 72 IntUnit/L 12/24/2022 17:02 EST ALT 59 IntUnit/L 12/24/2022 17:02 EST AST 23 IntUnit/L 12/24/2022 17:02 EST Bili Total 0.3 mg/dL 12/24/2022 17:02 EST Bili Direct <0.2 mg/dL 12/24/2022 17:02 EST Lipase Lvl 53 IntUnit/L 12/24/2022 17:02 EST eGFR CKD-EPI 126.30 mL/min/1.73 m2 12/24/2022 16:49 EST Troponin-T <0.010 ng/mL 12/24/2022 16:49 EST Diagnostic Results (12/24/2022 18:[address] Abdomen/Pelvis w/ Contrast) CT Abdomen/Pelvis w/ Contrast FINDINGS: Diffusely fatty infiltrated but otherwise unremarkable liver. Unremarkable gallbladder and spleen. Mild stranding adjacent to the pancreatic head extending into the adjacent retroperitoneum. Unremarkable adrenals. Unremarkable kidneys. Limited noncontrast images demonstrate an unremarkable stomach, small bowel and large bowel. An appendix is not identified. Unremarkable urinary bladder and pelvic structures. No pneumoperitoneum, free fluid or lymphadenopathy. Normal aorta. Intact osseous structures. ?? IMPRESSION: 1. Mild stranding adjacent to the pancreatic head extending into the adjacent retroperitoneum that likely represents a pancreatitis if this correlates clinically. 2. Additional finding is above. Please review. Assessment/Plan 1.??Recurrent acute pancreatitis??K85.90 Patient??has??had multiple admissions over the last year for nausea, vomiting, abdominal pain with elevated inflammatory markers and duodenitis as well as??pancreatic inflammation of unclear etiology. He has had??extensive work-up including multiple EGDs, EUS with biopsy, and colonoscopies. Patient attributes??worsening??pancreatitis symptoms since??having??COVID-19 illness. For now we will continue with supportive care, IV fluids, clear liquids. Plan to advance diet as tolerated. Continuing with ondansetron, ketorolac, and IV low-dose hydromorphone. Plan to transition to oral pain medications??when tolerating p.o. 2.??Abdominal pain??R10.9 Attributed to recurrent acute pancreatitis. Per [facility] [place]??12/21/2022: Historically LFTs??have never been elevated including lipase.?? History of fluctuating D-dimer and CRP. Of note surgery was also considering??CCY to rule out??as cause of pain??and if missing something inside gallbladder.?? RP biopsy??09/2022??negative for IgG4, fragments of fibroadipose tissue. Patient??did feel better with steroids in the past. Patient again was recently started on prednisone 20 mg daily. Numerous EGDs with biopsy without clear etiology.?? Pancreas appeared normal on EUS. 3.??Chest pain??R07.9 No chest pain or pressure today. ??Patient endorses some epigastric pain, and tenderness to palpation. Patient historically on metoprolol succinate 200 mg daily for tachycardia. He refused metoprolol today. 4.??Obesity??E66.9 5.??GERD (gastroesophageal reflux disease)??K21.9 Continue lean with daily omeprazole dosing. 6.??KAYLA (obstructive sleep apnea)??G47.33 7.??Insomnia??G47.00 Continue with melatonin and trazodone at bedtime. [Electronically Signed on: 12/25/2022 17:49 EST] Johanny Salgado JHONATAN MAXWELL MD [Verified on: 12/25/2022 17:49 EST] Johanny Salgado Nutrition and dietetics Outpatient Note * Mónica Werner: PERFORM Event Display: Nutrition/Dietary Office/Clinic Note Authored Date: Initial Nutrition Plan Diagnosis Alt in gi status r/t pancreatitis aeb abd. pain, mild nausea Intervention 1. clear liquid 2. prednisone Goals 1. Advance diet w/in 48 hours Plan: Continue current diet, start nutrition interventions. Monitor tolerance at meal rounds. Re-evaluate 12/28/22. Assessment Reason for nutrition consult: Initial History of Present Illness: pancreatitis Nutrition related PMH: Hx Covid +, PE Nutrition related medications: prednisone Current Diet Order: clear liquid Diet Teaching: Understands diet Food/Nutrition related hx prior to admission: home diet, diet recall Anthropometrics: 12/25/22 Ht Wt UBW % change BMI 175 126.4 41.27 Comment: Pertinent labs: 12/25/22 K Mg Phos Glu A1c BUN Cr AST ALT OTHER 59 Comment: Nutrition physical exam: Oral: None noted-chew/swallow difficulty GI: Mild nausea, abd tenderness Skin: intact [Electronically Signed on: 12/25/2022 13:57 EST] Mónica Werner [Verified on: 12/25/2022 13:57 EST] Mónica Werner Portable XR Chest AP single view * HAYLEY MILLER: VERIFY, VERIFY, PERFORM Event Display: Report Authored Date: EXAMINATION: XR Chest 1 View Portable CLINICAL HISTORY: chest pain TECHNIQUE: AP chest COMPARISON: None FINDINGS: Lungs are clear and without focal consolidation. The cardiomediastinal silhouette and pulmonary vasculature are within normal limits. No pleural effusion or pneumothorax. No acute osseous findings. IMPRESSION: No acute cardiopulmonary process. Thank you for letting us participate in the care of this patient. If you are a health care provider and have any questions regarding this report, please contact the number below. For patients who have questions please contact the health hospice care consultant that requested your imaging first. Electronically signed by: Hayley Miller MD, [facility] ([phone]), at 12/24/2022 5:40 PM Final Dictated: 12/24/2022 5:40 pm HAYLEY MILLER Signed (Electronic Signature): 12/24/2022 5:40 pm Signed by: HAYLEY MILLER Note * ELROY ARELLANO: VERIFY, VERIFY, PERFORM Event Display: Report Authored Date: [id number] EXAMINATION: CT PE Protocol CLINICAL HISTORY: Chest and abdominal pain with history of pulmonary embolus in the past not currently anticoagulated with elevated D-dimer please evaluate for possible recurrent pulmonary embolism TECHNIQUE: Helical CT angiogram of the chest was performed after the intravenous administration of Omnipaque 350. Thin-section reconstructions as well as coronal and sagittal MIP reformatted images were generated to aid in evaluation. COMPARISON: Prior plain film of the same day. FINDINGS: Due to technical problems the pulmonary arteries were insufficiently opacified with contrast for a reliable assessment for the presence or absence of pulmonary emboli. Scattered pulmonary parenchymal densities most consistent with subsegmental atelectasis, cannot entirely exclude early infiltrate. Otherwise clear lungs.. Unremarkable mediastinum. No mediastinal or hilar lymphadenopathy. No pericardial or pleural effusion. IMPRESSION: 1. Indeterminate study with respect to pulmonary emboli due to technical problems with contrast administration. Recommend a repeat study or a VQ scan as clinically indicated. 2. Additional findings as above. Please review. Thank you for letting us participate in the care of this patient. If you are a health care provider and have any questions regarding this report, please contact the number below. For patients who have questions please contact the health hospice care consultant that requested your imaging first. Electronically signed by: Elroy Arellano MD, [facility] ([phone]), at 12/24/2022 7:32PM Final Dictated: 12/24/2022 7:32 pm ELROY ARELLANO Signed (Electronic Signature): 12/24/2022 7:32 pm Signed by: ELROY ARELLANO CT Abdomen and Pelvis W contrast IV * ELROY ARELLANO: VERIFY, VERIFY, PERFORM Event Display: Report Authored Date: EXAMINATION: CT Abdomen/Pelvis w/ Contrast CLINICAL HISTORY: Chest and abdominal pain with history of pancreatitis please evaluate for pathology. TECHNIQUE: Helical CT of the abdomen and pelvis was performed following the intravenous administration of Omnipaque 350. Oral contrast administered. COMPARISON: None FINDINGS: Diffusely fatty infiltrated but otherwise unremarkable liver. Unremarkable gallbladder and spleen. Mild stranding adjacent to the pancreatic head extending into the adjacent retroperitoneum. Unremarkable adrenals. Unremarkable kidneys. Limited noncontrast images demonstrate an unremarkable stomach, small bowel and large bowel. An appendix is not identified. Unremarkable urinary bladder and pelvic structures. No pneumoperitoneum, free fluid or lymphadenopathy. Normal aorta. Intact osseous structures. IMPRESSION: 1. Mild stranding adjacent to the pancreatic head extending into the adjacent retroperitoneum that likely represents a pancreatitis if this correlates clinically. 2. Additional finding is above. Please review. Thank you for letting us participate in the care of this patient. If you are a health care provider and have any questions regarding this report, please contact the number below. For patients who have questions please contact the health hospice care consultant that requested your imaging first. Electronically signed by: Elroy Arellano MD, [facility] ([phone]), at 12/24/2022 7:51PM Final Dictated: 12/24/2022 7:51 pm ELROY ARELLANO Signed (Electronic Signature): 12/24/2022 7:51 pm Signed by: ELROY ARELLANO Patient Care team information Care Team Personnel Name: PASCALE VILLEGAS Member Role: Informed Provider Address: Address: [address] [place] [id number] Name: MARLEN PINA Position: [facility] No Access Member Role: Primary Care Physician Address: Address: [place], [place] [address] Name: Adrian West Position: [facility] Member Role: Registered Nurse Name: LISSETT ISAAC Position: [facility] ED Physician LP Member Role: Nurse Practitioner Address: Address: [address] [place] [id number] [place] [address] Care Team Related Persons Name: KYLEE SOW
--- OUTSIDE RECORDS SUMMARY | 2023-04-03 17:55 | XMS_ITS | Continuity of Care Document ---
Author Name Unknown Organization [facility] Address Unknown Care Team Providers Care Customer Support Associate Name Role Phone No Local PCP, No Local PCP Primary Care Physicia n Unavailable Encounter Date(s): 12/12/22 - 12/17/22 [facility] [address], [place] [id number] Encounter Diagnosis Acute pancreatitis(Discharge Diagnosis) - 12/13/22 Idiopathic chronic pancreatitis(Discharge Diagnosis) - 12/17/22 Hypertriglyceridemia(Discharge Diagnosis) - 12/17/22 Chronic abdominal pain(Discharge Diagnosis) - 12/13/22 Metabolic syndrome(Discharge Diagnosis) - 12/17/22 Discharge Disposition: Home or Self Care Attending Physician: RHIANNA BAIRD MD Admitting Physician: CATHY ZHENG MD Allergies, Adverse Reactions, Alerts Substance Reaction Severity Status FLUoxetine Anaphylaxis Severe Active Assessment and Plan Extracted from: Title:History & Physical Author:ANAID PEREZ RD, POWER AND RECOVERY SUPERVISOR Date:12/13/22 [place] Sow is a 27-year-o ld male with a history of morbid obesity, tachycardia, chronic abdominal pain, recurrent chronic pancreatitis of unclear etiology, KAYLA, history of COVID-19 with subsequent PE who presents to [facility] [place] with complaints of abdominal pain consistent with his reported previous episodes of pancreatitis. He received numerous analgesics and antiemetics but continues to report he is in severe pain. His CT scan shows concerns for pancreatitis; which has been noted on numerous scans previously at outside hospitals.?? Due to pain control, he was referred for admission. ? 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 His clinical presentation does not appear to be consistent with his complaints of pain and he physically appears comfortable; no signs of distress. I addressed with him my concern for??his outpatient hydromorphone use and he seemed surprised that we can see his fill history. VPMS reported under other data below. ? Hydromorphone 1mg for severe pain q4h; Toradol 30 mg q6h for moderate pain; scheduled IV acetaminophen 1000 mg x 6 doses. ? NPO; IV fluids x 3 more liters - May have sips of water for pills / ice chips for comfort ? Awaiting call from his outpatient GI provider ? Lipase / CBC repeat ordered for AM ? Scheduled Reglan 10 mg IV x 6 doses - EKG pending ? Triglyceride level 392; Consider adding gemfibrozil??or other fibrate at time of discharge to help reduce level / reduce risk for Triglyceride-induced pancreatitis as diet alone has not been beneficial, per his report. ? Consider referral for pain specialist / psychiatric evaluation due to possible psychological component / dependence on opiate use ? Continue home Gabapentin Tachycardia / history of SVT / Hypertension: Continue home Metoprolol ER 200 mg daily when able to tolerate PO Gastroesophageal Reflux Disease: Continue PPI; will add BID due to acute presentation Insomnia: Continue home Trazodone if possible to tolerate PO Irritable Bowel Syndrome: Continue home Bentyl Morbid Obesity: BMI >40 ?? Diet: NPO Code Status: Full Code Prophylaxis: Lovenox due to history of PE / immobility due to pain per pt, continue home PPI ?? This note was prepared with the aid of voice recognition technology. The attempts at proofreading sometimes miss mistakes. All attempts are made to reproduce pertinent clinical information but sometimes grammatical mistakes and inappropriate word spelling occurs. ? Functional Status 12/17/22 ADLs Independent Medications acetaminophen 325 mg oral tablet 650 mg = 2 tab(s), Oral, q4hr, PRN PRN: fever/pain/headache, not to exceed 4000 mg/day Start Date: 12/13/22 Status: Ordered carboxymethylcellulose 1 drop(s), Eye-Both, TID, PRN PRN: dry eyes Start Date: 12/13/22 Status: Ordered cyclobenzaprine 10 mg oral tablet 10 mg = 1 tab(s), Oral, TID, PRN PRN: muscle spasms Start Date: 12/13/22 Status: Ordered dicyclomine 10 mg oral capsule 20 mg = 2 cap(s), Oral, TID Start Date: 12/13/22 Status: Ordered docusate-senna 50 mg-8.6 mg oral tablet 1 tab(s), Oral, Daily, PRN PRN constipation Start Date: 12/13/22 Status: Ordered gabapentin 300 mg oral capsule 300 mg = 1 cap(s), Oral, TID Start Date: 12/13/22 Status: Ordered gemfibrozil 600 mg oral tablet 600 mg = 1 tab(s), Oral, BID, NEW as of discharge on 12/17/22 for hypertriglyceridemia, # 60 tab(s),0 Refill(s), Pharmacy: [facility] [place] Pharmacy, 175.3, cm, 12/13/22 17:19:00 EST, Height/Length Dosing, 124.9, kg, 12/13/22 17:19:00 EST, Weight Dosing Start Date: 12/17/22 Status: Ordered HYDROmorphone 4 mg oral tablet 4 mg = 1 tab(s), Oral, q4hr, PRN PRN: as needed for pain, 0 Refill(s) Start Date: 12/13/22 Status: Ordered hydrOXYzine hydrochloride 25 mg oral tablet 25 mg = 1 tab(s), Oral, q8hr, PRN PRN: as needed for itching Start Date: 12/13/22 Status: Ordered loperamide 2 mg oral capsule 2 mg = 1 cap(s), Oral, TID, PRN PRN: diarrhea, not to exceed 8 capsules, or 16 mg, in 24 hours Start Date: 12/13/22 Status: Ordered melatonin 5 mg oral tablet 5 mg = 1 tab(s), Oral, qHS Start Date: 12/13/22 Status: Ordered metoclopramide 10 mg oral tablet 10 mg = 1 tab(s), Oral, QID, PRN PRN: indigestion Start Date: 12/13/22 Status: Ordered Metoprolol Succinate ER 100 mg oral tablet, extended release 200 mg = 2 tab(s), Oral, qAM Start Date: 12/13/22 Status: Ordered MiraLax oral powder for reconstitution 17 gm =, Oral, Daily, PRN PRN constipation Start Date: 12/13/22 Status: Ordered omeprazole 20 mg oral delayed release capsule 20 mg = 1 cap(s), Oral, qAM Start Date: 12/13/22 Status: Ordered ondansetron 4 mg oral tablet, disintegrating 4 mg = 1 tab(s), Oral, q8hr, PRN PRN: nausea Start Date: 12/13/22 Status: Ordered traZODone 50 mg oral tablet 50 mg = 1 tab(s), Oral, qHS Start Date: 12/13/22 Status: Ordered Mental Status 12/17/22 Level of Consciousness Alert Orientation Assessment Oriented x 4 Problem List Condition Effective Dates Status Health Status Inform ant Adjustment disorder(Confirmed) Active Chronic abdominal pain(Confirmed) Active Chronic pancreatitis(Confirmed) Active COVID-19(Confirmed) Active Dyslipidemia(Confirmed) Active GERD (gastroesophageal reflu x disease)(Confirmed) Active Hypertension(Confirmed) Active Morbid obesity(Confirmed) Active KAYLA (obstructive sleep apnea)(Confirmed) 1 Active Pulmonary emboli due to COVI D 19(Confirmed) Active SVT (supraventricular tachycardia)(Confirmed) Active 1O2 4L without CPAP use Results Laboratory List Name Date .Estimated Glomerular Filtration Rate 09/27 Basic Metabolic Panel (BMP) 12/16/22 .Estimated Glomerular Filtration Rate 08/27 Comprehensive Metabolic Panel (CMP) 12/15 .Estimated Glomerular Filtration Rate 12/14/22 Auto Differential 12/14/22 CBC Auto Diff reflex Manual Diff 12/14/22 Comprehensive Metabolic Panel 12/14/22 Lipase Level 12/14/22 Coronavirus SARS-COV-2 (COVID PCR Routin e) 12/13/22 Drug Screen Urine (Urine Tox Screen) 12/13 Urinalysis Reflex Microscopic, Culture i f 12/13/22 Auto Differential 12/12/22 C Reactive Protein (CRP) 12/12/22 CBC Auto Diff reflex Manual Diff 12/12/22 Comprehensive Metabolic Panel 12/12/22 Ethanol Level (Alcohol Level) 12/12/22 Lipase Level 12/12/22 Lipid Panel 12/12/22 Most recent to oldest [Reference Range]: 1 2 3 Coronavirus SARS-CoV-2 [Not Detected] Not Detected 1 *NA* (12/13/22 9:53 AM) UA Appear Clear *NA* (12/13/22 12:45 AM) Benzodiazepines Screen Not Detected *NA* (12/13/22 12:45 AM) UA Bili Negative *NA* (12/13/22 12:45 AM) UA Blood Negative *NA* (12/13/22 12:45 AM) Cocaine Screen Not Detected *NA* (12/13/22 12:45 AM) UA Color Yellow *NA* (12/13/22 12:45 AM) UA Glucose Negative *NA* (12/13/22 12:45 AM) UA Ketones Trace *ABN* (12/13/22 12:45 AM) UA Leuk Est Negative *NA* (12/13/22 12:45 AM) UA Nitrite Negative *NA* (12/13/22 12:45 AM) Opiate Screen Detected *NA* (12/13/22 12:45 AM) Phencyclidine Screen Not Detected *NA* (12/13/22 12:45 AM) UA Protein Negative *NA* (12/13/22 12:45 AM) UA Urobilinogen 1.0 2 (12/13/22 12:45 AM) Microscopic Indicated No *NA* (12/13/22 12:45 AM) Tricyclics Screen Not Detected *NA* (12/13/22 12:45 AM) Amphetamines Screen Not Detected *NA* (12/13/22 12:45 AM) Barbiturates Screen Not Detected *NA* (12/13/22 12:45 AM) T-Cannabinol Screen Not Detected *NA* (12/13/22 12:45 AM) Methamphetamines Screen Not Detected *NA* (12/13/22 12:45 AM) AGAP 8 *NA* (12/16/22 7:30 AM) 10 *NA* (12/15/22 5:35 AM) 7 *NA* (12/14/22 5:33 AM) LDL 144 mg/dL *NA* (12/12/22 11:58 PM) Ldl/Hdl 4.0 mg/dL *NA* (12/12/22 11:58 PM) Chol/Trig 0.70 mg/dL *NA* (12/12/22 11:58 PM) VLDL 78 mg/dL *NA* (12/12/22 11:58 PM) A/G Ratio 1.1 *NA* (12/15/22 5:35 AM) 1.0 *NA* (12/14/22 5:33 AM) 1.0 *NA* (12/12/22 11:58 PM) BUN/Creat Ratio 14 *NA* (12/15/22 5:35 AM) 12 *NA* (12/14/22 5:33 AM) 19 *NA* (12/12/22 11:58 PM) RBC [4.50-5.90 x10(6)/mcL] 5.04 x10(6)/m cL (12/14/22 5:33 AM) 5.39 x10(6)/mcL (12/12/22 11:58 PM) RDW [11.5-14.5 %] 13.5 % (12/14/22 5:33 AM) 13.8 % (12/12/22 11:58 PM) Sodium Level [136-145 mmol/L] 133 mmol/L *LOW* (12/16/22 7:30 AM) 133 mmol/L *LOW* (12/15/22 5:35 AM) 135 mmol/L *LOW* (12/14/22 5:33 AM) Total Protein [6.4-8.2 gm/dL] 6.4 gm/dL (12/15/22 5:35 AM) 6.6 gm/dL (12/14/22 5:33 AM) 7.7 gm/dL (12/12/22 11:58 PM) Trig 392 mg/dL *NA* (12/12/22 11:58 PM) AST [15-37 IU/L] 29 IU/L (12/15/22 5:35 AM) 35 IU/L (12/14/22 5:33 AM) 26 IU/L (12/12/22 11:58 PM) Bili Total [0.20-1.00 mg/dL] 0.87 mg/dL (12/15/22 5:35 AM) 0.88 mg/dL (12/14/22 5:33 AM) 0.55 mg/dL (12/12/22 11:58 PM) Chol 258 mg/dL *NA* (12/12/22 11:58 PM) CO2 [21-32 mmol/L] 25 mmol/L (12/16/22 7:30 AM) 23 mmol/L (12/15/22 5:35 AM) 27 mmol/L (12/14/22 5:33 AM) CRP [0.00-0.29 mg/dL] 0.70 mg/dL *HI* (12/12/22 11:58 PM) Ethanol Level <3.0 mg/dL *NA* (12/12/22 11:58 PM) UA pH [5.0-9.0] 5.0 (12/13/22 12:45 AM) Albumin Level [3.4-5.0 gm/dL] 3.3 gm/dL *LOW* (12/15/22 5:35 AM) 3.3 gm/dL *LOW* (12/14/22 5:33 AM) 3.9 gm/dL (12/12/22 11:58 PM) Alk Phos [45-117 unit/L] 56 unit/L (12/15/22 5:35 AM) 58 unit/L (12/14/22 5:33 AM) 65 unit/L (12/12/22 11:58 PM) ALT [13-61 IU/L] 76 IU/L *HI* (12/15/22 5:35 AM) 81 IU/L *HI* (12/14/22 5:33 AM) 82 IU/L *HI* (12/12/22 11:58 PM) Hct [41.0-53.0 %] 43.6 % (12/14/22 5:33 AM) 46.4 % (12/12/22 11:58 PM) HDL 36 mg/dL *NA* (12/12/22 11:58 PM) Hgb [13.9-16.3 gm/dL] 14.7 gm/dL (12/14/22 5:33 AM) 15.6 gm/dL (12/12/22 11:58 PM) Lipase Lvl [73-393 IU/L] 101 IU/L (12/14/22 5:33 AM) 173 IU/L (12/12/22 11:58 PM) MCH [26.0-34.0 pg] 29.2 pg (12/14/22 5:33 AM) 28.9 pg (12/12/22 11:58 PM) MCHC [31.0-37.0 gm/dL] 33.7 gm/dL (12/14/22 5:33 AM) 33.6 gm/dL (12/12/22 11:58 PM) MCV [80-100 fL] 87 fL (12/14/22 5:33 AM) 86 fL (12/12/22 11:58 PM) MPV [9.2-12.7 fL] 9.8 fL (12/14/22 5:33 AM) 9.6 fL (12/12/22 11:58 PM) Glucose Level [74-106 mg/dL] 107 mg/dL *HI* (12/16/22 7:30 AM) 91 mg/dL (12/15/22 5:35 AM) 91 mg/dL (12/14/22 5:33 AM) Platelet [150-350 x10(3)/mcL] 220 x10(3) /mcL (12/14/22 5:33 AM) 287 x10(3)/mcL (12/12/22 11:58 PM) Potassium Level [3.5-5.1 mmol/L] 3.8 mmol/L (12/16/22 7:30 AM) 3.6 mmol/L (12/15/22 5:35 AM) 3.7 mmol/L (12/14/22 5:33 AM) UA Spec Grav [1.000-1.060] 1.028 (12/13/22 12:45 AM) WBC [4.5-11.0 x10(3)/mcL] 5.4 x10(3)/mcL (12/14/22 5:33 AM) 9.6 x10(3)/mcL (12/12/22 11:58 PM) BUN [7-18 mg/dL] 9 mg/dL (12/16/22 7:30 AM) 7 mg/dL (12/15/22 5:35 AM) 6 mg/dL *LOW* (12/14/22 5:33 AM) Calcium Level [8.5-10.1 mg/dL] 9.0 mg/dL (12/16/22 7:30 AM) 8.7 mg/dL (12/15/22 5:35 AM) 9.0 mg/dL (12/14/22 5:33 AM) Chloride [98-107 mmol/L] 104 mmol/L (12/16/22 7:30 AM) 104 mmol/L (12/15/22 5:35 AM) 105 mmol/L (12/14/22 5:33 AM) eGFR AA >60 mL/min/1.73 m2 *NA* (12/16/22 7:30 AM) >60 mL/min/1.73 m2 *NA* (12/15/22 5:35 AM) >60 mL/min/1.73 m2 *NA* (12/14/22 5:33 AM) eGFR CARISSA >60 mL/min/1.73 m2 *NA* (12/16/22 7:30 AM) >60 mL/min/1.73 m2 *NA* (12/15/22 5:35 AM) >60 mL/min/1.73 m2 *NA* (12/14/22 5:33 AM) Neutrophil Absolute [1.50-7. 80 x10(3)/mcL] 2.51 x10(3)/mcL (12/14/22 5:33 AM) 5.34 x10(3)/mcL (12/12/22 11:58 PM) Lymphocyte Absolute [1.10-4. 80 x10(3)/mcL] 2.21 x10(3)/mcL (12/14/22 5:33 AM) 3.07 x10(3)/mcL (12/12/22 11:58 PM) Monocyte Absolute 0.46 x10(3)/mcL *NA* (12/14/22 5:33 AM) 0.90 x10(3)/mcL *NA* (12/12/22 11:58 PM) Eosinophil Absolute 0.19 x10(3)/mcL *NA* (12/14/22 5:33 AM) 0.19 x10(3)/mcL *NA* (12/12/22 11:58 PM) Basophil Absolute 0.04 x10(3)/mcL *NA* (12/14/22 5:33 AM) 0.07 x10(3)/mcL *NA* (12/12/22 11:58 PM) Imm Gran Absolute 0.02 /mcL *NA* (12/14/22 5:33 AM) 0.03 /mcL *NA* (12/12/22 11:58 PM) NRBC % [0.0-0.2 %] 0.0 % (12/14/22 5:33 AM) 0.0 % (12/12/22 11:58 PM) Methadone Screen Not Detected *NA* (12/13/22 12:45 AM) Culture Indicated Not Indicated *NA* (12/13/22 12:45 AM) Osmol Calculated 264 mOsm/kg *NA* (12/15/22 5:35 AM) 267 mOsm/kg *NA* (12/14/22 5:33 AM) 273 mOsm/kg *NA* (12/12/22 11:58 PM) Eosinophil Auto [1.0-4.0 %] 3.5 % (12/14/22 5:33 AM) 2.0 % (12/12/22 11:58 PM) Immature Granulocyte Auto 0 % *NA* (12/14/22 5:33 AM) 0 % *NA* (12/12/22 11:58 PM) Lymphocyte Auto [24.0-44.0 %] 40.7 % (12/14/22 5:33 AM) 32.0 % (12/12/22 11:58 PM) Monocyte Auto [2.0-11.0 %] 8.5 % (12/14/22 5:33 AM) 9.4 % (12/12/22 11:58 PM) Neutrophil Auto [31.0-76.0 %] 46.2 % (12/14/22 5:33 AM) 55.6 % (12/12/22 11:58 PM) Basophil Auto [0.0-2.0 %] 0.7 % (12/14/22 5:33 AM) 0.7 % (12/12/22 11:58 PM) Creatinine [0.6-1.3 mg/dL] 0.7 mg/dL (12/16/22 7:30 AM) 0.5 mg/dL *LOW* (12/15/22 5:35 AM) 0.5 mg/dL *LOW* (12/14/22 5:33 AM) Oxycodone Screen Not Detected *NA* (12/13/22 12:45 AM) Buprenorphine Screen Not Detected *NA* (12/13/22 12:45 AM) 1Result Comment: Coronavirus SARS CoV-2 PCR test performed on [employer] [facility]. SARS CoV-2 Not Detected indicates that RNA was not present in the sample provided above the limit of detection. However, it does not rule out COVID-19 and should not be used as the sole basis for treatment or patientmanagement decisions. The results of this test should be interpreted in combination with clinical observations, patient history, and epidemiological information. 2Result Comment: Urobilinogen result is equal to the Semiquantitative Result of: NORMAL Radiology Reports * Exam Date Time Procedure Performing Provider Status 12/13/22 6:[address] Abdomen and pelvis with contrast- [address] ABD PEL W [id number] PROCEDURE: CT ABD PEL W [id number] CLINICAL INDICATION: recurrent abd vinay - pancreatitis in past COMPARISON: None. TECHNIQUE: Standard CT of the Abdomen and Pelvis was performed with contrast. Oral contrast was administered. Dose reduction techniques including automated exposure control were utilized. Contrast (LOCM) 350-399 100 Cubic Centimeters Intravenous 12/13/2022 06:47 AM DLP DOSE:1167.89 (mGy.cm) FINDINGS: Hepatobiliary: Mild hepatic steatosis. No significant liver lesion. Gallbladder and bile ducts are unremarkable. Pancreas: There are acute inflammatory changes around the pancreatic head, most likely acute pancreatitis. The inflammatory changes also involve the second-third portions of the duodenum and a component of duodenitis is also a possibility. Spleen: The spleen is normal. : No renal parenchymal abnormalities. There is a nonobstructing 2.5 mm calculus of the right renal collecting system. No ureteral calculus. No evidence of recent stone passage. Collecting systems and ureters are otherwise unremarkable. Urinary bladder is nearly empty and not well evaluated. Both adrenals are normal. GI: Mild inflammatory changes of the second-third portion duodenum, probably secondary to acute pancreatitis although a component of duodenitis cannot be excluded. The stomach, small bowel and colon are otherwise unremarkable The appendix is not visible, but there is no CT evidence of appendicitis. Vascular: The abdominal aorta is normal in caliber without atherosclerotic calcification.. Celiac, SMA and VIKKI are patent. Nodes: No adenopathy is evident in the abdomen or pelvis. Reproductive: Prostate and seminal vesicles are unremarkable. Peritoneal: No ascites. Musculoskeletal and soft tissues: No significant skeletal lesions. Chest: There is no significant abnormality in the lower chest. IMPRESSION: 1. Acute inflammatory changes around the pancreatic head, most likely acute pancreatitis. The second-third portions of the duodenum are also inflamed, and a component of duodenitis cannot be excluded. 2. Mild hepatic steatosis. 3. Nonobstructing right nephrolithiasis. No ureteral calculus. No evidence of recent stone passage. Electronically Signed by: Дмитрий Phillip MD 12/13/2022 7:19 AM Vital Signs Most recent to oldest [Reference Range]: 1 2 3 Temperature Oral [35.8-37.3 DegC] 36.6 DegC (12/17/22 8:02 AM) 36.5 DegC (12/17/22:19 AM) 36.7 DegC (12/16/22 7:54 PM) Peripheral Pulse Rate [60-100 bpm] 73 bpm (12/17/22 8:02 AM) 74 bpm (12/17/22:19 AM) 82 bpm (12/16/22 7:54 PM) Respiratory Rate [14-20 br/min] 16 br/min (12/17/22 8:02 AM) 16 br/min (12/17/22:19 AM) 16 br/min (12/16/22 7:54 PM) Blood Pressure [90-140/60-90 mmHg] 114/73mmHg (12/17/22 8:02 AM) 115/68mmHg (12/17/22 5:19 AM) 129/82mmHg (12/16/22 7:54 PM) Mean Arterial Pressure, Cuff 81 mmHg (12/17/22 8:02 AM) 77 mmHg (12/17/22:19 AM) 92 mmHg (12/16/22 7:54 PM) Blood Pressure 151/104mmHg (12/13/22 8:21 AM) 146/106mmHg (2/7/23 11:41 PM) Social History Social History Type Response Sex Male Hospital Discharge Instructions Patient Education 12/13/2022 02:50:43 Chronic Pancreatitis Chronic Pancreatitis flare most likely - labs are ok - use the medications you have as directed Chronic pancreatitis is long-lasting inflammation and scarring of the pancreas. The pancreas is a gland that is located behind the stomach. It makes enzymes that help to digest food. The pancreas also releases hormones called glucagon and insulin, which help regulate blood sugar (glucose). Damage to the pancreas may affect digestion, cause pain in the upper abdomen and back, and may cause diabetes. Inflammation can also irritate other organs in the abdomen near the pancreas. At first, pancreatitis may be sudden (acute). If you have several or prolonged episodes of acute pancreatitis, the condition can turn into chronic pancreatitis. What are the causes? The most common cause of this condition is alcohol abuse. Other causes include: ??? High (elevated) levels of triglycerides in the blood (hypertriglyceridemia). ??? Gallstones or other conditions that can block the tube that drains the pancreas (pancreatic duct). ??? Pancreatic cancer. ??? Cystic fibrosis. ??? Too much calcium in the blood (hypercalcemia), which may be caused by an overactive parathyroidgland (hyperparathyroidism). ??? Certain medicines. ??? Injury to the pancreas. ??? Infection. ??? Autoimmune pancreatitis. This is when the body's disease-fighting (immune) system attacks the pancreas. ??? Genes that are passed from parent to child (inherited). In some cases, the cause may not be known. What increases the risk? This condition is more likely to develop in: ??? Men. ??? People who are 35???55 years old. ??? People who have a family history of pancreatitis. ??? People who smoke tobacco. ??? People who drink large amounts of alcohol over a long period of time. What are the signs or symptoms? Symptoms of this condition may include: ??? Pain in the abdomen or upper back. Pain may get worse after eating. ??? Nausea and vomiting. ??? Fever. ??? Weight loss. ??? A change in the color and consistency of bowel movements, such as stools that are oily, fatty, or odalys-colored. How is this diagnosed? This condition is diagnosed based on your symptoms, your medical history, and a physical exam. You may have tests, such as: ??? Blood tests. ??? Stool samples. ??? Biopsy of the pancreas. This is the removal of a small amount of pancreas tissue to be tested in a lab. ??? Imaging tests, such as: ??? X-rays. ??? CT scan. ??? MRI. ??? Ultrasound. How is this treated? You may need to be treated at a hospital. Treatment may involve: ??? Resting the pancreas. You may need to stop eating and drinking for a few days to give your pancreas time to recover. During this time, you will be given IV fluids to keep you hydrated. ??? Controlling pain. You may be given pain medicines by mouth (orally) or as injections. ??? Improving digestion. You may be given: ??? Medicines to replace your pancreatic enzymes. ??? Vitamin supplements. ??? A specific diet to follow. You may work with a diet and nutrition faculty member (dietitian) to make an eating plan. ??? Surgery to: ??? Clear the pancreatic ducts of any blockages, such as gallstones. ??? Remove any fluid or damaged tissue from the pancreas. Other treatments may include: ??? Preventing diabetes. Your health care provider may recommend that you: ??? Get regular screening tests for diabetes. ??? Monitor your blood glucose regularly. ??? Lifestyle changes, such as stopping alcohol use. ??? Steroid medicines, if your condition is caused by your immune system attacking your body's own tissues (autoimmune disease). Follow these instructions at home: Eating and drinking ??? Do not drink alcohol. If you need help quitting, ask your health care provider. ??? Follow a diet as told by your health care provider or dietitian, if this applies. This may include: ??? Limiting how much fat you eat. ??? Eating smaller meals more often. ??? Avoiding caffeine. ??? Drink enough fluid to keep your urine pale yellow. General instructions ??? Take [id number]-[id number]-ertgcds and prescription medicines only as told by your health care provider. These include vitamin supplements. ??? Do not drive or use heavy machinery while taking prescription pain medicine. ??? If you are taking prescription pain medicine, take actions to prevent or treat constipation. Your health care provider may recommend that you: ??? Take an duus-jxk-qlspwse or prescription medicine for constipation. ??? Eat foods that are high in fiber such as whole grains and beans. ??? Limit foods that are high in fat and processed sugars, such as fried or sweet foods. ??? Do not use any products that contain nicotine or tobacco, such as cigarettes and e-cigarettes. If you need help quitting, ask your health care provider. ??? If recommended by your health care provider, monitor your blood glucose at home. ??? Keep all follow-up visits as told by your health care provider. This is important. Contact a health care provider if: ??? You have pain that does not get better with medicine. ??? You have a fever. ??? You have sudden weight loss. Get help right away if: ??? Your pain suddenly gets worse. ??? You have sudden swelling in your abdomen. ??? You start to vomit often. ??? You have diarrhea that does not go away. ??? You vomit blood or have blood in your stool. ??? You become confused or you have trouble thinking clearly. These symptoms may represent a serious problem that is an emergency. Do not wait to see if the symptoms will go away. Get medical help right away. Call your local emergency services (911 in the [place] Do not drive yourself to the hospital. Summary ??? Chronic pancreatitis is long-lasting inflammation and scarring of the pancreas. Damage to the pancreas may affect digestion, cause pain in the upper abdomen and back, and may cause diabetes. Inflammation can also irritate other organs in the abdomen near the pancreas. ??? Common causes of this condition are alcohol abuse, gallstones, high (elevated) levels of triglycerides, and certain medicines. ??? This condition is sometimes treated at a hospital and may involve resting the pancreas, controlling pain, replacing enzymes, and avoiding alcohol. This information is not intended to replace advice given to you by your health care provider. Make sure you discuss any questions you have with your health care provider. Document Revised: 08/02/2021 Document Reviewed: 08/04/2021 Elsevier Patient Education ?? 2021 [employer] 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 (2) Chronic abdominal pain. (3) Hypertriglyceridemia, started gemfibrozil. (4) Dysmetabolic syndrome: obesity, HTN, KAYLA and glucose intolerance. (5) Gynecomastia. (6) GERD. (7) Constipation. (8) History of SVT. (9) History of pulmonary emboli due to COVID-19 (per history), not on anticoagulation at this time. Discharge Medication List Home Medications (17) Active acetaminophen 325 mg oral tablet??650 mg = 2 tab(s), PRN, Oral, q4hr carboxymethylcellulose??1 drop(s), PRN, Eye-Both, TID cyclobenzaprine 10 mg oral tablet??10 mg = 1 tab(s), PRN, Oral, TID dicyclomine 10 mg oral capsule??20 mg = 2 cap(s), Oral, TID docusate-senna 50 mg-8.6 mg oral tablet??1 tab(s), PRN, Oral, Daily gabapentin 300 mg oral capsule??300 mg = 1 cap(s), Oral, TID gemfibrozil 600 mg oral tablet??600 mg = 1 tab(s), Oral, BID (NEW). HYDROmorphone 4 mg oral tablet??4 mg = 1 tab(s), PRN, Oral, q4hr (prescription prior to acute admission). hydrOXYzine hydrochloride 25 mg oral tablet??25 mg = 1 tab(s), PRN, Oral, q8hr loperamide 2 mg oral capsule??2 mg = 1 cap(s), PRN, Oral, TID melatonin 5 mg oral tablet??5 mg = 1 tab(s), Oral, qHS metoclopramide 10 mg oral tablet??10 mg = 1 tab(s), PRN, Oral, QID Metoprolol Succinate ER 100 mg oral tablet, extended release??200 mg = 2 tab(s), Oral, qAM MiraLax oral powder for reconstitution??17 gm, PRN, Oral, Daily omeprazole 20 mg oral delayed release capsule??20 mg = 1 cap(s), Oral, qAM ondansetron 4 mg oral tablet, disintegrating??4 mg = 1 tab(s), PRN, Oral, q8hr traZODone 50 mg oral tablet??50 mg = 1 tab(s), Oral, qHS Condition at Discharge Stable and improved.?? Code Status: Full. Prognosis Good. Physician Discharge Instructions Discharge Patient Diet: Other: Low Fat. ??Drink plenty of water. Depart Patient Activity Level Restrict: As Tolerated, Other: Stay hydrated and active to promote weight loss and regular bowel movements. Follow Up (1) [facility], Paola Brennan on 12/21/22. (2) PCP in [place] w/in 1 week, patient to schedule. Discharge Disposition Home. Hospital Course Ny Sow is a 27-year-old male with a history of morbid obesity, tachycardia, chronic abdominal pain, recurrent chronic pancreatitis of unclear etiology, KAYLA, history of COVID-19 with subsequentPE who presents to [facility] with complaints of abdominal pain consistent with his reported previous episodes of pancreatitis. He received numerous analgesics and antiemetics but continues to report he isin severe pain. His CT scan shows concerns for pancreatitis; which has been noted on numerous scanspreviously at outside hospitals.?? Due to pain control, he was referred for admission. [2] ?? Ny Sow is a 27-year-old man followed primarily at [facility] and lives in [place]. ??He follows with Paola Brennan. ??He has idiopathic/cryptogenic pancreatitis. ??He came in with an acute flare. ??He has had an extensive workup at [facility] and will return there for further discussion regarding possible management with a celiac block for pain control. The patient had been prescribed Dilaudid by provider not here in the area. This has not been recommended to be continued at discharge, but remains on his medication list as it is unclear who was filling it. ??The patient is encouraged to use acetaminophen, ambulation, and other modalities for pain control. ??He has hypertriglyceridemia and has been started on gemfibrozil. ??Prescription has been filled here. ?? I did discuss with the patient concerns regarding dysmetabolic syndrome and also concern regarding gynecomastia and other potential genetic contribution to his current presentation. ??This should be pursued by his primary care team in at [facility] if they feel that this is applicable. ??The patient is doing much better today and eager to be discharged.?? [3] ?? Exam: appears younger than stated age, lungs CTA, CV wnl, abdomen obese but not tender at time of discharge, and lower extremities w/tenderness. Time Spent with Patient Greater than 30 minutes. [1]??History & Physical; ANAID ORTIZ, POWER AND RECOVERY SUPERVISOR 12/13/2022 11:03 EST [2]??History & Physical; ANAID ORTIZ, POWER AND RECOVERY SUPERVISOR 12/13/2022 11:03 EST [3]??14; RHIANNA BAIRD MD 12/17/2022 11:22 EST Electronically Signed By: RHIANNA BAIRD MD Date and Time Signed: 12/17/22 18:20 EST Physician Progress Note * RHIANNA BAIRD MD: MODIFY Event Display: Physician Progress Note Authored Date: [id number] DATE OF NOTE 12/17/2022. SUBJECTIVE Ny is doing better. He has been up walking around. He did have good results with MiraLAX. His belly pain is improved. He has only been using oral Dilaudid very infrequently. He would like to go home. New medication is gemfibrozil. He has follow up at [facility] on and he will be recommended to arrange follow up with his primary care provider within 1 week. The patient lives in [place]. OBJECTIVE VITAL SIGNS: The patient's temperature was 36.6 with pulse 73, blood pressure 114/73, respiratory rate 16, O2 saturations 98% on 4 L via nasal cannula (he uses nasal cannula when sleeping for sleep apnea). GENERAL: Awake and walking around the room. No acute distress. HEENT: Mucous membranes moist. NECK: Supple. LUNGS: Clear. CARDIOVASCULAR: Heart sounds are regular. ABDOMEN: Obese. Soft. Nontender. Nondistended. BACK: Revealed no CVA tenderness. EXTREMITIES: Warm without edema or calf tenderness. LABORATORY DATA No new labs today. ASSESSMENT AND PLAN Ny Sow is a 27-year-old man followed primarily at [facility] and lives in [place]. He follows with Paola Brennan. He has idiopathic/cryptogenic pancreatitis. He came in with an acute flare. He has had an extensive workup at [facility] and will return there for further discussion regarding possible management with a celiac block for pain control. The patient had been prescribed Dilaudid by provider not here in the area. This has not been recommended to be continued at discharge, but remains on his medication list as it is unclear who was filling it. The patient is encouraged to use acetaminophen, ambulation, and other modalities for pain control. He has hypertriglyceridemia and has been started on gemfibrozil. Prescription has been filled here. I did discuss with the patient concerns regarding dysmetabolic syndrome and also concern regarding gynecomastia and other potential genetic contribution to his current presentation. This should be pursued by his primary care team in GI at [facility] if they feel that this is applicable. The patient is doing much better today and eager to be discharged. Please see discharge summary, to be available later. HS/MedQ /[id number] cc: Electronically Signed By: RHIANNA BAIRD MD Date and Time Signed: 12/17/22 18:18 EST * Event Display: Physician Progress Note Authored Date: [id number] DATE OF NOTE 12/16/2022. SUBJECTIVE Ny has been able to tolerate a low-fat diet, but still is asking for pain medications intermittently. I met with him and his nurse at the bedside. Ny was agreeable to taking medications to move his bowels and to try going for longer periods of time without pain medications. He was reassured that we had acetaminophen available for him and ketorolac. His Dilaudid will be changed to by mouth only. I have encouraged him to get up and continue to move and look toward getting home in the next 24 hours. OBJECTIVE VITAL SIGNS: Temperature 36.6, pulse 73, blood pressure 112/65, respiratory rate 16, O2 saturations of 99% on 4 L. GENERAL: Awake and conversant. He has a young facies for his stated age. HEENT: Pupils are equal, round, and reactive to light. Mucous membranes moist. NECK: Supple. LUNGS: Clear. CARDIOVASCULAR: Heart sounds regular. ABDOMEN: Obese. Minimally tender. No rebound or guarding. BACK: No CVA tenderness. EXTREMITIES: Warm. No edema or calf tenderness. LABORATORY DATA Today; sodium is stable at 133, potassium 3.8, chloride 104, bicarbonate 25, BUN of 9, creatinine 0.7, glucose of 107 with calcium level of 9. ASSESSMENT AND PLAN 1. Ny Sow is a 27-year-old man followed primarily at [place], [place]. He has been struggling with pancreatitis of unclear etiology. He has been diagnosed with cryptogenic pancreatitis. He presented here with acute on chronic flare of the same. He continues to make some progress, but will use Dilaudid when available. He has been encouraged to get up and walk to help promote bowel movement. He has also been encouraged to try other medications. Dilaudid has been changed down to 2 mg every 4 hours as needed for severe pain. This will be by mouth only. 2. Gastroesophageal reflux disease. Continue b.i.d. PPI. 3. Insomnia: On trazodone. 4. Obstructive sleep apnea: Continue supplemental oxygen. 5. Dysmetabolic syndrome: He has morbid obesity, hypertension, and obstructive sleep apnea with blood sugar on the marginal to high side. He should have follow up with Endocrinology after discharge. 6. Gynecomastia: As stated in previous notes, the patient has young facies for age, no facial hair and I do wonder about a genetic issue at play. He may benefit from genetic referral. We will defer to his primary treating team. 7. Supraventricular tachycardia and hypertension: This has been stable on his home dose of metoprolol. 8. Elevated triglycerides: Continue gemfibrozil. 9. Prophylaxis with bowel regimen and increased level of activity. Also continue Lovenox. MEDICATIONS Medications have been reviewed. Case discussed with the patient and his nurse. Total time spent was 20 minutes. HS/MedQ /[id number] cc: Electronically Signed By: RHIANNA BAIRD MD Date and Time Signed: 12/17/22 11:22 EST * Event Display: Physician Progress Note Authored Date: [id number] DATE OF NOTE 12/15/2022. SUBJECTIVE Ny is starting to feel better. He states that he did well with a full liquid diet at lunch time and actually would like to have his diet advanced to low fat. I discussed with him our followup with his primary GI team at [facility]. Ms. Brennan did recommend that the patient continue on gemfibrozil and that he be weaned off opiates as tolerated. She did recommend that the patient may be a candidate for celiac plexus block and I encouraged the patient to follow up with them. They apparently reached out for appointment with him. He is up and walking and using his Dilaudid much less frequently. He is hopeful to go home tomorrow. OBJECTIVE VITAL SIGNS: Temperature 36.7 with a pulse of 85, blood pressure 118/69, respiratory rate of 16 and O2 saturations of 99% on 4 L when sleeping. He is on room air at rest. HEENT. Head is normocephalic, atraumatic. Pupils equal, round, and reactive to light. Mucous membranes moist. NECK: Supple. LUNGS: Clear bilaterally. HEART: Sounds were regular without murmur, gallop, or rub. ABDOMEN: Obese. It is noted to be minimally tender in the epigastrium, but no rebound or guarding. BACK: Revealed no CVA tenderness. EXTREMITIES: Warm and without edema or calf tenderness. NEUROLOGICAL: Exam is grossly intact and able to move all 4 extremities without difficulty. Exam was notable for gynecomastia. The patient was up and walking around after I saw him. LABORATORY DATA Today, sodium is 133, potassium 3.6, chloride 104, bicarbonate 23, BUN of 7, creatinine 2.5, glucose of 91 with a calcium level of 8.7. Total protein 6.4, albumin of 3.3, total bilirubin 0.87, ALT of 76, AST of 29, alk phos of 56. ASSESSMENT AND PLAN Ny Sow is a 27-year-old man, who is followed primarily at [facility] who lives in [place], [place], who has been struggling with pancreatitis of unclear etiology. He has been diagnosed with cryptogenic pancreatitis. He presented here with an acute on chronic flare of the cryptogenic pancreatitis. He does appear to be making some progress today. Diet is being advanced. We will continue with current management which includes scheduled dicyclomine, scheduled gabapentin and currently scheduled to IV Ofirmev to transition to oral acetaminophen tonight. The patient has also been started on gemfibrozil for high triglycerides. He has available to him as needed cyclobenzaprine, Toradol, and also antiemetics. His current dose of Dilaudid is 1 mg IV every 4 hours as needed, but he has been taking it only every 6 hours today. 1. Prophylaxis with bowel regimen and walking. He also is getting Lovenox adjusted for his weight. 2. Gastroesophageal reflux disease. Continue with b.i.d. proton pump inhibitor. 3. Insomnia, on trazodone. 4. Obstructive sleep apnea. He uses supplemental oxygen. 5. Dysmetabolic syndrome, characterized by body habitus, hypertension, and obstructive sleep apnea: Blood sugar is also marginal. I recommended that the patient have follow up with an hand mold maker after discharge. 6. Gynecomastia: The patient has a very young facies, no facial hair and this raises question as to whether another may be a genetic syndrome at play. I would recommend if primary care team think this is an ongoing concern that the refer him for specialty evaluation. 7. History of supraventricular tachycardia and hypertension. Continue extended-release metoprolol. CODE STATUS Full. Potential discharge tomorrow. MEDICATIONS Have been reviewed. TOTAL TIME 20 minutes. HS/MedQ /[id number] cc: Electronically Signed By: RHIANNA BAIRD MD Date and Time Signed: 12/16/22 14:21 EST * RHIANNA BAIRD MD: MODIFY Event Display: Physician Progress Note Authored Date: [id number] DATE OF NOTE 12/14/2022. I am assuming care of the patient today and the chart is reviewed. SUBJECTIVE The patient is a 27-year-old man who lives in [place], [place], who has been seen by multiple providers throughout [place] and [place]. His primary care is provided through [facility] and he has a speeder operator there. He sees specifically Paola Brennan at the GI clinic. He was admitted with recurrent episode of pancreatitis. The patient reports no significant alcohol use, although this has been high in the past. He also reports no gallstones. He has not had any recent medication changes. I refer you to the very detailed history and physical regarding this patient, but there have been numerous evaluations at several hospitals and recently concern for drug-seeking behavior. The overall consensus is that the patient has either cryptogenic pancreatitis or nonspecific abdominal pain. The plan is for the patient to follow up with his primary care provider in [facility] with consideration of referral to [facility] for further evaluation and testing. The patient continued to request pain medications overnight. Please see H and P for details. Today, the patient did not ask me for pain medications specifically. We discussed at length his evaluations at several different hospitals and risk factors. His labs did reveal that his triglycerides were high, but not critical. I did start him on gemfibrozil, which he was in agreement with. Also, diet was recommended to be advanced to clears. He has been taking clears intermittently. He indicated to his treating nurse that he typically is hospitalized for at least 4 days. OBJECTIVE GENERAL: When I entered the room, the patient appeared comfortable. He was alert and able to discuss his health. He did appear much younger than stated age of 27, and did have some feminizing facial features and body habitus. More specifically, he had gynecomastia. HEENT: His pupils were equal, round, and reactive to light. There was no scleral icterus. His oropharynx revealed moist mucous membranes. NECK: Full, but supple. LUNGS: Clear bilaterally. HEART: Sounds were regular without murmur, gallop, or rub. ABDOMEN: Obese and he had minimal tenderness, but no rebound or guarding. His flanks were nontender. EXTREMITIES: Lower extremities are warm without edema or calf tenderness. He had 2 dry pustules on his left medial ankle which appears to be related to skin irritation, possibly very focal folliculitis. DIAGNOSTICS CT scan of the abdomen and pelvis with contrast obtained at this facility yesterday showed acute inflammatory changes around the pancreatic head, most likely acute pancreatitis with 2nd, 3rd portions of the duodenum also inflamed with component of duodenitis possibly present, but could not be confirmed. There was also mild hepatic steatosis and nonobstructing right nephrolithiasis with no ureteral calculus or evidence of recent stone passage. LABORATORY DATA Today, CBC is completely normal. Sodium is 135, potassium 3.7, chloride 105, bicarbonate 27, BUN of 6, creatinine 0.5, glucose of 91 with calcium level of 9. Total protein 6.6, albumin of 3.3, total bilirubin of 0.8, ALT 81, AST of 35, alk phos of 58. Urine tox at the time of admission showed presence of opiates which he had received. Urine not consistent with infection. COVID- 19, negative. ASSESSMENT AND PLAN Ny Sow is a 27-year-old man who seeks his primary care as well as GI specialty care at [facility], but has been seen in multiple other institutions including [facility], who was admitted with concern for acute on chronic cryptogenic pancreatitis. His case has been discussed vis-a-vis the admitting provider with [facility], specifically Paola Brennan and studies were reviewed. The patient has had an extensive workup with etiology for his pancreatitis unclear and biopsy is not showing any specific inflammation per my discussion with Anaid Ortiz. The patient will continue on scheduled Ofirmev. This has been renewed in light of the patient having ongoing pain and hopeful plan to focus pain control on nonnarcotic medication. He is continued on dicyclomine, Reglan, IV PPI b.i.d., but does have available as needed cyclobenzaprine and hydromorphone, specifically 1 mg IV every 4 hours as needed for severe pain. Additionally, there is Toradol available and ondansetron. The patient has been started on gemfibrozil because of his hypertriglyceridemia. It is recommended that the patient have referral to a extractor loader and unloader. This was planned by GI at [facility]. We will plan to refer him back to them. 1. History of supraventricular tachycardia and tachycardia as well as hypertension. He is continued on extended-release metoprolol. 2. Gastroesophageal reflux disease. Continue with b.i.d. proton pump inhibitor. 3. Insomnia. Continue trazodone. 4. Obstructive sleep apnea: The patient does not use CPAP, but does have obstructive sleep apnea and should be using nocturnal oxygen if he has low oxygen levels. 5. Dysmetabolic syndrome is characterized by body habitus, hypertension, and obstructive sleep apnea. In addition to this, he has a family history of diabetes and he has mild elevation in his glucose. 6. Gynecomastia: The patient does not have facial hair, appears much younger than his age and has gynecomastia raising the question as to whether or not there may be a genetic contribution to his acute on chronic clinical presentation. This will be recommended to be pursued by his primary care team if they feel it is clinically indicated. 7. Prophylaxis with proton pump inhibitor and Lovenox. CODE STATUS Full. MEDICATIONS Have been reviewed. TOTAL TIME Including discussion and correspondence greater than 35 minutes. HS/MedQ /[id number] cc: Electronically Signed By: RHIANNA BAIRD MD Date and Time Signed: 12/15/22 15:21 EST History and physical note * ANAID ORTIZ, POWER AND RECOVERY SUPERVISOR: MODIFY, PERFORM Event Display: History and Physical Authored Date: [id number] History & Physical Chief Complaint Hx of Pancreatitis, Now, epigastric pain, , nausea/vomitting History of Present Illness Ny Sow is a 27-year-old male with a history of recurrent/chronic pancreatitis [numerous hospitalizations at [facility], [facility], Rosi Vazquez ], obstructive sleep apnea [not on CPAP but 4L O2 nocturnal], COVID-19 s/p ARDS with subsequent PE [diagnosed 10/25, off anticoagulation x??8 months now], duod enitis, tachycardia, GERD, adjustment disorder with depression, anxiety, SI and intentional??overdose x1 in??2008,??and chronic pain who presents to the hospital with complaints of abdominal pain andintractable nausea and vomiting. ?? Ny reports he has a long standing history of pancreatitis which he believes is autoimmune related. He states three days ago he began to have right sided upper abdominal pain which is where he normally feels his pancreatitis pain. He then started a clear liquid diet and taking hydromorphone which he had been prescribed as an outpatient. He states??he then developed N/V and was unable to tolerateany oral medications, which??made his pain worse. He??says he contacted his PCP who told him to??goto the nearest hospital for evaluation. ?? In the emergency department?his temperature was 36.6, heart rate 94, blood pressure 146/106, oxygen saturation 100% on room air. His WBC is 9.6, H&H 15.6&46.4, platelet count 287. Glucose 114. BUN 13, creatinine 0.7, sodium 136, potassium 3.7, ALT 82, AST 26, Alk phos 65, Lipase 173. Ethanol <3, Utox positive for opiates. His CT showed concerns for acute inflammatory changes around the pancreatic head, most likely acute pancreatitis. The second-third portions of the duodenum are also inflamed, and a component of duodenitis cannot be excluded; mild hepatic steatosis and a nonobstructing right nephrolithiasis. He received a total of 4 mg hydromorphone IV, 4 mg ondansetron, 15 mgToradol, 10 mg Reglan, 25 mg Benadryl IV and 1 mg IV lorazepam. He continues to complain of a 10/10abdominal pain, RUQ/Epigastric region, along with LUQ. ?? When I initially walked in to Ny's room in the ED, the first thing he says to me is, we have to discuss my pain regimen, the 0.5 mg hydromorphone is not going to work. He then elaborates on aboutrequiring 1.5 mg hydromorphone, Toradol and sometimes he has required a Ketamine infusion. I told him we do not use ketamine infusions at [facility] and his pain regimen will be adjusted as needed, though given his chronic high use of opiates, both in hospital and based on his outpatient fill history, wewould have to discuss multimodal??approach to treat his pain. ? Ny has an extensive history of hospitalizations for recurrent abdominal pain??/ chronic pancreatitis. Most recently he was admitted to [facility] from 12/01/2022-12/08/2022. ??The most recent discharge summary notes that the etiology is of course unclear??and that he is followed??by??Paola Brennan NP [facility]. 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 Therefore he reports about??possibly removing his gallbladder??though there has not been any obvious gallbladder pathology identified in any of hisimaging.?? He was recently on a prolonged prednisone taper with Bactrim prophylaxis which did not seem to make any difference in his pancreatitis flareups.?? It was also felt that??there is also likely a psychological component to his pain??as his clinical exam/presentation??and??diagnostic imaging/labs do not correlate with his reported pain. ??Also noted on his discharge summary??was??reports concerning for suspicious activity involving evidence that he was tampering with his IV pump.?Alsored flags??noted that??he would claim to be having??emesis but he refused to show nursing whenever it happened.?? He also recently??transitioned care??from [facility]facilities to [facility]facilities??and there was concern for??some malingering and drug- seeking behaviors. Prior hospitalization was 11/15/22-11/20/22 at [facility] [facility]. ?? Previous work up at outside facilities at [facility] include: Several??EGD/Colonoscopy with biopsies [01/2022, 05/2022, 06/2022, 09/2022]??showing normal results. EUS on 09/07/2022 which was unremarkable.. Due to concern for possible gastroparesis??he had an upper GI series completed [09/2022] showing normal gastric emptying. CTA abd/pelvis in September 2022 negative for concerns of mesenteric ischemia. Also MRIs of brain and full spine have been reported to be unremarkable. Review of Systems Constitutional: No fevers, Subjective chills, malaise.?? HEENT: No visual defects. No change in taste, smell or hearing. No rhinorrhea. No sore throats. No headache. Neck: No neck pain or stiffness Cardiovascular: No chest pain; No lightheadedness, dizziness or fainting.??No palpitations. Respiratory:??Denies SOB;??No FRANKLIN; No coughing, wheezing or secretions. Abdominal/GI: Positive abdominal pain; Positive nausea, vomiting, diarrhea. Genitourinary: No dysuria, no hematuria Back: No back pain; no CVA tenderness. Musculoskeletal:??No generalized aches; No arthritis. Left shoulder discomfort Neurological: No focal neurological changes; No weakness Integumentary: No skin rashes or lesions. Psychiatric: No depressed mood or anxiety ?? *All other systems are reviewed and??are negative* Physical Exam Vitals & Measurements T:??36.6?C??(Oral)?? HR:??94??(Peripheral)?? RR:??16?? BP:??151/104?? SpO2:??97%?? WT:??127.9??kg??(Dosing)?? General: Alert, oriented, morbidly obese, lying in bed in no acute distress. He does not appear uncomfortable or in discomfort during our conversation.?? HEENT: Head is normocephalic and atraumatic. Pupils small. Oral mucosa is moist. No nasal discharge. Respiratory:??Clear, No wheezes or rhonchi. No use of accessory muscles; symmetric chest movement. Neck: No obvious JVD. No masses. Trachea appears midline. Cardiovascular: Normal S1 and S2, rhythm is regular. No Murmur, rub or gallop. Capillary refill within normal limits.??2+ bilateral posterior tibial??pulses. 2+ radial pulses. Abdominal/GI: Positive bowel sounds. Soft. Tenderness to right upper, left upper and epigastric regions. Musculoskeletal:?Full ROM of extremities. Symmetrical muscle strength in upper and lower extremities. Extremities: No LE edema. No cyanosis.. Neurologic: No focal deficits. Awake, alert and oriented x3. Sensation intact. Skin: Normal color, no rashes. Psychiatric: Patient is calm. Assessment/Plan Ny Sow is a 27-year-old male with a history of morbid obesity, tachycardia, chronic abdominal pain, recurrent chronic pancreatitis of unclear etiology, KAYLA, history of COVID-19 with subsequentPE who presents to [facility] [place] with complaints of abdominal pain consistent with his reported previous episodes of pancreatitis. He received numerous analgesics and antiemetics but continues to report he isin severe pain. His CT scan shows concerns for pancreatitis; which has been noted on numerous scanspreviously at outside hospitals.?? Due to pain control, he was referred for admission. ? 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 His clinical presentation does not appear to be consistent with his complaints of pain and he physically appears comfortable; no signs of distress. I addressed with him my concern for??his outpatient hydromorphone use and he seemed surprised that we can see his fill history. VPMS reported under other data below. ? Hydromorphone 1mg for severe pain q4h; Toradol 30 mg q6h for moderate pain; scheduled IV acetaminophen 1000 mg x 6 doses. ? NPO; IV fluids x 3 more liters - May have sips of water for pills / ice chips forcomfort ? Awaiting call from his outpatient GI provider ? Lipase / CBC repeat ordered for AM ? Scheduled Reglan 10 mg IV x 6 doses - EKG pending ? Triglyceride level 392; Consider adding gemfibrozil??or other fibrate at time of discharge to help reduce level / reduce risk for Triglyceride-induced pancreatitis as diet alone hasnot been beneficial, per his report. ? Consider referral for pain specialist / psychiatric evaluation due to possible psychological component / dependence on opiate use ? Continue home Gabapentin Tachycardia / history of SVT / Hypertension: Continue home Metoprolol ER 200 mg daily when able to tolerate PO Gastroesophageal Reflux Disease: Continue PPI; will add BID due to acute presentation Insomnia: Continue home Trazodone if possible to tolerate PO Irritable Bowel Syndrome: Continue home Bentyl Morbid Obesity: BMI >40 ?? Diet: NPO Code Status: Full Code Prophylaxis: Lovenox due to history of PE / immobility due to pain per pt, continue home PPI ?? This note was prepared with the aid of voice recognition technology. The attempts at proofreading sometimes miss mistakes. All attempts are made to reproduce pertinent clinical information but sometimes grammatical mistakes and inappropriate word spelling occurs. Coordination of Care Martine Hernandez MD Emergency Department Primary Care Physician Polina Armenta MD [facility] Time Spent with Patient 40 minutes Problem List/Past Medical History Ongoing Adjustment disorder Chronic abdominal pain Chronic pancreatitis COVID-19 Dyslipidemia GERD (gastroesophageal reflux disease) Hypertension Morbid obesity KAYLA (obstructive sleep apnea) Pulmonary emboli due to COVID 19 SVT (supraventricular tachycardia) Historical No qualifying data Medications Inpatient acetaminophen, 1000 mg= 100 mL, IV Piggyback, q6hr BENGAY Arthritis topical cream, 1 shelley, Topical, QID, PRN Cepacol lozenge, 1 ea, Buccal, q2hr, PRN cyclobenzaprine, 10 mg= 1 tab(s), Oral, TID, PRN dicyclomine, 20 mg, Oral, TID docusate sodium, 100 mg= 1 cap(s), Oral, BID gabapentin, 300 mg= 1 cap(s), Oral, TID HYDROmorphone, 1 mg= 1 mL, IV Push, q4hr, PRN Lovenox, 40 mg= 0.4 mL, Subcutaneous, Daily LR 1,000 mL, 1000 mL, IV melatonin, 3 mg= 1 tab(s), Oral, qHS, PRN metoclopramide, 10 mg= 1 tab(s), Oral, QID, PRN Metoprolol Succinate ER, 200 mg= 2 tab(s), Oral, qAM [place] 0.65% nasal solution, 1 spray(s), Nasal, q1hr, PRN ondansetron, 4 mg= 2 mL, IV Push, q6hr, PRN PANToprazole IV, 40 mg= 10 mL, IV Push, BID Reglan, 10 mg= 2 mL, IV Push, q6hr senna, 17.2 mg= 2 tab(s), Oral, qHS Toradol, 30 mg= 1 mL, IV Push, q6hr, PRN traZODone, 50 mg= 1 tab(s), Oral, qHS Tylenol, 500 mg= 1 tab(s), Oral, BID, PRN Home acetaminophen 325 mg oral tablet, 650 mg= 2 tab(s), Oral, q4hr, PRN, not to exceed 4000 mg/day carboxymethylcellulose, 1 drop(s), Eye-Both, TID, PRN cyclobenzaprine 10 mg oral tablet, 10 mg= 1 tab(s), Oral, TID, PRN dicyclomine 10 mg oral capsule, 20 mg= 2 cap(s), Oral, TID docusate-senna 50 mg-8.6 mg oral tablet, 1 tab(s), Oral, Daily, PRN gabapentin 300 mg oral capsule, 300 mg= 1 cap(s), Oral, TID HYDROmorphone 4 mg oral tablet, 4 mg= 1 tab(s), Oral, q4hr, PRN hydrOXYzine hydrochloride 25 mg oral tablet, 25 mg= 1 tab(s), Oral, q8hr, PRN loperamide 2 mg oral capsule, 2 mg= 1 cap(s), Oral, TID, PRN, not to exceed 8 capsules, or 16 mg, in 24 hours melatonin 5 mg oral tablet, 5 mg= 1 tab(s), Oral, qHS metoclopramide 10 mg oral tablet, 10 mg= 1 tab(s), Oral, QID, PRN Metoprolol Succinate ER 100 mg oral tablet, extended release, 200 mg= 2 tab(s), Oral, qAM MiraLax oral powder for reconstitution, 17 gm, Oral, Daily, PRN omeprazole 20 mg oral delayed release capsule, 20 mg= 1 cap(s), Oral, qAM ondansetron 4 mg oral tablet, disintegrating, 4 mg= 1 tab(s), Oral, q8hr, PRN traZODone 50 mg oral tablet, 50 mg= 1 tab(s), Oral, qHS Allergies FLUoxetine??(Anaphylaxis) Social History Alcohol - Denies Alcohol Use Substance Abuse - Denies Substance Abuse Tobacco - Denies Tobacco Use Results Lab Results Chemistry BUN: 13 mg/dL Calcium Level: 9.8 mg/dL Chloride: 106 mmol/L Creatinine: 0.7 mg/dL Glucose Level:??114 mg/dL??High Potassium Level: 3.7 mmol/L Sodium Level: 136 mmol/L LFT Albumin Level: 3.9 gm/dL Alk Phos: 65 unit/L ALT:??82 IU/L??High AST: 26 IU/L Bili Total: 0.55 mg/dL Total Protein: 7.7 gm/dL Hematology Hct: 46.4 % Hgb: 15.6 gm/dL Platelet: 287 x10(3)/mcL RBC: 5.39 x10(6)/mcL WBC: 9.6 x10(3)/mcL Urinalysis Culture Indicated: Not Indicated Microscopic Indicated: No UA Appear: Clear Irisa UA Bili: Neg Iris UA Blood: Neg Iris UA Color: Yellow Iris UA Glucose: Neg Iris UA Ketones: Trace Abnormal UA Leuk Est: Neg Iris UA Nitrite: Neg Iris UA pH: 5 UA Protein: Neg Iris UA Spec Grav: 1.028 UA Urobilinogen: 1.[address] Abd Pelvis with Contrast: (12/13/2022 06:[address] Abdomen and pelvis with contrast- 741) IMPRESSION:?? 1. ??Acute inflammatory changes around the pancreatic head, most?? likely acute pancreatitis. The second-third portions of the duodenum?? are also inflamed, and a component of duodenitis cannot be excluded. 2. ??Mild hepatic steatosis. 3. ??Nonobstructing right nephrolithiasis. No ureteral calculus. No?? evidence of recent stone passage. [1] Other Data Reviewed VPMS Report since April 2022: 12/09/2022: Hydromorphone 4 mg quantity: 5 11/20/2022:Hydromorphone 4 mg quantity: 20 11/10/2022: Hydromorphone 4 mg quantity: 15 2022: Dronabinol 5 mg quantity: 60 10/20/2022: Hydromorphone??2 mg quantity: 30 09/21/2022: Hydromorphone??2 mg quantity: 30 09/15/2022: Hydromorphone??2 mg quantity: 20 09/07/2022: Tramadol 50 mg quantity: 10 08/30/2022: Oxycodone 5 mg quantity: 12 08/15/2022: Hydrocodone-Acetaminophen 5-325 mg quantity: 8 05/03/2022: Hydrocodone-Acetaminophen 5-325 mg quantity: 6 [1]??CT Abdomen and pelvis with contrast- 741; ДМИТРИЙ PHILLIP MD 12/13/2022 06:46 EST Electronically Signed By: ANAID ORTIZ APRN Date and Time Signed: 12/13/22 12:[address] Abdomen and Pelvis W contrast IV * Event Display: CT Abdomen and pelvis with contrast- 741 Authored Date: [id number] PROCEDURE: CT ABD PEL W 20927 CLINICAL INDICATION: recurrent abd vinay - pancreatitis in past COMPARISON: None. TECHNIQUE: Standard CT of the Abdomen and Pelvis was performed with contrast. Oral contrast was administered. Dose reduction techniques including automated exposure control were utilized. Contrast (LOCM) 350-399 100 Cubic Centimeters Intravenous 12/13/2022 06:47 AM DLP DOSE:1167.89 (mGy.cm) FINDINGS: Hepatobiliary: Mild hepatic steatosis. No significant liver lesion. Gallbladder and bile ducts are unremarkable. Pancreas: There are acute inflammatory changes around the pancreatic head, most likely acute pancreatitis. The inflammatory changes also involve the second-third portions of the duodenum and a component of duodenitis is also a possibility. Spleen: The spleen is normal. : No renal parenchymal abnormalities. There is a nonobstructing 2.5 mm calculus of the right renal collecting system. No ureteral calculus. No evidence of recent stone passage. Collecting systems and ureters are otherwise unremarkable. Urinary bladder is nearly empty and not well evaluated. Both adrenals are normal. GI: Mild inflammatory changes of the second-third portion duodenum, probably secondary to acute pancreatitis although a component of duodenitis cannot be excluded. The stomach, small bowel and colon are otherwise unremarkable The appendix is not visible, but there is no CT evidence of appendicitis. Vascular: The abdominal aorta is normal in caliber without atherosclerotic calcification.. Celiac, SMA and VIKKI are patent. Nodes: No adenopathy is evident in the abdomen or pelvis. Reproductive: Prostate and seminal vesicles are unremarkable. Peritoneal: No ascites. Musculoskeletal and soft tissues: No significant skeletal lesions. Chest: There is no significant abnormality in the lower chest. IMPRESSION: 1. Acute inflammatory changes around the pancreatic head, most likely acute pancreatitis. The second-third portions of the duodenum are also inflamed, and a component of duodenitis cannot be excluded. 2. Mild hepatic steatosis. 3. Nonobstructing right nephrolithiasis. No ureteral calculus. No evidence of recent stone passage. Electronically Signed by: Дмитрий Phillip MD 12/13/2022 7:19 AM Care Team Care Team Personnel Name: No Local PCP No Local PCP, Member Role: Primary Care Physician Name: Kasie Miller, Position: ED Nurse/[employer] Member Role: ED Nurse Address: Address: [facility] Name: Дмитрий Johnson RN Position: ED Nurse/[employer]ING [employer] Member Role: ED Nurse Name: John Lin MD Position: Physician - ED Member Role: ED Physician Address: Address: [address] [place] [address] Name: MARIA L HERNANDEZ MD Position: Physician - ED Member Role: ED Physician Address: Address: [address] [place] [id number]- Care Team Related Persons Name: KYLEE SOW Address: [place] [address]
[2023-04-03] MEDS: Omnipaque 350 MG/ML 100 ML BTL IJ (18:41)
[2023-04-03] MEDS: Normal Saline - Diluent 50 ML VIAL IJ (18:42)
[2023-04-03] MEDS: Normal Saline Flush 10 ML SYR IVP ×2 (18:42→23:56)
--- NOTE | 2023-04-03 19:02 | DI.VRAD_ITS ---
PROCEDURE INFORMATION: Exam: CT Abdomen And Pelvis With Contrast Exam date and time: 04/03/2023 6:26 PM Age: 27 years old Clinical indication: Abdominal pain; Patient HX: Epigastric pain, HX of pancreetitis TECHNIQUE: Imaging protocol: Computed tomography of the abdomen and pelvis with contrast. Radiation optimization: All CT scans at this facility use at least one of these dose optimization techniques: automated exposure control; mA and/or kV adjustment per patient size (includes targeted exams where dose is matched to clinical indication); or iterative reconstruction. Contrast material: OMNIPAQUE 350; Contrast volume: 100 ml; Contrast route: INTRAVENOUS (IV); COMPARISON: No relevant prior studies available. FINDINGS: Lungs: Scattered patchy ground-glass opacities within the right middle and lingular regions of the lungs. These findings are nonspecific and may represent hypoventilatory change,edema, hemorrhage, or an infectious/inflammatory process (acute or chronic). The lungs are otherwise normal. Pleural spaces: There is no evidence of pneumothorax. There are no pleural effusions present. Heart: The cardiac structures are normal. Liver: The liver is enlarged measuring 20 cm. There is a diffuse decrease in hepatic parenchymal density, consistent with moderate fatty infiltration. There is no evidence of intrahepatic or extrahepatic biliary ductal dilation. Gallbladder and bile ducts: The gallbladder is normal. There is no cholelitiasis, wall thickening or pericholecystic fluid to suggest cholecystitis. Pancreas: The pancreas is normal. There is diffuse peripancreatic inflammatory stranding and fluid, consistent with acute pancreatitis. Spleen: The spleen is enlarged but otherwise normal. Adrenal glands: Normal. No mass. Kidneys and ureters: Nonobstructing calculus present within the lower pole of the right kidney. The kidneys are otherwise normal. Stomach and bowel: There is no evidence of intestinal obstruction. There are fluid-filled loops of small bowel with air-fluid levels. No significant bowel wall thickening or inflammatory changes. No evidence of obstruction. Consider early enteritis. Consider ileus secondary to pancreatitis. Appendix: There is no evidence of appendicitis. Intraperitoneal space: There is no evidence of free intraperitoneal or pelvic fluid. Vasculature: The aorta is unremarkable without evidence of significant atherosclerosis or aneurysmal disease. The peripheral arterial vascular system visualized is unremarkable. The portal venous system visualized is unremarkable. The peripheral venous vascular system visualized is unremarkable. Lymph nodes: There is no evidence of lymphadenopathy. There are enlarged nonspecific lymph nodes in the mesenteric fat. This nonspecific mesenteric adenitis can be secondary to a variety of bacterial, viral, or other inflammatory processes. Urinary bladder: The bladder is normal. Reproductive: The prostate gland and seminal vesicles are normal. Bones/joints: The skeletal structures and soft tissues show no evidence of fracture or other acute processes. Soft tissues: The extra-abdominal soft tissues are normal. IMPRESSION: 1. There is diffuse peripancreatic inflammatory stranding and fluid, consistent with acute pancreatitis. There is no free intraperitoneal air. 2. Scattered patchy ground-glass opacities within the right middle and lingular regions of the lungs. These findings are nonspecific and may represent hypoventilatory change,edema, hemorrhage, or an infectious/inflammatory process (acute or chronic). 3. There are fluid-filled loops of small bowel with air-fluid levels. No significant bowel wall thickening or inflammatory changes. No evidence of obstruction. Consider early enteritis. Consider ileus secondary to pancreatitis. 4. There are enlarged nonspecific lymph nodes in the mesenteric fat. This nonspecific mesenteric adenitis can be secondary to a variety of bacterial, viral, or other inflammatory processes. Dictated and Authenticated by: Cheng Griffin MD. Ordering:MATT Russell MD
--- NOTE | 2023-04-03 20:39 | HPE_ITS ---
Date of service: 04/03/23 Time of Service: 20:39 Assessment and Plan Assessment and plan (1) Acute pancreatitis: Status: Acute Assessment and plan: Treat with IVF, pain regimen: dilaudid + toradol. Obtain CRP, procalcitonin. No evidence of abscess/phlegmon/pseudocyst at this time. Encourage IS. I do not think that his triglyceride level is high enough to cause pancreatitis, but we will trend this. (2) SVT (supraventricular tachycardia): Status: Chronic Assessment and plan: Will transition his metoprolol to IV while he is NPO. He has been in sinus tachycardia. Monitor on tele. (3) Hypertriglyceridemia: Status: Acute Assessment and plan: Not high enough to initiate insulin gtt for pancreatitis. Will obtain A1C. Trend triglycerides. (4) Ground glass opacity present on imaging of lung: Status: Acute Assessment and plan: Check FLUVID, procalcitonin. Encourage IS. (5) Ileus: Status: Acute Assessment and plan: will provide antiemetics. Suspect this is due to the pancreatitis. Will permit ice chips and sips of clears tonight as tolerated. (6) Obstructive sleep apnea: Status: Chronic Assessment and plan: Provide nocturnal O2. Normally uses 3.5-4 L. (7) DVT prophylaxis: Status: Acute Assessment and plan: Sc enoxaparin (8) Discharge planning issues: Status: Acute Assessment and plan: Full code History of Present Illness History of Present Illness Chief Complaint: Abdominal pain, n/v Narrative: Mr Brewer is a 27 year old male with PMHx of recurrent pancreatitis and duodenitis felt to be autoimmune in etiology and due to having h/o COVID-19, per ER provider report, followed by GI at [facility], as well as h/o SVT on metoprolol, KAYLA on nocturnal oxygen (3.5-4L), and obesity (BMI unclear now as the weight in the computer system is likely inaccurate) who presented to [facility] ED today c/o abdominal pain, nausea, and vomiting since last night. He tried taking his home dilaudid and zofran, but vomited them. He has had some diarrhea too. No blood in stool or emetic contents. He has not been able to keep his metoprolol down. Upon arrival to the ER, he was tachycardic with HRs to 120s (sinus). His ER workup included a CT of the abdomen which confirms acute pancreatitis. There is also evidence of an ileus vs enteritis and ground glass opacities in his lungs. The patient was started on aggressive IVF with pain control with IV dilaudid. Despite three doses of this in the ER, his pain was still not well controlled. Hospitalist admission was requested. Review of Systems All systems reviewed & are unremarkable except as noted in HPI and below PFSH All Active Problems (Updated 04/04/23 @ 00:32 by Clarissa Lema MD) Obesity (Chronic) Dependence on nocturnal oxygen therapy (Acute) Obstructive sleep apnea (Chronic) Ileus (Acute) Ground glass opacity present on imaging of lung (Acute) Discharge planning issues (Acute) DVT prophylaxis (Acute) Hypertriglyceridemia (Acute) Acute pancreatitis (Acute) SVT (supraventricular tachycardia) (Chronic) Medical History (Updated 04/04/23 @ 00:32 by Clarissa Lema MD) Duodenitis DVT (deep venous thrombosis) Pancreatitis Pulmonary embolism 2020 post COVID-19; finished 3 months of anticoagulation with eliquis Surgical History (Updated 04/04/23 @ 00:33 by Clarissa Lema MD) H/O esophagogastroduodenoscopy H/O tooth extraction History of biopsy negative retroperitoneal biopsy (ruled out retroperitoneal fibrosis) Hx of appendectomy S/P colonoscopy Family History (Updated 04/04/23 @ 00:35 by Clarissa Lema MD) Mother Heart disease Had stents placed in her 30s Diabetes Maternal Grandfather Stroke Hypertension Maternal Aunt Cancer brain cancer Maternal Cousin Lupus Father Crohn disease Social History (Updated 04/04/23 @ 00:36 by Clarissa Lema MD) Smoking/Tobacco Use Status: Former Tobacco Use tobacco type: cigarettes Pack- years: 1 Tobacco: How many years used: 3 Smoking risk assessment performed?: Yes Alcohol Intake: former Substance use type: does not use Do you feel safe at home: Yes Do you feel safe in your relationship?: Yes Meds Allergies and Home Medications Allergies Allergy/AdvReac Type Severity Reaction Status Date / Time droperidol AdvReac Cardiac Unverified 04/03/23 16:33 Dysrhythmia haloperidol [From Haldol] AdvReac Diarrhea Unverified 04/03/23 16:31 Home Medications Medication Instructions Recorded Confirmed Type hydromorphone 2 mg tablet 2 mg PO PRN PRN Severe Pain (Scale 04/03/23 04/03/23 History (Dilaudid) Score 7-10) melatonin 1 mg tablet 1 mg PO HS 04/03/23 04/03/23 History metoprolol succinate 100 mg 200 mg PO DAILY 04/03/23 04/03/23 History capsule sprinkle, ext. release 24 hr ondansetron 4 mg disintegrating 4 mg PO DAILY PRN 04/03/23 04/03/23 History tablet Exam Narrative Exam Narrative: General: Very pleasant obese male who appears uncomfortable, A&Ox3 Neurological: A&Ox3, no focal deficits Psychiatric: Appropriate speech pattern/content Skin: Visible skin intact HEENT: Atraumatic, normocephalic, EOMI, dry MM, clear oropharynx, no submandibular or cervical lymphadenopathy, no goiter or JVD Cardiovascular: RRR, no m/r/g Lungs: Diminished breath sounds at B bases Gastrointestinal: soft, tender in epigastrium, RUQ Genitourinary: deferred Extremities: trace edema BLEs, symmetric, no c/c. Results Imaging Additional studies: CT abdomen/pelvis w/ contrast: 1. ? There is diffuse peripancreatic inflammatory stranding and fluid, consistent with acute pancreatitis. There is no free intraperitoneal air. 2. ? Scattered patchy ground-glass opacities within the right middle and lingular regions of the lungs. These findings are nonspecific and may represent hypoventilatory change,edema, hemorrhage, or an infectious/inflammatory process (acute or chronic). 3. ? There are fluid-filled loops of small bowel with air-fluid levels. No significant bowel wall thickening or inflammatory changes. No evidence of obstruction. Consider early enteritis. Consider ileus secondary to pancreatitis. 4. ? There are enlarged nonspecific lymph nodes in the mesenteric fat. This nonspecific mesenteric adenitis can be secondary to a variety of bacterial, viral, or other inflammatory processes. EKG: ST, HR 112, no acute ischemia. T wave inversion in AVF, ?III. No prior EKGs for comparsion. Labs 04/03/23 16:45 04/03/23 16:45 Labs: Laboratory Results - last 24 hr 04/03/23 04/03/23 16:45 16:45 WBC 9.37 RBC 5.68 Hgb 16.0 Hct 46.1 MCV 81 MCH 28.2 MCHC 34.7 RDW 12.8 Plt Count 289 MPV 9.7 Immature Gran % 0.2 Neutrophils % 68.7 Lymphocytes % 21.8 Monocytes % 7.5 Eosinophils % 1.1 Basophils % 0.7 Nucleated RBC % 0.0 Absolute Neutrophils 6.44 Absolute Lymphocytes 2.04 Absolute Monocytes 0.70 Absolute Eosinophils 0.10 Absolute Basophils 0.07 Sodium 140 Potassium 3.6 Chloride 102 Carbon Dioxide 22.6 Anion Gap 15.4 H BUN 12 Creatinine 0.8 Est GFR (CKD-EPI 2020) 122.86 Glucose 117 H Calcium 9.6 Magnesium 1.9 Total Bilirubin 0.8 AST 27 ALT 68 H Alkaline Phosphatase 83 Total Protein 7.9 Albumin 4.2 Lipase 36 Last Vital Signs Pulse 113 H 04/03/23 19:48 Resp 17 04/03/23 20:00 BP 121/69 04/03/23 19:48 Pulse Ox 98 04/03/23 20:00 Time Spent Time spent with Patient: 55-74 minutes Time was spent: preparing to see the patient(eg.review tests), obtaining and/or reviewing separately otained hiistory, ordering medications,tests, procedures, referring, communicating with other health client care specialist, indepentently i nterpreting results, counseling the patient and care coordination
[2023-04-03 20:51] LABS: Lab Add On Test DONE
[2023-04-03 21:05] LABS: Triglyceride 474 mg/dL (<150)
[2023-04-03 21:46] LABS: Bilirubin Negative (Negative); Blood Trace-intact (Negative); Clarity Clear (Clear); Glucose Negative (Negative); Ketones Negative (Negative); Leukocyte Esterase Negative (Negative); Nitrite Negative (Negative); Specific Gravity <= 1.005 (1.005-1.025); Urobilinogen 0.2 mg/dL (Up to 0.2)
[2023-04-03 21:54] LABS: Bacteria Rare HPF (Negative); C & S Indicated? No; Crystals Negative HPF (Negative); Epithelial Cells Rare HPF (Negative); Mucus Negative (Negative); RBC 0-2 HPF (0-2); WBC Negative HPF (0-5)
[2023-04-03] MEDS: Lactated Ringers 1,000 ML 200 ML IV (22:20)
[2023-04-03 22:29] LABS: Lab Add On Test DONE
[2023-04-03 22:32] LABS: Lactate 1.7 mmol/L (0.6-1.4)
[2023-04-03] MEDS: Enoxaparin 40 MG/0.4 ML SYR SC (22:37)
[2023-04-03] MEDS: Ondansetron 4 MG/2 ML VIAL IVP (22:41)
[2023-04-03 23:42] LABS: C-Reactive Protein 0.54 mg/dL (0.0-0.3)
[2023-04-03] MEDS: Metoprolol 5 MG/5 ML VIAL IVP (23:57)
[2023-04-04] VITALS (14 sets, daily range): BP systolic 104–154; BP diastolic 68–91; PULSE 60–97; RESP 16–22; TEMP 36–36.9; O2SAT 93–98
[2023-04-04 00:12] LABS: COVID-19 PCR Negative (Negative); Influenza A PCR Negative (Negative); Influenza B PCR Negative (Negative); RSV PCR Negative (Negative)
[2023-04-04 00:24] LABS: Source Nasopharynx
[2023-04-04 00:34] LABS: Procalcitonin < 0.1 ng/mL
[2023-04-04] MEDS: HYDROmorphone 2 MG/ML SYR IVP ×8 (01:32→22:57)
[2023-04-04] MEDS: Normal Saline Flush 10 ML SYR IVP ×8 (01:32→18:19)
[2023-04-04] MEDS: Lactated Ringers 1,000 ML 200 ML IV ×4 (02:57→23:56)
[2023-04-04] MEDS: Metoprolol 5 MG/5 ML VIAL IVP ×2 (05:50→11:25)
[2023-04-04 06:47] LABS: Abs Immature Grans 0.02 10^3/uL (0.0-0.06); Absolute Basophil Count 0.05 10^3/uL (0.0-0.2); Absolute Eosinophil Count 0.02 10^3/uL (0.0-0.7); Absolute Monocyte Count 0.74 10^3/uL (0.1-0.8); Absolute Neutrophil Count 6.88 10^3/uL (1.2-6.7); Basophils % 0.5; Eosinophils % 0.2; HCT 41.3 % (40.0-50.0); HGB 13.9 g/dL (13.5-17.5); Immature Grans % 0.2; Lymphocytes % 20.6; MCH 28.1 pg (27.0-33.0); MCHC 33.7 % (32.0-36.0); MCV 84 fL (80-95); MPV 9.2 fL (8.0-11.0); Monocytes % 7.6; Neutrophils % 70.9; Platelet Count 252 10^3/uL (130-400); RBC 4.94 10^6/uL (4.36-5.78); RDW 13.1 % (11.8-14.1); RDW-SD 40.1 fL; WBC 9.71 10^3/uL (4.4-10.8)
[2023-04-04 07:08] LABS: Hemoglobin A1C 5.8 % (<5.7)
[2023-04-04 07:16] LABS: ALT 55 U/L (16-63); AST 20 U/L (15-37); Albumin 3.5 g/dL (3.4-5.0); Alkaline Phosphatase 71 U/L (46-116); Anion Gap 6.5 mmol/L (3-11); BUN 8 mg/dL (7-18); Bilirubin, Direct 0.1 mg/dL (0.0-0.2); Bilirubin, Total 0.7 mg/dL (0.2-1.0); CO2 27.5 mmol/L (21.0-32.0); CREATININE 0.6 mg/dL (0.70-1.30); Calcium 8.7 mg/dL (8.5-10.1); Chloride 104 mmol/L (98-107); Estimated GFR 134.01 (mL/min/1.73m2); Glucose 138 mg/dL (74-106); Magnesium 1.9 mg/dL (1.8-2.4); Potassium 4.3 mmol/L (3.5-5.1); Sodium 138 mmol/L (136-145); Total Protein 6.7 g/dL (6.4-8.2)
[2023-04-04 07:40] LABS: Lab Add On Test DONE
[2023-04-04] MEDS: Ondansetron 4 MG/2 ML VIAL IVP ×2 (07:45→23:02)
[2023-04-04] MEDS: Ketorolac 30 MG/ML VIAL IVP ×3 (07:46→22:57)
[2023-04-04] MEDS: Pantoprazole 40 MG VIAL IVP (07:47)
[2023-04-04 07:54] LABS: Triglyceride 426 mg/dL (<150)
[2023-04-04 07:58] LABS: Amylase 27 U/L (25-115)
[2023-04-04 08:15] LABS: LDL CHOLESTEROL 133 mg/dL (<100)
--- NOTE | 2023-04-04 10:17 | INITIAL_ITS ---
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 His official address is in [place], [place], but he also stays with his mother in [place], [place] and with a friend in [place], [place]. The remainder of Niels's family is scattered around the country. His Dad is in [place], he has a brother in [place] and more relatives in [place]. Niels is independent at baseline and does not receive any community services. CURRENT FUNCTIONAL STATUS:: Niels was lying in bed when CM met with him. He was cordial and agreeable to conversation. Niels stated that he is starting to feel less nauseated since receiving Zofran. For pain he has been receiving Dilaudid 2mg IV every 3 hours or so with good effect as well. Niels stated that he developed pancreatitis after he had covid in 2020. He stated that he has been treated at [facility], [facility] and [facility] in [place], [place] for this. He does not have a PCP as he is not in any one location consistently. ADVANCE DIRECTIVES:: none on file Has patient been provided with info about the portal/API?: Yes Did the patient sign up for the portal?: No CODE STATUS:: Full Code INSURANCE COVERAGE / FINANCIAL ISSUES:: BC out of state CURRENT HOME/COMMUNITY SERVICES/EQUIPMENT:: none PRIMARY CARE PHYSICIAN:: none POTENTIAL DISCHARGE NEEDS:: Follow up with PCP and plan of care PATIENT/FAMILY EDUCATION NEEDS:: Review of discharge instructions, activity, TRANSPORTATION:: via private vehicle with family PLAN:: Anticipate Niels will be discharged home, likely to his mother's home, when medically cleared. He will follow up with community providers and plan of care. CM will follow and support discharge planning needs. PFSH All Active Problems (Updated 04/04/23 @ 00:32 by Clarissa Lema MD) Obesity (Chronic) Dependence on nocturnal oxygen therapy (Acute) Obstructive sleep apnea (Chronic) Ileus (Acute) Ground glass opacity present on imaging of lung (Acute) Discharge planning issues (Acute) DVT prophylaxis (Acute) Hypertriglyceridemia (Acute) Acute pancreatitis (Acute) SVT (supraventricular tachycardia) (Chronic) Medical History (Updated 04/04/23 @ 00:32 by Clarissa Lema MD) Duodenitis DVT (deep venous thrombosis) Pancreatitis Pulmonary embolism 2020 post COVID-19; finished 3 months of anticoagulation with eliquis Surgical History (Updated 04/04/23 @ 00:33 by Clarissa Lema MD) H/O esophagogastroduodenoscopy H/O tooth extraction History of biopsy negative retroperitoneal biopsy (ruled out retroperitoneal fibrosis) Hx of appendectomy S/P colonoscopy Family History (Updated 04/04/23 @ 00:35 by Clarissa Lema MD) Mother Heart disease Had stents placed in her 30s Diabetes Maternal Grandfather Stroke Hypertension Maternal Aunt Cancer brain cancer Maternal Cousin Lupus Father Crohn disease Social History (Updated 04/04/23 @ 00:36 by Clarissa Lema MD) Smoking/Tobacco Use Status: Former Tobacco Use tobacco type: cigarettes Pack- years: 1 Tobacco: How many years used: 3 Smoking risk assessment performed?: Yes Alcohol Intake: former Substance use type: does not use Do you feel safe at home: Yes Do you feel safe in your relationship?: Yes
[2023-04-04] MEDS: Acetaminophen 325 MG TAB PO (11:12)
--- NOTE | 2023-04-04 11:46 | W.PM.PROGNOT ---
Date of Service Date of service: 04/04/23 Time of Service: 11:46 Assessment and Plan Assessment and plan (1) Acute pancreatitis: Status: Acute Assessment and plan: Treat with IVF, pain regimen: dilaudid + toradol. Obtain CRP, procalcitonin. No evidence of abscess/phlegmon/pseudocyst at this time. In setting of normal lipase and amylase ? other etiology ie duodenal ulcer, this apparently was ruled out about a year ago. this is an intermittent issue he gets since having covid, no etilogy has been identified, he reports this is 6+ episode and his lipase stopped showing positive. typically needs 3-4 days of bowel rest and symptoms improve. consider surgical consultation Encourage IS. his triglyceride level is not likely high enough to cause pancreatitis, but we will trend this. (2) SVT (supraventricular tachycardia): Status: Chronic Assessment and plan: will change lopressor to po while tolerating clears He has been in sinus rhythm discontinue tele. (3) Hypertriglyceridemia: Status: Acute Assessment and plan: Not high enough to initiate insulin gtt for pancreatitis. A1C 5.8. Trend triglycerides. (4) Ground glass opacity present on imaging of lung: Status: Acute Assessment and plan: Check FLUVID, procalcitonin. Encourage IS. (5) Ileus: Status: Acute Assessment and plan: will provide antiemetics. Suspect this is due to the pancreatitis. Will permit ice chips and sips of clears tonight as tolerated. encourage ambulation, (6) Obstructive sleep apnea: Status: Chronic Assessment and plan: Provide nocturnal O2. Normally uses 3.5-4 L. (7) DVT prophylaxis: Status: Acute Assessment and plan: Sc enoxaparin (8) Discharge planning issues: Status: Acute Assessment and plan: Full code discussed with Dr Cruz Subjective Subjective Patient reports: still having pain, voiding w/o difficulty and afebrile; denies tolerating liquids well or shortness of breath Exam Const General: cooperative Orientation: alert, awake and oriented x3 Resp Effort & Inspection: normal respiratory effort and able to speak in complete sentences Auscultation: clear to auscultation bilaterally Cardio Rhythm: regular rhythm GI Inspection: normal to inspection Palpation: soft, no guarding, no hepatomegaly, no masses, not rigid, tender and No ascites Auscultation: normal bowel sounds Back/Spine/Pelvis Back: no CVA tenderness Neuro General: patient alert, patient awake, patient oriented x3 and moves all extremities Objective Last Vital Signs Temp 36.8 C 04/04/23 11:21 Pulse 83 04/04/23 11:21 Resp 22 04/04/23 11:21 BP 138/91 H 04/04/23 11:21 Pulse Ox 98 04/04/23 11:21 Laboratory Results - last 24 hr 04/03/23 04/03/23 04/03/23 16:05 16:45 16:45 WBC 9.37 RBC 5.68 Hgb 16.0 Hct 46.1 MCV 81 MCH 28.2 MCHC 34.7 RDW 12.8 Plt Count 289 MPV 9.7 Immature Gran % 0.2 Neutrophils % 68.7 Lymphocytes % 21.8 Monocytes % 7.5 Eosinophils % 1.1 Basophils % 0.7 Nucleated RBC % 0.0 Absolute Neutrophils 6.44 Absolute Lymphocytes 2.04 Absolute Monocytes 0.70 Absolute Eosinophils 0.10 Absolute Basophils 0.07 VBG Lactate Sodium 140 Potassium 3.6 Chloride 102 Carbon Dioxide 22.6 Anion Gap 15.4 H BUN 12 Creatinine 0.8 Est GFR (CKD-EPI 2020) 122.86 Glucose 117 H Hemoglobin A1c Calcium 9.6 Magnesium 1.9 Total Bilirubin 0.8 Conjugated Bilirubin AST 27 ALT 68 H Alkaline Phosphatase 83 C-Reactive Protein Total Protein 7.9 Albumin 4.2 Triglycerides 474 H LDL Cholesterol Direct Cancelled Amylase Lipase 36 Procalcitonin Urine Color Urine Clarity Urine pH Ur Specific [place] Urine Protein Urine Ketones Urine Blood Urine Nitrite Urine Bilirubin Urine Urobilinogen Ur Leukocyte Esterase Urine RBC Urine WBC Ur Epithelial Cells Urine Crystals Urine Bacteria Urine Mucus Ur Culture Indicated? Urine Glucose COVID-19 Source SARS-CoV-2 (PCR) Influenza Type A (PCR) Influenza Type B (PCR) RSV (PCR) Add-On Test Request 04/03/23 04/03/23 04/03/23 20:30 21:21 22:15 WBC RBC Hgb Hct MCV MCH MCHC RDW Plt Count MPV Immature Gran % Neutrophils % Lymphocytes % Monocytes % Eosinophils % Basophils % Nucleated RBC % Absolute Neutrophils Absolute Lymphocytes Absolute Monocytes Absolute Eosinophils Absolute Basophils VBG Lactate Sodium Potassium Chloride Carbon Dioxide Anion Gap BUN Creatinine Est GFR (CKD-EPI 2020) Glucose Hemoglobin A1c Calcium Magnesium Total Bilirubin Conjugated Bilirubin AST ALT Alkaline Phosphatase C-Reactive Protein Total Protein Albumin Triglycerides LDL Cholesterol Direct Amylase Lipase Procalcitonin Urine Color Yellow Urine Clarity Clear Urine pH 5.0 Ur Specific [place] <= 1.005 Urine Protein Negative Urine Ketones Negative Urine Blood Trace-intact H Urine Nitrite Negative Urine Bilirubin Negative Urine Urobilinogen 0.2 Ur Leukocyte Esterase Negative Urine RBC 0-2 Urine WBC Negative Ur Epithelial Cells Rare Urine Crystals Negative Urine Bacteria Rare Urine Mucus Negative Ur Culture Indicated? No Urine Glucose Negative COVID-19 Source Nasopharynx SARS-CoV-2 (PCR) Negative Influenza Type A (PCR) Negative Influenza Type B (PCR) Negative RSV (PCR) Negative Add-On Test Request DONE 04/03/23 04/03/23 04/03/23 22:20 22:20 22:20 WBC RBC Hgb Hct MCV MCH MCHC RDW Plt Count MPV Immature Gran % Neutrophils % Lymphocytes % Monocytes % Eosinophils % Basophils % Nucleated RBC % Absolute Neutrophils Absolute Lymphocytes Absolute Monocytes Absolute Eosinophils Absolute Basophils VBG Lactate 1.7 H Sodium Potassium Chloride Carbon Dioxide Anion Gap BUN Creatinine Est GFR (CKD-EPI 2020) Glucose Hemoglobin A1c Calcium Magnesium Total Bilirubin Conjugated Bilirubin AST ALT Alkaline Phosphatase C-Reactive Protein 0.54 H Total Protein Albumin Triglycerides LDL Cholesterol Direct Amylase Lipase Procalcitonin < 0.1 Urine Color Urine Clarity Urine pH Ur Specific [place] Urine Protein Urine Ketones Urine Blood Urine Nitrite Urine Bilirubin Urine Urobilinogen Ur Leukocyte Esterase Urine RBC Urine WBC Ur Epithelial Cells Urine Crystals Urine Bacteria Urine Mucus Ur Culture Indicated? Urine Glucose COVID-19 Source SARS-CoV-2 (PCR) Influenza Type A (PCR) Influenza Type B (PCR) RSV (PCR) Add-On Test Request 04/03/23 04/03/23 04/04/23 22:27 Unknown 06:35 WBC RBC Hgb Hct MCV MCH MCHC RDW Plt Count MPV Immature Gran % Neutrophils % Lymphocytes % Monocytes % Eosinophils % Basophils % Nucleated RBC % Absolute Neutrophils Absolute Lymphocytes Absolute Monocytes Absolute Eosinophils Absolute Basophils VBG Lactate Sodium 138 Potassium 4.3 Chloride 104 Carbon Dioxide 27.5 Anion Gap 6.5 BUN 8 Creatinine 0.6 L Est GFR (CKD-EPI 2020) 134.01 Glucose 138 H Hemoglobin A1c Calcium 8.7 Magnesium 1.9 Total Bilirubin 0.7 Conjugated Bilirubin 0.1 AST 20 ALT 55 Alkaline Phosphatase 71 C-Reactive Protein Total Protein 6.7 Albumin 3.5 Triglycerides 426 H LDL Cholesterol Direct 133 H Amylase Lipase Procalcitonin Urine Color Urine Clarity Urine pH Ur Specific [place] Urine Protein Urine Ketones Urine Blood Urine Nitrite Urine Bilirubin Urine Urobilinogen Ur Leukocyte Esterase Urine RBC Urine WBC Ur Epithelial Cells Urine Crystals Urine Bacteria Urine Mucus Ur Culture Indicated? Urine Glucose COVID-19 Source SARS-CoV-2 (PCR) Influenza Type A (PCR) Influenza Type B (PCR) RSV (PCR) Add-On Test Request DONE Cancelled 04/04/23 04/04/23 04/04/23 06:35 06:35 06:35 WBC 9.71 RBC 4.94 Hgb 13.9 D Hct 41.3 MCV 84 MCH 28.1 MCHC 33.7 RDW 13.1 Plt Count 252 MPV 9.2 Immature Gran % 0.2 Neutrophils % 70.9 Lymphocytes % 20.6 Monocytes % 7.6 Eosinophils % 0.2 Basophils % 0.5 Nucleated RBC % 0.0 Absolute Neutrophils 6.88 H Absolute Lymphocytes 2.00 Absolute Monocytes 0.74 Absolute Eosinophils 0.02 Absolute Basophils 0.05 VBG Lactate Sodium Potassium Chloride Carbon Dioxide Anion Gap BUN Creatinine Est GFR (CKD-EPI 2020) Glucose Hemoglobin A1c 5.8 H Calcium Magnesium Total Bilirubin Conjugated Bilirubin AST ALT Alkaline Phosphatase C-Reactive Protein Total Protein Albumin Triglycerides LDL Cholesterol Direct Amylase Lipase Procalcitonin Urine Color Urine Clarity Urine pH Ur Specific [place] Urine Protein Urine Ketones Urine Blood Urine Nitrite Urine Bilirubin Urine Urobilinogen Ur Leukocyte Esterase Urine RBC Urine WBC Ur Epithelial Cells Urine Crystals Urine Bacteria Urine Mucus Ur Culture Indicated? Urine Glucose COVID-19 Source SARS-CoV-2 (PCR) Influenza Type A (PCR) Influenza Type B (PCR) RSV (PCR) Add-On Test Request DONE 04/04/23 06:35 WBC RBC Hgb Hct MCV MCH MCHC RDW Plt Count MPV Immature Gran % Neutrophils % Lymphocytes % Monocytes % Eosinophils % Basophils % Nucleated RBC % Absolute Neutrophils Absolute Lymphocytes Absolute Monocytes Absolute Eosinophils Absolute Basophils VBG Lactate Sodium Potassium Chloride Carbon Dioxide Anion Gap BUN Creatinine Est GFR (CKD-EPI 2020) Glucose Hemoglobin A1c Calcium Magnesium Total Bilirubin Conjugated Bilirubin AST ALT Alkaline Phosphatase C-Reactive Protein Total Protein Albumin Triglycerides LDL Cholesterol Direct Amylase 27 Lipase Procalcitonin Urine Color Urine Clarity Urine pH Ur Specific [place] Urine Protein Urine Ketones Urine Blood Urine Nitrite Urine Bilirubin Urine Urobilinogen Ur Leukocyte Esterase Urine RBC Urine WBC Ur Epithelial Cells Urine Crystals Urine Bacteria Urine Mucus Ur Culture Indicated? Urine Glucose COVID-19 Source SARS-CoV-2 (PCR) Influenza Type A (PCR) Influenza Type B (PCR) RSV (PCR) Add-On Test Request Time Spent with Patient Time Spent with Patient: 25-34 minutes Time was spent: preparing to see the patient(eg.review tests), obtaining and/or reviewing separately otained hiistory, ordering medications,tests, procedures, indepentently interpreting results and counseling the patient
[2023-04-04] MEDS: Metoclopramide 10 MG/2 ML VIAL IVP (12:30)
[2023-04-04] MEDS: Metoprolol 50 MG TAB PO (17:45)
[2023-04-04] MEDS: Enoxaparin 40 MG/0.4 ML SYR SC (20:59)
--- NOTE | 2023-04-05 | DI.US_ITS ---
Exam(s) US ABDOMEN LIMITED EXAM: US ABDOMEN LIMITED CLINICAL HISTORY: pancreatitis, ? gall stones TECHNIQUE: Ultrasound abdomen performed using standard protocol. COMPARISON: CT CT ABDOMEN PELVIS W from 04/03/2023 FINDINGS: There is no ascites evident. LIVER: Liver is hyperechoic indicating steatosis. There are no discrete focal hepatic lesions identi fied. GALLBLADDER/BILIARY: There are no gallstones. No gallbladder wall edema nor pericholecystic fluid. The common hepatic duct isnot dilated, measuring 4mm at the level of kenn hepatis. PANCREAS: Only partially visualized due to body habitus. No obvious mass. No peripancreatic fluid c ollections. RIGHT KIDNEY:No ultrasound evidence of solid mass, calculus, nor hydronephrosis. No cortical cysts ev ident. IMPRESSION: 1. No evidence of cholelithiasis nor dilatation of the biliary tree. 2. Hepatic steatosis. Correlation with appropriateblood work recommended 3. Partial visualization of the pancreas. No obvious abnormality on ultrasound of the partially vis ualized pancreas. No peripancreatic fluid collections. 4. Please note that the small nonobstructive calculus seen on the recent CT scan was not appreciated on this ultrasound study. There is no hydronephrosis of the right kidney. Cortical mantle is mario l. No perinephric fluid. DATA REPOSITORY:
[2023-04-05 02:53] VITALS: BP 122/86; PULSE 78; RESP 22; TEMP 36; O2SAT 98
[2023-04-05] MEDS: HYDROmorphone 2 MG/ML SYR IVP ×4 (03:35→13:14)
[2023-04-05] MEDS: Lactated Ringers 1,000 ML 200 ML IV ×3 (04:27→15:09)
[2023-04-05] MEDS: Metoprolol 50 MG TAB PO ×4 (05:40→22:52)
[2023-04-05] MEDS: Mylanta Suspension 30 ML CUP PO (05:40)
[2023-04-05] MEDS: Ketorolac 30 MG/ML VIAL IVP ×3 (05:51→20:59)
[2023-04-05 07:25] VITALS: BP 110/70; PULSE 65; RESP 18; TEMP 36.6; O2SAT 98
[2023-04-05] MEDS: Pantoprazole 40 MG VIAL IVP (07:49)
[2023-04-05] MEDS: Normal Saline Flush 10 ML SYR IVP ×4 (07:50→13:14)
--- NOTE | 2023-04-05 10:50 | PDOC.CMPRO ---
Date of service: 04/05/23 Time of Service: 10:50 Care Management Progress Note Progress Note Text Progress Note Text: S/O:Niels was lying in bed when CM met with him. He stated that he was really tired as he had not slept well last night due to pain. He shared that he has only had minimal amounts of clear liquids but that he is not nauseated. He verbalized being concerned about an increase in pain if he eats more solid food. His understanding is that he will have full liquids for dinner. Niels was still requiring 2mg of IV Dilaudid every 3 hours for pain control. This afternoon the order was changed to 1mg every 4 hours to be given if Toradol and Acetominophen are not effective. A: Niels is a 27 year old man admitted on 04/03/23 with pancreatitis P:Anticipate Niels will be discharged home, likely to his mother's home, when medically cleared. He will follow up with community providers and plan of care. CM will follow and support discharge planning needs.
[2023-04-05] MEDS: Metoclopramide 10 MG/2 ML VIAL IVP ×2 (13:13→22:52)
[2023-04-05] MEDS: Ondansetron 4 MG/2 ML VIAL IVP (13:14)
--- NOTE | 2023-04-05 15:39 | W.PM.PROGNOT ---
Date of Service Date of service: 04/05/23 Time of Service: 15:39 Assessment and Plan Assessment and plan (1) Acute pancreatitis: Status: Acute Assessment and plan: tolerating clears well, will stop IV fluids, advance diet as tolerated continue non narcotic pain management check labs in am No evidence of abscess/phlegmon/pseudocyst at this time. Encourage IS. his triglyceride level is not likely high enough to cause pancreatitis US negative for gall stones. (2) SVT (supraventricular tachycardia): Status: Resolved Assessment and plan: tolerating oral beta carl He has been in sinus rhythm discontinue tele. (3) Hypertriglyceridemia: Status: Acute Assessment and plan: Not high enough to initiate insulin gtt for pancreatitis. A1C 5.8. (4) Ground glass opacity present on imaging of lung: Status: Acute Assessment and plan: respiratory status stable Encourage IS. (5) Ileus: Status: Resolved Assessment and plan: due to the pancreatitis. advance diet and monitor encourage ambulation, (6) Obstructive sleep apnea: Status: Chronic Assessment and plan: Provide nocturnal O2. Normally uses 3.5-4 L. (7) DVT prophylaxis: Status: Acute Assessment and plan: Sc enoxaparin (8) Discharge planning issues: Status: Acute Assessment and plan: Full code anticipate discharge tomorrow if remains stable and tolerating po discussed with Dr Cruz Subjective Subjective Patient reports: no new complaints, pain is less, tolerating liquids well, voiding w/o difficulty and afebrile; denies shortness of breath Exam Const General: cooperative Orientation: alert, awake and oriented x3 Resp Effort & Inspection: normal respiratory effort and able to speak in complete sentences Auscultation: clear to auscultation bilaterally Cardio Rhythm: regular rhythm GI Inspection: normal to inspection Palpation: soft, no guarding, no masses, not rigid, tender and No ascites Auscultation: normal bowel sounds Back/Spine/Pelvis Back: no CVA tenderness Neuro General: patient alert, patient awake, patient oriented x3 and moves all extremities Objective Last Vital Signs Temp 36.6 C 04/05/23 07:25 Pulse 65 04/05/23 07:25 Resp 18 04/05/23 07:25 BP 110/70 04/05/23 07:25 Pulse Ox 98 04/05/23 07:25 Time Spent with Patient Time Spent with Patient: 25-34 minutes Time was spent: preparing to see the patient(eg.review tests), obtaining and/or reviewing separately otained hiistory, ordering medications,tests, procedures, indepentently interpreting results and counseling the patient
[2023-04-05 17:17] VITALS: BP 138/84; PULSE 76; O2SAT 99
[2023-04-05] MEDS: HYDROmorphone 2 MG/ML SYR 1 MG IVP (20:57)
[2023-04-05] MEDS: Enoxaparin 40 MG/0.4 ML SYR SC (20:59)
[2023-04-05] MEDS: Acetaminophen 325 MG TAB PO (22:52)
[2023-04-05 22:54] VITALS: BP 101/68; PULSE 75; RESP 17; TEMP 36.7; O2SAT 98
[2023-04-06 00:19] VITALS: O2SAT 98
[2023-04-06 03:30] VITALS: BP 126/87; PULSE 86; RESP 18; TEMP 36.2; O2SAT 99
[2023-04-06] MEDS: HYDROmorphone 2 MG/ML SYR 1 MG IVP (05:31)
[2023-04-06] MEDS: Metoprolol 50 MG TAB PO ×2 (05:31→12:11)
[2023-04-06 06:57] LABS: Abs Immature Grans 0.01 10^3/uL (0.0-0.06); Absolute Basophil Count 0.04 10^3/uL (0.0-0.2); Absolute Eosinophil Count 0.16 10^3/uL (0.0-0.7); Absolute Monocyte Count 0.67 10^3/uL (0.1-0.8); Absolute Neutrophil Count 5.49 10^3/uL (1.2-6.7); Basophils % 0.5; HCT 46.4 % (40.0-50.0); HGB 15.8 g/dL (13.5-17.5); Immature Grans % 0.1; Lymphocytes % 19.1; MCH 28.3 pg (27.0-33.0); MCHC 34.1 % (32.0-36.0); MCV 83 fL (80-95); MPV 9.3 fL (8.0-11.0); Monocytes % 8.5; Neutrophils % 69.8; Platelet Count 233 10^3/uL (130-400); RBC 5.59 10^6/uL (4.36-5.78); RDW 12.7 % (11.8-14.1); RDW-SD 38.4 fL; WBC 7.87 10^3/uL (4.4-10.8)
[2023-04-06 07:16] LABS: ALT 52 U/L (16-63); AST 21 U/L (15-37); Albumin 3.2 g/dL (3.4-5.0); Alkaline Phosphatase 62 U/L (46-116); Anion Gap 7.7 mmol/L (3-11); BUN 7 mg/dL (7-18); Bilirubin, Total 0.7 mg/dL (0.2-1.0); C-Reactive Protein 0.65 mg/dL (0.0-0.3); CO2 29.3 mmol/L (21.0-32.0); CREATININE 0.7 mg/dL (0.70-1.30); Calcium 8.8 mg/dL (8.5-10.1); Chloride 102 mmol/L (98-107); Estimated GFR 127.91 (mL/min/1.73m2); Glucose 118 mg/dL (74-106); Potassium 3.7 mmol/L (3.5-5.1); Sodium 139 mmol/L (136-145); Total Protein 6.4 g/dL (6.4-8.2)
[2023-04-06 07:25] VITALS: BP 119/83; PULSE 66; RESP 16; TEMP 36.7; O2SAT 98
[2023-04-06] MEDS: Pantoprazole 40 MG TABCR PO (08:23)
[2023-04-06] MEDS: Ketorolac 30 MG/ML VIAL IVP (08:24)
--- NOTE | 2023-04-06 09:37 | PDOC.CMPRO ---
Date of service: 04/06/23 Time of Service: 09:37 Care Management Progress Note Progress Note Text Progress Note Text: S/O:Niels was lying in bed when CM met with him. He has been told he will discharge later today and has requested prescriptions for dilaudid and Zofran. He stated he always gets new prescriptions at discharge when he is admitted anywhere for pancreatitis. Niels travels for work so has been to many different hospitals and providers for this issue. A: Niels is a 27 year old man admitted on 04/03/23 with pancreatitis P:Anticipate Niels will be discharged home, likely to his mother's home, when medically cleared. He will follow up with community providers and plan of care. CM will follow and support discharge planning needs.
[2023-04-06 11:30] VITALS: BP 102/66; PULSE 75; RESP 12; TEMP 37; O2SAT 94
--- NOTE | 2023-04-06 11:34 | W.PM.DS.N ---
Date of service: 04/06/23 Time of Service: 11:34 DS: Diagnosis Discharge Diagnosis (1) Acute pancreatitis: Status: Acute (2) SVT (supraventricular tachycardia): Status: Resolved (3) Hypertriglyceridemia: Status: Acute (4) Ground glass opacity present on imaging of lung: Status: Acute (5) Ileus: Status: Resolved (6) Obstructive sleep apnea: Status: Chronic Discharge Plan Disposition Patient Disposition: Home Condition: Stable Discharge Details Reason For Visit: Acute Pancreatitis, Sinus Tachycardia Admit Date/Time: 04/03/23 20:34 Admit Provider: Clarissa Lema Attending Provider: Clarissa Lema Primary Care Provider: None,None Hospital Course Hospital Course: Mr Brewer is a 27 year old male with PMHx of 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 He tried taking his home dilaudid and zofran, but vomited them. He has had some diarrhea too. No blood in stool or emetic contents. He has not been able to keep his metoprolol down. Upon arrival to the ER, he was tachycardic with HRs to 120s (sinus). His ER workup included a CT of the abdomen which confirms acute pancreatitis. There is also evidence of an ileus vs enteritis and ground glass opacities in his lungs. The patient was started on aggressive IV hydration with pain control with IV dilaudid. Despite three doses of this in the ER, his pain was still not well controlled.? Hospitalist admission was requested and he was admitted to med/surg for further management. He continued to received antiemetics and IV dilaudid. His lipase and amylase were negative. He remained hemodynamically stable with no fever. pain improved and diet advanced, tolerating well. hemodynamically stable and ready for discharge to home. limited ultrasound with no evidence of cholelithiasis nor dilatation of the biliary tree.? 2.? Hepatic steatosis.? Correlation with appropriateblood work recommended 3.? Partial visualization of the pancreas.? No obvious abnormality on ultrasound of the partially visualized pancreas.? No peripancreatic fluid collections. 4.? Please note that the small nonobstructive calculus seen on the recent CT scan was not appreciated on this ultrasound study.? There is no hydronephrosis of the right kidney.? Cortical mantle is normal.? No perinephric fluid. He should follow up outpatient for further evaluation. discharge discussed with DR Lema Home Meds and New Rx's Prescriptions: Continued ondansetron 4 mg Tablet,Disintegrating 4 mg PO DAILY PRN melatonin 1 mg Tablet 1 mg PO HS metoprolol succinate 100 mg Capsule,Sprinkle,Er 24hr 200 mg PO DAILY hydromorphone [Dilaudid] 2 mg Tablet 2 mg PO PRN PRN (Reason: Severe Pain (Scale Score 7-10)) Rx Instructions: 2-6mg as needed Discharge Instructions Instructions: Pancreatitis (DC) Stand Alone Forms: Nursing Discharge Form Referrals: None,None [Primary Care Provider] - (please follow up with primary care provider. ) Activity:: Activity as Tolerated Equipment/Supplies:: No Equipment Needed Diet:: As Tolerated Discharge Orders Discharge Orders: Discharge Order (Routine); Ordered 04/06/23 Ordered By: Lillian Hicks Discharge Data Discharge Date/Time-TO BE ENTERED AT DEPARTURE: 04/06/23 17:38 DS: Summary Time Spent with Patient providing and/or coordinating discharge services: Less than 30 minutes Status at Discharge Functional status at discharge: independent ambulation Overall status at discharge: patient is back to baseline Mental Status: mental status grossly normal Speech and Movement: speech and movement normal Mood: congruent mood Affect: normal affect Exam Const General: cooperative and comfortable Nutritional Appearance: obese Orientation: alert, awake and oriented x3 HENMT Head: normal to inspection, normocephalic and atraumatic Mouth: oral mucosae normal Eyes General: appearance normal, both eyes and all related structures Chest Chest: normal inspection of the chest Resp Effort & Inspection: normal respiratory effort and able to speak in complete sentences Auscultation: clear to auscultation bilaterally Cardio Rate: regular rate Rhythm: regular rhythm GI Inspection: normal to inspection Palpation: soft, no guarding, no masses, not rigid, tender and No ascites Auscultation: normal bowel sounds Back/Spine/Pelvis Back: no CVA tenderness Skin General skin exam: no rashes or lesions noted Neuro General: patient alert, patient awake, patient oriented x3 and moves all extremities Extrem General: normal to inspection, full ROM and no pedal edema Psych Mental Status: mental status grossly normal Speech and Movement: speech and movement normal Mood: congruent mood Affect: normal affect DS: Data Vitals/I&O Vitals and I&O: Vital Signs Temperature 36.7 C 04/06/23 07:25 Temperature Source Tympanic 04/06/23 07:25 Pulse 66 04/06/23 07:25 Pulse Rhythm Regular 04/06/23 07:40 Pulse 99 H 04/03/23 21:40 Respiratory Rate 16 04/06/23 07:25 Respiratory Effort Normal 04/06/23 07:40 Respiratory Depth Normal 04/06/23 07:40 Respiratory Pattern Normal 04/06/23 07:40 Blood Pressure 119/83 04/06/23 07:25 Blood Pressure Mean 90 04/03/23 21:31 Blood Pressure Position Sitting 04/03/23 15:51 Pulse Oximetry 98 04/06/23 07:25 Oxygen Delivery Method Nasal Cannula 04/06/23 07:25 Oxygen Flow Rate 2 04/06/23 07:25 Pain Level 8 04/06/23 08:24 Comment NAD noted. Sitting in bed, watching videos 04/06/23 07:25 Intake & Output 04/05/23 04/05/23 04/06/23 11:59 23:59 11:59 Intake Total 1903.333 / 4433.333 2530 / 4433.333 Output Total 600 / 900 300 / 900 Balance 1303.333 / 3533.333 2230 / 3533.333 Weight 124.239 kg 125.3 kg Intake: IV 1903.333 / 3903.333 1999 / 3903.333 Oral 530 / 530 Output: Urine 600 / 900 300 / 900 Other: Urine Appearance Clear Clear Clear Comment pt went independently pt toilted self several times today Voiding Methods Toilet Data Completed and Pending Labs on day of discharge: Labs from last 24 hours 04/06/23 04/06/23 06:30 06:30 WBC 7.87 RBC 5.59 Hgb 15.8 Hct 46.4 MCV 83 MCH 28.3 MCHC 34.1 RDW 12.7 Plt Count 233 MPV 9.3 Immature Gran % 0.1 Neutrophils % 69.8 Lymphocytes % 19.1 Monocytes % 8.5 Eosinophils % 2.0 Basophils % 0.5 Nucleated RBC % 0.0 Absolute Neutrophils 5.49 Absolute Lymphocytes 1.50 Absolute Monocytes 0.67 Absolute Eosinophils 0.16 Absolute Basophils 0.04 Sodium 139 Potassium 3.7 Chloride 102 Carbon Dioxide 29.3 Anion Gap 7.7 BUN 7 Creatinine 0.7 Est GFR (CKD-EPI 2020) 127.91 Glucose 118 H Calcium 8.8 Total Bilirubin 0.7 AST 21 ALT 52 Alkaline Phosphatase 62 C-Reactive Protein 0.65 H Total Protein 6.4 Albumin 3.2 L PFSH All Active Problems (Updated 04/07/23 @ 00:01 by LETICIA LI) Obesity (Chronic) Dependence on nocturnal oxygen therapy (Acute) Obstructive sleep apnea (Chronic) Ground glass opacity present on imaging of lung (Acute) Hypertriglyceridemia (Acute) Acute pancreatitis (Acute) Medical History (Updated 04/07/23 @ 00:01 by LETICIA LI) Duodenitis DVT (deep venous thrombosis) Pancreatitis Pulmonary embolism 2020 post COVID-19; finished 3 months of anticoagulation with eliquis Surgical History (Updated 04/04/23 @ 00:33 by Clarissa Lema MD) H/O esophagogastroduodenoscopy H/O tooth extraction History of biopsy negative retroperitoneal biopsy (ruled out retroperitoneal fibrosis) Hx of appendectomy S/P colonoscopy Family History (Updated 04/04/23 @ 00:35 by Clarissa Lema MD) Mother Heart disease Had stents placed in her 30s Diabetes Maternal Grandfather Stroke Hypertension Maternal Aunt Cancer brain cancer Maternal Cousin Lupus Father Crohn disease Social History (Updated 04/04/23 @ 00:36 by Clarissa Lema MD) Smoking/Tobacco Use Status: Former Tobacco Use tobacco type: cigarettes Pack-years: 1 Tobacco: How many years used: 3 Smoking risk assessment performed?: Yes Alcohol Intake: former Substance use type: does not use Do you feel safe at home: Yes Do you feel safe in your relationship?: Yes Time Spent with Patient Time Spent with Patient: <45 minutes Time was spent: preparing to see the patient(eg.review tests), obtaining and/or reviewing separately otained hiistory, ordering medications,tests, procedures, indepentently interpreting results and counseling the patient
[2023-04-06] MEDS: HYDROmorphone 2 MG TAB PO (12:11)
--- NOTE | 2023-04-06 14:04 | PDOC.CMDIS ---
Date of service: 04/06/23 Time of Service: 14:04 Care Management Discharge Plan Reason for Hospitalization: acute pancreatitis Discharge Plan: Niels will be discharged home to his mother's home later today. He declined to have an apopointment made with a local PCP for follow up.will follow up with community providers and plan of care. CM will follow and support discharge planning needs.
--- NOTE | 2023-04-06 15:45 | CMDISCH_ITS ---
Date of service: 04/06/23 Time of Service: 15:45 LACE Index Scoring Tool Questions: Length of Stay (in days): 3 Was the patient admitted via the E.D.?: Yes E.D. Visits: 1 Answers: Total Score: 7 Risk of Readmission: Low Risk Care Management Discharge Plan Reason for Hospitalization: acute pancreatitis Discharge Plan: Niels will be discharged home to his mother's home in [place], [place] He will follow up with community providers and plan of care. Niels was offered a follow up appointment with a local PCP, but declined. He stated he would follow up nearer his home in [place]. Patient/Family Education Needs: Review of discharge instructions, activity, limitations, follow up plan, discuss Ask Me Three
== END 2023-04-06 17:38 | disposition home or self-care (01) | DRG 439 ==
LOC: ER 20:48 → MS 22:02
PROVIDERS: Internal Medicine; Nurse Practitioner Acute Care; Admitting Provider Internal Medicine; Emergency Provider Nurse Practitioner Family; Visit Provider Internal Medicine
DX: K85.80 Other acute pancreatitis without necrosis or infection (principal); I47.1 Supraventricular tachycardia; K56.7 Ileus, unspecified; Z68.41 Body mass index [BMI] 40.0-44.9, adult; E78.1 Pure hyperglyceridemia; R91.8 Other nonspecific abnormal finding of lung field; G47.33 Obstructive sleep apnea (adult) (pediatric); U09.9 Post COVID-19 condition, unspecified; E66.9 Obesity, unspecified; K29.80 Duodenitis without bleeding
CPT/HCPCS: 36415; 80048; 80053; 80076; 83690; 83721; 84145; 87637; 93005; 96365; 96375; 96376; 99285; J1650; 74177; 76705; 81003; 81015; 82150; 83036; 83605; 83735; 84478; 85025; 86140; 93010; 99223; 99232; 99233; 99238; J1170; J1885; J2405; J2765; J3490

== ENCOUNTER 2023-04-10 18:35 | Inpatient (IN) | payer BC, MEDICAID, SELFPAY ==
--- NOTE | 2023-04-10 18:30 | RT.EKG_ITS ---
APPROVED REPORT Exam: Resting ECG Reason for Exam: chest pain Patient Location: E HR:130 bpm ECG Measurements Heart Rate 130 AXIS GA 136 P 46 QRSd 93 QRS 37 QT 297 T -6 QTc 438 Conclusion Sinus tachycardia...rate> 99
[2023-04-10 18:41] VITALS: BP 120/87; PULSE 124; RESP 26; TEMP 36.6; O2SAT 97
--- NOTE | 2023-04-10 19:13 | ED.GENADUL_ITS ---
Discharge Plan Disposition Patient Disposition: Admit to [facility] Condition: Stable Discharge Details Clinical Impression: Acute on chronic pancreatitis Admit Date/Time: 04/10/23 22:01 Admit Provider: Mickey La Attending Provider: Mickey La Primary Care Provider: Lillie,Local ED Provider: Michelle Boudreaux Medical Decision Making 27-year-old male presents to the ER with chief complaint of nausea vomiting abdominal pain and tachycardia which began last night. Patient was admitted last week for pancreatitis and reports that he was eating fine until last night. He has been unable to keep down any of his medications including metoprolol. Past medical history includes pancreatitis, duodenitis PE DVT. Obstructive sleep apnea hypertriglyceridemia SVT. Work-up ordered including CBC CMP, troponin, lipase normal saline 1 L Zofran and hydromorphone. Patient complaining of continued abdominal pain 0.5 mg hydromorphone ordered. CBC shows slight leukocytosis with a white blood cell count of 12.93 absolute neutrophils 9.18. 2112: Patient reevaluation second liter of IV normal saline infusing without difficulty, patient is still complaining of pain. I did discuss his CT results with him. CT shows some moderate to severe inflammatory changes of fluid surrounding the pancreas. Patient reports he feels worse than he did before being admitted last week. Will consult with hospitalist to request admission. 2121: Spoke with Dr. La regarding patient case and details he agrees to come evaluate patient in the department. Admission orders placed by Dr. La. An additional 0.5 of hydromorphone ordered. Patient transported up to the floor in hemodynamically stable condition. This text was generated using [employer] system, please disregard any oddities of phrase or misspellings. Medical Records Medical records reviewed: Yes I reviewed the patient's medical records. Imaging Data Radiologic Study: Imaging: CT Scan Radiologist's impression: COMPARISON: CT ABDOMEN PELVIS W 04/03/2023 6:26 PM FINDINGS: Liver: Normal. No mass. Gallbladder and bile ducts: Normal. No calcified stones. No ductal dilation. Pancreas: Extensive inflammatory changes in fluid around the pancreas consistent with moderate to severe pancreatitis. Fluid extends into the paracolic gutters. Mild fluid in the left perinephric space.. Spleen: Normal. No splenomegaly. Adrenal glands: Normal. No mass. Kidneys and ureters: There is no evidence of renal or ureteral calcifications. Stomach and bowel: Unremarkable. No obstruction. No mucosal thickening. Appendix: No evidence of appendicitis. Intraperitoneal space: See Pancreas finding. Vasculature: Unremarkable. No ab dominal aortic aneurysm. Lymph nodes: Unremarkable. No enlarged lymph nodes. Urinary bladder: Unremarkable as visualized. Reproductive: Unremarkable as visualized. Bones/joints: Unremarkable. No acute fracture. Soft tissues: Unremarkable. IMPRESSION: Extensive inflammatory changes in fluid around the pancreas consistent with moderate to severe pancreatitis. Fluid extends into the paracolic gutters. Mild fluid in the left perinephric space.. Thank you for allowing us to participate in the care of your patient. Dictated and Authenticated by: Luca Benz MD Lab Data Lab results reviewed: Yes I reviewed the patient's lab results. Labs: Laboratory Tests Range/Units 04/10/23 04/10/23 04/10/23 19:23 19:23 20:08 WBC (4.4-10.8) 10^3/uL 12.93 H RBC (4.36-5.78) 10^6/uL 6.45 H Hgb (13.5-17.5) g/dL 18.2 H Hct (40.0-50.0) % 53.1 H MCV (80-95) fL 82 MCH (27.0-33.0) pg 28.2 MCHC (32.0-36.0) % 34.3 RDW (11.8-14.1) % 13.3 Plt Count (130-400) 10^3/uL 331 MPV (8.0-11.0) fL 9.3 Immature Gran % 0.4 Neutrophils % 71.0 Lymphocytes % 18.2 Monocytes % 8.0 Eosinophils % 1.9 Basophils % 0.5 Nucleated RBC % (0.0-0.3) % 0.0 Absolute Neutrophils (1.2-6.7) 10^3/uL 9.18 H Absolute Lymphocytes (1.2-3.4) 10^3/uL 2.35 Absolute Monocytes (0.1-0.8) 10^3/uL 1.03 H Absolute Eosinophils (0.0-0.7) 10^3/uL 0.25 Absolute Basophils (0.0-0.2) 10^3/uL 0.06 RBC Morphology Normal Sodium Cancelled 137 Potassium Cancelled 4.0 Chloride Cancelled 105 Carbon Dioxide Cancelled 22.6 Anion Gap Cancelled 9.4 BUN Cancelled 20 H Creatinine Cancelled 1.0 Est GFR (CKD-EPI 2020) Cancelled 104.48 Glucose Cancelled 134 H Calcium Cancelled 9.1 Magnesium Cancelled 1.9 Total Bilirubin Cancelled 0.4 AST Cancelled 22 ALT Cancelled 61 Alkaline Phosphatase Cancelled 71 Troponin I Cancelled < 50 Total Protein Cancelled 6.7 Albumin Cancelled 3.3 L Lipase Cancelled 26 HPI General Mode of arrival: ambulatory . Date/Time Provider Initiated Documentation: 04/10/23 18:57 . Limitations to Documentation: no limitations . Information obtained by: patient, RN notes reviewed and old records reviewed . HPI Narrative: 27-year-old male presents to the ER with chief complaint of nausea vomiting abdominal pain and tachycardia which began last night. Patient was admitted last week for pancreatitis and reports that he was eating fine until last night. He has been unable to keep down any of his medications including metoprolol. Past medical history includes pancreatitis, duodenitis PE DVT. Obstructive sleep apnea hypertriglyceridemia SVT. Related Data Home Medications Medication Instructions Recorded Confirmed hydromorphone 2 mg tablet 2 mg PO PRN PRN Severe Pain (Scale 04/03/23 04/10/23 (Dilaudid) Score 7-10) melatonin 1 mg tablet 1 mg PO HS 04/03/23 04/10/23 metoprolol succinate 100 mg 200 mg PO DAILY 04/03/23 04/10/23 capsule sprinkle, ext. release 24 hr ondansetron 4 mg disintegrating 4 mg PO DAILY PRN 04/03/23 04/10/23 tablet Allergies Allergy/AdvReac Type Severity Reaction Status Date / Time droperidol AdvReac Cardiac Unverified 04/10/23 18:43 Dysrhythmia haloperidol [From Haldol] AdvReac Diarrhea Unverified 04/10/23 18:43 General Stated Complaint: Chest Pain PRITI: 2 Review of Systems All systems reviewed & are unremarkable except as noted in HPI and below Gastrointestinal Gastrointestinal: Reports as per HPI, Reports abdominal pain, Reports nausea and Reports vomiting 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 therapy (Acute) Obstructive sleep apnea (Chronic) Ground glass opacity present on imaging of lung (Acute) Hypertriglyceridemia (Acute) Acute pancreatitis (Acute) Medical History Duodenitis DVT (deep venous thrombosis) Pancreatitis Pulmonary embolism 2020 post COVID-19; finished 3 months of anticoagulation with eliquis Surgical History H/O esophagogastroduodenoscopy H/O tooth extraction History of biopsy negative retroperitoneal biopsy (ruled out retroperitoneal fibrosis) Hx of appendectomy S/P colonoscopy Family History Mother Heart disease Had stents placed in her 30s Diabetes Maternal Grandfather Stroke Hypertension Maternal Aunt Cancer brain cancer Maternal Cousin Lupus Father Crohn disease Social History Smoking/Tobacco Use Status: Former Tobacco Use tobacco type: cigarettes Pack- years: 1 Tobacco: How many years used: 3 Smoking risk assessment performed?: Yes Alcohol Intake: former Substance use type: does not use Do you feel safe at home: Yes Do you feel safe in your relationship?: Yes Exam Narrative Exam Narrative: Constitutional: Alert and oriented x3. Appears stated age. Obese. Body habitus. Head: Normocephalic, no trauma. Eyes: Pupils PERRL, Red reflex noted, EOM's intact. Eyelids symmetrical without lesions, discharge, or swelling. ENT: Bilateral TM's WNL, External ear normal to inspection, no mastoid TTP, swelling, or erythema, Nasal turbinates WNL, no nasal discharge. Normal dentition, Posterior pharynx WNL, no exudate. Chest: RRR, Normal S1, S2, distal pulses intact. Resp: Lungs clear to auscultation bilaterally, no wheezes, rales, or rhonchi. Abdomen: Soft, hypoactive bowel sounds all 4 quads, tenderness in the right upper quadrant. Musculoskeletal: Normal gait, 5/5 strength to all four extremities. Skin: No suspicious rashes or lesions. Capillary refill less than 2 sec. Neurologic: Cranial nerves II-XII intact. Alert and oriented x 3. Motor: No deficits noted. Sensory: Intact bilaterally all 4 extremities. Reflexes: DTR's intact bilaterally.. Hematologic/Lymphatic: No ecchymosis, no lymphadenopathy. Course Vital Signs Vital signs: Vital Signs Temperature 36.6 C 04/10/23 18:41 Pulse 124 H 04/10/23 18:41 Respiratory Rate 26 H 04/10/23 18:41 Blood Pressure 120/87 04/10/23 18:41 Pulse Oximetry 97 04/10/23 18:41 Temperature 36.6 C 04/10/23 18:41 Temperature Source Temporal Artery Scan 04/10/23 18:41 Pulse 124 H 04/10/23 18:41 Respiratory Rate 26 H 04/10/23 18:41 Respiratory Effort Labored 04/10/23 18:42 Blood Pressure 120/87 04/10/23 18:41 Pulse Oximetry 97 04/10/23 18:41 Oxygen Delivery Method Room Air 04/10/23 18:41 Oxygen Flow Rate 0 04/10/23 18:41
[2023-04-10 19:31] LABS: Abs Immature Grans 0.05 10^3/uL (0.0-0.06); Absolute Lymphocyte Count 2.35 10^3/uL (1.2-3.4); Absolute Monocyte Count 1.03 10^3/uL (0.1-0.8); Basophils % 0.5; Eosinophils % 1.9; HCT 53.1 % (40.0-50.0); HGB 18.2 g/dL (13.5-17.5); Immature Grans % 0.4; Lymphocytes % 18.2; MCH 28.2 pg (27.0-33.0); MCHC 34.3 % (32.0-36.0); MCV 82 fL (80-95); MPV 9.3 fL (8.0-11.0); Platelet Count 331 10^3/uL (130-400); RBC 6.45 10^6/uL (4.36-5.78); RDW 13.3 % (11.8-14.1); RDW-SD 38.9 fL; WBC 12.93 10^3/uL (4.4-10.8)
[2023-04-10] MEDS: Normal Saline 1,000 ML 1000 ML IV ×2 (19:43→21:01)
[2023-04-10] MEDS: Ondansetron 4 MG/2 ML VIAL IVP (19:43)
[2023-04-10] MEDS: HYDROmorphone 2 MG/ML SYR 1 MG IVP (19:44)
[2023-04-10 19:53] LABS: Absolute Basophil Count 0.06 10^3/uL (0.0-0.2); Absolute Eosinophil Count 0.25 10^3/uL (0.0-0.7); Absolute Neutrophil Count 9.18 10^3/uL (1.2-6.7)
[2023-04-10 20:11] LABS: Diff Comment RBC Morph Reviewed; RBC Morphology Normal
--- NOTE | 2023-04-10 20:15 | DI.CT_ITS ---
Exam(s) CT ABDOMEN PELVIS W EXAM: CT ABDOMEN PELVIS W CLINICAL HISTORY: Hx pancreatitis, Abd pain, nausea Vomiting TECHNIQUE: Imaging Protocol: Axial computed tomography images with coronal and sagittal reformatted images were created and reviewed CONTRAST MATERIAL: Intravenous: Omnipaque 350 Contrast volume:100 mL Oral: No COMPARISON: CT CT ABDOMEN PELVIS W from 04/03/2023 FINDINGS: ABDOMEN: Lung Bases: Normal where visualized. Liver: There is decreased attenuation of the liver suggesting fatty infiltration. No measurable mass . Portal, Superior Mesenteric, and Splenic Veins: Unremarkable. Gallbladder and Biliary Tract: No radiodense calculus or dilation. Pancreas: There are worsening inflammatory stranding changes around the pancreas in the pararenal spa ce. No focal fluid collection is seen to suggest an abscess. The pancreas is of normal density. Spleen: Normal. Adrenals: No masses seen. Kidneys: Normal size, contour and axis. Nonobstructing right renal stones are present. No masses see n. Note is made of a retroaortic left renal vein. Abdominal Aorta: Abdominal portion non-dilated. Bowel: There is no evidence of bowel obstruction. There is mild wall thickening in the duodenum like ly secondary to the adjacent pancreatic inflammation. No evidence of appendicitis. Peritoneal Cavity: There is a small amount of fluid in the pelvis. No free air. Lymph Nodes: Within normal limits. Bones: Within normal limits for the patient's age. Soft Tissues: Unremarkable. PELVIS: Bladder: Symmetric distention, no gross wall thickening. Reproductive Organs: Unremarkable as visualized. Lymph Nodes: Within normal limits. Bones: Within normal limits for the patient's age. IMPRESSION: Findings consistent with acute pancreatitis which has progressed since the prior examination from 03/07. No focal fluid collection is seen to suggest an abscess. RADIATION DOSE DELIVERED: 1,659.36mGy.cm Total DLP DATA REPOSITORY: All CT scans at this facility are submitted to the National Radiology Data Registry (NRDR) Dose Index Registry (DIR) with the [employer] (ACR). RADIATION OPTIMIZATION: All CT scans at this facility use at least one of these dose optimization te chniques: automated exposure control; mA and/or kV adjustment per patient size (includes targeted exa ms where dose is matched to clinical indication); or iterative reconstruction.
[2023-04-10 20:31] LABS: ALT 61 U/L (16-63); AST 22 U/L (15-37); Albumin 3.3 g/dL (3.4-5.0); Alkaline Phosphatase 71 U/L (46-116); Anion Gap 9.4 mmol/L (3-11); BUN 20 mg/dL (7-18); Bilirubin, Total 0.4 mg/dL (0.2-1.0); CO2 22.6 mmol/L (21.0-32.0); Calcium 9.1 mg/dL (8.5-10.1); Chloride 105 mmol/L (98-107); Estimated GFR 104.48 (mL/min/1.73m2); Glucose 134 mg/dL (74-106); Lipase 26 U/L (16-77); Magnesium 1.9 mg/dL (1.8-2.4); Sodium 137 mmol/L (136-145); Total Protein 6.7 g/dL (6.4-8.2); Troponin I < 50 ng/L (<or=60)
[2023-04-10] MEDS: HYDROmorphone 2 MG/ML SYR 0.5 MG IVP ×2 (20:32→22:10)
[2023-04-10] MEDS: Normal Saline Flush 10 ML SYR IVP (20:35)
[2023-04-10] MEDS: Normal Saline - Diluent 50 ML VIAL IJ (20:36)
[2023-04-10] MEDS: Omnipaque 350 MG/ML 100 ML BTL IJ (20:37)
--- NOTE | 2023-04-10 21:09 | DI.VRAD_ITS ---
PROCEDURE INFORMATION: Exam: CT Abdomen And Pelvis With Contrast Exam date and time: 04/10/2023 8:39 PM Age: 27 years old Clinical indication: Nausea and vomiting and other: Abd pain; HX of pancreatitis; Patient HX: HX pancreatitis, abd pain, nausea vomiting TECHNIQUE: Imaging protocol: Computed tomography of the abdomen and pelvis with contrast. Contrast material: OMNIPAQUE 350; Contrast volume: 100 ml; Contrast route: INTRAVENOUS (IV); COMPARISON: CT ABDOMEN PELVIS W 04/03/2023 6:26 PM FINDINGS: Liver: Normal. No mass. Gallbladder and bile ducts: Normal. No calcified stones. No ductal dilation. Pancreas: Extensive inflammatory changes in fluid around the pancreas consistent with moderate to severe pancreatitis. Fluid extends into the paracolic gutters. Mild fluid in the left perinephric space.. Spleen: Normal. No splenomegaly. Adrenal glands: Normal. No mass. Kidneys and ureters: There is no evidence of renal or ureteral calcifications. Stomach and bowel: Unremarkable. No obstruction. No mucosal thickening. Appendix: No evidence of appendicitis. Intraperitoneal space: See Pancreas finding. Vasculature: Unremarkable. No abdominal aortic aneurysm. Lymph nodes: Unremarkable. No enlarged lymph nodes. Urinary bladder: Unremarkable as visualized. Reproductive: Unremarkable as visualized. Bones/joints: Unremarkable. No acute fracture. Soft tissues: Unremarkable. IMPRESSION: Extensive inflammatory changes in fluid around the pancreas consistent with moderate to severe pancreatitis. Fluid extends into the paracolic gutters. Mild fluid in the left perinephric space.. Dictated and Authenticated by: Luca Benz MD. Ordering:CONCHITA Martinez MD
[2023-04-10 21:30] LABS: Bilirubin Small (Negative); Blood Trace-intact (Negative); Clarity Sl Cloudy (Clear); Glucose Negative (Negative); Ketones Negative (Negative); Leukocyte Esterase Negative (Negative); Nitrite Negative (Negative); Specific Gravity >= 1.030 (1.005-1.025); Urobilinogen 0.2 mg/dL (Up to 0.2)
[2023-04-10 21:42] LABS: Bacteria Rare HPF (Negative); C & S Indicated? No; Casts 0-2 Hyaline LPF (Negative); Crystals Negative HPF (Negative); Epithelial Cells Few HPF (Negative); Mucus Moderate (Negative); RBC 0-2 HPF (0-2)
--- NOTE | 2023-04-10 21:44 | W.PM.HP.N ---
Date of service: 04/10/23 Time of Service: 21:44 Assessment and Plan Assessment and plan (1) Acute pancreatitis: Status: Acute Assessment and plan: Recurrent pancreatitis, etiology unknown.Advised followup with GI for further evaluation, will likely benefit from MRCP. For now will treat with bowel rest, IVF and prn analgesics and antiemetics. The left shoulder pain is noted, this almost certainly represents diaphragmatic irritation from extensive inflammatory changes; suffice to say no evidence of cardiac etiology. Otherwise will add IV Lopressor (for PSVT) until able to resume usual oral dose. History of Present Illness History of Present Illness Chief Complaint: abdominal pain Narrative: 27 male with h/o recurrent pancreatitis of unknown etiology, at this point to be considered idiopathic -- here last week with pancreatitis, did well with bowel rest and home on full diet. Had been doing well until today notes recurrent epigastric pain along with nausea (some diarrhea as well) -- and some left shoulder pain additionally. White count 12, lipase normal (also so last week) and CT showing extensive peripancreatic inflammatory changes. Troponin negative and EKG w/o STTWCs. Patient given IV Dilaudid with partial relief. I was asked to evaluate for admission. Patient denies alcohol use; has h/o modest hypertriglyceridemia (400s), no gallstones, and no new meds. He notes that first ever episode occurred following COVID infection 2 years ago and states the question has been raised whether these recurrent episodes are in some way related. Has seen GI at [facility] at some point but not recently. Review of Systems Narrative: per HPI PFSH All Active Problems Obesity (Chronic) Dependence on nocturnal oxygen therapy (Acute) Obstructive sleep apnea (Chronic) Ground glass opacity present on imaging of lung (Acute) Hypertriglyceridemia (Acute) Acute pancreatitis (Acute) Medical History Duodenitis DVT (deep venous thrombosis) Pancreatitis Pulmonary embolism 2020 post COVID-19; finished 3 months of anticoagulation with eliquis Surgical History H/O esophagogastroduodenoscopy H/O tooth extraction History of biopsy negative retroperitoneal biopsy (ruled out retroperitoneal fibrosis) Hx of appendectomy S/P colonoscopy Family History Mother Heart disease Had stents placed in her 30s Diabetes Maternal Grandfather Stroke Hypertension Maternal Aunt Cancer brain cancer Maternal Cousin Lupus Father Crohn disease Social History Smoking/Tobacco Use Status: Former Tobacco Use tobacco type: cigarettes Pack-years: 1 Tobacco: How many years used: 3 Smoking risk assessment performed?: Yes Alcohol Intake: former Substance use type: does not use Do you feel safe at home: Yes Do you feel safe in your relationship?: Yes Meds Allergies and Home Medications Allergies Allergy/AdvReac Type Severity Reaction Status Date / Time droperidol AdvReac Cardiac Unverified 04/10/23 18:43 Dysrhythmia haloperidol [From Haldol] AdvReac Diarrhea Unverified 04/10/23 18:43 Home Medications Medication Instructions Recorded Confirmed Type hydromorphone 2 mg tablet 2 mg PO PRN PRN Severe Pain (Scale 04/03/23 04/10/23 History (Dilaudid) Score 7-10) melatonin 1 mg tablet 1 mg PO HS 04/03/23 04/10/23 History metoprolol succinate 100 mg 200 mg PO DAILY 04/03/23 04/10/23 History capsule sprinkle, ext. release 24 hr ondansetron 4 mg disintegrating 4 mg PO DAILY PRN 04/03/23 04/10/23 History tablet Exam Narrative Exam Narrative: 120/87, 126, 36.6, 26, 97% RA. HEENT atraumatic, anicteric; neck supple; lungs clear; heart tachy/regular; abdomen soft, mild-moderate epigastric tenderness w/o rebound; rectal deferred; extremities w/o edema; neuro Ox3, lucid, moves all 4s Results Labs 04/10/23 19:23 04/10/23 20:08 Labs: Laboratory Results - last 24 hr 04/10/23 04/10/23 04/10/23 19:23 19:23 20:08 WBC 12.93 H RBC 6.45 H Hgb 18.2 H Hct 53.1 H MCV 82 MCH 28.2 MCHC 34.3 RDW 13.3 Plt Count 331 MPV 9.3 Immature Gran % 0.4 Neutrophils % 71.0 Lymphocytes % 18.2 Monocytes % 8.0 Eosinophils % 1.9 Basophils % 0.5 Nucleated RBC % 0.0 Absolute Neutrophils 9.18 H Absolute Lymphocytes 2.35 Absolute Monocytes 1.03 H Absolute Eosinophils 0.25 Absolute Basophils 0.06 RBC Morphology Normal Sodium Cancelled 137 Potassium Cancelled 4.0 Chloride Cancelled 105 Carbon Dioxide Cancelled 22.6 Anion Gap Cancelled 9.4 BUN Cancelled 20 H Creatinine Cancelled 1.0 Est GFR (CKD-EPI 2020) Cancelled 104.48 Glucose Cancelled 134 H Calcium Cancelled 9.1 Magnesium Cancelled 1.9 Total Bilirubin Cancelled 0.4 AST Cancelled 22 ALT Cancelled 61 Alkaline Phosphatase Cancelled 71 Troponin I Cancelled < 50 Total Protein Cancelled 6.7 Albumin Cancelled 3.3 L Lipase Cancelled 26 Urine Color Urine Clarity Urine pH Ur Specific [place] Urine Protein Urine Ketones Urine Blood Urine Nitrite Urine Bilirubin Urine Urobilinogen Ur Leukocyte Esterase Urine RBC Urine WBC Ur Epithelial Cells Urine Crystals Urine Bacteria Urine Casts Urine Mucus Ur Culture Indicated? Urine Glucose 04/10/23 21:20 WBC RBC Hgb Hct MCV MCH MCHC RDW Plt Count MPV Immature Gran % Neutrophils % Lymphocytes % Monocytes % Eosinophils % Basophils % Nucleated RBC % Absolute Neutrophils Absolute Lymphocytes Absolute Monocytes Absolute Eosinophils Absolute Basophils RBC Morphology Sodium Potassium Chloride Carbon Dioxide Anion Gap BUN Creatinine Est GFR (CKD-EPI 2020) Glucose Calcium Magnesium Total Bilirubin AST ALT Alkaline Phosphatase Troponin I Total Protein Albumin Lipase Urine Color Dark Yellow Urine Clarity Sl Cloudy Urine pH 5.0 Ur Specific [place] >= 1.030 H Urine Protein Negative Urine Ketones Negative Urine Blood Trace-intact H Urine Nitrite Negative Urine Bilirubin Small H Urine Urobilinogen 0.2 Ur Leukocyte Esterase Negative Urine RBC 0-2 Urine WBC 3-5 Ur Epithelial Cells Few Urine Crystals Negative Urine Bacteria Rare Urine Casts 0-2 Hyaline Urine Mucus Moderate Ur Culture Indicated? No Urine Glucose Negative Last Vital Signs Temp 36.6 C 04/10/23 18:41 Pulse 124 H 04/10/23 18:41 Resp 26 H 04/10/23 18:41 BP 120/87 04/10/23 18:41 Pulse Ox 97 04/10/23 18:41 Time Spent Time spent with Patient: 40-54 minutes Time was spent: preparing to see the patient(eg.review tests), obtaining and/or reviewing separately otained hiistory, ordering medications,tests, procedures, indepentently interpreting results and counseling the patient
[2023-04-10 22:18] LABS: Amylase 36 U/L (25-115)
[2023-04-10 23:05] VITALS: BP 132/94; PULSE 105; RESP 18; TEMP 36.1; O2SAT 96
[2023-04-10 23:53] VITALS: PULSE 98
[2023-04-10 23:57] VITALS: BP 132/94; PULSE 95
[2023-04-10] MEDS: Metoprolol 5 MG/5 ML VIAL IVP (23:57)
[2023-04-11] VITALS (16 sets, daily range): BP systolic 100–148; BP diastolic 67–93; PULSE 73–118; RESP 18–21; TEMP 36.1–36.9; O2SAT 96–99
[2023-04-11] MEDS: ACETAMINOPHEN 1,000 MG/100 ML BTL 400 MG IVPB (00:05)
[2023-04-11] MEDS: Ondansetron 4 MG/2 ML VIAL IVP ×4 (00:06→17:48)
[2023-04-11] MEDS: HYDROmorphone 2 MG/ML SYR IVP ×9 (03:49→22:33)
[2023-04-11] MEDS: Normal Saline Flush 10 ML SYR IVP (03:50)
[2023-04-11] MEDS: Metoprolol 5 MG/5 ML VIAL IVP ×5 (04:21→20:16)
[2023-04-11 07:06] LABS: MCH 28.2 pg (27.0-33.0); MCHC 33.3 % (32.0-36.0); MCV 85 fL (80-95); MPV 9.4 fL (8.0-11.0); Platelet Count 258 10^3/uL (130-400); RBC 5.32 10^6/uL (4.36-5.78); RDW 13.4 % (11.8-14.1); RDW-SD 41.7 fL; WBC 9.79 10^3/uL (4.4-10.8)
[2023-04-11 07:21] LABS: Anion Gap 7.9 mmol/L (3-11); BUN 15 mg/dL (7-18); CO2 25.1 mmol/L (21.0-32.0); CREATININE 0.8 mg/dL (0.70-1.30); Calcium 8.7 mg/dL (8.5-10.1); Chloride 105 mmol/L (98-107); Estimated GFR 122.86 (mL/min/1.73m2); Glucose 114 mg/dL (74-106); Potassium 4.2 mmol/L (3.5-5.1); Sodium 138 mmol/L (136-145)
[2023-04-11 07:49] LABS: Lab Add On Test DONE
[2023-04-11 08:05] LABS: C-Reactive Protein 0.96 mg/dL (0.0-0.3)
[2023-04-11 09:01] LABS: Procalcitonin < 0.1 ng/mL
--- NOTE | 2023-04-11 09:06 | RESPIRATORY ---
Patient indicated he had a sleep study at [facility] and they provided him with a CPAP machine with 3 different mask options. Patient advised that he continued to have desaturations during the night wearing the CPAP machine and he opted to use oxygen instead (wears 3-4L at night). I asked him if he he had issues with the masks leaking or spoke to [facility] about the settings to try and troubleshoot the CPAP machine and he advised that the oxygen worked better so that's what he decided to go with. Patient has oxygen concentrator at home which he ordered from [facility]. Patient had been using [employer] as his DME for his oxygen but his insurance denied to provide coverage for O2 at night and patient went and ordered concentrator online.
--- NOTE | 2023-04-11 09:26 | INITIAL_ITS ---
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 His official address is in [place], [place] where he lives with his girlfriend, but he also stays with his mother in [place], [place] and with a friend in [place], [place]. He also travels to [place], [place] and [place]. The remainder of Niels's family is scattered around the country. His Dad is in [place], he has a brother in [place] and more relatives in [place]. Niels is independent at baseline and does not receive any community services. CURRENT FUNCTIONAL STATUS:: Niels is lying in bed when CM met with him. He is awake and easily engages in conversation. Niels stated that he developed pancreatitis after he had covid in 2020 and has been treated at [facility], [facility] and [facility] in [place], [place] for this. He does not have a PCP as he is not in any one location consistently. He will be traveling back to [place] to stay with his mom after discharge. ADVANCE DIRECTIVES:: None Has patient been provided with info about the portal/API?: Yes Did the patient sign up for the portal?: No CODE STATUS:: Full Code INSURANCE COVERAGE / FINANCIAL ISSUES:: [place] out of state CURRENT HOME/COMMUNITY SERVICES/EQUIPMENT:: Home O2 at , concentrator bought online PRIMARY CARE PHYSICIAN:: None POTENTIAL DISCHARGE NEEDS:: Possible transfer to tertiary hospital Establish care with a PCP PATIENT/FAMILY EDUCATION NEEDS:: Review discharge instructions, limitations, medications and plan to follow up with community providers. Review ask me three. TRANSPORTATION:: Via private vehicle with mother vs. transfer PLAN:: Niels is being closely monitored and treated. Potential for transfer to a tertiary hospital per hospitalist. CM will follow. 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 therapy (Acute) Obstructive sleep apnea (Chronic) Ground glass opacity present on imaging of lung (Acute) Hypertriglyceridemia (Acute) Acute pancreatitis (Acute) Medical History Duodenitis DVT (deep venous thrombosis) Pancreatitis Pulmonary embolism 2020 post COVID-19; finished 3 months of anticoagulation with eliquis Surgical History H/O esophagogastroduodenoscopy H/O tooth extraction History of biopsy negative retroperitoneal biopsy (ruled out retroperitoneal fibrosis) Hx of appendectomy S/P colonoscopy Family History Mother Heart disease Had stents placed in her 30s Diabetes Maternal Grandfather Stroke Hypertension Maternal Aunt Cancer brain cancer Maternal Cousin Lupus Father Crohn disease Social History Smoking/Tobacco Use Status: Former Tobacco Use tobacco type: cigarettes Pack- years: 1 Tobacco: How many years used: 3 Smoking risk assessment performed?: Yes Alcohol Intake: former Substance use type: does not use Do you feel safe at home: Yes Do you feel safe in your relationship?: Yes
--- NOTE | 2023-04-11 11:45 | W.PM.PROGNOT ---
Date of Service Date of service: 04/11/23 Time of Service: 11:45 Assessment and Plan Assessment and plan (1) Acute pancreatitis: Status: Acute Assessment and plan: tolerating clears, although only a small amount will continue IV fluids, advance diet as tolerated continue pain management check labs in am No evidence of abscess/phlegmon/pseudocyst at this time. Encourage IS. his triglyceride level is not likely high enough to cause pancreatitis US negative for gall stones last week Lipase and amylase negative Discussed with Dr Nichols [place] [facility] [place] continue fluids, pain meds, they will see him outpt (2) Hypertriglyceridemia: Status: Acute Assessment and plan: Not high enough to initiate insulin gtt for pancreatitis. A1C 5.8. (3) Ground glass opacity present on imaging of lung: Status: Acute Assessment and plan: respiratory status stable Encourage IS. (4) Obstructive sleep apnea: Status: Chronic Assessment and plan: Provide nocturnal O2. Normally uses 3.5-4 L. (5) DVT prophylaxis: Status: Acute Assessment and plan: Sc enoxaparin (6) Discharge planning issues: Status: Acute Assessment and plan: Full code discussed with Dr Lema Subjective Subjective Patient reports: no new complaints, still having pain, tolerating a regular diet (anna clears), voiding w/o difficulty, bowel movement, nausea and afebrile; denies diarrhea or vomiting Interval history since last seen: Continues to have pain and nausea. Awake and alert side lying in bed. Exam Const General: cooperative Nutritional Appearance: obese Orientation: alert, awake and oriented x3 HENMT Head: normal to inspection, normocephalic and atraumatic Mouth: oral mucosae normal Eyes General: appearance normal, both eyes and all related structures Chest Chest: normal inspection of the chest Resp Effort & Inspection: normal respiratory effort and able to speak in complete sentences Auscultation: clear to auscultation bilaterally Cardio Rate: regular rate Rhythm: regular rhythm GI Inspection: normal to inspection Palpation: soft, no guarding, no masses, not rigid, tender and No ascites Auscultation: normal bowel sounds Back/Spine/Pelvis Back: no CVA tenderness Skin General skin exam: no rashes or lesions noted Neuro General: patient alert, patient awake, patient oriented x3 and moves all extremities Extrem General: normal to inspection, full ROM and no pedal edema Psych Mental Status: mental status grossly normal Speech and Movement: speech and movement normal Mood: congruent mood Affect: normal affect Objective Last Vital Signs Temp 36.6 C 04/11/23 22:54 Pulse 73 04/11/23 22:54 Resp 21 04/11/23 22:54 BP 139/77 04/11/23 22:54 Pulse Ox 96 04/11/23 22:54 Laboratory Results - last 24 hr 04/11/23 04/11/23 04/11/23 06:10 06:10 06:10 WBC 9.79 RBC 5.32 Hgb 15.0 D Hct 45.0 MCV 85 MCH 28.2 MCHC 33.3 RDW 13.4 Plt Count 258 MPV 9.4 Sodium 138 Potassium 4.2 Chloride 105 Carbon Dioxide 25.1 Anion Gap 7.9 BUN 15 Creatinine 0.8 Est GFR (CKD-EPI 2020) 122.86 Glucose 114 H Calcium 8.7 Iron TIBC Transferrin % Sat Ferritin C-Reactive Protein Procalcitonin AJIT Titer AJIT Titer 2 AJIT Cytoplasm Pattern AJIT Pattern AJIT Pattern 2 AJIT (Hep-2) AJIT Comment Anti-Smooth Muscle Ab Hepatitis A IgM Ab Hep Bs Antigen Hep Bs Antibody Hep Bs Antibody, Quant Hep B Core Total Ab Hepatitis C Antibody Add-On Test Request DONE 04/11/23 04/11/23 04/11/23 06:10 06:10 06:10 WBC RBC Hgb Hct MCV MCH MCHC RDW Plt Count MPV Sodium Potassium Chloride Carbon Dioxide Anion Gap BUN Creatinine Est GFR (CKD-EPI 2020) Glucose Calcium Iron 60 L TIBC 344 Transferrin % Sat 17 L Ferritin C-Reactive Protein 0.96 H Procalcitonin < 0.1 AJIT Titer AJIT Titer 2 AJIT Cytoplasm Pattern AJIT Pattern AJIT Pattern 2 AJIT (Hep-2) AJIT Comment Anti-Smooth Muscle Ab Hepatitis A IgM Ab Hep Bs Antigen Hep Bs Antibody Hep Bs Antibody, Quant Hep B Core Total Ab Hepatitis C Antibody Add-On Test Request 04/11/23 04/11/23 04/11/23 06:10 12:43 Unknown WBC RBC Hgb Hct MCV MCH MCHC RDW Plt Count MPV Sodium Potassium Chloride Carbon Dioxide Anion Gap BUN Creatinine Est GFR (CKD-EPI 2020) Glucose Calcium Iron TIBC Transferrin % Sat Ferritin 72 C-Reactive Protein Procalcitonin AJIT Titer AJIT Titer 2 AJIT Cytoplasm Pattern AJIT Pattern AJIT Pattern 2 AJIT (Hep-2) AJIT Comment Anti-Smooth Muscle Ab Cancelled Hepatitis A IgM Ab Cancelled Hep Bs Antigen Cancelled Hep Bs Antibody Cancelled Hep Bs Antibody, Quant Cancelled Hep B Core Total Ab Cancelled Hepatitis C Antibody Cancelled Add-On Test Request 04/11/23 Unknown WBC RBC Hgb Hct MCV MCH MCHC RDW Plt Count MPV Sodium Potassium Chloride Carbon Dioxide Anion Gap BUN Creatinine Est GFR (CKD-EPI 2020) Glucose Calcium Iron TIBC Transferrin % Sat Ferritin C-Reactive Protein Procalcitonin AJIT Titer Cancelled AJIT Titer 2 Cancelled AJIT Cytoplasm Pattern Cancelled AJIT Pattern Cancelled AJIT Pattern 2 Cancelled AJIT (Hep-2) Cancelled AJIT Comment Cancelled Anti-Smooth Muscle Ab Hepatitis A IgM Ab Hep Bs Antigen Hep Bs Antibody Hep Bs Antibody, Quant Hep B Core Total Ab Hepatitis C Antibody Add-On Test Request Time Spent with Patient Time Spent with Patient: >50 minutes Time was spent: preparing to see the patient(eg.review tests), obtaining and/or reviewing separately otained hiistory, ordering medications,tests, procedures, referring, communicating with other health director day care center, indepentently interpreting results, counseling the patient and care coordination
[2023-04-11 14:41] LABS: Iron 60 ug/dL (65-175); Total Iron Binding Capacity 344 ug/dL (250-450); Transferrin Sat 17 % (20-55)
[2023-04-11 14:53] LABS: Ferritin 72 ng/mL (26-388)
[2023-04-11] MEDS: LORazepam 2 MG/ML VIAL 1 MG IVP (22:32)
[2023-04-11] MEDS: Lactated Ringers 1,000 ML 150 ML IV ×2 (22:35)
[2023-04-12] VITALS (13 sets, daily range): BP systolic 120–132; BP diastolic 71–89; PULSE 72–103; RESP 14–18; TEMP 36.7–37; O2SAT 92–97
[2023-04-12] MEDS: HYDROmorphone 2 MG/ML SYR IVP ×6 (00:33→12:40)
[2023-04-12] MEDS: Metoprolol 5 MG/5 ML VIAL IVP ×4 (00:33→10:52)
[2023-04-12] MEDS: Ondansetron 4 MG/2 ML VIAL IVP (06:45)
[2023-04-12 06:55] LABS: Abs Immature Grans 0.02 10^3/uL (0.0-0.06); Absolute Basophil Count 0.04 10^3/uL (0.0-0.2); Absolute Eosinophil Count 0.22 10^3/uL (0.0-0.7); Absolute Lymphocyte Count 1.74 10^3/uL (1.2-3.4); Absolute Monocyte Count 0.62 10^3/uL (0.1-0.8); Absolute Neutrophil Count 4.87 10^3/uL (1.2-6.7); Basophils % 0.5; Eosinophils % 2.9; HCT 41.8 % (40.0-50.0); HGB 13.8 g/dL (13.5-17.5); Immature Grans % 0.3; Lymphocytes % 23.2; MCH 27.9 pg (27.0-33.0); MCV 85 fL (80-95); MPV 9.4 fL (8.0-11.0); Monocytes % 8.3; Neutrophils % 64.8; Platelet Count 225 10^3/uL (130-400); RBC 4.94 10^6/uL (4.36-5.78); RDW 13.3 % (11.8-14.1); RDW-SD 41.1 fL; WBC 7.51 10^3/uL (4.4-10.8)
[2023-04-12 07:18] LABS: ALT 47 U/L (16-63); AST 18 U/L (15-37); Albumin 3.6 g/dL (3.4-5.0); Alkaline Phosphatase 74 U/L (46-116); Anion Gap 8.6 mmol/L (3-11); BUN 8 mg/dL (7-18); Bilirubin, Direct 0.1 mg/dL (0.0-0.2); Bilirubin, Total 0.9 mg/dL (0.2-1.0); CO2 27.4 mmol/L (21.0-32.0); CREATININE 0.7 mg/dL (0.70-1.30); Calcium 9.1 mg/dL (8.5-10.1); Chloride 100 mmol/L (98-107); Estimated GFR 127.91 (mL/min/1.73m2); Glucose 109 mg/dL (74-106); Magnesium 1.9 mg/dL (1.8-2.4); Potassium 3.9 mmol/L (3.5-5.1); Sodium 136 mmol/L (136-145); Total Protein 6.9 g/dL (6.4-8.2)
--- NOTE | 2023-04-12 09:55 | CMPROGNOTE_ITS ---
Date of service: 04/12/23 Time of Service: 09:55 Care Management Progress Note Progress Note Text Progress Note Text: S/O: Niels was lying in bed, resting when CM met with him. He remains on IV Dilaudid for pain control. Per provider, his care was reviewed with Dr. Nichols from [facility], Outpatient Gastro follow up is recommended. Niels is encouraged to establish care with a PCP, PCP resource list provided to patient. Hospital follow up appointment may be scheduled with Dr. Turner using T-doc schedule. Niels is planning to take time off work and stay with his mother in [place] until he is feeling better. CM will follow. A: 27 year old male admitted to [facility] on 04/10/23 for Pancreatitis P: Anticipate, Niels will discharge to his home in [place] with outpatient follow up with [facility] Gastroenterology. He will be driven via private vehicle with family. Primary Care follow up appointment can be scheduled with Dr. Turner (per t-doc schedule). Niels is encouraged to establish care with a PCP of choice.
[2023-04-12] MEDS: Lactated Ringers 1,000 ML 150 ML IV (11:09)
[2023-04-12] MEDS: HYDROmorphone 2 MG TAB PO (14:36)
[2023-04-12] MEDS: Ondansetron O.D.T. 4 MG TABEF PO (14:37)
--- NOTE | 2023-04-12 15:51 | W.PM.PROGNOT ---
Date of Service Date of service: 04/12/23 Time of Service: 15:52 Objective Last Vital Signs Temp 36.7 C 04/12/23 14:59 Pulse 92 H 04/12/23 14:59 Resp 16 04/12/23 14:59 BP 132/89 04/12/23 14:59 Pulse Ox 92 04/12/23 14:59 Laboratory Results - last 24 hr 04/12/23 04/12/23 06:35 06:35 WBC 7.51 RBC 4.94 Hgb 13.8 Hct 41.8 MCV 85 MCH 27.9 MCHC 33.0 RDW 13.3 Plt Count 225 MPV 9.4 Immature Gran % 0.3 Neutrophils % 64.8 Lymphocytes % 23.2 Monocytes % 8.3 Eosinophils % 2.9 Basophils % 0.5 Nucleated RBC % 0.0 Absolute Neutrophils 4.87 Absolute Lymphocytes 1.74 Absolute Monocytes 0.62 Absolute Eosinophils 0.22 Absolute Basophils 0.04 Sodium 136 Potassium 3.9 Chloride 100 Carbon Dioxide 27.4 Anion Gap 8.6 BUN 8 Creatinine 0.7 Est GFR (CKD-EPI 2020) 127.91 Glucose 109 H Calcium 9.1 Magnesium 1.9 Total Bilirubin 0.9 Conjugated Bilirubin 0.1 AST 18 ALT 47 Alkaline Phosphatase 74 C-Reactive Protein 4.90 H Total Protein 6.9 Albumin 3.6
--- NOTE | 2023-04-12 17:19 | DSE_ITS ---
Date of service: 04/12/23 Time of Service: 17:19 DS: Diagnosis Discharge Diagnosis (1) Acute pancreatitis: Status: Acute (2) Hypertriglyceridemia: Status: Acute (3) Ground glass opacity present on imaging of lung: Status: Acute (4) Obstructive sleep apnea: Status: Chronic (5) DVT prophylaxis: Status: Deleted (6) Discharge planning issues: Status: Deleted Discharge Plan Disposition Patient Disposition: Home Condition: Improving Discharge Details Reason For Visit: Pancreatitis Admit Date/Time: 04/10/23 22:01 Admit Provider: Mickey La Attending Provider: Mickey La [facility] Course: This is a 27 year old male patient with PMHx of recurrent pancreatitis and duodenitis, 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 He tried taking his home dilaudid and zofran, but vomited them. He also complained of some diarrhea. No blood in stool or emesis. He has not been able to keep his metoprolol down. Upon arrival to the ED, he was tachycardic with HRs to 120s (sinus). His ED workup included a CT of the abdomen which confirmed acute pancreatitis. There was also evidence of an ileus vs enteritis and ground glass opacities in his lungs. The patient was started on aggressive IVF with pain control with IV dilaudid. Despite three doses of this in the ED, his pain was still not well controlled.? He was admitted to the medical floor for further diagnostic testing and treatment.? He was NPO and received fluids.? His diet was advanced to clear liquids then as tolerated solids.? He was changed to oral medication.? He ate a full solid food lunch without pain/nausea/vomiting.? We contacted [facility] [place] and deloris roa did not feel he needed transfer and was ok to send home with oral medications.? They will call him with an out patient appointment for follow up. He has no kept his follow up appointments.? He has been to several hospitals in [place] and [place].? We recommended to him he stay with [facility] [place] and to keep the follow up appointment.? This was his second admission in one week.? He is a full code.? He was discharged with 10 dilaudid pills with no refills and told to follow up with his PCP and [facility] [place] [facility]. ? Home Meds and New Rx's Prescriptions: New hydromorphone 4 mg tablet 4 mg PO Q6H PRNQty: 10 0RF Continued ondansetron 4 mg Tablet,Disintegrating 4 mg PO DAILY PRN melatonin 1 mg Tablet 1 mg PO HS metoprolol succinate 100 mg Capsule,Sprinkle,Er 24hr 200 mg PO DAILY Discontinued hydromorphone [Dilaudid] 2 mg Tablet 2 mg PO PRN PRN (Reason: Severe Pain (Scale Score 7-10)) Rx Instructions: 2-6mg as needed Discharge Instructions Instructions: Pancreatitis (DC) Additional Instructions: Follow up with your PCP for further pain managment. See [facility] [place] [facility] - they know you were hospitalized and have arranged for you to be seen in the clinic. They wiill provide you with the date and time. It is important to seek care with one clinic to have continuity of care and the benefit of all records and testing in one place, this will help your overall health and daily function. Stand Alone Forms: Nursing Discharge Form Referrals: [facility] [Outside] (with your PCP Cesilia CRAWFORD for follow-up and pain management) [place]STR[place],[facility] [place] - (YVETTE Please call them - they know you were here and are making an appointment for you next week, it is important for you to attend this appointment. ) Activity:: Activity as Tolerated Equipment/Supplies:: No Equipment Needed Diet:: As Tolerated Discharge Orders Discharge Orders: Discharge Order (Routine); Ordered 04/12/23 Ordered By: Brianda Coleman Discharge Data Discharge Date/Time-TO BE ENTERED AT DEPARTURE: 04/12/23 18:25 DS: Summary Time Spent with Patient providing and/or coordinating discharge services: Greater than 30 minutes Status at Discharge Functional status at discharge: independent ambulation Overall status at discharge: patient is back to baseline Mental Status: mental status grossly normal Speech and Movement: speech and movement normal Mood: congruent mood Affect: normal affect Exam Const General: cooperative Nutritional Appearance: obese Orientation: alert, awake and oriented x3 HENMT Head: normal to inspection, normocephalic and atraumatic Mouth: oral mucosae normal Eyes General: appearance normal, both eyes and all related structures Chest Chest: normal inspection of the chest Resp Effort & Inspection: normal respiratory effort and able to speak in complete sentences Auscultation: clear to auscultation bilaterally Cardio Rate: regular rate Rhythm: regular rhythm GI Inspection: normal to inspection Palpation: soft, no guarding, no masses, not rigid, tender and No ascites Auscultation: normal bowel sounds Back/Spine/Pelvis Back: no CVA tenderness Skin General skin exam: no rashes or lesions noted Neuro General: patient alert, patient awake, patient oriented x3 and moves all extremities Extrem General: normal to inspection, full ROM and no pedal edema Psych Mental Status: mental status grossly normal Speech and Movement: speech and movement normal Mood: congruent mood Affect: normal affect DS: Data Vitals/I&O Vitals and I&O: Vital Signs Temperature 36.7 C 04/12/23 14:59 Temperature Source Tympanic 04/12/23 14:59 Pulse 92 H 04/12/23 14:59 Pulse Rhythm Regular 04/12/23 15:05 Respiratory Rate 16 04/12/23 14:59 Respiratory Effort Normal, Non-Labored 04/12/23 15:05 Respiratory Depth Normal 04/12/23 15:05 Respiratory Pattern Normal 04/12/23 15:05 Blood Pressure 132/89 04/12/23 14:59 Pulse Oximetry 92 04/12/23 14:59 Oxygen Delivery Method Room Air 04/12/23 14:59 Oxygen Flow Rate 0 04/12/23 14:59 Pain Level 6 04/12/23 14:59 Intake & Output 04/11/23 04/12/23 04/12/23 23:59 11:59 23:59 Intake Total 480 / 1590 1000 / 1655 655 / 1655 Output Total 1600 / 1600 Balance 480 / 840 -600 / 55 655 / 55 Intake: IV 1000 / 1655 655 / 1655 Oral 480 / 480 Output: Urine 1600 / 1600 Other: Urine Appearance Clear Clear Clear Data Completed and Pending Labs on day of discharge: Labs from last 24 hours 04/12/23 04/12/23 06:35 06:35 WBC 7.51 RBC 4.94 Hgb 13.8 Hct 41.8 MCV 85 MCH 27.9 MCHC 33.0 RDW 13.3 Plt Count 225 MPV 9.4 Immature Gran % 0.3 Neutrophils % 64.8 Lymphocytes % 23.2 Monocytes % 8.3 Eosinophils % 2.9 Basophils % 0.5 Nucleated RBC % 0.0 Absolute Neutrophils 4.87 Absolute Lymphocytes 1.74 Absolute Monocytes 0.62 Absolute Eosinophils 0.22 Absolute Basophils 0.04 Sodium 136 Potassium 3.9 Chloride 100 Carbon Dioxide 27.4 Anion Gap 8.6 BUN 8 Creatinine 0.7 Est GFR (CKD-EPI 2020) 127.91 Glucose 109 H Calcium 9.1 Magnesium 1.9 Total Bilirubin 0.9 Conjugated Bilirubin 0.1 AST 18 ALT 47 Alkaline Phosphatase 74 C-Reactive Protein 4.90 H Total Protein 6.9 Albumin 3.6 PFSH All Active Problems (Updated 04/13/23 @ 00:14 by LETICIA LI) Acute on chronic pancreatitis (Acute) Obesity (Chronic) Dependence on nocturnal oxygen therapy (Acute) Obstructive sleep apnea (Chronic) Ground glass opacity present on imaging of lung (Acute) Hypertriglyceridemia (Acute) Acute pancreatitis (Acute) Medical History Duodenitis DVT (deep venous thrombosis) Pancreatitis Pulmonary embolism 2020 post COVID-19; finished 3 months of anticoagulation with eliquis Surgical History H/O esophagogastroduodenoscopy H/O tooth extraction History of biopsy negative retroperitoneal biopsy (ruled out retroperitoneal fibrosis) Hx of appendectomy S/P colonoscopy Family History Mother Heart disease Had stents placed in her 30s Diabetes Maternal Grandfather Stroke Hypertension Maternal Aunt Cancer brain cancer Maternal Cousin Lupus Father Crohn disease Social History Smoking/Tobacco Use Status: Former Tobacco Use tobacco type: cigarettes Pack- years: 1 Tobacco: How many years used: 3 Smoking risk assessment performed?: Yes Alcohol Intake: former Substance use type: does not use Do you feel safe at home: Yes Do you feel safe in your relationship?: Yes Time Spent with Patient Time Spent with Patient: 70-84 minutes4 Time was spent: preparing to see the patient(eg.review tests), obtaining and/or reviewing separately otained hiistory, ordering medications,tests, procedures, referring, communicating with other health acute care clinical nurse specialist, indepentently interpreting results, counseling the patient and care coordination
[2023-04-13 11:10] LABS: HBs Antibody, Qual Negative (See Note); HBs Antibody, Quant <3.1 mIU/mL (See Note); HIV-1/2 Ag & Ab Screen Negative (Negative); Hepatitis B Core Antibody Negative (Negative); Hepatitis B surface Ag Negative (Negative); Hepatitis C Ab w Rflx HCV PCR Negative (Negative)
== END 2023-04-12 18:25 | disposition home or self-care (01) | DRG 439 ==
LOC: ER 22:51 → MS 22:56
PROVIDERS: Internal Medicine; Nurse Practitioner Family; Admitting Provider General Practice; Emergency Provider Registered Nurse Emergency; Visit Provider General Practice
DX: K85.00 Idiopathic acute pancreatitis without necrosis or infection (principal); Z68.41 Body mass index [BMI] 40.0-44.9, adult; E78.1 Pure hyperglyceridemia; E66.9 Obesity, unspecified; G47.33 Obstructive sleep apnea (adult) (pediatric); R91.8 Other nonspecific abnormal finding of lung field; Z86.718 Personal history of other venous thrombosis and embolism; Z86.711 Personal history of pulmonary embolism; Z86.16 Personal history of COVID-19; Z87.891 Personal history of nicotine dependence
CPT/HCPCS: 36415; 80048; 80053; 80076; 83690; 84145; 85027; 86704; 86706; 86709; 86803; 87340; 87389; 93005; 74177; 81003; 81015; 82150; 82728; 83540; 83550; 83735; 84484; 85025; 86140; 86255; 93010; 99222; 99232; 99239; J0131; J1170; J2060; J2405; J3490

== ENCOUNTER 2025-01-20 12:18 | Inpatient (IN) | payer MEDICAID, SELFPAY ==
[2025-01-20] VITALS (42 sets, daily range): BP systolic 119–147; BP diastolic 70–111; PULSE 72–107; RESP 11–32; TEMP 36.1–37.5; O2SAT 94–99
--- NOTE | 2025-01-20 12:15 | RT.EKG_ITS ---
APPROVED REPORT Exam: Resting ECG Reason for Exam: chest pain Patient Location: E HR:110 bpm ECG Measurements Heart Rate 110 AXIS OK 122 P 28 QRSd 106 QRS 39 QT 339 T -1 QTc 460 Conclusion Sinus tachycardia...rate> 99 No STEMI
--- NOTE | 2025-01-20 12:45 | DI.CT_ITS ---
Exam(s) CT CHEST/ABD/PEL W EXAM: CT CHEST/ABD/PEL W CLINICAL HISTORY: Hematochezia abdominal pain TECHNIQUE: Imaging Protocol: Axial computed tomography images with coronal and sagittal reformatted images were created and reviewed. Lung Computer Aided Detection (CAD) was utilized. CONTRAST MATERIAL: Intravenous: Omnipaque 350 contrast volume:100 mL Oral: No COMPARISON: CT CT ABDOMEN PELVIS W from 04/10/2023 FINDINGS: CHEST: Tracheobronchial tree: Patent where visualized. No evidence of bronchiectasis. Pulmonary parenchyma: No consolidation or dominant measurable mass. There is scarring or atelectasis in the right middle lobe. Visualized thyroid gland: Unremarkable. Mediastinum and Laura: No dominant adenopathy or fluid collection. The esophagus is unremarkable. Pleura: No effusion or pneumothorax. Heart: The heart is not dilated. Mild coronary artery calcification is present. No pericardial effus ion. Pulmonary arteries: Due to the timing of the bolus, pulmonary artery evaluation is suboptimal. No la rge central pulmonary embolism is seen. Aorta: Thoracic aorta non-dilated. Lymph nodes: Within normal limits. Soft tissues: Unremarkable. Bones:Within normal limits for the patient's age. There is a bone island again seen in the right pub ic bone. ABDOMEN: Liver: There is decreased attenuation of the liver suggesting fatty infiltration. No measurable mass . Portal, Superior Mesenteric, and Splenic Veins: Unremarkable. Gallbladder and Biliary Tract: No radiodense calculus or dilation. Pancreas: There is mild inflammatory stranding seen around the head of the pancreas and the duodenum. No focal fluid collection is seen. No pancreatic mass is identified. Spleen: Normal. Adrenals: No masses seen. Kidneys: Normal size, contour and axis. There is a 3 mm nonobstructing stone in the midpole of the ri ght kidney. No masses seen. Incidental note is made of a retroaortic left renal vein. Abdominal Aorta: Abdominal portion non-dilated. Minimal atherosclerotic calcification is seen of the abdominal aorta and its runoff. Bowel: There is no evidence of bowel obstruction. There is question of thickening of the wall of the 3rd portion of the duodenum. No evidence of appendicitis. Peritoneal Cavity: No ascites, collection or mesenteric inflammatory response. No free air. Lymph Nodes: Within normal limits. Bones: Within normal limits for the patient's age. Soft Tissues: There is mild inflammation in the retroperitoneal soft tissues bilaterally. PELVIS: Bladder: Symmetric distention, no gross wall thickening. Reproductive Organs: Unremarkable as visualized. Lymph Nodes: Within normal limits. Bones: Within normal limits. IMPRESSION: 1. Mild infiltration in the peripancreatic compared waddle soft tissues and in the retroperitoneum. Differential considerations include acute pancreatitis or duodenitis. Please correlate clinically. 2. Right nephrolithiasis but no obstructive uropathy. 3. No evidence of appendicitis. 4. No acute pulmonary process. RADIATION DOSE DELIVERED: 853.13mGy.cm Total DLP DATA REPOSITORY: All CT scans at this facility are submitted to the National Radiology Data Registry (NRDR) Dose Index Registry (DIR) with the [employer] (ACR). RADIATION OPTIMIZATION: All CT scans at this facility use at least one of these dose optimization te chniques: automated exposure control; mA and/or kV adjustment per patient size (includes targeted exa ms where dose is matched to clinical indication); or iterative reconstruction.
--- NOTE | 2025-01-20 12:48 | ED.GENADUL_ITS ---
Discharge Plan Discharge Details Chief Complaint: GI Bleed Clinical Impression: Acute on chronic pancreatitis Primary Care Provider: Unknown,Unknown ED Provider: Kingston Ramos [place] Meds and New Rx's Prescriptions: No Action ondansetron 4 mg Tablet,Disintegrating 4 mg PO DAILY PRN melatonin 1 mg Tablet 1 mg PO HS oxycodone 20 mg tablet 20 mg PO Q4H PRN Patient Comments: TAKE 1 TABLET BY MOUTH EVERY 6 HOURS NEEDED FOR PAIN FOR 4 DAYS pantoprazole 40 mg tablet,delayed release (DR/EC) 40 mg PO DAILY Patient Comments: TAKE 1 TABLET BY MOUTH EVERY DAY metoclopramide HCl 5 mg tablet 5 mg PO BID Patient Comments: TAKE ONE TABLET BY MOUTH TWICE A DAY Eliquis 5 mg tablet 5 mg PO BID Creon 12,000-38,000 -60,000 unit capsule,delayed release(DR/EC) 1 cap PO TID PRN prednisone 20 mg tablet 30 mg PO DAILY Patient Comments: TAKE 2 TABLETS ONCE A DAY FOR 3 DAYS THEN 1 TABLET DAILY UNTIL FOLLOW UP WITH GI HPI General Date/Time Provider Initiated Documentation: 01/20/25 12:48 . HPI Narrative: MDM This is a tachycardic and uncomfortable appearing normal [age]-year-old male with history of autoimmune pancreatitis with abdominal pain hematemesis concerning for possibility of recurrent autoimmune pancreatitis. Patient does not have any active massive hematemesis so we will defer for factor PCC at this point in time. The CT so my suspicion is low for acute coronary syndrome however will obtain troponin testing. No tearing quality to suggest aortic dissection. Given emesis esophageal rupture certainly on the differential. Equal breath sounds and no trauma so doubt pneumothorax. Not hypotensive nor dialysis patient making my suspicion low for tamponade. No specific right upper quadrant tenderness to suggest acute cholecystitis. Given no black or bloody stools I did not assess for melena. Patient is bilateral lower extremity rash is consistent with prior episodes of autoimmune pancreatitis. He has no bullae to suggest Tillman-Austyn's syndrome. No intra-oral lesions to suggest toxic epidermal necrolysis. No significant erythema to suggest cellulitis. No fluctuance to suggest abscess. Will keep patient n.p.o. check labs treat pain with hydromorphone and provide 1 L of IV fluids. 3:[address] was concerning for pancreatitis. His labs were unremarkable he had no PIERRE no LFT abnormalities and no elevation of his lipase. Will touch base with GI at [facility] [place]. 5:20 PM Signed patient out to Dr. Peoples. He will benefit from hospitalization following GI consultation. Patient was last on 30 mg of steroids yesterday and is currently on a taper. HPI This is a 29-year-old male with an elevated BMI history of autoimmune pancreatitis and multiple prior DVTs on apixaban arrived to the emergency department via private vehicle in the setting of vomiting dark red blood 6 times today and 3 times yesterday. He reports that he has been tapering down off of his prednisone. He reports that this generally causes flares of his pancreatitis. Says that he was discharged 5 days ago from hospital in [place] where he was admitted 2 weeks ago. He denies routine tobacco, ethanol, and illicits. He denies any black or bloody stools. He last had a bowel movement yesterday. He endorses lower chest pain radiates into his back feels reminiscent of prior episodes of his pancreatitis.Reports he also developed a red rash on his lower extremities when he develops pancreatitis. He says that he also develops a fever. Past abdominal surgical history significant for remote appendectomy at age 13. Exam General: Uncomfortable-appearing in no acute distress speaking in complete sentences. Head: Normocephalic, atraumatic. Eye: Extraocular eye movements intact. No conjunctival injection. No scleral icterus. Ear, nose, mouth, throat: Grossly normal inspection. Normal voice, handling secretions normally. Neck: Trachea midline. Cardiovascular: Well-perfused distal extremities. Respiratory: Nonlabored respiration. Clear lungs bilaterally. Gastrointestinal: Nondistended abdomen. Soft. Minimal epigastric tenderness. No rebound. No guarding. Negative Dominguez sign. Musculoskeletal: No edema. Moving all 4 extremities spontaneously. Skin: Normal for age and race, grossly normal temperature and turgor. No acute rash. Neurologic: Alert and appropriate, no apparent acute deficits. Psychiatric: Mood and manner are appropriate. Grooming and personal hygiene are appropriate. Related Data Home Medications ?Medication ?Instructions ?Recorded ?Confirmed melatonin 1 mg tablet 1 mg PO HS 04/03/23 01/20/25 ondansetron 4 mg disintegrating 4 mg PO DAILY PRN 04/03/23 01/20/25 tablet apixaban 5 mg tablet (Eliquis) 5 mg PO BID 01/20/25 01/20/25 [id number] 1 cap PO TID PRN 01/20/25 01/20/25 12,000-38,000-60,000 unit capsule,delayed rel (Creon) metoclopramide HCl 5 mg tablet 5 mg PO BID 01/20/25 01/20/25 oxycodone 20 mg tablet 20 mg PO Q4H PRN 01/20/25 01/20/25 pantoprazole 40 mg tablet,delayed 40 mg PO DAILY 01/20/25 01/20/25 release prednisone 20 mg tablet 30 mg PO DAILY 01/20/25 01/20/25 Allergies Allergy/AdvReac Type Severity Reaction Status Date / Time droperidol AdvReac Cardiac Unverified 01/20/25 12:39 Dysrhythmia haloperidol (From Haldol) AdvReac Diarrhea Unverified 01/20/25 12:39 General Stated Complaint: GI Bleed PRITI: 2 Course Vital Signs Vital signs: Vital Signs Temperature 37.5 C 01/20/25 12:33 Pulse 104 H 01/20/25 12:33 Respiratory Rate 16 01/20/25 12:33 Blood Pressure 147/97 H 01/20/25 12:33 Pulse Oximetry 99 01/20/25 12:33 Temperature 37.5 C 01/20/25 12:33 Temperature Source Oral 01/20/25 12:33 Pulse 104 H 01/20/25 12:33 Respiratory Rate 16 01/20/25 12:33 Blood Pressure 147/97 H 01/20/25 12:33 Blood Pressure Position Sitting 01/20/25 12:33 Pulse Oximetry 99 01/20/25 12:33 Oxygen Delivery Method Room Air 01/20/25 12:33 Oxygen Flow Rate 0 01/20/25 12:33 Pain Level 10 01/20/25 12:33 Medical Decision Making Quality:SDOH Health Related Social Needs: No Data to Display PFSH All Active Problems (Updated 01/20/25 @ 15:50 by Kingston Ramos MD) Acute on chronic pancreatitis (Acute) Obesity (Chronic) Dependence on nocturnal oxygen therapy (Acute) Obstructive sleep apnea (Chronic) Ground glass opacity present on imaging of lung (Acute) Hypertriglyceridemia (Acute) Acute pancreatitis (Acute) Medical History Duodenitis DVT (deep venous thrombosis) Pancreatitis Pulmonary embolism 2020 post COVID-19; finished 3 months of anticoagulation with eliquis Surgical History H/O esophagogastroduodenoscopy H/O tooth extraction History of biopsy negative retroperitoneal biopsy (ruled out retroperitoneal fibrosis) Hx of appendectomy S/P colonoscopy Family History Mother Heart disease Had stents placed in her 30s Diabetes Maternal Grandfather Stroke Hypertension Maternal Aunt Cancer brain cancer Maternal Cousin Lupus Father Crohn disease Social History Smoking/Tobacco Use Status: Former Tobacco Use tobacco type: cigarettes Pack- years: 1 Tobacco: How many years used: 3 Smoking risk assessment performed?: Yes Alcohol Intake: former Drug use: Never Substance use type: does not use Do you feel safe at home: Yes Do you feel safe in your relationship?: Yes
[2025-01-20] MEDS: HYDROmorphone 2 MG/ML SYR 1 MG IVP ×4 (13:41→17:45)
[2025-01-20] MEDS: Pantoprazole 40 MG VIAL 80 MG IVP (13:42)
[2025-01-20] MEDS: Normal Saline 1,000 ML 1000 ML IV (13:42)
[2025-01-20 13:49] LABS: Abs Immature Grans 0.07 10^3/uL (0.0-0.06); Absolute Basophil Count 0.05 10^3/uL (0.0-0.2); Absolute Eosinophil Count 0.09 10^3/uL (0.0-0.7); Absolute Lymphocyte Count 2.26 10^3/uL (1.2-3.4); Absolute Monocyte Count 0.74 10^3/uL (0.1-0.8); Absolute Neutrophil Count 7.25 10^3/uL (1.2-6.7); Basophils % 0.5 %; Eosinophils % 0.9 %; HCT 41.6 % (40.0-50.0); Immature Grans % 0.7 %; Lymphocytes % 21.6 %; MCH 28.2 pg (27.0-33.0); MCHC 33.7 % (32.0-36.0); MCV 84 fL (80-95); MPV 9.1 fL (8.0-11.0); Monocytes % 7.1 %; Neutrophils % 69.2 %; Platelet Count 257 10^3/uL (130-400); RBC 4.96 10^6/uL (4.36-5.78); RDW 13.6 % (11.8-14.1); RDW-SD 42.2 fL; WBC 10.46 10^3/uL (4.4-10.8)
[2025-01-20 14:10] LABS: ALT 26 U/L (16-63); AST 7 U/L (15-37); Albumin 3.9 g/dL (3.4-5.0); Alkaline Phosphatase 58 U/L (46-116); Anion Gap 11.5 mmol/L (3-11); BUN 7 mg/dL (7-18); Bilirubin, Total 0.6 mg/dL (0.2-1.0); CO2 28.5 mmol/L (21.0-32.0); CREATININE 0.6 mg/dL (0.70-1.30); Calcium 9.9 mg/dL (8.5-10.1); Chloride 104 mmol/L (98-107); Estimated GFR 132.35 (mL/min/1.73m2); Glucose 116 mg/dL (74-106); Lipase 25 U/L (<78); Magnesium 1.9 mg/dL; Potassium 3.3 mmol/L (3.5-5.1); Sodium 144 mmol/L (136-145); Total Protein 7.2 g/dL (6.4-8.2); Troponin I 5 ng/L (<or=76)
[2025-01-20] MEDS: Omnipaque 350 MG/ML 100 ML BTL IJ (14:12)
[2025-01-20] MEDS: Normal Saline - Diluent 50 ML VIAL IJ (14:12)
[2025-01-20] MEDS: Ondansetron 4 MG/2 ML VIAL IVP (14:34)
[2025-01-20] MEDS: Normal Saline Flush 10 ML SYR IVP ×2 (14:35→19:45)
[2025-01-20 16:19] LABS: Troponin I 4 ng/L (<or=76)
[2025-01-20] MEDS: POTASSIUM CHLORIDE 10 MEQ/100 ML BAG 100 MEQ IV_INF (16:45)
--- NOTE | 2025-01-20 17:29 | ED.PROG_ITS ---
Date of service: 01/20/25 Time of Service: 17:29 Medical Decision Making Care assumed from outgoing provider. Patient is a 29-year-old gentleman that has autoimmune pancreatitis followed by [facility] GI. He presents with several episodes of hematemesis. Patient has been given pain control IV fluids and Prot sofia. He is anticoagulated secondary to DVTs. I discussed with GI, they recommend keeping the patient n.p.o., continuing supportive care and getting an EGD done tomorrow. Dr. Downing was consulted to make arrangements for the EGD. Patient will be admitted to the hospitalist service here for further management. Quality:[facility] Health Related Social Needs: No Data to Display Discharge Plan Disposition Patient Disposition: Admit to [facility] Condition: Fair Discharge Details Chief Complaint: GI Bleed Clinical Impression: Acute on chronic pancreatitis, Hematemesis Primary Care Provider: Unknown,Unknown ED Provider: Kingston Ramos [place] Meds and New Rx's Prescriptions: No Action ondansetron 4 mg Tablet,Disintegrating 4 mg PO DAILY PRN melatonin 1 mg Tablet 1 mg PO HS oxycodone 20 mg tablet 20 mg PO Q4H PRN Patient Comments: TAKE 1 TABLET BY MOUTH EVERY 6 HOURS NEEDED FOR PAIN FOR 4 DAYS pantoprazole 40 mg tablet,delayed release (DR/EC) 40 mg PO DAILY Patient Comments: TAKE 1 TABLET BY MOUTH EVERY DAY metoclopramide HCl 5 mg tablet 5 mg PO BID Patient Comments: TAKE ONE TABLET BY MOUTH TWICE A DAY Eliquis 5 mg tablet 5 mg PO BID Creon 12,000-38,000 -60,000 unit capsule,delayed release(DR/EC) 1 cap PO TID PRN prednisone 20 mg tablet 30 mg PO DAILY Patient Comments: TAKE 2 TABLETS ONCE A DAY FOR 3 DAYS THEN 1 TABLET DAILY UNTIL FOLLOW UP WITH GI
--- NOTE | 2025-01-20 17:44 | HPE_ITS ---
Assessment and Plan Assessment and plan (1) Hematemesis: Status: Acute History of Present Illness History of Present Illness Chief Complaint: Hematemesis PFSH All Active Problems (Updated 01/20/25 @ 17:30 by Kalpana Peoples MD) Hematemesis (Acute) Acute on chronic pancreatitis (Acute) Obesity (Chronic) Dependence on nocturnal oxygen therapy (Acute) Obstructive sleep apnea (Chronic) Ground glass opacity present on imaging of lung (Acute) Hypertriglyceridemia (Acute) Acute pancreatitis (Acute) Medical History Duodenitis DVT (deep venous thrombosis) Pancreatitis Pulmonary embolism 2020 post COVID-19; finished 3 months of anticoagulation with eliquis Surgical History H/O esophagogastroduodenoscopy H/O tooth extraction History of biopsy negative retroperitoneal biopsy (ruled out retroperitoneal fibrosis) Hx of appendectomy S/P colonoscopy Family History Mother Heart disease Had stents placed in her 30s Diabetes Maternal Grandfather Stroke Hypertension Maternal Aunt Cancer brain cancer Maternal Cousin Lupus Father Crohn disease Social History Smoking/Tobacco Use Status: Former Tobacco Use tobacco type: cigarettes Pack- years: 1 Tobacco: How many years used: 3 Smoking risk assessment performed?: Yes Alcohol Intake: former Drug use: Never Substance use type: does not use Do you feel safe at home: Yes Do you feel safe in your relationship?: Yes Meds Allergies and Home Medications Allergies Allergy/AdvReac Type Severity Reaction Status Date / Time droperidol AdvReac Cardiac Unverified 01/20/25 12:39 Dysrhythmia haloperidol (From Haldol) AdvReac Diarrhea Unverified 01/20/25 12:39 Home Medications ?Medication ?Instructions ?Recorded ?Confirmed ?Type melatonin 1 mg tablet 1 mg PO HS 04/03/23 01/20/25 History ondansetron 4 mg disintegrating 4 mg PO DAILY PRN 04/03/23 01/20/25 History tablet apixaban 5 mg tablet (Eliquis) 5 mg PO BID 01/20/25 01/20/25 History nmftqs-rzwdtwxk-dtepbuh 1 cap PO TID PRN 01/20/25 01/20/25 History 12,000-38,000-60,000 unit capsule,delayed rel (Creon) metoclopramide HCl 5 mg tablet 5 mg PO BID 01/20/25 01/20/25 History oxycodone 20 mg tablet 20 mg PO Q4H PRN 01/20/25 01/20/25 History pantoprazole 40 mg tablet,delayed 40 mg PO DAILY 01/20/25 01/20/25 History release prednisone 20 mg tablet 30 mg PO DAILY 01/20/25 01/20/25 History Results Labs 01/20/25 13:35 01/20/25 13:35 Labs: Laboratory Results - last 24 hr 01/20/25 01/20/25 01/20/25 13:35 15:32 15:48 WBC 10.46 RBC 4.96 Hgb 14.0 Hct 41.6 MCV 84 MCH 28.2 MCHC 33.7 RDW 13.6 Plt Count 257 MPV 9.1 Immature Gran % 0.7 Neutrophils % 69.2 Lymphocytes % 21.6 Monocytes % 7.1 Eosinophils % 0.9 Basophils % 0.5 Nucleated RBC % 0.0 Absolute Neutrophils 7.25 H Absolute Lymphocytes 2.26 Absolute Monocytes 0.74 Absolute Eosinophils 0.09 Absolute Basophils 0.05 Sodium 144 Potassium 3.3 L Chloride 104 Carbon Dioxide 28.5 Anion Gap 11.5 H BUN 7 Creatinine 0.6 L Est GFR (CKD-EPI 2020) 132.35 Glucose 116 H Calcium 9.9 Magnesium 1.9 Total Bilirubin 0.6 AST 7 L ALT 26 Alkaline Phosphatase 58 Troponin I 5 4 Cancelled Total Protein 7.2 Albumin 3.9 Lipase 25 ABO/Rh O Positive Antibody Screen NEGATIVE Last Vital Signs Temp 99.5 F 01/20/25 12:33 Pulse 104 H 01/20/25 12:33 Resp 16 01/20/25 12:33 BP 147/97 H 01/20/25 12:33 Pulse Ox 99 01/20/25 12:33
--- NOTE | 2025-01-20 17:58 | W.SURGCON ---
Date of service: 01/20/25 Time of Service: 17:58 Assessment and Plan Assessment and plan (1) Hematemesis: Status: Acute Assessment and plan: Certainly, his report of hematemesis is concerning. At the moment, he does not appear in any distress, and he has not had any hematemesis here in the emergency department. His hemoglobin is reassuring at this point, but we should repeat that, and ensure that it is not trending downward. He should be typed and screened, and IV access should be maintained. It is probably worth trialing some intravenous proton pump inhibitor therapy at least temporarily. It is going to be challenging to sort this out with so many different hospital encounters, but if we can get the information from his recent hospitalization in [place], that might shed a little more light on the situation. I would say the CT scan is overall fairly reassuring, although it does not provide a whole lot of information on potential GI sources of blood loss. At the moment, I do not see an emergent indication for EGD. Obviously, we can revisit that if he has any other concern for active bleeding. Assuming what ever was bleeding is slowing down, or hopefully stop, then we will need to consolidate a real plan moving forward here. Overall, I think he is best served by trying to consolidate his health care is much as possible. If he is developing esophageal variceal disease then this is probably best managed as an outpatient through the gastroenterology department at [facility], who is more equipped to treat and manage that over the long run. I suppose chronic pancreatitis could cause this, but I think that is less likely, and a more unifying diagnosis would be duodenitis as it is described in his chart (although I do not have access to any direct imaging that would support that diagnosis at the moment). For now, we will see how his symptoms evolve, and how his hemoglobin trends over the next 24 hours. History of Present Illness History of Present Illness Chief Complaint: Hematemesis Narrative: Niels is 29 years old. He carries a diagnosis of autoimmune pancreatitis. He tells me he was first diagnosed with pancreatitis sometime around 2019. He suspects this may have all been triggered by COVID vaccination. This is complicated by report of a DVT, which is treated with apixaban. Niels tells me that he has had multiple hospitalizations for his pancreatitis. The hospitalizations are spread through [place], [place], and even [place]. He only has a few healthcare encounters here with us, with the last 1 back in 2022. On a daily basis, he tells me that he is maintained on oxycodone for pain, pantoprazole for reflux, and Creon for pancreatic insufficiency. He uses metoclopramide and ondansetron as needed for nausea. It sounds like most often his symptoms that bring him into emergency department are abdominal pain with nausea and vomiting. Most recently, he was hospitalized somewhere in [place], where he stayed for approximately 2 weeks. He says he was treated with prednisone, which has been tapering. Records from that hospitalization are not available to me at this time. Yesterday, he began experiencing nausea, and had a few episodes of dark red hematemesis. He says that continued through today, with around 5 or 6 more episodes. That is the reason he came to the emergency department. Hemoglobin in the emergency department is 14. He underwent a CT scan of the abdomen and pelvis demonstrates some peripancreatic stranding, adjacent to the right pararenal space. His case was discussed with the [facility] GI team, who recommends admission to the hospital and EGD for the hematemesis. He said his last EGD was about 2 months ago, and it occurred somewhere in [place]. He thinks he had something bleeding in his esophagus that was cauterized. Review of Systems Constitutional Constitutional: Denies fever(s) and Reports poor appetite Eyes Eyes: Reports system reviewed and no additional complaints, except as documented ENT Ears, Nose, Mouth, and Throat: Reports system reviewed and no additional complaints, except as documented and Denies dysphagia Cardiovascular Comments: Midepigastric discomfort that radiates to his back Respiratory Respiratory: Denies chest congestion and Denies cough Gastrointestinal Gastrointestinal: Reports abdominal pain, Denies dysphagia, Reports heartburn, Reports nausea and Reports hematemesis PFSH All Active Problems (Updated 01/20/25 @ 17:30 by Kalpana Peoples MD) Hematemesis (Acute) Acute on chronic pancreatitis (Acute) Obesity (Chronic) Dependence on nocturnal oxygen therapy (Acute) Obstructive sleep apnea (Chronic) Ground glass opacity present on imaging of lung (Acute) Hypertriglyceridemia (Acute) Acute pancreatitis (Acute) Medical History Duodenitis DVT (deep venous thrombosis) Pancreatitis Pulmonary embolism 2020 post COVID-19; finished 3 months of anticoagulation with eliquis Surgical History H/O esophagogastroduodenoscopy H/O tooth extraction History of biopsy negative retroperitoneal biopsy (ruled out retroperitoneal fibrosis) Hx of appendectomy S/P colonoscopy Family History Mother Heart disease Had stents placed in her 30s Diabetes Maternal Grandfather Stroke Hypertension Maternal Aunt Cancer brain cancer Maternal Cousin Lupus Father Crohn disease Social History Smoking/Tobacco Use Status: Former Tobacco Use tobacco type: cigarettes Pack-years: 1 Tobacco: How many years used: 3 Smoking risk assessment performed?: Yes Alcohol Intake: former Drug use: Never Substance use type: does not use Do you feel safe at home: Yes Do you feel safe in your relationship?: Yes Exam Const General: cooperative, comfortable and no acute distress Nutritional Appearance: obese Orientation: alert, awake and oriented x3 HENMT Head: normal to inspection Neck Neck: normal visual inspection and full ROM GI Inspection: non-distended Palpation: soft and no guarding Results Last Vital Signs Temp 99.5 F 01/20/25 12:33 Pulse 104 H 01/20/25 12:33 Resp 16 01/20/25 12:33 BP 147/97 H 01/20/25 12:33 Pulse Ox 99 01/20/25 12:33 Labs 01/20/25 13:35 01/20/25 13:35 Labs: Laboratory Results - last 24 hr 01/20/25 01/20/25 01/20/25 13:35 15:32 15:48 WBC 10.46 RBC 4.96 Hgb 14.0 Hct 41.6 MCV 84 MCH 28.2 MCHC 33.7 RDW 13.6 Plt Count 257 MPV 9.1 Immature Gran % 0.7 Neutrophils % 69.2 Lymphocytes % 21.6 Monocytes % 7.1 Eosinophils % 0.9 Basophils % 0.5 Nucleated RBC % 0.0 Absolute Neutrophils 7.25 H Absolute Lymphocytes 2.26 Absolute Monocytes 0.74 Absolute Eosinophils 0.09 Absolute Basophils 0.05 Sodium 144 Potassium 3.3 L Chloride 104 Carbon Dioxide 28.5 Anion Gap 11.5 H BUN 7 Creatinine 0.6 L Est GFR (CKD-EPI 2020) 132.35 Glucose 116 H Calcium 9.9 Magnesium 1.9 Total Bilirubin 0.6 AST 7 L ALT 26 Alkaline Phosphatase 58 Troponin I 5 4 Cancelled Total Protein 7.2 Albumin 3.9 Lipase 25 ABO/Rh O Positive Antibody Screen NEGATIVE
--- NOTE | 2025-01-20 18:08 | W.PM.HP.N ---
Date of service: 01/20/25 Time of Service: 18:08 Assessment and Plan Assessment and plan (1) Acute on chronic pancreatitis: Status: Acute Assessment and plan: Auto-immune pancreatitis Hx and as per imaging Will resume original prdenisone ( 40 mg daily)dosing IVF with potassium NPO PPI IV Zofran IV PRN APAP scheduled and PRN hydromorphone ( patient on 20 of oxycodone Q4 PRN at and mentioned that previous flares effective pain management achieved with ordered dose of hydromorphone). CBC in AM (2) Hematemesis: Status: Acute Assessment and plan: Serial H&H No acute anemia on admit (3) DVT (deep venous thrombosis): Assessment and plan: Hx of DVT and PE on Eliquis Eliquis on hold at this time d/t hematemesis (4) Pulmonary embolism: Assessment and plan: As above (5) Hypokalemia: Status: Acute Assessment and plan: Replaced BMP in AM discussed with Dr Das History of Present Illness History of Present Illness Chief Complaint: Abdominal pain , nausea, vomiting Narrative: this 29 years old male patient with a PMHx of GERD, autoimmune vasculitis , autoimmune pancreatitis, PE and DVT on eliquis presented to the ED today for evaluation s/p multiple episodes on coffee-ground emesis. The patient reported tapering down his prednisone 40 mg recently and starting to experience chills, fever, epigastric and LUQ abdominal irradiating to his back last night. Work-up was negative for lipase. CBC and chemistry were unremarkable except for a potassium of 3.3. CT of the chest abdomen and pelvis showed Mild infiltration in the peripancreaticsoft tissues and in the retroperitoneum with considerations for acute pancreatitis VS duodenitis.Off note right nephrolithiasis w/o obstructive uropathy noted on report. The patient was admitted to the medical surgical by the hospitalist team for evaluation and management of autoimmune pancreatitis , nausea, vomiting, abdominal pain, hypokalemia. The patient confirmed full code status. the patient denied headache, change in vision, chest pain, bright-red colred emesis, dysuria; reported diarrhea last night w/o hematochezia. PFSH All Active Problems (Updated 01/20/25 @ 18:42 by Aurea Miller APRN) Hypokalemia (Acute) Hematemesis (Acute) Acute on chronic pancreatitis (Acute) Obesity (Chronic) Dependence on nocturnal oxygen therapy (Acute) Obstructive sleep apnea (Chronic) Ground glass opacity present on imaging of lung (Acute) Hypertriglyceridemia (Acute) Acute pancreatitis (Acute) Medical History Duodenitis DVT (deep venous thrombosis) Pancreatitis Pulmonary embolism 2020 post COVID-19; finished 3 months of anticoagulation with eliquis Surgical History H/O esophagogastroduodenoscopy H/O tooth extraction History of biopsy negative retroperitoneal biopsy (ruled out retroperitoneal fibrosis) Hx of appendectomy S/P colonoscopy Family History Mother Heart disease Had stents placed in her 30s Diabetes Maternal Grandfather Stroke Hypertension Maternal Aunt Cancer brain cancer Maternal Cousin Lupus Father Crohn disease Social History Smoking/Tobacco Use Status: Former Tobacco Use tobacco type: cigarettes Pack-years: 1 Tobacco: How many years used: 3 Smoking risk assessment performed?: Yes Alcohol Intake: former Drug use: Never Substance use type: does not use Do you feel safe at home: Yes Do you feel safe in your relationship?: Yes Meds Allergies and Home Medications Allergies Allergy/AdvReac Type Severity Reaction Status Date / Time droperidol AdvReac Cardiac Unverified 01/20/25 12:39 Dysrhythmia haloperidol (From Haldol) AdvReac Diarrhea Unverified 01/20/25 12:39 Home Medications ?Medication ?Instructions ?Recorded ?Confirmed ?Type melatonin 1 mg tablet 1 mg PO HS 04/03/23 01/20/25 History ondansetron 4 mg disintegrating 4 mg PO DAILY PRN 04/03/23 01/20/25 History tablet apixaban 5 mg tablet (Eliquis) 5 mg PO BID 01/20/25 01/20/25 History ovkpfg-mbgyhtsp-zuzjzld 1 cap PO TID PRN 01/20/25 01/20/25 History 12,000-38,000-60,000 unit capsule,delayed rel (Creon) metoclopramide HCl 5 mg tablet 5 mg PO BID 01/20/25 01/20/25 History oxycodone 20 mg tablet 20 mg PO Q4H PRN 01/20/25 01/20/25 History pantoprazole 40 mg tablet,delayed 40 mg PO DAILY 01/20/25 01/20/25 History release prednisone 20 mg tablet 30 mg PO DAILY 01/20/25 01/20/25 History Exam Narrative Exam Narrative: Constitutional The patient on strtecher s/p pain medicine with minimal discomfort HENMT: Head is atraumatic, normocephalic, no lymphadenopathy. Facial structures with normal appearance Eyes: Well aligned, intact ROM Neck:No JVD, normal ROM, no meningeal signs Neuro:alert and oriented to self, person, place, time and situation. No neurological focal deficit Chest:Chest is symmetrical and normal appearance Resp: Normal respiratory pattern, speaks in full sentences, unlabored breathing, clear lung bilaterally Cardio: regular rhythm, S1, S2, no murmur, capillary refill<3 sec., bilateral radial and dorsalis pedis pulses are positive, palpable GI: Abdomen is not distended, soft with epigastric and LUQ tenderness, bowel sounds are present : Negative Costovertebral angle tenderness, no bladder distension Back/spine/Pelvis: No back tenderness, normal alignment Integumentary:diffuse rash to bilat lower legs and well- delimited rash to interna aspect of feet/ ankles Extremities: strength 5/5 to bilateral lower and upper extremities Psych: RASS 0, congruent mood and normal affect. Results Labs 01/20/25 13:35 01/20/25 13:35 Labs: Laboratory Results - last 24 hr 01/20/25 01/20/25 01/20/25 13:35 15:32 15:48 WBC 10.46 RBC 4.96 Hgb 14.0 Hct 41.6 MCV 84 MCH 28.2 MCHC 33.7 RDW 13.6 Plt Count 257 MPV 9.1 Immature Gran % 0.7 Neutrophils % 69.2 Lymphocytes % 21.6 Monocytes % 7.1 Eosinophils % 0.9 Basophils % 0.5 Nucleated RBC % 0.0 Absolute Neutrophils 7.25 H Absolute Lymphocytes 2.26 Absolute Monocytes 0.74 Absolute Eosinophils 0.09 Absolute Basophils 0.05 Sodium 144 Potassium 3.3 L Chloride 104 Carbon Dioxide 28.5 Anion Gap 11.5 H BUN 7 Creatinine 0.6 L Est GFR (CKD-EPI 2020) 132.35 Glucose 116 H Calcium 9.9 Magnesium 1.9 Total Bilirubin 0.6 AST 7 L ALT 26 Alkaline Phosphatase 58 Troponin I 5 4 Cancelled Total Protein 7.2 Albumin 3.9 Lipase 25 ABO/Rh O Positive Antibody Screen NEGATIVE Last Vital Signs Temp 37.5 C 01/20/25 12:33 Pulse 104 H 01/20/25 12:33 Resp 16 01/20/25 12:33 BP 147/97 H 01/20/25 12:33 Pulse Ox 99 01/20/25 12:33 Time Spent Time spent with Patient: >75 minutes Time was spent: preparing to see the patient(eg.review tests), obtaining and/or reviewing separately otained hiistory, ordering medications,tests, procedures, referring, communicating with other health pharmacy customer care specialist, indepentently interpreting results, counseling the patient and care coordination
[2025-01-20] MEDS: ACETAMINOPHEN 1,000 MG/100 ML BAG 400 MG IVPB (19:45)
[2025-01-20] MEDS: Pantoprazole 40 MG VIAL IVP (19:45)
[2025-01-20] MEDS: HYDROmorphone 2 MG/ML SYR IVP ×2 (19:46→21:51)
[2025-01-20] MEDS: POTASSIUM CHLORIDE 20 MEQ/100 ML BAG 50 MEQ IV_INF ×2 (20:18→23:08)
[2025-01-20 21:29] LABS: HCT 38.4 % (40.0-50.0)
[2025-01-21] MEDS: HYDROmorphone 2 MG/ML SYR IVP ×11 (00:22→23:17)
[2025-01-21] MEDS: Ondansetron 4 MG/2 ML VIAL IVP ×2 (02:12→13:26)
[2025-01-21] MEDS: ACETAMINOPHEN 1,000 MG/100 ML BAG 400 MG IVPB ×4 (02:12→20:33)
--- NOTE | 2025-01-21 03:13 | W.PC.ACHO ---
Registration Status: Primary Language: Preferred Language: ED Information & Data Chief Complaint GI Bleed 01/20/25 12:50 Other Complaint GI Bleed 01/20/25 12:33 Triage Note patient here after vomiting 01/20/25 12:33 dark red blood x 6 today. Has autoimmune pancreatitis, is anticoagulated (eliquis bid). Pain of substernal cp with radiation to L shoulder and back. Medical / Surgical History (Last Reviewed 04/10/23 @ 21:51 by Mickey La MD) DVT (deep venous thrombosis) Pulmonary embolism Duodenitis Pancreatitis (Last Reviewed 04/10/23 @ 21:51 by Mickey La MD) H/O tooth extraction Hx of appendectomy S/P colonoscopy H/O esophagogastroduodenoscopy History of biopsy Most Recent Vital Signs Temperature 36.7 C 01/20/25 23:18 Temperature Source Tympanic 01/20/25 23:18 Pulse 72 01/20/25 23:18 Pulse Rhythm Regular 01/20/25 19:30 Pulse 77 01/20/25 19:20 Respiratory Rate 18 01/20/25 23:18 Respiratory Effort Normal, Non-Labored 01/20/25 19:30 Respiratory Depth Normal 01/20/25 19:30 Respiratory Pattern Normal 01/20/25 19:30 Blood Pressure 137/96 H 01/20/25 23:18 Blood Pressure Mean 102 01/20/25 17:46 Blood Pressure Position Sitting 01/20/25 12:33 Pulse Oximetry 98 01/20/25 23:18 Oxygen Delivery Method Nasal Cannula 01/20/25 23:18 Oxygen Flow Rate 3 01/20/25 23:18 Pain Level 8 01/21/25 02:35 Allergies droperidol Adverse Reaction (Unverified 01/20/25 12:39) Cardiac Dysrhythmia haloperidol (From Haldol) Adverse Reaction (Unverified 01/20/25 12:39) Diarrhea Precautions Isolation Standard precaution 01/20/25 12:38 Active Medications Generic Name Dose Route Start Last Admin Trade Name Freq PRN Reason Stop Dose Admin Hydromorphone HCl 2 mg 01/20/25 19:32 01/21/25 02:35 Hydromorphone 2 Mg/Ml Syr IVP 2 mg Q2H PRN Administration Acetaminophen 1,000 mg in 100 mls @ 400 mls/hr 01/20/25 19:32 01/21/25 02:12 Ofirmev IVPB 400 mls/hr Q6H ZANDRA Administration Ondansetron HCl 4 mg 01/20/25 17:49 01/21/25 02:12 Ondansetron 4 Mg/2 Ml Vial IVP 4 mg Q8H PRN PRN Administration Pantoprazole Sodium 40 mg 01/20/25 20:00 01/20/25 19:45 Pantoprazole 40 Mg Vial IVP 40 mg BID ZANDRA Administration Sodium Chloride 0 ml 01/20/25 12:48 01/20/25 19:45 Normal Saline Flush 10 Ml Syr IVP 10 ml PRN PRN Administration Sodium Chloride 0 ml 01/20/25 20:00 01/20/25 14:35 Normal Saline Flush 10 Ml Syr IVP 10 ml BID ZANDRA Administration IV IV Catheter Type [Left Forearm Peripheral IV ] IV Catheter Gauge [Left 18 Forearm] Diagnostics 01/21/25 01/20/25 01/20/25 Range/Units 05:35 21:10 15:48 WBC Pending (4.4-10.8) 10^3/uL RBC Pending (4.36-5.78) 10^6/uL Hgb Pending 13.0 L (13.5-17.5) g/dL Hct Pending 38.4 L (40.0-50.0) % MCV Pending (80-95) fL MCH Pending (27.0-33.0) pg MCHC Pending (32.0-36.0) % RDW Pending (11.8-14.1) % Plt Count Pending (130-400) 10^3/uL MPV Pending (8.0-11.0) fL Immature Gran % % Neutrophils % % Lymphocytes % % Monocytes % % Eosinophils % % Basophils % % Nucleated RBC % (0.0-0.3) % Absolute Neutrophils (1.2-6.7) 10^3/uL Absolute Lymphocytes (1.2-3.4) 10^3/uL Absolute Monocytes (0.1-0.8) 10^3/uL Absolute Eosinophils (0.0-0.7) 10^3/uL Absolute Basophils (0.0-0.2) 10^3/uL Sodium Pending (136-145) mmol/L Potassium Pending (3.5-5.1) mmol/L Chloride Pending (98-107) mmol/L Carbon Dioxide Pending (21.0-32.0) mmol/L Anion Gap Pending (3-11) mmol/L BUN Pending (7-18) mg/dL Creatinine Pending (0.70-1.30) mg/dL Est GFR (CKD-EPI 2020) Pending (mL/min/1.73m2) Glucose Pending (74-106) mg/dL Calcium Pending (8.5-10.1) mg/dL Magnesium mg/dL Total Bilirubin (0.2-1.0) mg/dL AST (15-37) U/L ALT (16-63) U/L Alkaline Phosphatase (46-116) U/L Troponin I Cancelled (<or=76) ng/L Total Protein (6.4-8.2) g/dL Albumin (3.4-5.0) g/dL Lipase (<78) U/L ABO/Rh Antibody Screen 01/20/25 01/20/25 Range/Units 15:32 13:35 WBC 10.46 (4.4-10.8) 10^3/uL RBC 4.96 (4.36-5.78) 10^6/uL Hgb 14.0 (13.5-17.5) g/dL Hct 41.6 (40.0-50.0) % MCV 84 (80-95) fL MCH 28.2 (27.0-33.0) pg MCHC 33.7 (32.0-36.0) % RDW 13.6 (11.8-14.1) % Plt Count 257 (130-400) 10^3/uL MPV 9.1 (8.0-11.0) fL Immature Gran % 0.7 % Neutrophils % 69.2 % Lymphocytes % 21.6 % Monocytes % 7.1 % Eosinophils % 0.9 % Basophils % 0.5 % Nucleated RBC % 0.0 (0.0-0.3) % Absolute Neutrophils 7.25 H (1.2-6.7) 10^3/uL Absolute Lymphocytes 2.26 (1.2-3.4) 10^3/uL Absolute Monocytes 0.74 (0.1-0.8) 10^3/uL Absolute Eosinophils 0.09 (0.0-0.7) 10^3/uL Absolute Basophils 0.05 (0.0-0.2) 10^3/uL Sodium 144 (136-145) mmol/L Potassium 3.3 L (3.5-5.1) mmol/L Chloride 104 (98-107) mmol/L Carbon Dioxide 28.5 (21.0-32.0) mmol/L Anion Gap 11.5 H (3-11) mmol/L BUN 7 (7-18) mg/dL Creatinine 0.6 L (0.70-1.30) mg/dL Est GFR (CKD-EPI 2020) 132.35 (mL/min/1.73m2) Glucose 116 H (74-106) mg/dL Calcium 9.9 (8.5-10.1) mg/dL Magnesium 1.9 mg/dL Total Bilirubin 0.6 (0.2-1.0) mg/dL AST 7 L (15-37) U/L ALT 26 (16-63) U/L Alkaline Phosphatase 58 (46-116) U/L Troponin I 4 5 (<or=76) ng/L Total Protein 7.2 (6.4-8.2) g/dL Albumin 3.9 (3.4-5.0) g/dL Lipase 25 (<78) U/L ABO/Rh O Positive Antibody Screen NEGATIVE Intake and Output - 24 Hour Total 01/20/25 12:18 thru 01/21/25 02:19 Intake Total 1300 Balance 1300 Weight 115.666 kg Intake: IV 1300 Other: Comment pt urinated. Stool Size Moderate Stool Characteristics Liquid Emesis Description Coffee Grounds Falls Risk Assessment History of Falls No History 01/20/25 19:30 Contributing Factors No Factors 01/20/25 19:30 Ambulatory Aids Independent 01/20/25 19:30 Tubes/Lines W/no contributing factors 01/20/25 19:30 Gait Evaluation No gait disturbance 01/20/25 19:30 Cognition No cognitive impairment 01/20/25 19:30 Fall Total Score 10 01/20/25 19:30 Level of Risk Standard/Low Risk 01/20/25 19:30 Problems (Last Reviewed 04/10/23 @ 21:51 by Mickey La MD) Hypokalemia (Acute) Hematemesis (Acute) Acute on chronic pancreatitis (Acute) v v v v v v v v v Sending and/or Receiving Nurses: Please use comment section below to note any information pertinent to the patient hand-off not included above. Information / Comments: alert and orientated. receiving IVP pain medications and fluids. NPO. independent. Report received from:
[2025-01-21 04:59] VITALS: BP 136/80; PULSE 82; RESP 16; TEMP 36.6; O2SAT 98
[2025-01-21 06:51] LABS: HCT 39.4 % (40.0-50.0); HGB 13.2 g/dL (13.5-17.5); MCH 28.6 pg (27.0-33.0); MCHC 33.5 % (32.0-36.0); MCV 86 fL (80-95); MPV 9.3 fL (8.0-11.0); Platelet Count 204 10^3/uL (130-400); RBC 4.61 10^6/uL (4.36-5.78); RDW 13.9 % (11.8-14.1); RDW-SD 43.2 fL; WBC 6.65 10^3/uL (4.4-10.8)
[2025-01-21 07:10] LABS: BUN 6 mg/dL (7-18); CREATININE 0.6 mg/dL (0.70-1.30); Calcium 9.4 mg/dL (8.5-10.1); Chloride 105 mmol/L (98-107); Estimated GFR 132.35 (mL/min/1.73m2); Glucose 104 mg/dL (74-106); Potassium 3.8 mmol/L (3.5-5.1); Sodium 143 mmol/L (136-145)
[2025-01-21 07:12] VITALS: BP 128/89; PULSE 82; RESP 18; TEMP 36.9; O2SAT 94
[2025-01-21] MEDS: predniSONE 20 MG TAB 40 MG PO (08:06)
[2025-01-21] MEDS: Pantoprazole 40 MG VIAL IVP ×2 (08:07→20:32)
[2025-01-21] MEDS: Normal Saline Flush 10 ML SYR IVP ×2 (08:08→20:32)
[2025-01-21 08:33] VITALS: O2SAT 100
--- NOTE | 2025-01-21 08:53 | PDOC.CMIN ---
Date of service: 01/21/25 Time of Service: 08:53 Care Management Initial Assmt Initial Assessment Reason for Hospitalization: Autoimmune pancreatitis Functional Status/Living Situation Patient Presentation: Niels was sitting up in bed when CM met with him. he was pleasant in manner and agreeable to conversation. 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 He has been NPO but has not needed an NG tube. he has orders for a clear liquid dinner. Niels stated that the pain medication helps but only lasts about 2 hours. He currently has Hydromorphone 2 mg IV Q 2 hrs prn ordered and has been taking it pretty much on schedule. Niels lives in [place], [place] with his girlfriend Jordyn. 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 He stated that he travels a lot but hopes to settle in the [facility] area.Niels identified his closest contacts and supports as his mother and his girlfriend.He has recently joined the practice of a local PCP (Basia Michele) and will have his initial visit on 01/28/25. Niels requested that CM forward his hospital records to the practice for his visit next week. CM helped Niels complete the necessary paperwork and faxed it to Medical Records. Niels is independent at baseline and does not receive any community services. Town of Residence: [place] Resides with: Other (girlfriend Jordyn) Significant Other/Family: Out of area Employment Status: Employed ([employer]) Instrumental Activities of Daily Living (ADLs): Independent Medications Medication Management: No Issues/Barriers identified Advance Directives Advance Directives: Do you have an Advance Directive: N 04/04/23 13:32 AD On File at [facility]: N 04/03/23 17:01 Date Asked 01/20/25 01/20/25 13:32 AD Date Reviewed COLST On File at [facility] COLST Date Scanned Code Status Resuscitation Status Full Code Insurance Coverage/Financial Issues Insurance: [facility] Care Team Visit Care Team Role Provider Type Unknown Unknown Primary Care Provider STAFF PHYSICIAN Kingston Ramos MD Emergency Provider [facility] STAFF PHYSICIAN Kingston Das Admit Provider [facility] STAFF PHYSICIAN Attending Provider Discharge Potential Discharge Needs: PCP F/U Appt Anticipated Barriers to Discharge: None Identified Patient/Family Education Needs: Review discharge instructions, discuss Ask Me Three Transportation: Private vehicle Plan: Anticipate Niels will be discharged home with no new services when medically stable. He will follow up with his community providers and plan of care and transport with family. CM will follow and continue to support discharge planning. Social Determinants of Health Screening Social Determinants of Health last assessed: 01/21/25 Will the Patient Participate in the Screening?: Declined to provide Do you worry about having a steady place to live?: choose not to answer Problems where you live: no known problems In the past 12 months, have you had to go without electric, gas, oil or water in your home?: no Have you or anyone in your house had to go without enough food to eat?: no Has lack of transportation kept you from medical appointments or from doing things needed for daily living?: no Has anyone in your life made you feel unsafe or unsupported?: no How hard is it for you to pay for the very basics like food, housing, medical care, and heating? Would you say it is:: Not hard at all Do you want help finding or keeping work or a job?: I do not need or want help If for any reason you need help with day-to-day activities such as bathing, preparing meals, shopping, managing finances, etc., do you get the help you need?: I don?t need any help How often do you feel lonely or isolated from those around you?: Never Do you speak a language other than Arabic at home?: No Does the patient want assistance with any of the above?: No PFSH All Active Problems (Updated 01/20/25 @ 18:42 by Aurea Miller APRN) Hypokalemia (Acute) Hematemesis (Acute) Acute on chronic pancreatitis (Acute) Obesity (Chronic) Dependence on nocturnal oxygen therapy (Acute) Obstructive sleep apnea (Chronic) Ground glass opacity present on imaging of lung (Acute) Hypertriglyceridemia (Acute) Acute pancreatitis (Acute) Medical History Duodenitis DVT (deep venous thrombosis) Pancreatitis Pulmonary embolism 2020 post COVID-19; finished 3 months of anticoagulation with eliquis Surgical History H/O esophagogastroduodenoscopy H/O tooth extraction History of biopsy negative retroperitoneal biopsy (ruled out retroperitoneal fibrosis) Hx of appendectomy S/P colonoscopy Family History Mother Heart disease Had stents placed in her 30s Diabetes Maternal Grandfather Stroke Hypertension Maternal Aunt Cancer brain cancer Maternal Cousin Lupus Father Crohn disease Social History Smoking/Tobacco Use Status: Former Tobacco Use tobacco type: cigarettes Pack-years: 1 Tobacco: How many years used: 3 Smoking risk assessment performed?: Yes Alcohol Intake: former Drug use: Never Substance use type: does not use Do you feel safe at home: Yes Do you feel safe in your relationship?: Yes
[2025-01-21] MEDS: POTASSIUM CHLORIDE/D5-0.45NACL 1,000 ML 125 MEQ IV (10:59)
[2025-01-21 11:31] VITALS: BP 114/80; PULSE 83; RESP 16; TEMP 35.9; O2SAT 97
--- NOTE | 2025-01-21 13:24 | PGE_ITS ---
Date of Service Date of service: 01/21/25 Time of Service: 12:00 Assessment and Plan Assessment and plan (1) Acute on chronic pancreatitis: Status: Acute Assessment and plan: Auto-immune pancreatitis Hx and as per imaging continue original prdenisone ( 40 mg daily)dosing Improving-no further N/V no hematesis or melena Change IVF to LR Continue I protonix then transition to daily oral dosing Continue Zofran IV PRN Continue scheduled and PRN pain meds ( patient on oxycodone 20 mg Q4 PRN at home and mentioned that previous flares effective pain management achieved with ordered dose of hydromorphone). Serial CBC- trending [facility] GI consult recommended NPO- EGD with concerns for MW tears -01/21/25 -f/u s/p discussion with Dr. Downing today: Surgical consultation completed: please read notes - No EGD at this time with consideration if acute bleeding S&S -Trying the get records for similar presentation and hospitalization in AM 2 weeks ago [facility] f/u with Dr. Sepulveda from GI: Opt f/u with [facility] in 2 week- will contact schedulers- D/c on steroids, PPI BID vs daily; No NSAIDS -Patient to return to the ED if further hematemesis (2) Hematemesis: Status: Acute Assessment and plan: Serial H&H appears stable - slight drop d/t hemodilution No acute anemia on admission (3) DVT (deep venous thrombosis): Assessment and plan: Hx of DVT and PE on Eliquis no further S&S of acute bleeding since presentation to the ED - stable H&H Resume Eliquis in HS with stable 15:00 H&H (4) Pulmonary embolism: Assessment and plan: As above (5) Hypokalemia: Status: Acute Assessment and plan: Resolved CMP in AM - Ca normal discussed with Dr Das Subjective Subjective Patient reports: no new complaints, feels better, tolerating liquids well, voiding w/o difficulty and nausea; denies diarrhea, vomiting, shortness of breath or fever Exam Narrative Exam Narrative: Constitutional The patient is w/o acute distress HENMT: Facial structures with normal appearance Eyes: Well aligned Neck:No JVD, normal ROM, no meningeal signs Neuro:alert and oriented to self, person, place, time and situation. No neurological focal deficit Resp: Unlabored breathing, clear lung bilaterally Cardio: regular rhythm, S1, S2, no murmur GI: Abdomen non-distended, soft with epigastric and LUQ tenderness, bowel sounds are present Integumentary:diffuse rash to bilat lower legs and well- delimited rash to interna aspect of feet/ ankles Extremities: strength 5/5 to bilateral lower and upper extremities Psych: RASS 0, congruent mood and normal affect. Objective Last Vital Signs Temp 35.9 C L 01/21/25 11:31 Pulse 83 01/21/25 11:31 Resp 16 01/21/25 11:31 BP 114/80 01/21/25 11:31 Pulse Ox 97 01/21/25 11:31 Laboratory Results - last 24 hr 01/20/25 01/20/25 01/20/25 13:35 15:32 15:48 WBC 10.46 RBC 4.96 Hgb 14.0 Hct 41.6 MCV 84 MCH 28.2 MCHC 33.7 RDW 13.6 Plt Count 257 MPV 9.1 Immature Gran % 0.7 Neutrophils % 69.2 Lymphocytes % 21.6 Monocytes % 7.1 Eosinophils % 0.9 Basophils % 0.5 Nucleated RBC % 0.0 Absolute Neutrophils 7.25 H Absolute Lymphocytes 2.26 Absolute Monocytes 0.74 Absolute Eosinophils 0.09 Absolute Basophils 0.05 Sodium 144 Potassium 3.3 L Chloride 104 Carbon Dioxide 28.5 Anion Gap 11.5 H BUN 7 Creatinine 0.6 L Est GFR (CKD-EPI 2020) 132.35 Glucose 116 H Calcium 9.9 Magnesium 1.9 Total Bilirubin 0.6 AST 7 L ALT 26 Alkaline Phosphatase 58 Troponin I 5 4 Cancelled Total Protein 7.2 Albumin 3.9 Lipase 25 ABO/Rh O Positive Antibody Screen NEGATIVE 01/20/25 01/21/25 21:10 06:05 WBC 6.65 RBC 4.61 Hgb 13.0 L 13.2 L Hct 38.4 L 39.4 L MCV 86 MCH 28.6 MCHC 33.5 RDW 13.9 Plt Count 204 MPV 9.3 Immature Gran % Neutrophils % Lymphocytes % Monocytes % Eosinophils % Basophils % Nucleated RBC % Absolute Neutrophils Absolute Lymphocytes Absolute Monocytes Absolute Eosinophils Absolute Basophils Sodium 143 Potassium 3.8 Chloride 105 Carbon Dioxide 30.0 Anion Gap 8.0 BUN 6 L Creatinine 0.6 L Est GFR (CKD-EPI 2020) 132.35 Glucose 104 Calcium 9.4 Magnesium Total Bilirubin AST ALT Alkaline Phosphatase Troponin I Total Protein Albumin Lipase ABO/Rh Antibody Screen Time Spent with Patient Time Spent with Patient: >50 minutes Time was spent: preparing to see the patient(eg.review tests), obtaining and/or reviewing separately otained hiistory, ordering medications,tests, procedures, referring, communicating with other health career manager, indepentently interpreting results, counseling the patient, care coordination and other
--- NOTE | 2025-01-21 14:02 | W.PM.PROGNOT ---
Date of Service Date of service: 01/21/25 Time of Service: 14:02 Assessment and Plan Assessment and plan (1) Hematemesis: Status: Acute Assessment and plan: It seems like his reported hematemesis has improved, and with any increasing hemoglobin, I do not think there is much benefit to an urgent EGD at this point. I think minimizing instrumentation of his upper GI tract is probably in his best interest. I am happy to review any outside records if that sheds any more light on the diagnosis and defined is able to obtain them for our opinion. In the meantime, I would continue with proton pump inhibitor therapy. Subjective Subjective Interval history since last seen: Niels's chief complaint throughout the night was midepigastric abdominal pain. Tells me he had some nausea, but that was improved with Zofran. He denied any further episodes of hematemesis since his admission to the hospital. Exam GI Other: His abdomen is soft and nondistended. He has some tenderness in the mid epigastrium. There are no masses. Objective Last Vital Signs Temp 96.6 F L 01/21/25 11:31 Pulse 83 01/21/25 11:31 Resp 16 01/21/25 11:31 BP 114/80 01/21/25 11:31 Pulse Ox 97 01/21/25 11:31 Laboratory Results - last 24 hr 01/20/25 01/20/25 01/20/25 13:35 15:32 15:48 WBC RBC Hgb Hct MCV MCH MCHC RDW Plt Count MPV Sodium 144 Potassium 3.3 L Chloride 104 Carbon Dioxide 28.5 Anion Gap 11.5 H BUN 7 Creatinine 0.6 L Est GFR (CKD-EPI 2020) 132.35 Glucose 116 H Calcium 9.9 Magnesium 1.9 Total Bilirubin 0.6 AST 7 L ALT 26 Alkaline Phosphatase 58 Troponin I 5 4 Cancelled Total Protein 7.2 Albumin 3.9 Lipase 25 ABO/Rh O Positive Antibody Screen NEGATIVE 01/20/25 01/21/25 21:10 06:05 WBC 6.65 RBC 4.61 Hgb 13.0 L 13.2 L Hct 38.4 L 39.4 L MCV 86 MCH 28.6 MCHC 33.5 RDW 13.9 Plt Count 204 MPV 9.3 Sodium 143 Potassium 3.8 Chloride 105 Carbon Dioxide 30.0 Anion Gap 8.0 BUN 6 L Creatinine 0.6 L Est GFR (CKD-EPI 2020) 132.35 Glucose 104 Calcium 9.4 Magnesium Total Bilirubin AST ALT Alkaline Phosphatase Troponin I Total Protein Albumin Lipase ABO/Rh Antibody Screen Time Spent with Patient Time Spent with Patient: <25 minutes Time was spent: preparing to see the patient(eg.review tests), indepentently interpreting results and counseling the patient
[2025-01-21] MEDS: Lactated Ringers 1,000 ML 100 ML IV (14:35)
[2025-01-21 15:11] VITALS: BP 135/84; PULSE 91; RESP 15; TEMP 36.3; O2SAT 97
[2025-01-21 15:52] LABS: HCT 42.9 % (40.0-50.0); MCH 28.9 pg (27.0-33.0); MCV 83 fL (80-95); MPV 9.3 fL (8.0-11.0); Platelet Count 276 10^3/uL (130-400); RBC 5.19 10^6/uL (4.36-5.78); RDW 13.3 % (11.8-14.1); RDW-SD 40.2 fL; WBC 9.41 10^3/uL (4.4-10.8)
[2025-01-21] MEDS: Metoclopramide 10 MG TAB 5 MG PO (18:45)
[2025-01-21] MEDS: Apixaban 5 MG TAB PO (20:33)
[2025-01-21 21:15] VITALS: BP 128/103; PULSE 95; RESP 22; TEMP 36.6; O2SAT 94
[2025-01-22] MEDS: HYDROmorphone 2 MG/ML SYR IVP ×4 (01:20→08:27)
[2025-01-22] MEDS: ACETAMINOPHEN 1,000 MG/100 ML BAG 400 MG IVPB ×2 (01:21→08:28)
[2025-01-22 04:23] VITALS: BP 110/65; PULSE 83; RESP 20; TEMP 36.5; O2SAT 100
[2025-01-22] MEDS: Lactated Ringers 1,000 ML 100 ML IV (06:02)
[2025-01-22] MEDS: Normal Saline Flush 10 ML SYR IVP ×2 (06:03→08:29)
[2025-01-22 07:16] LABS: Abs Immature Grans 0.05 10^3/uL (0.0-0.06); Absolute Basophil Count 0.04 10^3/uL (0.0-0.2); Absolute Eosinophil Count 0.12 10^3/uL (0.0-0.7); Absolute Lymphocyte Count 2.47 10^3/uL (1.2-3.4); Absolute Monocyte Count 0.59 10^3/uL (0.1-0.8); Absolute Neutrophil Count 4.29 10^3/uL (1.2-6.7); Basophils % 0.5 %; Eosinophils % 1.6 %; HCT 40.4 % (40.0-50.0); HGB 13.8 g/dL (13.5-17.5); Immature Grans % 0.7 %; Lymphocytes % 32.7 %; MCH 28.6 pg (27.0-33.0); MCHC 34.2 % (32.0-36.0); MCV 84 fL (80-95); MPV 9.2 fL (8.0-11.0); Monocytes % 7.8 %; Neutrophils % 56.7 %; Platelet Count 250 10^3/uL (130-400); RBC 4.83 10^6/uL (4.36-5.78); RDW 13.5 % (11.8-14.1); RDW-SD 41.8 fL; WBC 7.56 10^3/uL (4.4-10.8)
[2025-01-22 07:38] LABS: ALT 25 U/L (16-63); AST 8 U/L (15-37); Albumin 3.5 g/dL (3.4-5.0); Alkaline Phosphatase 57 U/L (46-116); Anion Gap 10.2 mmol/L (3-11); BUN 8 mg/dL (7-18); Bilirubin, Total 0.7 mg/dL (0.2-1.0); CO2 27.8 mmol/L (21.0-32.0); CREATININE 0.7 mg/dL (0.70-1.30); Calcium 9.3 mg/dL (8.5-10.1); Chloride 103 mmol/L (98-107); Estimated GFR 126.33 (mL/min/1.73m2); Glucose 137 mg/dL (74-106); Potassium 3.1 mmol/L (3.5-5.1); Sodium 141 mmol/L (136-145); Total Protein 6.7 g/dL (6.4-8.2)
[2025-01-22] MEDS: Ondansetron 4 MG/2 ML VIAL IVP (08:26)
[2025-01-22] MEDS: Pantoprazole 40 MG VIAL IVP (08:27)
[2025-01-22] MEDS: Metoclopramide 10 MG TAB 5 MG PO (08:28)
[2025-01-22] MEDS: Apixaban 5 MG TAB PO (08:28)
[2025-01-22] MEDS: predniSONE 20 MG TAB 40 MG PO (08:28)
[2025-01-22 09:16] VITALS: O2SAT 97
--- NOTE | 2025-01-22 09:46 | W.PM.DS.N ---
Date of service: 01/22/25 Time of Service: 09:47 DS: Diagnosis Discharge Diagnosis (1) Acute on chronic pancreatitis: Status: Acute (2) Hematemesis: Status: Acute (3) DVT (deep venous thrombosis): (4) Pulmonary embolism: (5) Hypokalemia: Status: Acute Discharge Plan Disposition Patient Disposition: Home Condition: Improving Discharge Details Reason For Visit: hematemasis,autoimmune pancreatitis Admit Date/Time: 01/20/25 17:45 Admit Provider: Kingston Das Attending Provider: Kingston Das Primary Care Provider: Basia Michele Hospital Course Hospital Course: this 29 years old male patient with a PMHx of GERD, autoimmune vasculitis , autoimmune pancreatitis, PE and DVT on eliquis presented to the ED today for evaluation s/p multiple episodes on coffee-ground emesis. The patient reported tapering down his prednisone 40 mg recently and starting to experience chills, fever, epigastric and LUQ abdominal irradiating to his back last night. CT had positive findings of pancreatitis VS duodenitis.The patient was admitted to the medical surgical by the hospitalist team for evaluation and management of autoimmune pancreatitis , nausea, vomiting, abdominal pain, hypokalemia. The patient was treated with PPI, IVF, antiemitics and IV pain medicines and resumption of full dose prednisone. [facility] GI was consulted in the ED and s/p f/u outpatient appointment was made. Recommendation to avoid NSAIDs, low fat diet. H&H remained stable w/o further GI symptoms; Surgery did not recommend EGD during the stay. Patient requesting to leave AMA on the days of discharge, will be discharged home on the meds listed and further orders as per PCP f/u within 7 days of discharge. Discussed with Dr. Bragg Home Meds and New Rx's Prescriptions: New prednisone 20 mg Tablet 40 mg PO DAILY Qty: 14 0RF pantoprazole [Protonix] 40 mg tablet,delayed release (DR/EC) 40 mg PO BID Qty: 60 0RF oxycodone 20 mg tablet 20 mg PO Q4H PRNQty: 20 0RF potassium chloride 10 mEq capsule, extended release 10 meq PO DAILY Qty: 8 0RF acetaminophen 500 mg capsule 1,000 mg PO QID Qty: 40 0RF Continued ondansetron 4 mg Tablet,Disintegrating 4 mg PO DAILY PRN melatonin 1 mg Tablet 1 mg PO HS oxycodone 20 mg tablet 20 mg PO Q4H PRN Patient Comments: TAKE 1 TABLET BY MOUTH EVERY 6 HOURS NEEDED FOR PAIN FOR 4 DAYS metoclopramide HCl 5 mg tablet 5 mg PO BID Patient Comments: TAKE ONE TABLET BY MOUTH TWICE A DAY Eliquis 5 mg tablet 5 mg PO BID Creon 12,000-38,000 -60,000 unit capsule,delayed release(DR/EC) 1 cap PO TID PRN Discontinued pantoprazole 40 mg tablet,delayed release (DR/EC) 40 mg PO DAILY Patient Comments: TAKE 1 TABLET BY MOUTH EVERY DAY prednisone 20 mg tablet 30 mg PO DAILY Patient Comments: TAKE 2 TABLETS ONCE A DAY FOR 3 DAYS THEN 1 TABLET DAILY UNTIL FOLLOW UP WITH GI Discharge Instructions Referrals: Basia Michele [Primary Care Provider] - (The office has your information and should be calling to set up a hospital follow up ) Activity:: Activity as Tolerated Equipment/Supplies:: No Equipment Needed Diet:: Low fat diet DS: Summary Time Spent with Patient providing and/or coordinating discharge services: Greater than 30 minutes Status at Discharge Functional status at discharge: independent ambulation Overall status at discharge: patient is back to baseline Mental Status: mental status grossly normal Speech and Movement: speech and movement normal Mood: congruent mood Affect: normal affect Quality:SDOH Health Related Social Needs: No Data to Display Exam Narrative Exam Narrative: Constitutional The patient is w/o acute distress HENMT: Facial structures with normal appearance Neuro:alert and oriented X4 , non focal Resp: Unlabored breathing, clear lung bilaterally Cardio: regular rhythm, S1, S2, no murmur GI: Abdomen non-distended, soft , non tender Integumentary:diffuse rash to bilat lower legs and well- delimited rash to internal aspect of feet/ ankles Extremities: strength 5/5 to bilateral lower and upper extremities Psych: RASS 0, congruent mood and normal affect. Psych Mental Status: mental status grossly normal Speech and Movement: speech and movement normal Mood: congruent mood Affect: normal affect DS: Data Vitals/I&O Vitals and I&O: Vital Signs Temperature 36.5 C 01/22/25 04:23 Temperature Source Temporal Artery Scan 01/22/25 04:23 Pulse 83 01/22/25 04:23 Pulse Rhythm Regular 01/20/25 19:30 Pulse 77 01/20/25 19:20 Respiratory Rate 20 01/22/25 04:23 Respiratory Effort Normal, Non-Labored 01/20/25 19:30 Respiratory Depth Normal 01/20/25 19:30 Respiratory Pattern Normal 01/20/25 19:30 Blood Pressure 110/65 01/22/25 04:23 Blood Pressure Mean 102 01/20/25 17:46 Blood Pressure Position Sitting 01/20/25 12:33 Pulse Oximetry 97 01/22/25 09:16 Oxygen Delivery Method Room Air 01/22/25 09:16 Oxygen Flow Rate 0 01/22/25 09:16 Pain Level 8 01/22/25 08:27 Intake & Output 01/21/25 01/21/25 01/22/25 11:59 23:59 11:59 Intake Total 320 / 2376.25 2056.25 / 2376.25 1200 / 1200 Balance 320 / 2376.25 6.25 / 2376.25 1200 / 1200 Intake: IV 300 / 2356.25 2055.25 / 2356.25 1200 / 1200 Oral Other: Urine Color Yellow Urine Appearance Clear Comment pT has voided independently in the room. Data Completed and Pending Labs on day of discharge: Labs from last 24 hours 01/22/25 01/21/25 06:12 15:27 WBC 7.56 9.41 RBC 4.83 5.19 Hgb 13.8 15.0 Hct 40.4 42.9 MCV 84 83 MCH 28.6 28.9 MCHC 34.2 35.0 RDW 13.5 13.3 Plt Count 250 276 MPV 9.2 9.3 Immature Gran % 0.7 Neutrophils % 56.7 Lymphocytes % 32.7 Monocytes % 7.8 Eosinophils % 1.6 Basophils % 0.5 Nucleated RBC % 0.0 Absolute Neutrophils 4.29 Absolute Lymphocytes 2.47 Absolute Monocytes 0.59 Absolute Eosinophils 0.12 Absolute Basophils 0.04 Sodium 141 Potassium 3.1 L Chloride 103 Carbon Dioxide 27.8 Anion Gap 10.2 BUN 8 Creatinine 0.7 Est GFR (CKD-EPI 2020) 126.33 Glucose 137 H Calcium 9.3 Total Bilirubin 0.7 AST 8 L ALT 25 Alkaline Phosphatase 57 Total Protein 6.7 Albumin 3.5 PFSH All Active Problems (Updated 01/22/25 @ 09:56 by Aurea Sharon, ERP SPECIALIST) Hypokalemia (Acute) Hematemesis (Acute) Acute on chronic pancreatitis (Acute) Obesity (Chronic) Dependence on nocturnal oxygen therapy (Acute) Obstructive sleep apnea (Chronic) Ground glass opacity present on imaging of lung (Acute) Hypertriglyceridemia (Acute) Acute pancreatitis (Acute) Medical History Duodenitis DVT (deep venous thrombosis) Pancreatitis Pulmonary embolism 2020 post COVID-19; finished 3 months of anticoagulation with eliquis Surgical History H/O esophagogastroduodenoscopy H/O tooth extraction History of biopsy negative retroperitoneal biopsy (ruled out retroperitoneal fibrosis) Hx of appendectomy S/P colonoscopy Family History Mother Heart disease Had stents placed in her 30s Diabetes Maternal Grandfather Stroke Hypertension Maternal Aunt Cancer brain cancer Maternal Cousin Lupus Father Crohn disease Social History Smoking/Tobacco Use Status: Former Tobacco Use tobacco type: cigarettes Pack-years: 1 Tobacco: How many years used: 3 Smoking risk assessment performed?: Yes Alcohol Intake: former Drug use: Never Substance use type: does not use Do you feel safe at home: Yes Do you feel safe in your relationship?: Yes Time Spent with Patient Time Spent with Patient: 70-84 minutes4 Time was spent: preparing to see the patient(eg.review tests), obtaining and/or reviewing separately otained hiistory, ordering medications,tests, procedures, referring, communicating with other health pediatric critical care nurse, indepentently interpreting results, counseling the patient and care coordination
--- NOTE | 2025-01-22 09:47 | PDOC.CMPRO ---
Date of service: 01/22/25 Time of Service: 09:47 Care Management Progress Note Discharge Potential Discharge Needs: PCP F/U Appt Anticipated Barriers to Discharge: None Identified Patient/Family Education Needs: Review discharge instructions, discuss Ask Me Three Transportation: Private vehicle Plan: Anticipate Niels will be discharged home with no new services when medically stable. He will follow up with his community providers and plan of care and transport with family. CM will follow and continue to support discharge planning. Social Determinants of Health Screening Social Determinants of Health last assessed: 01/22/25 Will the Patient Participate in the Screening?: Declined to provide Do you worry about having a steady place to live?: choose not to answer Problems where you live: no known problems In the past 12 months, have you had to go without electric, gas, oil or water in your home?: no Have you or anyone in your house had to go without enough food to eat?: no Has lack of transportation kept you from medical appointments or from doing things needed for daily living?: no Has anyone in your life made you feel unsafe or unsupported?: no How hard is it for you to pay for the very basics like food, housing, medical care, and heating? Would you say it is:: Not hard at all Do you want help finding or keeping work or a job?: I do not need or want help If for any reason you need help with day-to-day activities such as bathing, preparing meals, shopping, managing finances, etc., do you get the help you need?: I don?t need any help How often do you feel lonely or isolated from those around you?: Never Do you speak a language other than Spanish at home?: No Does the patient want assistance with any of the above?: No
--- NOTE | 2025-01-22 12:15 | CMDISCH_ITS ---
Date of service: 01/22/25 Time of Service: 12:15 LACE Index Scoring Tool Questions: Length of Stay (in days): 2 Was the patient admitted via the E.D.?: Yes Comorbidities: Chronic Pulmonary Disease E.D. Visits: 1 Answers: Total Score: 8 Risk of Readmission: Low Risk Care Management Discharge Plan Reason for Hospitalization: pancreatitis Discharge Plan: Niels will be discharged home with no new services. He will follow up with his community providers and plan of care and transport with family. Patient/Family Education Needs: Review discharge instructions, discuss Ask Me Three [facility] Health Related Social Needs: No Data to Display
== END 2025-01-22 10:24 | disposition home or self-care (01) | DRG 438 ==
LOC: ER 17:30 → MS 19:33
PROVIDERS: Nurse Practitioner Acute Care; Admitting Provider Family Medicine; Emergency Provider Emergency Medicine; PCP Nurse Practitioner Family; Visit Provider Family Medicine
DX: K85.80 Other acute pancreatitis without necrosis or infection; K29.81 Duodenitis with bleeding; K86.1 Other chronic pancreatitis; E87.6 Hypokalemia; G47.33 Obstructive sleep apnea (adult) (pediatric); E78.2 Mixed hyperlipidemia; D89.89 Other specified disorders involving the immune mechanism, not elsewhere classified; E66.9 Obesity, unspecified; K21.9 Gastro-esophageal reflux disease without esophagitis; I77.6 Arteritis, unspecified; Z99.81 Dependence on supplemental oxygen; R21 Rash and other nonspecific skin eruption; Z68.37 Body mass index [BMI] 37.0-37.9, adult; Z87.891 Personal history of nicotine dependence; Z79.01 Long term (current) use of anticoagulants; Z86.718 Personal history of other venous thrombosis and embolism; Z86.711 Personal history of pulmonary embolism
CPT/HCPCS: 00123; 36415; 74177; 80048; 80053; 83690; 85027; 86850; 86900; 86901; 93005; 96361; 96374; 96375; 96376; 99285; 71260; 83735; 84484; 85014; 85018; 85025; 93010; 94760; 99223; 99233; 99239; J0131; J1171; J2405; J2470; J3480; J3490; J7512

== ENCOUNTER 2025-01-26 09:28 | Emergency (ER) | payer MEDICAID, SELFPAY ==
[2025-01-26 09:43] VITALS: BP 168/98; PULSE 109; RESP 18; TEMP 36.8; O2SAT 98
[2025-01-26] MEDS: oxyCODONE 5 MG TAB PO (10:34)
[2025-01-26] MEDS: Ondansetron O.D.T. 4 MG TABEF PO (10:34)
--- NOTE | 2025-01-26 11:39 | ED.GENADUL_ITS ---
Discharge Plan Disposition Patient Disposition: Home Condition: Stable Discharge Details Clinical Impression: Abdominal pain, Acute on chronic pancreatitis, Nausea & vomiting Primary Care Provider: Basia Michele ED Provider: Niels Medeiros Home Meds and New Rx's Prescriptions: New ondansetron 4 mg tablet,disintegrating 4 mg PO Q8H PRNQty: 20 0RF Continued melatonin 1 mg Tablet 1 mg PO HS metoclopramide HCl 5 mg tablet 5 mg PO BID Patient Comments: TAKE ONE TABLET BY MOUTH TWICE A DAY Eliquis 5 mg tablet 5 mg PO BID Creon 12,000-38,000 -60,000 unit capsule,delayed release(DR/EC) 1 cap PO TID PRN prednisone 20 mg Tablet 40 mg PO DAILY Qty: 14 0RF pantoprazole [Protonix] 40 mg tablet,delayed release (DR/EC) 40 mg PO BID Qty: 60 0RF potassium chloride 10 mEq capsule, extended release 10 meq PO DAILY Qty: 8 0RF acetaminophen 500 mg capsule 1,000 mg PO QID Qty: 40 0RF Changed oxycodone 20 mg tablet 20 mg PO BID 5 Days Qty: 15 0RF Discharge Instructions Instructions: Acute pancreatitis Additional Instructions: Please maintain a clear liquid diet over the next 2 days. Advance your diet to soft bland foods like rice on day 3. Advance slowly thereafter as tolerated. Please follow-up with your primary care physician as scheduled later this week. Return to the emergency department immediately for any worsening or new concerni ng symptoms. Referrals: Basia Michele [Primary Care Provider] - [facility] General Mode of arrival: ambulatory . Date/Time Provider Initiated Documentation: 01/26/25 09:39 . Limitations to Documentation: no limitations . Information obtained by: patient . HPI Narrative: HISTORY OF PRESENT ILLNESS 29-year-old male with hx of pancreatitis, recently admitted for acute on chronic pancreatitis, DVT, and PE. Discharged after improved symptoms. Patient has been experiencing frequent vomiting and out of pain meds. No Zofran at discharge. One oxycodone tablet left. He is experiencing severe abdominal pain consistent with prior exacerbations of pancreatitis. PCP advised seeking ED care for additional meds until appointment. 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 Patient notes with prior exacerbations he has been able to manages condition with oral dissolving Zofran and oxycodone. Prescribed Reglan during hospital stay, initially effective but now out and vomiting resumed. Flare-ups sporadic, intervals from weeks to months. Related Data Home Medications ?Medication ?Instructions ?Recorded ?Confirmed melatonin 1 mg tablet 1 mg PO HS 04/03/23 01/26/25 apixaban 5 mg tablet (Eliquis) 5 mg PO BID 01/20/25 01/26/25 [id number] 1 cap PO TID PRN 01/20/25 01/26/25 12,000-38,000-60,000 unit capsule,delayed rel (Creon) metoclopramide HCl 5 mg tablet 5 mg PO BID 01/20/25 01/26/25 acetaminophen 500 mg capsule 1,000 mg (2 x 500 mg) PO QID #40 01/22/25 01/26/25 caps pantoprazole 40 mg tablet,delayed 40 mg PO BID #60 tabs 01/22/25 01/26/25 release (Protonix) potassium chloride 10 mEq 10 meq PO DAILY #8 caps 01/22/25 01/26/25 capsule,extended release prednisone 20 mg tablet 40 mg (2 x 20 mg) PO DAILY #14 tabs 01/22/25 01/26/25 ondansetron 4 mg disintegrating 4 mg PO Q8H PRN #20 tabs 01/26/25 tablet oxycodone 20 mg tablet 20 mg PO BID 5 days #15 tabs 01/26/25 Previous Rx's ?Medication ?Instructions ?Recorded acetaminophen 500 mg capsule 1,000 mg (2 x 500 mg) PO QID #40 01/22/25 caps pantoprazole 40 mg tablet,delayed 40 mg PO BID #60 tabs 01/22/25 release (Protonix) potassium chloride 10 mEq 10 meq PO DAILY #8 caps 01/22/25 capsule,extended release prednisone 20 mg tablet 40 mg (2 x 20 mg) PO DAILY #14 tabs 01/22/25 ondansetron 4 mg disintegrating 4 mg PO Q8H PRN #20 tabs 01/26/25 tablet oxycodone 20 mg tablet 20 mg PO BID 5 days #15 tabs 01/26/25 Allergies Allergy/AdvReac Type Severity Reaction Status Date / Time droperidol AdvReac Cardiac Unverified 01/26/25 09:48 Dysrhythmia haloperidol (From Haldol) AdvReac Diarrhea Unverified 01/26/25 09:48 General Stated Complaint: RX Refill PRITI: 4 Review of Systems All systems reviewed & are unremarkable except as noted in HPI and below Constitutional Constitutional: Denies fever(s) Gastrointestinal Gastrointestinal: Reports as per HPI Comments: Abdominal pain and symptoms typical for exacerbation of pancreatitis Exam Narrative Exam Narrative: PHYSICAL EXAM General Appearance: Appears uncomfortable. Well-nourished. Vital signs: Slight tachycardia. HEENT: Within normal limits. Respiratory: Lungs clear. Cardiovascular: Slight tachycardia. Regular rhythm. No murmur. Gastrointestinal: Abdomen soft, mid-abdominal tenderness, normal bowel sounds, nondistended, no mass. Skin: Warm and dry, no rash. Neurological: Normal. Course Vital Signs Vital signs: Vital Signs Temperature 36.8 C 01/26/25 09:43 Pulse 109 H 01/26/25 09:43 Respiratory Rate 18 01/26/25 09:43 Blood Pressure 168/98 H 01/26/25 09:43 Pulse Oximetry 98 01/26/25 09:43 Temperature 36.8 C 01/26/25 09:43 Temperature Source Oral 01/26/25 09:43 Pulse 109 H 01/26/25 09:43 Respiratory Rate 18 01/26/25 09:43 Blood Pressure 168/98 H 01/26/25 09:43 Blood Pressure Position Sitting 01/26/25 09:43 Pulse Oximetry 98 01/26/25 09:43 Oxygen Delivery Method Room Air 01/26/25 09:43 Oxygen Flow Rate 0 01/26/25 09:43 Pain Level 9 01/26/25 09:43 Medical Decision Making ASSESSMENT AND PLAN Initial Assessment: 29-year-old male with a history of acute on chronic pancreatitis, DVT, and pulmonary embolism. Recently discharged with insufficient medications, presenting with persistent pain, nausea, and vomiting. Requesting medication refill until can be seen by PCP. Differential Diagnosis: - Acute on chronic pancreatitis: Persistent pain and nausea, vomiting, appears dehydrated. Plan: Administer ondansetron ODT immediately, provide additional prescriptions for Zofran and oxycodone until . ED Course: - Refused IV fluids and IV antiemetics. - Trial of ondansetron ODT. Patient reassessed after Zofran and notes significant improvement in nausea. -I spoke with the patient's PCP. He has a follow-up appointment on the . She will be happy to assume care at that time. Final Assessment: Patient presents with acute on chronic pancreatitis, persistent pain, nausea, and vomiting. Refused IV fluids and antiemetics, prefers trial of ondansetron ODT. Administered ondansetron ODT and provided prescriptions for Zofran and oxycodone with decreased frequency until able to see PCP on . Patient was encouraged to maintain PCP appointment. Patient was encouraged to return immediately should he not tolerate oral fluids or has any other new or concerning symptoms. Usual and customary discharge instructions were reviewed. Patient requesting discharge. Patient stable at time of discharge. Clinical Impression: - Acute on chronic pancreatitis Disposition: - Follow-Up: PCP on Dr. Basia Michele on 01/28/2025. MDM Components Evaluation: - Number of Differential Diagnoses or Management Options: Acute on chronic pancreatitis - Amount and Complexity of Data Reviewed: Discharge summary, triage note, physical examination - Risk of Complication and Morbidity or Mortality: High risk due to history of pancreatitis, DVT, and pulmonary embolism, potential for dehydration and medication side effects. This document was written with the assistance of OCTAVIA Lima. The patient consented to its use. Quality:SDOH Health Related Social Needs: No Data to Display PFSH All Active Problems (Updated 01/26/25 @ 11:40 by Niels Medeiros MD) Nausea & vomiting (Acute) Acute on chronic pancreatitis (Acute) Abdominal pain (Acute) Hypokalemia (Acute) Acute on chronic pancreatitis (Acute) Obesity (Chronic) Dependence on nocturnal oxygen therapy (Acute) Obstructive sleep apnea (Chronic) Ground glass opacity present on imaging of lung (Acute) Hypertriglyceridemia (Acute) Acute pancreatitis (Acute) Medical History Duodenitis DVT (deep venous thrombosis) Pancreatitis Pulmonary embolism 2020 post COVID-19; finished 3 months of anticoagulation with eliquis Surgical History H/O esophagogastroduodenoscopy H/O tooth extraction History of biopsy negative retroperitoneal biopsy (ruled out retroperitoneal fibrosis) Hx of appendectomy S/P colonoscopy Family History Mother Heart disease Had stents placed in her 30s Diabetes Maternal Grandfather Stroke Hypertension Maternal Aunt Cancer brain cancer Maternal Cousin Lupus Father Crohn disease Social History Smoking/Tobacco Use Status: Former Tobacco Use tobacco type: cigarettes Pack- years: 1 Tobacco: How many years used: 3 Smoking risk assessment performed?: Yes Alcohol Intake: former Drug use: Never Substance use type: does not use Do you feel safe at home: Yes Do you feel safe in your relationship?: Yes
== END 2025-01-26 11:53 | disposition home or self-care (01) ==
PROVIDERS: Emergency Provider Student in an Organized Health Care Education/Training Program; PCP Nurse Practitioner Family
DX: K85.90 Acute pancreatitis without necrosis or infection, unspecified (principal); Z86.718 Personal history of other venous thrombosis and embolism; Z86.711 Personal history of pulmonary embolism; Z79.01 Long term (current) use of anticoagulants
CPT/HCPCS: 99283

== ENCOUNTER 2025-02-05 14:10 | Emergency (ER) | payer MEDICAID, SELFPAY ==
--- NOTE | 2025-02-05 14:00 | RT.EKG_ITS ---
APPROVED REPORT Exam: Resting ECG Reason for Exam: Patient Location: E HR:118 bpm ECG Measurements Heart Rate 118 AXIS CA 122 P 31 QRSd 97 QRS 41 QT 316 T 22 QTc 443 Conclusion Sinus tachycardia...rate> 99
[2025-02-05 14:20] VITALS: BP 131/86; PULSE 117; RESP 18; TEMP 36.9; O2SAT 96
--- NOTE | 2025-02-05 14:37 | ED.GENADUL_ITS ---
Discharge Plan Disposition Patient Disposition: Home Condition: Stable Discharge Details Clinical Impression: Chest pain, N&V (nausea and vomiting) Primary Care Provider: Basia Michele ED Provider: Adrian Ruiz [place] Meds and New Rx's Prescriptions: Continued melatonin 1 mg Tablet 1 mg PO HS metoclopramide HCl 5 mg tablet 5 mg PO BID Patient Comments: TAKE ONE TABLET BY MOUTH TWICE A DAY Eliquis 5 mg tablet 5 mg PO BID Creon 12,000-38,000 -60,000 unit capsule,delayed release(DR/EC) 1 cap PO TID PRN prednisone 20 mg Tablet 40 mg PO DAILY Qty: 14 0RF pantoprazole [Protonix] 40 mg tablet,delayed release (DR/EC) 40 mg PO BID Qty: 60 0RF potassium chloride 10 mEq capsule, extended release 10 meq PO DAILY Qty: 8 0RF acetaminophen 500 mg capsule 1,000 mg PO QID Qty: 40 0RF ondansetron 4 mg tablet,disintegrating 4 mg PO Q8H PRNQty: 20 0RF oxycodone 20 mg tablet 20 mg PO BID 5 Days Qty: 15 0RF Discharge Instructions Additional Instructions: Your blood work today was reassuring. Follow-up as scheduled with your primary care provider tomorrow. If you feel more ill or have severe worsening of your symptoms return to the emergency department for reevaluation HPI General Mode of arrival: ambulatory . Date/Time Provider Initiated Documentation: 02/05/25 14:16 . Limitations to Documentation: no limitations . Information obtained by: patient . History of Present Illness 29 year old M presents to the emergency department with the chief complaint of n/v, described as moderate, Patient started experiencing this day(s) (1) and it has been constant. No relieving factors improve symptom(s), No exacerbating factors reported . Patient notes nausea/vomiting; denies shortness of breath. Patient did receive the following treatments prior to arrival, none Related Data Home Medications ?Medication ?Instructions ?Recorded ?Confirmed melatonin 1 mg tablet 1 mg PO HS 04/03/23 01/26/25 apixaban 5 mg tablet (Eliquis) 5 mg PO BID 01/20/25 01/26/25 [id number]-[id number] 1 cap PO TID PRN 01/20/25 01/26/25 12,000-38,000-60,000 unit capsule,delayed rel (Creon) metoclopramide HCl 5 mg tablet 5 mg PO BID 01/20/25 01/26/25 acetaminophen 500 mg capsule 1,000 mg (2 x 500 mg) PO QID #40 01/22/25 01/26/25 caps pantoprazole 40 mg tablet,delayed 40 mg PO BID #60 tabs 01/22/25 01/26/25 release (Protonix) potassium chloride 10 mEq 10 meq PO DAILY #8 caps 01/22/25 01/26/25 capsule,extended release prednisone 20 mg tablet 40 mg (2 x 20 mg) PO DAILY #14 tabs 01/22/25 01/26/25 ondansetron 4 mg disintegrating 4 mg PO Q8H PRN #20 tabs 01/26/25 tablet oxycodone 20 mg tablet 20 mg PO BID 5 days #15 tabs 01/26/25 Previous Rx's ?Medication ?Instructions ?Recorded acetaminophen 500 mg capsule 1,000 mg (2 x 500 mg) PO QID #40 01/22/25 caps pantoprazole 40 mg tablet,delayed 40 mg PO BID #60 tabs 01/22/25 release (Protonix) potassium chloride 10 mEq 10 meq PO DAILY #8 caps 01/22/25 capsule,extended release prednisone 20 mg tablet 40 mg (2 x 20 mg) PO DAILY #14 tabs 01/22/25 ondansetron 4 mg disintegrating 4 mg PO Q8H PRN #20 tabs 01/26/25 tablet oxycodone 20 mg tablet 20 mg PO BID 5 days #15 tabs 01/26/25 Allergies Allergy/AdvReac Type Severity Reaction Status Date / Time droperidol AdvReac Cardiac Unverified 02/05/25 14:24 Dysrhythmia haloperidol (From Haldol) AdvReac Diarrhea Unverified 02/05/25 14:24 General Stated Complaint: Abd Prob PRITI: 3 Review of Systems All systems reviewed & are unremarkable except as noted in HPI and below Constitutional Constitutional: Denies chills, Denies fever(s) and Denies weakness Cardiovascular Cardiovascular: Denies chest pain and Denies dyspnea Respiratory Respiratory: Denies cough and Denies dyspnea Gastrointestinal Gastrointestinal: Reports abdominal pain, Reports nausea and Reports vomiting Musculoskeletal Musculoskeletal: Denies joint swelling Neurologic Neurologic: Denies weakness Exam Const General: no acute distress Orientation: alert HENOH Head: normal to inspection Ears: external ears normal General nose exam: external nose normal Mouth: moist mucous membranes Eyes General: appearance normal, both eyes and all related structures Neck Neck: normal visual inspection Resp Effort & Inspection: normal respiratory effort and able to speak in complete sentences Auscultation: clear to auscultation bilaterally Cardio Jugular venous pressure: no JVD Rate: regular rate Heart Sounds: no murmurs GI Palpation: soft and tender Skin General skin exam: no rashes or lesions noted Neuro General: patient alert and patient oriented x3 Extrem General: normal to inspection Psych Mental Status: mental status grossly normal Course Vital Signs Vital signs: Vital Signs Temperature 36.9 C 02/05/25 14:20 Pulse 117 H 02/05/25 14:20 Respiratory Rate 18 02/05/25 14:20 Blood Pressure 131/86 02/05/25 14:20 Pulse Oximetry 96 02/05/25 14:20 Temperature 36.9 C 02/05/25 14:20 Pulse 117 H 02/05/25 14:20 Respiratory Rate 18 02/05/25 14:20 Blood Pressure 131/86 02/05/25 14:20 Pulse Oximetry 96 02/05/25 14:20 Medical Decision Making 29-year-old male with a history of pancreatitis, PE on Eliquis, autoimmune vasculitis who comes in with nausea vomiting started last night. He was admitted for an acute episode of pancreatitis a week ago. He says this feels similar. He says that when he vomits he has some chest burning otherwise without any chest pain. He he also notes some intermittent mid abdominal pain. He is stable on arrival. He does appear dehydrated with dry mucous membranes. He has a soft nontender abdomen currently. Given his history we will check a CBC, CMP and lipase. He did state that he had small streaks of blood somewhat when he was here last time which I suspect is Ray Mullen tear. Will treat with Protonix and reassess. Given lack of abdominal tenderness currently we will hold off on a CT of his abdomen pelvis. Patient's labs unremarkable other then milk leukocytosis to 15, was given another 2 mg of Dilaudid and his pain is now controllable. Discussed results with him and offered observation admission but he prefers to be discharged to follow-up with his PCP as scheduled tomorrow. Given the reassuring lab workup I feel this is reasonable. Return precautions given Differential Diagnosis Differential Diagnosis: Pancreatitis, Dea-Mullen tears Medical Records Medical records reviewed: Yes I reviewed the patient's medical records. Lab Data Lab results reviewed: Yes I reviewed the patient's lab results. ECG Data Attestation: I personally reviewed and interpreted this ECG (s) as follows: Prior ECG tracings: available for review Interpretation: sinus tachycardia rate of 118 no stemi Quality:SDOH Health Related Social Needs: No Data to Display PFSH All Active Problems (Updated 02/05/25 @ 16:48 by Adrian Ruiz MD) N&V (nausea and vomiting) (Acute) Chest pain (Acute) Nausea & vomiting (Acute) Acute on chronic pancreatitis (Acute) Abdominal pain (Acute) Hypokalemia (Acute) Acute on chronic pancreatitis (Acute) Obesity (Chronic) Dependence on nocturnal oxygen therapy (Acute) Obstructive sleep apnea (Chronic) Ground glass opacity present on imaging of lung (Acute) Hypertriglyceridemia (Acute) Acute pancreatitis (Acute) Medical History Duodenitis DVT (deep venous thrombosis) Pancreatitis Pulmonary embolism 2020 post COVID-19; finished 3 months of anticoagulation with eliquis Surgical History H/O esophagogastroduodenoscopy H/O tooth extraction History of biopsy negative retroperitoneal biopsy (ruled out retroperitoneal fibrosis) Hx of appendectomy S/P colonoscopy Family History Mother Heart disease Had stents placed in her 30s Diabetes Maternal Grandfather Stroke Hypertension Maternal Aunt Cancer brain cancer Maternal Cousin Lupus Father Crohn disease Social History Smoking/Tobacco Use Status: Former Tobacco Use tobacco type: cigarettes Pack- years: 1 Tobacco: How many years used: 3 Smoking risk assessment performed?: Yes Alcohol Intake: former Drug use: Never Substance use type: does not use Do you feel safe at home: Yes Do you feel safe in your relationship?: Yes
[2025-02-05] MEDS: Pantoprazole 40 MG VIAL IVP (15:27)
[2025-02-05] MEDS: Metoclopramide 10 MG/2 ML VIAL IVP (15:27)
[2025-02-05] MEDS: HYDROmorphone 2 MG/ML SYR 1 MG IVP (15:28)
[2025-02-05 15:29] LABS: Abs Immature Grans 0.14 10^3/uL (0.0-0.06); Absolute Basophil Count 0.06 10^3/uL (0.0-0.2); Absolute Eosinophil Count 0.03 10^3/uL (0.0-0.7); Absolute Lymphocyte Count 0.94 10^3/uL (1.2-3.4); Basophils % 0.4 %; Eosinophils % 0.2 %; Immature Grans % 0.9 %; MCH 29.4 pg (27.0-33.0); MCV 86 fL (80-95); MPV 9.2 fL (8.0-11.0); Monocytes % 4.3 %; Neutrophils % 88.2 %; Platelet Count 301 10^3/uL (130-400); RBC 5.44 10^6/uL (4.36-5.78); RDW 13.9 % (11.8-14.1); RDW-SD 43.8 fL; WBC 15.72 10^3/uL (4.4-10.8)
[2025-02-05 15:30] LABS: Absolute Monocyte Count 0.68 10^3/uL (0.1-0.8); Absolute Neutrophil Count 13.87 10^3/uL (1.2-6.7)
[2025-02-05] MEDS: Normal Saline 1,000 ML 1000 ML IV (15:30)
[2025-02-05 15:43] LABS: PTT Activated 26.1 sec (20.6-30.2)
[2025-02-05 15:49] LABS: ALT 20 U/L (16-63); Albumin 3.8 g/dL (3.4-5.0); Alkaline Phosphatase 69 U/L (46-116); BUN 13 mg/dL (7-18); Bilirubin, Total 0.6 mg/dL (0.2-1.0); CREATININE 0.8 mg/dL (0.70-1.30); Calcium 9.6 mg/dL (8.5-10.1); Chloride 102 mmol/L (98-107); Estimated GFR 121.34 (mL/min/1.73m2); Glucose 190 mg/dL (74-106); Lipase 50 U/L (<78); Magnesium 1.9 mg/dL; Potassium 4.4 mmol/L (3.5-5.1); Sodium 139 mmol/L (136-145); Total Protein 7.4 g/dL (6.4-8.2)
[2025-02-05 15:50] LABS: ETHANOL BLOOD < 3.0 mg/dL (<10); Troponin I < 4 ng/L (<or=76)
[2025-02-05 16:14] VITALS: BP 131/86; PULSE 117; RESP 18; TEMP 36.9; O2SAT 96
[2025-02-05 16:22] LABS: AST < 5 U/L (15-37)
[2025-02-05 16:31] LABS: Troponin I < 4 ng/L (<or=76)
[2025-02-05 16:33] VITALS: BP 150/103; PULSE 96; RESP 18; TEMP 37; O2SAT 99
[2025-02-05 16:38] LABS: Bilirubin, Direct 0.1 mg/dL (0.0-0.2)
[2025-02-05 16:41] LABS: Bilirubin Negative (Negative); Blood Negative (Negative); Clarity Clear (Clear); Glucose 100 mg/dL (Negative); Ketones Negative (Negative); Leukocyte Esterase Negative (Negative); Nitrite Negative (Negative); Urobilinogen 0.2 mg/dL (Up to 0.2)
[2025-02-05] MEDS: HYDROmorphone 2 MG/ML SYR IVP (16:43)
[2025-02-05 17:09] VITALS: BP 138/90; PULSE 94; RESP 16; TEMP 36.8; O2SAT 98
== END 2025-02-05 17:06 | disposition home or self-care (01) ==
PROVIDERS: Emergency Provider Emergency Medicine; PCP Nurse Practitioner Family
DX: R11.2 Nausea with vomiting, unspecified (principal); R07.9 Chest pain, unspecified
CPT/HCPCS: 36415; 80053; 83690; 93005; 96361; 96374; 96375; 96376; 99284; 80320; 81003; 82248; 83735; 84484; 85025; 85610; 85730; 93010; J1171; J2470; J2765

== ENCOUNTER 2025-02-22 16:44 | Emergency (ER) | payer MEDICAID, SELFPAY ==
--- NOTE | 2025-02-22 16:45 | RT.EKG_ITS ---
APPROVED REPORT Exam: Resting ECG Reason for Exam: tachycardia Patient Location: E HR:118 bpm ECG Measurements Heart Rate 118 AXIS RI 136 P 9 QRSd 102 QRS 36 QT 310 T 25 QTc 435 Conclusion Sinus tachycardia...rate> 99 limited 2/t artifact no clear ST segment or T wave abnormalities to suggest occlusive SD
[2025-02-22 16:49] VITALS: BP 149/110; PULSE 125; RESP 20; TEMP 36.8; O2SAT 98
[2025-02-22 17:10] VITALS: BP 149/110; PULSE 125; RESP 20; TEMP 36.8; O2SAT 98
[2025-02-22] MEDS: Lactated Ringers 1,000 ML 1000 ML IV (17:56)
[2025-02-22] MEDS: Prochlorperazine 10 MG/2 ML VIAL 5 MG IVP (17:57)
[2025-02-22] MEDS: HYDROmorphone 2 MG/ML SYR 1 MG IVP (17:57)
[2025-02-22 17:58] LABS: Abs Immature Grans 0.08 10^3/uL (0.0-0.06); Absolute Basophil Count 0.06 10^3/uL (0.0-0.2); Absolute Lymphocyte Count 1.18 10^3/uL (1.2-3.4); Absolute Monocyte Count 0.75 10^3/uL (0.1-0.8); Absolute Neutrophil Count 9.57 10^3/uL (1.2-6.7); Basophils % 0.5 %; Eosinophils % 0.3 %; HCT 45.9 % (40.0-50.0); Immature Grans % 0.7 %; Lymphocytes % 10.1 %; MCHC 32.7 % (32.0-36.0); MCV 89 fL (80-95); MPV 9.1 fL (8.0-11.0); Monocytes % 6.4 %; Platelet Count 245 10^3/uL (130-400); RBC 5.17 10^6/uL (4.36-5.78); RDW 13.7 % (11.8-14.1); RDW-SD 44.8 fL; WBC 11.67 10^3/uL (4.4-10.8)
[2025-02-22 17:59] LABS: Absolute Eosinophil Count 0.04 10^3/uL (0.0-0.7)
[2025-02-22 18:16] LABS: ALT 24 U/L (16-63); AST 9 U/L (15-37); Albumin 3.9 g/dL (3.4-5.0); Alkaline Phosphatase 60 U/L (46-116); Amylase 51 U/L (25-115); BUN 14 mg/dL (7-18); Bilirubin, Total 0.4 mg/dL (0.2-1.0); CREATININE 0.8 mg/dL (0.70-1.30); Calcium 9.5 mg/dL (8.5-10.1); Chloride 105 mmol/L (98-107); Estimated GFR 121.34 (mL/min/1.73m2); Glucose 162 mg/dL (74-106); Lipase 27 U/L (<78); Magnesium 2.1 mg/dL (1.8-2.4); Potassium 4.1 mmol/L (3.5-5.1); Sodium 139 mmol/L (136-145); Total Protein 7.4 g/dL (6.4-8.2)
[2025-02-22 18:17] LABS: Troponin I < 4 ng/L (<or=76)
[2025-02-22] MEDS: HYDROmorphone 2 MG/ML SYR IVP (18:17)
--- NOTE | 2025-02-22 20:01 | ED.GENADUL_ITS ---
Discharge Plan Disposition Patient Disposition: Home Discharge Details Clinical Impression: Abdominal pain, Opiate dependence Primary Care Provider: Basia Michele ED Provider: Noemí Marquez Home Meds and New Rx's Prescriptions: Continued melatonin 1 mg Tablet 1 mg PO HS metoclopramide HCl 5 mg tablet 5 mg PO BID Patient Comments: TAKE ONE TABLET BY MOUTH TWICE A DAY Eliquis 5 mg tablet 5 mg PO BID Creon 12,000-38,000 -60,000 unit capsule,delayed release(DR/EC) 1 cap PO TID PRN prednisone 20 mg Tablet 40 mg PO DAILY Qty: 14 0RF pantoprazole [Protonix] 40 mg tablet,delayed release (DR/EC) 40 mg PO BID Qty: 60 0RF potassium chloride 10 mEq capsule, extended release 10 meq PO DAILY Qty: 8 0RF acetaminophen 500 mg capsule 1,000 mg PO QID Qty: 40 0RF ondansetron 4 mg tablet,disintegrating 4 mg PO Q8H PRNQty: 20 0RF oxycodone 20 mg tablet 20 mg PO BID 5 Days Qty: 15 0RF Discharge Instructions Instructions: Abdominal Pain, Adult ED Additional Instructions: I am very concerned that you are addicted to opiate medications I've spoken with Dr Sneed and I recommend you follow-up with GI closely I see no evidence of pancreatitis at this time and I'm uncomfortable ordering more CT's secondary to the amount you have been irradiated I recommend follow-up with [facility] to help as needed to come off the oxycodone Please follow-up with your pcp Referrals: [facility] [Outside] - 1 day Basia Michele [Primary Care Provider] - 1 day HPI General Date/Time Provider Initiated Documentation: 02/22/25 16:54 . HPI Narrative: The patient is a 29-year-old male with a past medical history of autoimmune pancreatitis, pulmonary embolism, and deep vein thrombosis (DVT) on Eliquis, presenting with recurrent flare-ups of autoimmune hepatitis and pancreatitis. He does not consume alcohol. He was last evaluated at this facility on 03/09/2024, where he reported some improvement in his pain and was subsequently discharged. He followed up with his doctor, who prescribed additional oxycodone. However, the pain persisted, prompting his current visit. He has not consulted a pipe welder recently but has an appointment scheduled. Over the past 2 days, he has experienced nausea and vomiting but reports no fever, chills, blood in stool or vomit, rashes, or lesions. He was initially treated with 2 mg of Dilaudid, and labs, including amylase and lipase, were ordered, both of which were within normal limits. A review of his CT abdomen and pelvis from 01/21/2024 did not reveal significant acute abnormalities. The CT looked similar to all patient's additional left. The case was discussed with Dr. Jenkins, an on-call pipe welder at [facility], who reviewed Dr. Sneed's note. It appears that there is no history of actual diagnosed autoimmune hepatitis. He has not undergone genetic testing, and biopsies have been largely inconclusive. An extensive review of [place] PDMP indicates over 120 prescriptions for oxycodone, with the most recent 90 tablets filled on 02/10/2024. His reports have been reviewed, and he has multiple notes from different hospitals over the [facility] area, with multiple admissions. The note from 02/11/2024 from [facility] also raised concerns about the recurrence of visits and discontinuity of care. At that time, he was informed that multiple visits were too old. He expressed concerns about his opioid use and the possibility of an addiction to opiates, which he did not perceive as problematic. He requested discharge if unwilling to admit him. He stated that he is not an opioid addict, has a Romano catheter, and has been off these medications in the past and did fine. Notably, he suddenly jumps up from bed and takes all his IVs, is ambulatory without any difficulty, and is not in acute distress from an abdominal standpoint. There has been no vomiting throughout this encounter. Related Data Home Medications ?Medication ?Instructions ?Recorded ?Confirmed melatonin 1 mg tablet 1 mg PO HS 04/03/23 01/26/25 apixaban 5 mg tablet (Eliquis) 5 mg PO BID 01/20/25 01/26/25 [id number] 1 cap PO TID PRN 01/20/25 01/26/25 12,000-38,000-60,000 unit capsule,delayed rel (Creon) metoclopramide HCl 5 mg tablet 5 mg PO BID 01/20/25 01/26/25 acetaminophen 500 mg capsule 1,000 mg (2 x 500 mg) PO QID #40 01/22/25 01/26/25 caps pantoprazole 40 mg tablet,delayed 40 mg PO BID #60 tabs 01/22/25 01/26/25 release (Protonix) potassium chloride 10 mEq 10 meq PO DAILY #8 caps 01/22/25 01/26/25 capsule,extended release prednisone 20 mg tablet 40 mg (2 x 20 mg) PO DAILY #14 tabs 01/22/25 01/26/25 ondansetron 4 mg disintegrating 4 mg PO Q8H PRN #20 tabs 01/26/25 tablet oxycodone 20 mg tablet 20 mg PO BID 5 days #15 tabs 01/26/25 Previous Rx's ?Medication ?Instructions ?Recorded acetaminophen 500 mg capsule 1,000 mg (2 x 500 mg) PO QID #40 01/22/25 caps pantoprazole 40 mg tablet,delayed 40 mg PO BID #60 tabs 01/22/25 release (Protonix) potassium chloride 10 mEq 10 meq PO DAILY #8 caps 01/22/25 capsule,extended release prednisone 20 mg tablet 40 mg (2 x 20 mg) PO DAILY #14 tabs 01/22/25 ondansetron 4 mg disintegrating 4 mg PO Q8H PRN #20 tabs 01/26/25 tablet oxycodone 20 mg tablet 20 mg PO BID 5 days #15 tabs 01/26/25 Allergies Allergy/AdvReac Type Severity Reaction Status Date / Time droperidol AdvReac Cardiac Unverified 02/05/25 14:24 Dysrhythmia haloperidol (From Haldol) AdvReac Diarrhea Unverified 02/05/25 14:24 General Stated Complaint: Abd Prob PRITI: 2 Exam Narrative Exam Narrative: The patient is alert and oriented. There is no murmur in the heart. The patient is diaphoretic and tachycardic. With distraction, the patient's abdominal exam is benign. He has no CVA tenderness. There are no signs of track mayer on the skin. No rashes. The patient appears anxious on assessment. Course Vital Signs Vital signs: Vital Signs Temperature 36.8 C 02/22/25 16:49 Pulse 125 H 02/22/25 16:49 Respiratory Rate 20 02/22/25 16:49 Blood Pressure 149/110 H 02/22/25 16:49 Pulse Oximetry 98 02/22/25 16:49 Temperature 36.8 C 02/22/25 17:10 Temperature Source Temporal Artery Scan 02/22/25 17:10 Pulse 125 H 02/22/25 17:10 Respiratory Rate 20 02/22/25 17:10 Blood Pressure 149/110 H 02/22/25 17:10 Blood Pressure Position Supine 02/22/25 17:10 Pulse Oximetry 98 02/22/25 17:10 Oxygen Delivery Method Room Air 02/22/25 17:10 Oxygen Flow Rate 0 02/22/25 17:10 Pain Level 8 02/22/25 18:17 Lab/Test Results Lab/Test Results: Laboratory Tests Range/Units 02/22/25 02/22/25 02/22/25 17:04 17:50 17:50 WBC (4.4-10.8) 10^3/uL 11.67 H RBC (4.36-5.78) 10^6/uL 5.17 Hgb (13.5-17.5) g/dL 15.0 Hct (40.0-50.0) % 45.9 MCV (80-95) fL 89 MCH (27.0-33.0) pg 29.0 MCHC (32.0-36.0) % 32.7 RDW (11.8-14.1) % 13.7 Plt Count (130-400) 10^3/uL 245 MPV (8.0-11.0) fL 9.1 Immature Gran % % 0.7 Neutrophils % % 82.0 Lymphocytes % % 10.1 Monocytes % % 6.4 Eosinophils % % 0.3 Basophils % % 0.5 Nucleated RBC % (0.0-0.3) % 0.0 Absolute Neutrophils (1.2-6.7) 10^3/uL 9.57 H Absolute Lymphocytes (1.2-3.4) 10^3/uL 1.18 L Absolute Monocytes (0.1-0.8) 10^3/uL 0.75 Absolute Eosinophils (0.0-0.7) 10^3/uL 0.04 Absolute Basophils (0.0-0.2) 10^3/uL 0.06 Sodium (136-145) mmol/L 139 Potassium (3.5-5.1) mmol/L 4.1 Chloride (98-107) mmol/L 105 Carbon Dioxide (21.0-32.0) mmol/L 26.0 Anion Gap (3-11) mmol/L 8.0 BUN (7-18) mg/dL 14 Creatinine (0.70-1.30) mg/dL 0.8 Est GFR (CKD-EPI 2020) (mL/min/1.73m2) 121.34 Glucose (74-106) mg/dL 162 H Calcium (8.5-10.1) mg/dL 9.5 Magnesium Cancelled 2.1 Total Bilirubin (0.2-1.0) mg/dL 0.4 AST (15-37) U/L 9 L ALT (16-63) U/L 24 Alkaline Phosphatase (46-116) U/L 60 Troponin I (<or=76) ng/L < 4 Cancelled Total Protein (6.4-8.2) g/dL 7.4 Albumin (3.4-5.0) g/dL 3.9 Amylase (25-115) U/L 51 Lipase (<78) U/L 27 Range/Units 02/22/25 02/22/25 18:16 20:16 WBC (4.4-10.8) 10^3/uL RBC (4.36-5.78) 10^6/uL Hgb (13.5-17.5) g/dL Hct (40.0-50.0) % MCV (80-95) fL MCH (27.0-33.0) pg MCHC (32.0-36.0) % RDW (11.8-14.1) % Plt Count (130-400) 10^3/uL MPV (8.0-11.0) fL Immature Gran % % Neutrophils % % Lymphocytes % % Monocytes % % Eosinophils % % Basophils % % Nucleated RBC % (0.0-0.3) % Absolute Neutrophils (1.2-6.7) 10^3/uL Absolute Lymphocytes (1.2-3.4) 10^3/uL Absolute Monocytes (0.1-0.8) 10^3/uL Absolute Eosinophils (0.0-0.7) 10^3/uL Absolute Basophils (0.0-0.2) 10^3/uL Sodium (136-145) mmol/L Potassium (3.5-5.1) mmol/L Chloride (98-107) mmol/L Carbon Dioxide (21.0-32.0) mmol/L Anion Gap (3-11) mmol/L BUN (7-18) mg/dL Creatinine (0.70-1.30) mg/dL Est GFR (CKD-EPI 2020) (mL/min/1.73m2) Glucose (74-106) mg/dL Calcium (8.5-10.1) mg/dL Magnesium Total Bilirubin (0.2-1.0) mg/dL AST (15-37) U/L ALT (16-63) U/L Alkaline Phosphatase (46-116) U/L Troponin I (<or=76) ng/L Cancelled Cancelled Total Protein (6.4-8.2) g/dL Albumin (3.4-5.0) g/dL Amylase (25-115) U/L Lipase (<78) U/L Medical Decision Making Amylase and lipase within normal limits. CT abdomen and pelvis from 01/20/2025 showed no significant acute abnormality. Initial Assessment: 29-year-old male with history of autoimmune pancreatitis, pulmonary embolism, and DVT, on Eliquis, presents with recurrent autoimmune hepatitis and pancreatitis flares. Reports nausea and vomiting for the past 2 days, denies fever, chills, blood in stool or vomit, rashes or lesions. Diaphoretic and tachycardic, abdominal exam benign, no CVA tenderness, appears anxious, no murmur, no track mayer, no rashes. Differential Diagnosis: - Recurrent autoimmune hepatitis: History of autoimmune hepatitis, genetic testing and biopsies inconclusive. Discussed with Dr. Jenkins, no history of diagnosed autoimmune hepatitis. Treated with 2 mg Dilaudid for pain. Labs normal. CT abdomen and pelvis from 01/20/2025 showed no significant acute abnormalities. Referred to pipe welder at [facility] and primary care physician. - Pancreatitis flares: Recurrent pancreatitis flares. Treated with 2 mg Dilaudid for pain. Labs normal. CT abdomen and pelvis from 01/20/2025 showed no significant acute abnormalities. Advised to follow up with pipe welder. - Opioid use disorder: History of over 120 oxycodone prescriptions, 90 tablets filled on 02/09/2025. Concern regarding opioid use and potential addiction. Reports past cessation with no issues. Advised to discuss opioid use with primary care physician and pipe welder. ED Course: - Treated with 2 mg Dilaudid for pain. - Labs including amylase and lipase within normal limits. - Reviewed CT abdomen and pelvis from 01/20/2025, no significant acute abnormalities. - Discussed case with Dr. Jenkins, pipe welder. - Extensive review of PDMP, over 120 prescriptions for oxycodone, 90 tablets filled on 02/09/2025. - Reviewed note from February 09 from [facility], concern regarding recurrence of visits and discontinuity of care. - Patient ambulatory without difficulty, no acute distress from abdominal standpoint, no vomiting throughout encounter. Final Assessment: Patient presents with recurrent autoimmune hepatitis and pancreatitis flares, treated with Dilaudid, labs normal, CT abdomen and pelvis showed no significant acute abnormalities. Concern regarding opioid use disorder, extensive review of PDMP, advised to discuss opioid use with primary care physician and pipe welder. Clinical Impression: - Recurrent autoimmune hepatitis - Pancreatitis flares - Opioid use disorder Disposition: - Discharge - Follow-Up: Referred to pipe welder at [facility] and primary care physician. MDM Components Evaluation: - Number of Differential Diagnoses or Management Options: Recurrent autoimmune hepatitis, pancreatitis flares, opioid use disorder. - Amount and Complexity of Data Reviewed: Labs including amylase and lipase, CT abdomen and pelvis, PDMP, note from February 09 from [facility], discussion with Dr. Jenkins. - Risk of Complication and Morbidity or Mortality: Potential complications from untreated autoimmune hepatitis and pancreatitis, risk of opioid addiction and related morbidity. Quality:SDOH Health Related Social Needs: No Data to Display PFSH All Active Problems (Updated 02/22/25 @ 18:51 by GREGG Stevenson) Opiate dependence (Acute) Abdominal pain (Acute) N&V (nausea and vomiting) (Acute) Chest pain (Acute) Nausea & vomiting (Acute) Acute on chronic pancreatitis (Acute) Abdominal pain (Acute) Hypokalemia (Acute) Acute on chronic pancreatitis (Acute) Obesity (Chronic) Dependence on nocturnal oxygen therapy (Acute) Obstructive sleep apnea (Chronic) Ground glass opacity present on imaging of lung (Acute) Hypertriglyceridemia (Acute) Acute pancreatitis (Acute) Medical History Duodenitis DVT (deep venous thrombosis) Pancreatitis Pulmonary embolism 2020 post COVID-19; finished 3 months of anticoagulation with eliquis Surgical History H/O esophagogastroduodenoscopy H/O tooth extraction History of biopsy negative retroperitoneal biopsy (ruled out retroperitoneal fibrosis) Hx of appendectomy S/P colonoscopy Family History Mother Heart disease Had stents placed in her 30s Diabetes Maternal Grandfather Stroke Hypertension Maternal Aunt Cancer brain cancer Maternal Cousin Lupus Father Crohn disease Social History Smoking/Tobacco Use Status: Former Tobacco Use tobacco type: cigarettes Pack- years: 1 Tobacco: How many years used: 3 Smoking risk assessment performed?: Yes Alcohol Intake: former Drug use: Never Substance use type: does not use Do you feel safe at home: Yes Do you feel safe in your relationship?: Yes
== END 2025-02-22 19:06 | disposition home or self-care (01) ==
PROVIDERS: Emergency Provider Physician Assistant; PCP Nurse Practitioner Family
DX: R10.9 Unspecified abdominal pain (principal); F11.20 Opioid dependence, uncomplicated; R11.2 Nausea with vomiting, unspecified
CPT/HCPCS: 36415; 80053; 83690; 87040; 93005; 96374; 96375; 96376; 99284; 82150; 83735; 84484; 85025; 93010; J0780; J1171